=== PATIENT | female | born 1960 | race Caucasian/White ===

== ENCOUNTER → 2016-02-19 | Outpatient (CLI) | payer MEDICAID ==
--- NOTE | 2016-02-19 18:05 | MR ---
Unenhanced MRI of the Brain Clinical History: 55-year-old female with a history of seizures. Technique: Sagittal and axial T1 FLAIR, axial SWI, T2 FLAIR, T2 propeller, DWI and ADC imaging of the brain, sagittal T2 cube and coronal T2 FLAIR sequences are also provided. Comparison Studies: Unenhanced CT scan of the brain dated October 13, 2015, May 20, 2014, and 2012, as well as MR imaging of the brain dated January 02, 2013. Findings: There is mild prominence of the ventricles and basilar cisterns with cortical sulcal wideni ng (given the patient's age of 55 years), consistent with some accelerated atrophy. There is no midli ne shift, or other evidence of mass effect. There is no acute or subacute abnormal intra- or extra-ax ial fluid collection. The SWI sequences do not reveal any blooming artifact to suggest occult hemorrh agic products or amyloid angiopathy. There is no restricted diffusion to suggest acute or subacute in farction. There are some rare left frontal subcortical white matter punctate hyperintensities, which are stable from the prior MR exam, and there is also some chronic white matter change associated with the central aspect of the joseline. There is a mild degree of cerebellar atrophy. The cerebellopontine a ngles and internal auditory canals appear normal, and the mastoids are patent, as are the paranasal s inuses. The craniocervical junction, pineal gland, and orbits are normal. There is mild pituitary hyp erplasia, stable from previous exam. There are appropriate vertebrobasilar, carotid artery, and dural venous sinus flow-voids. The temporal lobes are symmetrical, with no mesial temporal sclerosis appre ciated. Impression: 1. Mildly accelerated atrophy for a 55-year-old. 2. Minimal nonspecific white matter changes in the left frontal subcortex and central joseline. 3. Mild pituitary hyperplasia, unchanged from 2013.
== END ==
LOC: FIMAGING 12:00
PROVIDERS: ATTEND Psychiatry & Neurology Neurology
DX: G31.9 Degenerative disease of nervous system, unspecified (principal)

== ENCOUNTER 2016-04-03 07:46 | Emergency (ER) | payer MEDICAID ==
[2016-04-03 08:04] VITALS: BP 105/90; PULSE 89; RESP 16; TEMP 97.2; O2SAT 94
--- NOTE | 2016-04-03 08:24 | EDPHY ---
H & P Stated Complaint: R LOWER JAW/MOUTH PAIN X2-3 WEEKS, POSSIBLE INFXN HPI/ROS: Chief complaint: Dental abscess History of present illness: This is a 55-year-old female who presents to the emergency department concerned she has a dental abscess. Patient reports she has had problems with her right lower molars for a long time. She states over the last 2 months she has had increased pain in the right lower molar region. She has had associated increasing swelling. Symptoms have been slowly worsening. She has used [id number] pain medications with minimal improvement. She denies other associated signs or symptoms including no fevers , no difficulty opening or closing the mouth, no difficulty swallowing, no difficulty breathing and no swelling of the face or neck. She has not seen a dentist for this problem as of yet. - Personal History LMP (Females 10-55): Post Menopausal Current Tetanus/Diphtheria Vaccine: Yes Current Tetanus Diphtheria and Acellular Pertussis (TDAP): Yes Tetanus Vaccine Date: 2014 - Medical/Surgical History Hx Asthma: No Hx Chronic Respiratory Disease: No Hx Diabetes: No Hx Cardiac Disease: No Hx Renal Disease: No Hx Cirrhosis: No Hx Alcoholism: Yes Hx HIV/AIDS: No Hx Splenectomy or Spleen Trauma: No Other PMH: MEDICAL SEIZURE, DEPRESSION. SURGERY TONSILLECTOMY. ETOH abuse - Social History Smoking Status: Current every day smoker - Physical Exam Exam: General Appearance: Alert, nontoxic. Eyes: Pupils equal and round no injection. ENT: Tympanic membranes, external auditory canals, external ears and surrounding soft tissue including over the mastoids are unremarkable. Nasopharynx is not injected. There is no rhinorrhea. Mouth with poor dental hygiene. Multiple missing molars and cracked and decayed teeth. Significantly eroded right lower 1st molar. There is significant surrounding edema. There is no pustular discharge. Oropharynx is not injected. There is no edema. There is no exudate. There is no asymmetry. The uvula is midline. No elevation of the tongue. There is no hoarseness, no drooling, no trismus, no stridor. Respiratory: Chest is non tender, lungs are clear to auscultation. Cardiac: regular rate and rhythm Musculoskeletal: Neck is supple and non tender. Extremities have full range of motion and are non tender. Skin: No erythema or edema of the face or neck. Constitutional: Initial Vital Signs Temperature (C) 36.2 C 02/26/17 07:50 Heart Rate 89 04/03/16 07:50 Respiratory Rate 16 04/03/16 07:50 Blood Pressure 105/90 H 04/03/16 07:50 O2 Sat (%) 94 04/03/16 07:50 O2 Delivery Mode Room Air Allergies/Adverse Reactions: No Known Allergies Allergy (Verified 10/13/15 15:45) Home Medications: Medication Instructions Recorded Baclofen [Baclofen 10 mg (*)] 10 mg PO BID 10/14/15 FLUoxetine [Prozac 20 MG (*)] 20 mg PO DAILY 10/14/15 levETIRAcetam [Keppra 500 mg (*)] 500 mg PO BID #60 tab 10/16/15 Amoxicillin Trihydrate 500 mg PO Q8 7 Days 04/03/16 [Amoxicillin 500mg cap] Hydrocodone/APAP 5/325 [[place] 1 tab PO Q4 #10 tab 04/03/16 5/325 (*)] Medical Decision Making ED Course/Re-evaluation: Patient seen under the supervision of my secondary supervising physician Dr. Hao Cowart. Patient presents to the emergency department for evaluation and treatment of pain and swelling around her right lower 1st molar. I do believe she has a periodontal infection. I do not appreciate evidence of complications such as compromise of her esophagus or airway. She is started on antibiotics. Dental hygiene is discussed. Pain management is discussed. She is asked to follow up with a dentist for continued evaluation and care and referral information is provided. Strict return precautions were given. Patient voiced understanding and agreement with plan. Differential Diagnosis: Included but not limited to dental parminder, dental abscess, necrotizing gingivitis , osteomyelitis Departure - Departure Disposition: Home, Routine, Self-Care Clinical Impression: Dental abscess Condition: Good Instructions: Dental Abscess (ED) Additional Instructions: Follow-up with a dentist for continued evaluation and care Pressure teeth well and use mouthwash In regards to pain control see the following: Use ibuprofen 600 mg 3 times a day for the next 2-3 days for pain In addition You have been prescribed [place] for pain. [place] contains Tylenol, do not take extra Tylenol/acetaminophen/Apap with it. It is sedating. If symptoms worsen or new symptoms develop return to the emergency department for recheck Referrals: Radha Ramirez, [Primary Care Provider] - As per Instructions [facility] [Outside] - As per Instructions [facility] [Outside] - As per Instructions [facility] [Outside] - As per Instructions Dental [address] [Outside] - As per Instructions [facility] [Outside] - As per Instructions Prescriptions: Amoxicillin Trihydrate [Amoxicillin 500mg cap] 500 mg PO Q8 7 Days Hydrocodone/APAP 5/325 [[place] 5/325 (*)] 1 tab PO Q4 #10 tab
== END 2016-04-03 08:32 | disposition home or self-care (01) ==
LOC: EEVIPCON 07:46
DX: K04.7 Periapical abscess without sinus (principal); F17.200 Nicotine dependence, unspecified, uncomplicated

== ENCOUNTER 2016-04-13 09:43 | Inpatient (IN) | payer MEDICAID ==
[2016-04-13] MEDS ORDERED: LORazepam 2 MG/ML INJ ONE (09:58)
[2016-04-13] MEDS ORDERED: LORazepam 2 MG/ML INJ IVP ONE ×2 (10:09→13:22)
[2016-04-13] MEDS ORDERED: levETIRAcetam 500 MG in NS 100 ML IV ONE (10:10)
--- NOTE | 2016-04-13 10:11 | EDPHY ---
H & P Stated Complaint: SZ Time Seen by Provider: 04/13/16 09:58 HPI/ROS: CHIEF COMPLAINT: Seizures today HISTORY OF PRESENT ILLNESS: The patient presents to the ED after 2-3 seizures earlier today. The patient reportedly has been compliant with her regular gabapentin and Keppra. The patient does have a history of alcohol withdrawal seizure. The patient's reports that he believes that she has been sober since February but cannot be certain that the patient has not recently relapsed. The patient arrived in the ED and had another witnessed seizure by myself. She was unable to provide any additional history secondary to her current postictal state. REVIEW OF SYSTEMS: A comprehensive 10 point review of systems is unobtainable secondary to postictal state Source: Family - Personal History LMP (Females 10-55): Unknown Current Tetanus/Diphtheria Vaccine: Yes Current Tetanus Diphtheria and Acellular Pertussis (TDAP): Yes Tetanus Vaccine Date: 2014 - Medical/Surgical History Hx Asthma: No Hx Chronic Respiratory Disease: No Hx Diabetes: No Hx Cardiac Disease: No Hx Renal Disease: No Hx Cirrhosis: No Hx Alcoholism: Yes Hx HIV/AIDS: No Hx Splenectomy or Spleen Trauma: No Other PMH: MEDICAL SEIZURE, DEPRESSION. SURGERY TONSILLECTOMY. ETOH abuse - Social History Smoking Status: Current every day smoker - Physical Exam Exam: General Appearance: Alert, actively seizing Eyes: Pupils equal and round no pallor or injection ENT, Mouth: Mucous membranes moist Respiratory: There are no retractions, lungs are clear to auscultation Cardiovascular: Regular rate and rhythm Gastrointestinal: Abdomen is soft and nontender, no masses, bowel sounds normal Neurological: Moves all 4 extremities with 5/5 strength, unable to assess cranial nerves Skin: Warm and dry, no rashes Musculoskeletal: Neck is supple nontender Extremities: symmetrical, full range of motion Constitutional: Initial Vital Signs Temperature (C) 36.9 C 04/13/16 09:48 Heart Rate 90 04/13/16 09:48 Respiratory Rate 14 04/13/16 09:48 Blood Pressure 152/105 H 04/13/16 09:48 O2 Sat (%) 96 04/13/16 09:48 O2 Delivery Mode Room Air Allergies/Adverse Reactions: No Known Allergies Allergy (Verified 10/13/15 15:45) Home Medications: Medication Instructions Recorded Baclofen [Baclofen 10 mg (*)] 10 mg PO BID 10/14/15 FLUoxetine [Prozac 20 MG (*)] 20 mg PO DAILY 10/14/15 levETIRAcetam [Keppra 500 mg (*)] 500 mg PO BID #60 tab 10/16/15 Amoxicillin Trihydrate 500 mg PO Q8 7 Days 04/03/16 [Amoxicillin 500mg cap] Hydrocodone/APAP 5/325 [[place] 1 tab PO Q4 #10 tab 04/03/16 5/325 (*)] Medical Decision Making - Diagnostics Imaging: CT head without contrast: Negative for intracranial hemorrhage or acute finding. ED Course/Re-evaluation: The patient was placed on a monitor. Supplemental oxygen was administered. An IV has been established. 1 mg of IV Ativan and 500 mg of IV Keppra have been ordered intravenously. The patient did not have further seizure activity but continued to seem confused beyond atypical expected postictal state. For this reason, the patient did undergo a noncontrast head CT scan which was normal. Patient was re-evaluated at 1:15 p.m.. She continues to be quite confused. She is chewing on her oxygen tubing. The patient is tremulous. I do believe that she is experiencing alcohol withdrawal based upon her history. The patient will require admission to the hospital. I have reviewed her records and see that she has been admitted multiple times before in the past for similar presentation. Consultation is made with the hospitalist service at 1: 20 p.m.. The patient will be admitted by Dr. Rudi Mendez. Differential Diagnosis: Differential diagnosis considered includes alcohol withdrawal seizure, intracranial hemorrhage, status epilepticus, metabolic abnormality - Data Points Laboratory Results: Laboratory Results 04/13/16 10:20 04/13/16 10:20 04/13/16 04/13/16 10:20 10:20 WBC 6.77 10^3/uL 10^3/uL (3.80-9.50) RBC 4.43 10^6/uL 10^6/uL (4.18-5.33) Hgb 13.3 g/dL g/dL (12.6-16.3) Hct 40.0 % % (38.0-47.0) MCV 90.3 fL fL (81.5-99.8) MCH 30.0 pg pg (27.9-34.1) MCHC 33.3 g/dL g/dL (32.4-36.7) RDW 13.6 % % (11.5-15.2) Plt Count 172 10^3/uL 10^3/uL (150-400) MPV 9.6 fL fL (8.7-11.7) Neut % (Auto) 62.6 % % (39.3-74.2) Lymph % (Auto) 28.8 % % (15.0-45.0) [place]ady % (Auto) 7.1 % % (4.5-13.0) Eos % (Auto) 0.1 % L % (0.6-7.6) Baso % (Auto) 0.4 % % (0.3-1.7) Nucleat RBC Rel Count 0.0 % % (0.0-0.2) Absolute Neuts (auto) 4.23 10^3/uL 10^3/uL (1.70-6.50) Absolute Lymphs (auto) 1.95 10^3/uL 10^3/uL (1.00-3.00) Absolute Monos (auto) 0.48 10^3/uL 10^3/uL (0.30-0.80) Absolute Eos (auto) 0.01 10^3/uL L 10^3/uL (0.03-0.40) Absolute Basos (auto) 0.03 10^3/uL 10^3/uL (0.02-0.10) Absolute Nucleated RBC 0.00 10^3/uL 10^3/uL (0-0.01) Immature Gran % 1.0 % % (0.0-1.1) Immature Gran # 0.07 10^3/uL 10^3/uL (0.00-0.10) Sodium 138 mEq/L mEq/L (134-144) Potassium 4.3 mEq/L mEq/L (3.5-5.2) Chloride 99 mEq/L mEq/L (97-110) Carbon Dioxide 17 mEq/l L mEq/l (22-31) Anion Gap 22 mEq/L H mEq/L (8-16) BUN 8 mg/dL mg/dL (7-23) Creatinine 0.5 mg/dL L mg/dL (0.6-1.0) Estimated GFR > 60 Glucose 187 mg/dL H mg/dL (70-100) Calcium 9.6 mg/dL mg/dL (8.5-10.4) Medications Given: Discontinued Medications Levetiracetam 500 mg/ Sodium (Chloride) 105 mls @ 420 mls/hr IV EDNOW ONE Stop: 04/13/16 10:24 Last Admin: 04/13/16 10:50 Dose: 105 mls Lorazepam (Ativan Injection) 1 mg IVP EDNOW ONE Stop: 04/13/16 10:10 Last Admin: 04/13/16 10:15 Dose: 1 mg Departure - Departure Disposition: [facility] Inpatient Acute Clinical Impression: Seizure disorder, Alcohol withdrawal, Altered mental state Condition: Fair
[2016-04-13 10:37] LABS: ABSOLUTE IMMATURE GRANULOCYTES 0.07 10^3/uL (0.00-0.10); ADD DIFF? NO; ADD MORPH? NO; ADD SCAN? NO; ATYPICAL LYMPHOCYTE FLAG 30 (0-99); FRAGMENT RBC FLAG 0 (0-99); HEMOGLOBIN 13.3 g/dL (12.6-16.3); LEFT SHIFT FLG 10 (0-99); LIPEMIA HEMOLYSIS FLAG 80 (0-99); MEAN CELL HEMOGLOBIN CONCENTR. 33.3 g/dL (32.4-36.7); MEAN CELL VOLUME 90.3 fL (81.5-99.8); MEAN PLATELET VOLUME 9.6 fL (8.7-11.7); PLATELET CLUMPS FLAG 10 (0-99); PLATELET COUNT 172 10^3/uL (150-400); RED BLOOD CELL COUNT 4.43 10^6/uL (4.18-5.33); RED CELL DISTRIBUTION WIDTH 13.6 % (11.5-15.2)
[2016-04-13 11:01] LABS: ANION GAP 22 mEq/L (8-16); CALCIUM 9.6 mg/dL (8.5-10.4); CARBON DIOXIDE 17 mEq/l (22-31); CHLORIDE 99 mEq/L (97-110); CREATININE 0.5 mg/dL (0.6-1.0); GLOMERULAR FILTRATION RATE > 60; GLUCOSE 187 mg/dL (70-100); POTASSIUM 4.3 mEq/L (3.5-5.2); SODIUM 138 mEq/L (134-144)
[2016-04-13] MEDS ORDERED: NS 1,000 ML IV ONE (13:22)
[2016-04-13] MEDS ORDERED: THIAMINE HCL 500 MG in NS 100 ML IV ONE ×2 (14:07→15:30)
[2016-04-13] MEDS ORDERED: LORazepam 2 MG/ML INJ IVP PRN (14:07)
[2016-04-13] MEDS ORDERED: ACETAMINOPHEN 325 MG TAB PO PRN (14:11)
[2016-04-13] MEDS ORDERED: ONDANSETRON DISINTEGRATING 4 MG TAB PO PRN (14:11)
[2016-04-13] MEDS ORDERED: ONDANSETRON 4 MG/2 ML VIAL IVP PRN (14:11)
--- NOTE | 2016-04-13 14:50 | GHP ---
[f rep st] HISTORY AND PHYSICAL DATE OF ADMISSION: 04/13/2016 HISTORY OF PRESENT ILLNESS: The patient is a 55-year-old female with history of alcoholism and seizure disorder that is separate from alcohol use as well as medication noncompliance who presents with seizures. When I speak with the patient, she is postictal, actively stooling herself and unable to answer questions with much apparent insight. She has multiple pill bottles by her bedside, including a bottle of Keppra that was filled in December that should be well emptied by now and it is over 1/2 full with at least 100 tablets; it was filled for 180. Her Neurontin is also quite full. This is of course suggestive of medication noncompliance as well as some amoxicillin which she is taking for a tooth abscess. She denies headache, fever, chills, nausea, vomiting, and she states her alcohol use has been less. It has perhaps been 2 weeks since her last drink. REVIEW OF SYSTEMS: Complete 10-point review of systems conducted. Negative as noted in the HPI. PAST MEDICAL HISTORY: 1. Seizure disorder. 2. Medication noncompliance. 3. Alcoholism. 4. Recent abscess tooth. SOCIAL HISTORY: She is currently living with her sister. She smokes cigarettes. Alcohol as above. Denies street drugs. FAMILY HISTORY: Her brother of complications of a seizure disorder. MEDICATIONS: Keppra, Neurontin, amoxicillin, fluoxetine, [place]. ALLERGIES: No known drug allergies. PHYSICAL EXAM: VITAL SIGNS: Presenting blood pressure 152/105, pulse 92, breathing 14 times a minute, 96% on room air. GENERAL: No acute distress. HEENT: Sclerae anicteric. Oropharynx clear. Her right posterior molar is missing. There is an edematous gum, but it is nonerythematous. There is no foul breath or pus. NECK: Supple. No lymphadenopathy or JVD. LUNGS: Clear to auscultation bilaterally. HEART: S1, S2 without murmurs. ABDOMEN: Soft, nontender, nondistended. LOWER EXTREMITIES: No edema. Calves are nontender. SKIN: Without rash. NEUROLOGIC: Notable for postictal patient but otherwise nonfocal. LABS: White count 6.7, hematocrit 40, platelets are 172,000. History of normal coags, none today. Sodium 138, potassium 4.3, chloride 99, bicarb 17, BUN 8, creatinine 0.5, glucose 187, no LFTs. Noncontrast head CT shows small vessel changes but no acute bleed. I reviewed/interpreted the images myself, and I discussed the case with Dr. Luke Gonsalez. ASSESSMENT/PLAN: A 55-year-old female who presents with seizure. 1. Seizure. I suspect this is secondary to medication noncompliance given her history as well as inappropriately full medication bottles at the bedside. She is receiving Keppra in the emergency department. I will start her on IV Keppra. At this point in time, it is not clear if she can take orals. Will continue her Neurontin as well. 2. Anion gap metabolic acidosis. She is postictal. I expect this to improve. We will not perform further workup at this time unless there is a clinical status change. 3. Alcoholism. I will place her on CIWA protocol. However, I suspect that her seizure is not active alcohol withdrawal. Notably she is neither tachycardic, and while she was hypertensive on presentation, her blood pressure has come down. 4. Abscessed tooth. She received about 8 days of antibiotics. I will not continue them. She does not have a white count. 5. Diarrhea. Patient was having liquid diarrhea as I was seeing her, will send for Clostridium difficile. 6. Prophylaxis. Pharmacologic prophylaxis indicated with low-molecular heparin. DISPOSITION: Inpatient status. ADDENDUM: UPON ARRIVAL TO [facility], the patient became febrile and triggered sepsis screen. still unable to provide much history 1. cxr, UA, blood cx, influenza 2. awaiting cdiff 3. hold on broad spectrum abx given concern for possible cdiff /[id number]/MODL MTDD
[2016-04-13 14:51] LABS: BILIRUBIN,TOTAL 1.6 mg/dL (0.1-1.4); BILIRUBIN-CONJUGATED 0.6 mg/dL (0.0-0.5); TOTAL PROTEIN 8.7 g/dL (6.3-8.2)
[2016-04-13 17:32] LABS: INR 1.15 (0.83-1.16); PROTIME(PATIENT) 14.6 SEC (12.0-15.0)
[2016-04-13] MEDS: DEXMEDETOMIDINE HCL 400 MCG in NS 100 ML IV SCH (19:45)
[2016-04-13] MEDS: NS 1,000 ML IV SCH (19:45)
[2016-04-13] MEDS: GABAPENTIN 300 MG CAP PO SCH (21:03)
[2016-04-13] MEDS: LORazepam 2 MG/ML INJ IVP PRN (21:03)
[2016-04-13] MEDS: levETIRAcetam 500 MG in NS 100 ML IV SCH (21:06)
[2016-04-13] MEDS ORDERED: GABAPENTIN 300 MG CAP PO SCH (22:00)
[2016-04-14] MEDS: LORazepam 2 MG/ML INJ IVP PRN (02:16)
[2016-04-14] MEDS: DEXMEDETOMIDINE HCL 400 MCG in NS 100 ML IV SCH (02:41)
[2016-04-14] MEDS: NS 1,000 ML IV SCH (02:46)
[2016-04-14 04:43] LABS: ANION GAP 11 mEq/L (8-16); CALCIUM 8.8 mg/dL (8.5-10.4); CARBON DIOXIDE 21 mEq/l (22-31); CHLORIDE 103 mEq/L (97-110); CREATININE 0.4 mg/dL (0.6-1.0); GLOMERULAR FILTRATION RATE > 60; GLUCOSE 143 mg/dL (70-100); MAGNESIUM 1.5 mg/dL (1.6-2.3); POTASSIUM 3.5 mEq/L (3.5-5.2); SODIUM 135 mEq/L (134-144)
[2016-04-14 04:56] LABS: % IMMATURE GRANULYOCYTES 0.1 % (0.0-1.1); ABSOLUTE IMMATURE GRANULOCYTES 0.01 10^3/uL (0.00-0.10); ADD DIFF? NO; ADD MORPH? NO; ADD SCAN? NO; ATYPICAL LYMPHOCYTE FLAG 30 (0-99); FRAGMENT RBC FLAG 0 (0-99); HEMATOCRIT 33.7 % (38.0-47.0); LEFT SHIFT FLG 10 (0-99); LIPEMIA HEMOLYSIS FLAG 90 (0-99); MEAN CELL HEMOGLOBIN 30.4 pg (27.9-34.1); MEAN CELL HEMOGLOBIN CONCENTR. 35.6 g/dL (32.4-36.7); MEAN CELL VOLUME 85.3 fL (81.5-99.8); MEAN PLATELET VOLUME 9.4 fL (8.7-11.7); PLATELET CLUMPS FLAG 10 (0-99); PLATELET COUNT 122 10^3/uL (150-400); RED BLOOD CELL COUNT 3.95 10^6/uL (4.18-5.33); RED CELL DISTRIBUTION WIDTH 13.3 % (11.5-15.2)
[2016-04-14] MEDS: GABAPENTIN 300 MG CAP PO SCH ×2 (05:54→13:01)
[2016-04-14] MEDS: levETIRAcetam 500 MG in NS 100 ML IV SCH (08:19)
[2016-04-14] MEDS ORDERED: FLUoxetine 20 MG CAP PO SCH ×2 (09:00)
[2016-04-14] MEDS ORDERED: ENOXAPARIN 40 MG/0.4 ML SYR SC SCH (09:00)
[2016-04-14 12:08] VITALS: TEMP 98.7
--- NOTE | 2016-04-14 13:28 | PDCONSULT ---
[employer] Note: HOSPITAL NEUROLOGY CONSULT REQUESTING: Rafael Buck MD REASON: seizure HPI: This is a 55-year-old right-handed woman with a history of seizures and alcoholism who presented to our facility with multiple convulsions. She also had a witnessed convulsion in the emergency department. Patient is an unreliable historian as she is disoriented and actively confabulating. There is report that she has a seizure disorder that may be independent of her alcohol abuse. She had been taking levetiracetam 500 mg twice daily, however, it seems she has not been compliant with this as there is a medication bottle that is helpful from December of 2015. Same goes for gabapentin. Patient states that she has been compliant with her medication and when asked where she gets her medications filled she tells me she gets them " at [facility] where they have medicines, gas and electronics." It is unclear when she consumed her last alcoholic beverage-the patient states it was 1 week ago, but she is unreliable. There is no family or friends at bedside to provide any collateral history. She has been restarted on levetiracetam and gabapentin. She is currently on alcohol withdrawal precautions. She has been seizure free since admission to the floor. ROS: As per the HPI, otherwise a complete 12 point ROS was performed and is negative ALLERGIES AND MEDS: As recorded in the EMR - reviewed and reconciled PFSH: As per the intake H&P by Dr. Mendez from 04/12/16 EXAM: GEN: WDWN laying in NAD HEENT: NCAT, sclera anicteric, conjunctiva not injected, MMM, oropharynx clear, no scalp tenderness, no tongue laceration NECK: supple, nontender, no meningismus CV: RRR s1 s2 wo m/r/c/g. Carotid pulses 2+ wo bruit NEURO: MS: awake, alert, oriented to self only. She is impulsive, trying to exit the bed on multiple occasions despite being reminded not to do so. She has reduced attention. She is confabulating. Speech nondysarthric. No language disturbance. Follows commands with prompting. Attends to both sides. Memory is grossly impaired in casual conversation. Mood euthymic. Poor insight and judgement. No active hallucinations. CN: pupils 4mm round and reactive. Intolerant of fundoscopy. VFF. Primary gaze centered. Full ocular motility, though smooth pursuit with saccadic intrusion and motor impersistence. Facial sensation preserved. Face symmetric. Hearing grossly intact to finger rub. Palatoglossal movements intact. Shoulder shrug and head turn strong. MOTOR: normal bulk/tone. No adventitial movements. Full power throughout. SENSORY: intact to all modalities throughout. No extinction. COORD: no ataxia FN/HS. Harry preserved. REFLEX: plantars down. No clonus. DTRS 3/4. GAIT: deferred to PT safety eval DATA REVIEW: Labs reviewed in EMR PERSONALLY INTERPRETED RESULTS AND DATA: CT head wo shows global volume loss, nothing acute IMPRESSION AND RECOMMENDATIONS: // SEIZURES // ALCOHOL ABUSE // WERNICKE SPECTRUM DISORDER Patient with multiple convulsions on a background of alcohol abuse and a possible underlying primary epilepsy. She is clearly not compliant with her medication. Unclear if alcohol withdrawal is also a factor. She has been restarted on her prior antiseizure drug regimen. She is on a symptom-triggered alcohol withdrawal protocol. I would add multivitamin and thiamine supplements given her confabulation, disorientation which is highly suspect for Wernicke spectrum encephalopathy which is likely from the ravages of chronic and excessive alcohol consumption. She is likely going to need long-term placement given her cognitive status and medication noncompliance/inability to safely care for herself. Case discussed with Dr. Buck. Will sign off. Please recall PRN.
[2016-04-14] MEDS ORDERED: MULTIVITAMINS 1 EACH TAB PO SCH (13:30)
[2016-04-14] MEDS ORDERED: THIAMINE HCL 100 MG TAB PO SCH (13:30)
[2016-04-14 14:23] VITALS: BP 144/82; PULSE 75; RESP 23; O2SAT 98
[2016-04-14 14:35] LABS: COLOR PALE YELLOW; LEUKOCYTE ESTERASE,URINE NEGATIVE (NEGATIVE); NITRITE,URINE NEGATIVE (NEGATIVE)
--- NOTE | 2016-04-14 15:55 | PDDCSUM ---
Discharge Summary Discharge Summary: DISCHARGE SUMMARY FOLLOW-UP ITEMS: Outpatient mental health DATE OF ADMISSION: 04/13/16 DATE OF DISCHARGE: 04/14/2016 DISCHARGE DIAGNOSES: 1. Acute seizure 2. Acute alcohol abuse 3. Suspected Wernicke disorder CONSULTATIONS: Neurology PROCEDURES / IMAGING: Head CT demonstrating white matter disease comma chest x-ray with no focal pneumonia CHIEF COMPLAINT: Acute reported seizure SUBJECTIVE: Patient is feeling well at time of discharge, she is ambulating safely, she seems delusional but does not seem to be experiencing active psychosis or danger to self PHYSICAL EXAM ON DISCHARGE: Systolic blood pressure is 100, heart rate 70, afebrile, satting well on room air, alert awake oriented x3 with good concentration 08/12, cranial nerves 2-12 are intact and tested, motor strength 5/5 bilateral upper and lower extremities , lungs clear to auscultation bilaterally, the patient is delusional based on collateral information supplied by her partner and the patient is reporting details about her life that he reports are completely inaccurate, the patient also intermittently engages in inappropriate behavior during neurologic exam LABS ON DISCHARGE: Creatinine 0.4, potassium 3.5, AST 56, white blood cell count 8400, hemoglobin 12, flu PCR negative HOSPITAL COURSE BY PROBLEM: 1. Acute seizure. The patient presented with multiple convulsions with a background of alcohol abuse and possible underlying primary epilepsy with medication non adherence. Is also unclear whether acute alcohol withdrawal may have been a contributing factor although the patient did not present with significant alcohol withdrawal symptoms. The patient has clearly been non adherent to her home medications and we recommended that she reinitiate these. We re-initiated these and she did not experience any subsequent seizures. She was seen in consultation by Neurology data power consultant, and they recommended outpatient follow-up. 2. Alcohol abuse. Patient has a history of alcohol abuse and alcohol consumption may be contributing to her seizure disorder as well as her Wernicke spectrum disorder. Recommended alcohol cessation. She did not experience significant alcohol withdrawal. 3. Suspected Wernicke disorder. Evidenced by confabulation, disorientation, intermittent inappropriate behavior during our neurologic exam. She has a long history of excessive alcohol consumption and it is difficult to delineate her present state from either a work E spectrum disorder or an underlying untreated mental health disorder. Her partner reports fax which seemed to be quite contrary to what the patient is currently stating, raising the concern for delusional beliefs. That being said, the patient does not appear to be actively experiencing psychosis does not appear to be a grave danger to herself or others. The partner did request a psychiatric evaluation and I initiated 1 with our [facility] service. We were in the process of providing the patient with a mental health evaluation when the patient decided to leave against medical advice. Despite our recommendations that she received this mental health evaluation, patient has decided to leave and since she is not on M1 hold she will be allowed to do so at this time. Unfortunately the patient has no insight into her present condition and her partner reports that she is resistant to seeking a mental health care in the outpatient setting. We recommend that the time of her next presentation a mental health trigger be initiated earlier. DISCHARGE MEDICATIONS: Please see official discharge medication reconciliation sheet in chart , all of her home medications were continued. DISCHARGE INSTRUCTIONS: Patient should follow up with [facility]. TIME SPENT: Greater than 30 minutes were spent on direct patient care, as well as discharge planning and preparation.
== END 2016-04-14 15:21 | disposition left against medical advice (07) | DRG 101 ==
LOC: F2N 15:12
PROVIDERS: ADMIT Internal Medicine; ATTEND Internal Medicine
DX: G40.909 Epilepsy, unspecified, not intractable, without status epilepticus (principal); E87.2 Acidosis; F10.96 Alcohol use, unspecified with alcohol-induced persisting amnestic disorder; T42.6X6A Underdosing of other antiepileptic and sedative-hypnotic drugs, initial encounter; K04.7 Periapical abscess without sinus; R19.7 Diarrhea, unspecified; Z72.0 Tobacco use
CPT/HCPCS: 92523-GN; 96365; 97161-GP; 97165-GO; J1650; J1953; J3411

== ENCOUNTER 2016-07-09 12:09 | Emergency (ER) | payer MEDICAID ==
[2016-07-09 12:18] VITALS: RESP 18
--- NOTE | 2016-07-09 13:25 | EDPHY ---
H & P Time Seen by Provider: 07/09/16 12:55 HPI/ROS: CHIEF COMPLAINT: Seizure HISTORY OF PRESENT ILLNESS: Patient is a 55-year-old female who presents to the emergency department after having a seizure. Per report the patient recalls that she had a seizure. She has been drinking alcohol today. She drinks regularly. She denies any trauma. She has had no headache, neck pain or back pain. No chest pain or shortness of breath. No abdominal pain. REVIEW OF SYSTEMS: My complete review of systems is negative except as mentioned in the HPI. Past Medical/Surgical History: Includes alcohol abuse, seizure disorder, depression, tooth abscess Past surgical history: Includes tonsillectomy Social history: The patient is drinking alcohol today. Smoking Status: Current every day smoker Physical Exam: Vitals noted. The heart rate 88 GENERAL: Well-appearing, in no acute distress, alert. HEENT: Eyes normal to inspection, normal pharynx, no signs of dehydration. NECK: No thyromegaly, no lymphadenopathy, supple. RESPIRATORY: Clear to auscultation bilaterally, no rales, rhonchi or wheezing. CVS: Regular rate and rhythm, no rubs, murmurs, or gallops. ABDOMEN: Soft, nontender, nondistended, no organomegaly. Upon touching her sugar to perform the abdominal exam I found a bottle of vodka in her pants. This was removed. BACK: Normal to inspection, no CVA tenderness. SKIN: Normal color, no rash, warm, dry. No pallor. EXTREMITIES: No pedal edema, no calf tenderness, no Homans sign or cords, no joint swelling. NEURO/PSYCH: Alert and oriented x3, normal mood and affect, normal motor sensory exam. No obvious cranial nerve deficit. Constitutional: Initial Vital Signs Temperature (C) 36.9 C 07/09/16 12:09 Heart Rate 88 07/09/16 12:09 Respiratory Rate 18 07/09/16 12:09 Blood Pressure 112/71 07/09/16 12:09 O2 Sat (%) 91 L 07/09/16 12:09 O2 Delivery Mode Room Air Allergies/Adverse Reactions: No Known Allergies Allergy (Verified 10/13/15 15:45) Home Medications: Medication Instructions Recorded FLUoxetine [Prozac 20 MG (*)] 20 mg PO DAILY 10/14/15 levETIRAcetam [Keppra 500 mg (*)] 500 mg PO BID #60 tab 10/16/15 Gabapentin [Neurontin 300 MG (*)] 300 mg PO Q8HRS 04/13/16 Medical Decision Making ED Course/Re-evaluation: In the emergency department I discussed seizures with the patient. I also discussed alcohol abuse. Patient will be sent to the [facility]. She was able to ambulate. Differential Diagnosis: Patient reports drinking alcohol today. She has a history of seizures. She has no signs of trauma exam. I doubt subarachnoid, subdural hematoma or epidural hematoma. I doubt skull fracture or spinal injury. She has no signs of trauma on her chest abdomen or pelvis. She ambulates without difficulty. Departure - Departure Disposition: Home, Routine, Self-Care Clinical Impression: Alcohol abuse, Seizure Condition: Good Instructions: Epilepsy (ED), Abuse of Alcohol (ED) Additional Instructions: Return with worsening symptoms or any other concerns. Follow up with primary care physician. Referrals: [facility] [Other] - 2-3 days, if not improved
[2016-07-09 14:12] VITALS: BP 113/79; PULSE 82; TEMP 98.6; O2SAT 95
== END 2016-07-09 14:15 | disposition home or self-care (01) ==
LOC: EDUNIT#
DX: G40.909 Epilepsy, unspecified, not intractable, without status epilepticus (principal); F10.10 Alcohol abuse, uncomplicated; F17.200 Nicotine dependence, unspecified, uncomplicated

== ENCOUNTER 2016-08-03 09:05 | Emergency (ER) | payer MEDICAID ==
[2016-08-03] MEDS ORDERED: NS 1,000 ML IV ONE (09:14)
[2016-08-03] MEDS ORDERED: ONDANSETRON 4 MG/2 ML VIAL IVP ONE (09:14)
[2016-08-03] MEDS ORDERED: levETIRAcetam 1,000 MG in NS 100 ML IV ONE (09:18)
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
--- NOTE | 2016-08-03 09:30 | CPEKG ---
Heart Rate: 89 RR Interval: 674 P-R Interval: 176 QRSD Interval: 96 QT Interval: 412 QTC Interval: 502 P [place]: 44 QRS [place]: 38 T Wave [place]: 55 EKG Severity - BORDERLINE ECG - EKG Impression: SINUS RHYTHM EKG Impression: BORDERLINE PROLONGED QT INTERVAL Electronically Signed By: Prabha Ansari 03-Aug-2016 09:52:28
[2016-08-03 10:31] LABS: % IMMATURE GRANULYOCYTES 0.4 % (0.0-1.1); ABSOLUTE IMMATURE GRANULOCYTES 0.01 10^3/uL (0.00-0.10); ADD DIFF? NO; ADD MORPH? NO; ADD SCAN? NO; ATYPICAL LYMPHOCYTE FLAG 0 (0-99); FRAGMENT RBC FLAG 0 (0-99); HEMATOCRIT 39.8 % (38.0-47.0); HEMOGLOBIN 13.8 g/dL (12.6-16.3); LEFT SHIFT FLG 10 (0-99); LIPEMIA HEMOLYSIS FLAG 90 (0-99); MEAN CELL HEMOGLOBIN CONCENTR. 34.7 g/dL (32.4-36.7); MEAN CELL VOLUME 89.4 fL (81.5-99.8); MEAN PLATELET VOLUME 9.8 fL (8.7-11.7); PLATELET CLUMPS FLAG 60 (0-99); PLATELET COUNT 81 10^3/uL (150-400); RED BLOOD CELL COUNT 4.45 10^6/uL (4.18-5.33); RED CELL DISTRIBUTION WIDTH 17.5 % (11.5-15.2)
[2016-08-03 10:56] LABS: ANION GAP 22 mEq/L (8-16); CALCIUM 9.9 mg/dL (8.5-10.4); CARBON DIOXIDE 16 mEq/l (22-31); CHLORIDE 100 mEq/L (97-110); CREATININE 0.5 mg/dL (0.6-1.0); ETHANOL SERUM 12 mg/dL (0-10); GLOMERULAR FILTRATION RATE > 60; GLUCOSE 108 mg/dL (70-100); MAGNESIUM 1.3 mg/dL (1.6-2.3); POTASSIUM 3.7 mEq/L (3.5-5.2); SODIUM 138 mEq/L (134-144)
[2016-08-03] MEDS ORDERED: THIAMINE HCL 100 MG in NS 100 ML IV ONE (11:08)
[2016-08-03] MEDS ORDERED: MAGNESIUM SULF 1 GM/DEXTROSE 100 ML IV ONE (11:08)
[2016-08-03] MEDS ORDERED: FOLIC ACID 1 MG TAB PO ONE (11:10)
[2016-08-03 11:37] VITALS: O2SAT 94
[2016-08-03 11:41] LABS: COLOR YELLOW; LEUKOCYTE ESTERASE,URINE NEGATIVE (NEGATIVE); NITRITE,URINE NEGATIVE (NEGATIVE)
[2016-08-03 11:42] LABS: MUCUS 1+ /lpf (NONE-1+)
[2016-08-03 12:40] VITALS: BP 138/67; PULSE 81; RESP 18; TEMP 98.6
== END 2016-08-03 12:41 | disposition home or self-care (01) ==
LOC: EDUNIT#
DX: G40.909 Epilepsy, unspecified, not intractable, without status epilepticus (principal); F10.10 Alcohol abuse, uncomplicated; E83.42 Hypomagnesemia; E86.9 Volume depletion, unspecified
CPT/HCPCS: 80305; 96365; G0480; J1953; J2405; J3411; J3475

== ENCOUNTER 2016-08-05 09:09 | Emergency (ER) | payer MEDICAID ==
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
[2016-08-05] MEDS ORDERED: levETIRAcetam 500 MG in NS 100 ML IV ONE (09:34)
[2016-08-05 10:23] LABS: % IMMATURE GRANULYOCYTES 0.2 % (0.0-1.1); ABSOLUTE IMMATURE GRANULOCYTES 0.01 10^3/uL (0.00-0.10); ADD DIFF? NO; ADD MORPH? NO; ADD SCAN? NO; ATYPICAL LYMPHOCYTE FLAG 0 (0-99); FRAGMENT RBC FLAG 0 (0-99); HEMATOCRIT 38.6 % (38.0-47.0); HEMOGLOBIN 13.1 g/dL (12.6-16.3); LEFT SHIFT FLG 10 (0-99); LIPEMIA HEMOLYSIS FLAG 90 (0-99); MEAN CELL HEMOGLOBIN 31.3 pg (27.9-34.1); MEAN CELL HEMOGLOBIN CONCENTR. 33.9 g/dL (32.4-36.7); MEAN CELL VOLUME 92.3 fL (81.5-99.8); MEAN PLATELET VOLUME 10.4 fL (8.7-11.7); PLATELET CLUMPS FLAG 0 (0-99); PLATELET COUNT 81 10^3/uL (150-400); RED BLOOD CELL COUNT 4.18 10^6/uL (4.18-5.33); RED CELL DISTRIBUTION WIDTH 17.2 % (11.5-15.2)
[2016-08-05 10:37] LABS: ANION GAP 25 mEq/L (8-16); CARBON DIOXIDE 17 mEq/l (22-31); CHLORIDE 96 mEq/L (97-110); CREATININE 0.5 mg/dL (0.6-1.0); GLOMERULAR FILTRATION RATE > 60; GLUCOSE 77 mg/dL (70-100); SODIUM 138 mEq/L (134-144)
[2016-08-05] MEDS ORDERED: NS 1,000 ML IV ONE (10:44)
[2016-08-05 13:30] LABS: LEUKOCYTE ESTERASE,URINE NEGATIVE (NEGATIVE); NITRITE,URINE NEGATIVE (NEGATIVE)
[2016-08-05 13:31] LABS: COLOR YELLOW
[2016-08-05 13:38] LABS: MUCUS 2+ /lpf (NONE-1+)
[2016-08-05] MEDS ORDERED: POTASSIUM CL 20 MEQ TAB ONE (23:20)
[2016-08-05] MEDS ORDERED: POTASSIUM CL 20 MEQ TAB PO ONE (23:21)
[2016-08-05] MEDS ORDERED: LORazepam 1 MG TAB ONE (23:53)
[2016-08-05] MEDS ORDERED: LORazepam 1 MG TAB PO ONE (23:55)
[2016-08-06] MEDS ORDERED: POTASSIUM CL 20 MEQ TAB ONE (02:08)
[2016-08-06] MEDS ORDERED: POTASSIUM CL 20 MEQ TAB PO ONE (02:17)
[2016-08-06 09:16] LABS: POTASSIUM 4.4 mEq/L (3.5-5.2)
[2016-08-06] MEDS ORDERED: levETIRAcetam 500 MG TAB PO SCH (13:15)
[2016-08-06 18:34] VITALS: BP 133/90; PULSE 90; RESP 18; TEMP 98.6; O2SAT 99
== END 2016-08-06 18:34 | disposition home or self-care (01) ==
LOC: EDUNIT#
DX: F23 Brief psychotic disorder (principal); F17.200 Nicotine dependence, unspecified, uncomplicated
CPT/HCPCS: 80305; 96365; J1953

== ENCOUNTER 2016-08-07 20:33 | Emergency (ER) | payer MEDICAID ==
--- NOTE | 2016-08-07 20:46 | CPEKG ---
Heart Rate: 91 RR Interval: 659 P-R Interval: 168 QRSD Interval: 92 QT Interval: 368 QTC Interval: 453 P [place]: -11 QRS [place]: 49 T Wave [place]: 54 EKG Severity - OTHERWISE NORMAL ECG - EKG Impression: SINUS RHYTHM EKG Impression: LOW VOLTAGE IN FRONTAL LEADS Electronically Signed By: Samina Nelson 07-Aug-2016 22:59:05
[2016-08-07 21:18] LABS: % IMMATURE GRANULYOCYTES 0.3 % (0.0-1.1); ABSOLUTE IMMATURE GRANULOCYTES 0.01 10^3/uL (0.00-0.10); ADD DIFF? NO; ADD MORPH? NO; ADD SCAN? NO; ATYPICAL LYMPHOCYTE FLAG 0 (0-99); FRAGMENT RBC FLAG 0 (0-99); HEMOGLOBIN 13.5 g/dL (12.6-16.3); LEFT SHIFT FLG 0 (0-99); LIPEMIA HEMOLYSIS FLAG 90 (0-99); MEAN CELL HEMOGLOBIN 31.5 pg (27.9-34.1); MEAN CELL HEMOGLOBIN CONCENTR. 33.8 g/dL (32.4-36.7); MEAN CELL VOLUME 93.5 fL (81.5-99.8); MEAN PLATELET VOLUME 9.9 fL (8.7-11.7); PLATELET CLUMPS FLAG 30 (0-99); PLATELET COUNT 134 10^3/uL (150-400); RED BLOOD CELL COUNT 4.28 10^6/uL (4.18-5.33); RED CELL DISTRIBUTION WIDTH 17.6 % (11.5-15.2)
--- NOTE | 2016-08-07 21:20 | EDPHY ---
H & P Smoking Status: Current every day smoker Time Seen by Provider: 08/07/16 20:43 HPI/ROS: CHIEF COMPLAINT: Possible seizure HISTORY OF PRESENT ILLNESS: 56-year-old female presents to the emergency department by ambulance after possible seizure. Patient states "I know I had a seizure." The patient thinks that she bit her tongue. She says that she was incontinent of urine. There was no clear history by EMS that she had confusion or postictal state. She is complaining of pain in her left shoulder with movement. She denies chest pain or difficulty breathing. Denies headache. Denies abdominal pain. The patient states that she does drink alcohol but she limits herself to "2 drinks per week." She denies any other illicit drug use. She states that she has a seizure disorder and she takes prescribed medication for this. She does not know the name of this medication. REVIEW OF SYSTEMS: Constitutional: No fever, no chills. Eyes: No double or blurry vision. ENT: No sore throat. Respiratory: No cough, no shortness of breath. Cardiac: No chest pain. Gastrointestinal: No abdominal pain, vomiting or diarrhea. Genitourinary: No dysuria. Musculoskeletal: No neck or back pain. Skin: No rashes. Neurological: No headache. (Valeria Arias) Past Medical/Surgical History: Seizure, tonsillectomy, depression (Valeria Arias) Social History: (Valeria Arias) Physical Exam: General Appearance: Alert, no distress. Vital signs are stable. Eyes: Pupils equal and round. Extraocular motions are all intact. ENT: Mouth: Mucous membranes moist. No tongue abrasion or laceration. Respiratory: No wheezing, rhonchi, or rales, lungs are clear to auscultation. Cardiovascular: Regular rate and rhythm. Gastrointestinal: Abdomen is soft and nontender, no masses, no rebound or guarding, bowel sounds normal. Neurological: Alert and oriented x 3, cranial nerves II through XII grossly intact Skin: Warm and dry, no rashes. Musculoskeletal: Nontender to palpate along the cervical, thoracic or lumbar spine. Neck is supple. Extremities: Pain with movement of her left shoulder. Pump Servicer strength is equal for the upper extremities bilaterally. Full range of motion of her lower extremities and her right upper extremity. Full range of motion of her left wrist and left elbow. Psychiatric: Patient is oriented X 3, there is no agitation. (Valeria Arias) Constitutional: Initial Vital Signs Temperature (C) 36.0 C 08/07/16 20:33 Heart Rate 90 08/07/16 20:33 Respiratory Rate 16 08/07/16 20:33 Blood Pressure 110/76 08/07/16 20:33 O2 Sat (%) 99 08/07/16 20:33 O2 Delivery Mode Nasal Cannula O2 (L/minute) 2 Allergies/Adverse Reactions: No Known Allergies Allergy (Verified 08/03/16 09:12) Home Medications: Medication Instructions Recorded FLUoxetine [Prozac 20 MG (*)] 20 mg PO DAILY 10/14/15 Gabapentin [Neurontin 300 MG (*)] 300 mg PO Q8HRS 04/13/16 levETIRAcetam [Keppra 500 mg (*)] 500 mg PO BID #14 tab 08/03/16 levETIRAcetam [Keppra 500 mg (*)] 500 mg PO BID #14 tab 08/06/16 Medical Decision Making - Diagnostics Imaging Results: Imaging Impressions Shoulder X-Ray 08/07/16 21:12 Impression: Nothing acute identified. ED Course/Re-evaluation: The patient was evaluated and managed by the physician's front end assistant. My cosignature indicates that I reviewed the chart and I agree with the findings and plan of care as documented. I am the secondary supervising physician. ( Samina Nelson) The case was discussed with Dr. Samina Nelson, secondary supervising physician , who did not directly evaluate the patient but agrees with treatment and plan. Patient's initial sodium was 150. This was compared with her previous emergency department visit 2 days ago and was normal at 138. She received IV normal saline , 1 L, and then her chemistries were repeated. Her sodium was 148. ETOH 441. The patient was monitored throughout her entire stay in the emergency department. She had no recurring seizure activity. She pulled her IV out on her own. She is drinking p.o. fluids. [facility] Patient has no complaints upon discharge. She states "I feel pretty damn sober. "Verdana 4r (Valeria Arias) Differential Diagnosis: Seizure including but not limited to electrolyte abnormality, alcohol withdrawal , medication noncompliance, head injury, and breakthrough seizure. (Valeria Arias) - Data Points Laboratory Results: Laboratory Results 08/07/16 21:05 08/07/16 22:20 08/07/16 08/07/16 08/07/16 22:20 21:05 21:05 WBC 3.01 10^3/uL L 10^3/uL (3.80-9.50) RBC 4.28 10^6/uL 10^6/uL (4.18-5.33) Hgb 13.5 g/dL g/dL (12.6-16.3) Hct 40.0 % % (38.0-47.0) MCV 93.5 fL fL (81.5-99.8) MCH 31.5 pg pg (27.9-34.1) MCHC 33.8 g/dL g/dL (32.4-36.7) RDW 17.6 % H % (11.5-15.2) Plt Count 134 10^3/uL L D 10^3/uL (150-400) MPV 9.9 fL fL (8.7-11.7) Neut % (Auto) 25.3 % L % (39.3-74.2) Lymph % (Auto) 52.8 % H % (15.0-45.0) [place] % (Auto) 19.3 % H % (4.5-13.0) Eos % (Auto) 1.0 % % (0.6-7.6) Baso % (Auto) 1.3 % % (0.3-1.7) Nucleat RBC Rel Count 0.0 % % (0.0-0.2) Absolute Neuts (auto) 0.76 10^3/uL L 10^3/uL (1.70-6.50) Absolute Lymphs (auto) 1.59 10^3/uL 10^3/uL (1.00-3.00) Absolute Monos (auto) 0.58 10^3/uL 10^3/uL (0.30-0.80) Absolute Eos (auto) 0.03 10^3/uL 10^3/uL (0.03-0.40) Absolute Basos (auto) 0.04 10^3/uL 10^3/uL (0.02-0.10) Absolute Nucleated RBC 0.00 10^3/uL 10^3/uL (0-0.01) Immature Gran % 0.3 % % (0.0-1.1) Immature Gran # 0.01 10^3/uL 10^3/uL (0.00-0.10) Sodium 148 mEq/L H mEq/L 150 mEq/L H mEq/L (134-144) (134-144) Potassium 3.6 mEq/L mEq/L 3.6 mEq/L mEq/L (3.5-5.2) (3.5-5.2) Chloride 114 mEq/L H mEq/L 108 mEq/L D mEq/L (97-110) (97-110) Carbon Dioxide 23 mEq/l mEq/l 23 mEq/l D mEq/l (22-31) (22-31) Anion Gap 11 mEq/L mEq/L 19 mEq/L H mEq/L (8-16) (8-16) BUN 8 mg/dL mg/dL 9 mg/dL mg/dL (7-23) (7-23) Creatinine 0.4 mg/dL L mg/dL 0.5 mg/dL L mg/dL (0.6-1.0) (0.6-1.0) Estimated GFR > 60 > 60 Glucose 93 mg/dL mg/dL 103 mg/dL H mg/dL (70-100) (70-100) Calcium 8.3 mg/dL L mg/dL 9.6 mg/dL mg/dL (8.5-10.4) (8.5-10.4) Ethyl Alcohol 441 mg/dL H* mg/dL (0-10) Medications Given: Discontinued Medications Sodium Chloride (Ns) 1,000 mls @ 0 mls/hr IV ONCE ONE PRN Reason: Wide Open Stop: 08/07/16 21:34 Last Admin: 08/07/16 21:40 Dose: 1,000 mls Sodium Chloride (Ns) 1,000 mls @ 0 mls/hr IV ONCE ONE PRN Reason: Wide Open Stop: 08/07/16 22:59 Last Admin: 08/07/16 23:30 Dose: Not Given Departure - Departure Disposition: Home, Routine, Self-Care Clinical Impression: Possible seizure Alcohol intoxication Qualifiers: Complication of substance-induced condition: uncomplicated Qualified Code(s): F10.920 - Alcohol use, unspecified with intoxication, uncomplicated Condition: Good Instructions: Nonepileptic Seizures (ED), Alcohol Intoxication (ED) Additional Instructions: Continue medications as prescribed. You should not drive a car or operate machinery until cleared by your neurologist. Return to the emergency department if you develop recurring seizure or any other concerns. Referrals: [facility] [Outside] - As per Instructions
[2016-08-07 21:28] LABS: ANION GAP 19 mEq/L (8-16); CALCIUM 9.6 mg/dL (8.5-10.4); CARBON DIOXIDE 23 mEq/l (22-31); CHLORIDE 108 mEq/L (97-110); CREATININE 0.5 mg/dL (0.6-1.0); GLOMERULAR FILTRATION RATE > 60; GLUCOSE 103 mg/dL (70-100); POTASSIUM 3.6 mEq/L (3.5-5.2); SODIUM 150 mEq/L (134-144)
[2016-08-07] MEDS ORDERED: NS 1,000 ML IV ONE ×2 (21:33→22:58)
[2016-08-07 21:50] LABS: ETHANOL SERUM 441 mg/dL (0-10)
[2016-08-07 22:40] LABS: ANION GAP 11 mEq/L (8-16); CALCIUM 8.3 mg/dL (8.5-10.4); CARBON DIOXIDE 23 mEq/l (22-31); CHLORIDE 114 mEq/L (97-110); CREATININE 0.4 mg/dL (0.6-1.0); GLOMERULAR FILTRATION RATE > 60; GLUCOSE 93 mg/dL (70-100); POTASSIUM 3.6 mEq/L (3.5-5.2); SODIUM 148 mEq/L (134-144)
[2016-08-08] MEDS ORDERED: CHLORDIAZEPOXIDE 25MG PREPK#6 BTL TAKEHOME ONE (00:45)
[2016-08-08 00:53] VITALS: BP 133/77; PULSE 74; RESP 16; TEMP 97.9; O2SAT 96
== END 2016-08-08 00:57 | disposition home or self-care (01) ==
LOC: EDUNIT#
DX: F10.120 Alcohol abuse with intoxication, uncomplicated (principal); F17.200 Nicotine dependence, unspecified, uncomplicated
CPT/HCPCS: G0480

== ENCOUNTER 2016-08-08 19:18 | Emergency (ER) | payer MEDICAID ==
[2016-08-08 19:28] VITALS: TEMP 98.6
[2016-08-08] MEDS ORDERED: levETIRAcetam 1,000 MG in NS 100 ML IV ONE (19:36)
[2016-08-08] MEDS ORDERED: FLUoxetine 20 MG CAP PO ONE (19:36)
[2016-08-08] MEDS ORDERED: GABAPENTIN 300 MG CAP PO ONE (19:36)
--- NOTE | 2016-08-08 19:40 | EDPHY ---
H & P Time Seen by Provider: 08/08/16 19:30 HPI/ROS: CHIEF COMPLAINT: Medication refill request HISTORY OF PRESENT ILLNESS: 56-year-old homeless female history of depression, seizure, seen emergency department last evening and [facility], states that she lost her medications which are: Prozac 20 mg once daily Neurontin 300 mg 3 times daily Keppra 5 mg twice daily She has not taken any dosages today. No seizure today. No suicidal or homicidal ideation. Complaints of pain or discomfort. PRIMARY CARE PROVIDER: [facility] PHYSICAL EXAM (Prior to examination, patient consented to physical exam, hands were washed and my usual and customary physical exam procedures followed) 1) GENERAL: Well-developed, well-nourished, alert and oriented. Appears to be in no acute distress. 2) HEAD: Normocephalic 3) HEENT: sclera anicteric 4) LUNGS: Breathing comfortably. Smoking Status: Current every day smoker Constitutional: Initial Vital Signs Temperature (C) 37 C 08/08/16 19:26 Heart Rate 93 08/08/16 19:26 Respiratory Rate 16 08/08/16 19:26 Blood Pressure 119/66 08/08/16 19:26 O2 Sat (%) 94 08/08/16 19:26 O2 Delivery Mode Room Air Allergies/Adverse Reactions: No Known Allergies Allergy (Verified 08/08/16 19:26) Home Medications: Medication Instructions Recorded FLUoxetine [Prozac 20 MG (*)] 20 mg PO DAILY 10/14/15 Gabapentin [Neurontin 300 MG (*)] 300 mg PO Q8HRS 04/13/16 levETIRAcetam [Keppra 500 mg (*)] 500 mg PO BID #14 tab 08/03/16 levETIRAcetam [Keppra 500 mg (*)] 500 mg PO BID #14 tab 08/06/16 FLUoxetine [Prozac 20 MG (*)] 20 mg PO DAILY #3 cap 08/08/16 Gabapentin [Neurontin 300 MG (*)] 300 mg PO Q8 #9 cap 08/08/16 levETIRAcetam [Keppra 500 mg (*)] 500 mg PO BID #6 tab 08/08/16 MDM/Departure - MDM ED Course/Re-evaluation: Patient has been given her dose this evening of Prozac, Neurontin, Keppra. I have given her refill of these medications to last her 3 days as the 09 of August holiday is tomorrow. I recommend [facility] for further refills. - Depart Disposition: Home, Routine, Self-Care Clinical Impression: Refill clinic medication management patient Condition: Good Instructions: Medicine Refill (ED) Prescriptions: FLUoxetine [Prozac 20 MG (*)] 20 mg PO DAILY #3 cap Gabapentin [Neurontin 300 MG (*)] 300 mg PO Q8 #9 cap levETIRAcetam [Keppra 500 mg (*)] 500 mg PO BID #6 tab Referrals: Radha Ramirez DO [Primary Care Provider] - 1-2 days without fail
[2016-08-08] MEDS ORDERED: levETIRAcetam 500 MG TAB PO ONE (19:55)
[2016-08-08 20:09] VITALS: BP 126/72; PULSE 90; RESP 18; O2SAT 97
== END 2016-08-08 20:09 | disposition home or self-care (01) ==
DX: Z76.0 Encounter for issue of repeat prescription (principal); F17.200 Nicotine dependence, unspecified, uncomplicated
CPT/HCPCS: J1953

== ENCOUNTER 2016-08-10 22:22 | Emergency (ER) | payer MEDICAID ==
[2016-08-10] MEDS ORDERED: NS 1,000 ML IV ONE (22:27)
[2016-08-10] MEDS ORDERED: levETIRAcetam 1,000 MG in NS 100 ML IV ONE (22:30)
--- NOTE | 2016-08-10 22:30 | EDPHY ---
H & P HPI/ROS: HPI CHIEF COMPLAINT: Alcohol Intoxication, Left shoulder pain, fall, ?SZ HISTORY OF PRESENT ILLNESS: This patient 56-year-old female, presents emergency room by EMS after she was found on the sidewalk highly intoxicated with alcohol. She was brought in by EMS as a bystander called 911. She does tell EMS as well as me that she fell last night and injured her left shoulder. She has had ongoing left shoulder pain. She admits to drinking large amount of liquor tonight. Denies any other areas of injury or pain. Patient tells me she does not remember the seizure medications she takes and is not always compliant with them. Past Medical History: Alcoholism, homeless, seizure disorder on Keppra Past Surgical History: No recent surgery Social History: Homeless, daily alcohol use Family History: Noncontributory ROS REVIEW OF SYSTEMS: A comprehensive 10 point review of systems is otherwise negative aside from elements mentioned in the history of present illness. Exam Constitutional Intoxicated, triage nursing summary reviewed, vital signs reviewed, Sleepy, smells of alcohol Eyes normal conjunctivae and sclera, horizontal beating nystagmus consistent acute alcohol intoxication, otherwise pupils equal and react to light HENT normal inspection, atraumatic, moist mucus membranes, no epistaxis, neck supple/ no meningismus, no raccoon eyes. Respiratory clear to auscultation bilaterally, normal breath sounds, no respiratory distress, no wheezing. Cardiovascular rate normal, regular rhythm, no murmur, no edema, distal pulses normal. Gastrointestinal soft, non-tender, no rebound, no guarding, normal bowel sounds, no distension, no pulsatile mass. Genitourinary no CVA tenderness. Musculoskeletal no midline vertebral tenderness, full range of motion, no calf swelling, no tenderness of extremities, no meningismus, good pulses, neurovascularly intact. Skin pink, warm, & dry, no rash, skin atraumatic. Neurologic sleepy, intoxicated with alcohol,, alert and oriented x 3, AAOx3, moves all 4 extremities equally, motor intact, sensory intact, CN II-XII intact , , normal vision, normal speech. Psychiatric normal mood/affect. Heme/Lymph/Immune no lymphadenopathy. Differential Diagnosis: Includes but is not limited to in a particular order acute alcohol intoxication, alcohol abuse, dehydration, electrolyte abnormality , nausea vomiting from acute alcohol intoxication Medical Decision Making: Plan for this patient IV establishment, 1 g IV Keppra , check basic labs, breath alcohol. IV fluid bolus. Left shoulder x-ray. Re-evaluation: 2338: Patient breath alcohol 277. 0105AM: Re-evaluation at this time patient resting comfortably. 0124AM: Patient ambulated well here clinically sober. Stable gait. No ataxia. , cooperative. Received 1 g IV Keppra. She has a prescription for Keppra. She will be [facility] to the [facility]. Source: Patient, EMS - Personal History Tetanus Vaccine Date: 2014 - Medical/Surgical History Hx Asthma: No Hx Chronic Respiratory Disease: No Hx Diabetes: No Hx Cardiac Disease: No Hx Renal Disease: No Hx Cirrhosis: No Hx Alcoholism: Yes Hx HIV/AIDS: No Hx Splenectomy or Spleen Trauma: No Other PMH: MEDICAL SEIZURE, DEPRESSION. SURGERY TONSILLECTOMY. ETOH abuse, abcess tooth. - Social History Smoking Status: Current every day smoker Constitutional: Initial Vital Signs Temperature (C) 36.3 C 08/10/16 22:31 Heart Rate 75 08/10/16 22:31 Respiratory Rate 18 08/10/16 22:31 Blood Pressure 107/79 08/10/16 22:31 O2 Sat (%) 98 08/10/16 22:31 O2 Delivery Mode Room Air Allergies/Adverse Reactions: No Known Allergies Allergy (Verified 08/10/16 22:34) Home Medications: Medication Instructions Recorded FLUoxetine [Prozac 20 MG (*)] 20 mg PO DAILY 10/14/15 Gabapentin [Neurontin 300 MG (*)] 300 mg PO Q8HRS 04/13/16 levETIRAcetam [Keppra 500 mg (*)] 500 mg PO BID #14 tab 08/03/16 levETIRAcetam [Keppra 500 mg (*)] 500 mg PO BID #14 tab 08/06/16 FLUoxetine [Prozac 20 MG (*)] 20 mg PO DAILY #3 cap 08/08/16 Gabapentin [Neurontin 300 MG (*)] 300 mg PO Q8 #9 cap 08/08/16 levETIRAcetam [Keppra 500 mg (*)] 500 mg PO BID #6 tab 08/08/16 Medical Decision Making - Diagnostics Imaging Results: Imaging Impressions Shoulder X-Ray 08/10/16 22:28 Impression: Stable negative left shoulder radiographs. - Data Points Laboratory Results: Laboratory Results 08/10/16 23:15 08/10/16 23:15 08/10/16 08/10/16 23:15 23:15 WBC 3.08 10^3/uL L 10^3/uL (3.80-9.50) RBC 4.27 10^6/uL 10^6/uL (4.18-5.33) Hgb 13.4 g/dL g/dL (12.6-16.3) Hct 39.1 % % (38.0-47.0) MCV 91.6 fL fL (81.5-99.8) MCH 31.4 pg pg (27.9-34.1) MCHC 34.3 g/dL g/dL (32.4-36.7) RDW 18.0 % H % (11.5-15.2) Plt Count 172 10^3/uL 10^3/uL (150-400) MPV 9.5 fL fL (8.7-11.7) Neut % (Auto) 19.6 % L % (39.3-74.2) Lymph % (Auto) 62.3 % H % (15.0-45.0) [place] % (Auto) 14.9 % H % (4.5-13.0) Eos % (Auto) 1.9 % % (0.6-7.6) Baso % (Auto) 1.0 % % (0.3-1.7) Nucleat RBC Rel Count 0.0 % % (0.0-0.2) Absolute Neuts (auto) 0.60 10^3/uL L 10^3/uL (1.70-6.50) Absolute Lymphs (auto) 1.92 10^3/uL 10^3/uL (1.00-3.00) Absolute Monos (auto) 0.46 10^3/uL 10^3/uL (0.30-0.80) Absolute Eos (auto) 0.06 10^3/uL 10^3/uL (0.03-0.40) Absolute Basos (auto) 0.03 10^3/uL 10^3/uL (0.02-0.10) Absolute Nucleated RBC 0.00 10^3/uL 10^3/uL (0-0.01) Immature Gran % 0.3 % % (0.0-1.1) Immature Gran # 0.01 10^3/uL 10^3/uL (0.00-0.10) Sodium 152 mEq/L H mEq/L (134-144) Potassium 3.1 mEq/L L mEq/L (3.5-5.2) Chloride 108 mEq/L mEq/L (97-110) Carbon Dioxide 24 mEq/l mEq/l (22-31) Anion Gap 20 mEq/L H mEq/L (8-16) BUN 10 mg/dL mg/dL (7-23) Creatinine 0.5 mg/dL L mg/dL (0.6-1.0) Estimated GFR > 60 Glucose 84 mg/dL mg/dL (70-100) Calcium 9.0 mg/dL mg/dL (8.5-10.4) Medications Given: Discontinued Medications Sodium Chloride (Ns) 1,000 mls @ 0 mls/hr IV ONCE ONE PRN Reason: Wide Open Stop: 08/10/16 22:28 Last Admin: 08/10/16 23:19 Dose: 1,000 mls Levetiracetam 1,000 mg/ Sodium (Chloride) 110 mls @ 440 mls/hr IV EDNOW ONE Stop: 08/10/16 22:44 Last Admin: 08/10/16 23:24 Dose: 110 mls Departure - Departure Disposition: Home, Routine, Self-Care Clinical Impression: Alcohol intoxication Qualifiers: Complication of substance-induced condition: uncomplicated Qualified Code(s): F10.920 - Alcohol use, unspecified with intoxication, uncomplicated Condition: Good Instructions: Alcohol Intoxication (ED) Referrals: Patient,NotPresent [Unknown] - As per Instructions
[2016-08-10 22:33] VITALS: TEMP 97.3
[2016-08-10 23:23] LABS: % IMMATURE GRANULYOCYTES 0.3 % (0.0-1.1); ABSOLUTE IMMATURE GRANULOCYTES 0.01 10^3/uL (0.00-0.10); ADD DIFF? NO; ADD MORPH? NO; ADD SCAN? NO; ATYPICAL LYMPHOCYTE FLAG 40 (0-99); FRAGMENT RBC FLAG 0 (0-99); HEMATOCRIT 39.1 % (38.0-47.0); HEMOGLOBIN 13.4 g/dL (12.6-16.3); LEFT SHIFT FLG 0 (0-99); LIPEMIA HEMOLYSIS FLAG 90 (0-99); MEAN CELL HEMOGLOBIN 31.4 pg (27.9-34.1); MEAN CELL HEMOGLOBIN CONCENTR. 34.3 g/dL (32.4-36.7); MEAN CELL VOLUME 91.6 fL (81.5-99.8); MEAN PLATELET VOLUME 9.5 fL (8.7-11.7); PLATELET CLUMPS FLAG 10 (0-99); PLATELET COUNT 172 10^3/uL (150-400); RED BLOOD CELL COUNT 4.27 10^6/uL (4.18-5.33)
[2016-08-10 23:56] LABS: ANION GAP 20 mEq/L (8-16); CARBON DIOXIDE 24 mEq/l (22-31); CHLORIDE 108 mEq/L (97-110); CREATININE 0.5 mg/dL (0.6-1.0); GLOMERULAR FILTRATION RATE > 60; GLUCOSE 84 mg/dL (70-100); POTASSIUM 3.1 mEq/L (3.5-5.2); SODIUM 152 mEq/L (134-144)
[2016-08-11] MEDS ORDERED: CHLORDIAZEPOXIDE 25MG PREPK#6 BTL TAKEHOME ONE (01:24)
[2016-08-11 01:37] VITALS: BP 103/68; PULSE 88; RESP 18; O2SAT 95
== END 2016-08-11 03:03 | disposition home or self-care (01) ==
LOC: EDUNIT#
DX: F10.920 Alcohol use, unspecified with intoxication, uncomplicated (principal); F17.200 Nicotine dependence, unspecified, uncomplicated; W19.XXXA Unspecified fall, initial encounter; Y92.480 Sidewalk as the place of occurrence of the external cause
CPT/HCPCS: 96374; J1953

== ENCOUNTER 2016-08-22 04:09 | Emergency (ER) | payer MEDICAID ==
--- NOTE | 2016-08-22 04:15 | EDPHY ---
H & P - Personal History Tetanus Vaccine Date: 2014 - Medical/Surgical History Hx Asthma: No Hx Chronic Respiratory Disease: No Hx Diabetes: No Hx Cardiac Disease: No Hx Renal Disease: No Hx Cirrhosis: No Hx Alcoholism: Yes Hx HIV/AIDS: No Hx Splenectomy or Spleen Trauma: No Other PMH: MEDICAL SEIZURE, DEPRESSION. SURGERY TONSILLECTOMY. ETOH abuse, abcess tooth. - Social History Smoking Status: Current every day smoker HPI/ROS: Chief Complaint: Left shoulder neck pain status post fall HPI: 56-year-old homeless woman well known to the emergency department is being brought in this morning after she had a mechanical fall landing on her left shoulder. Does states she has been drinking this morning. Also has a seizure history and thinks she may have had a seizure but does remember falling and landing on her left hand side. Does not believe she had a loss of consciousness. Is complaining of primarily left shoulder pain. She was incontinent of urine. Denies any other recent illness. No fevers or chills. No chest pain. No abdominal pain. No other extremity injuries. ROS: 10 point Review of Systems is negative except as noted in the HPI. PMH: Homeless, chronic alcohol abuse Social History: Positive smoking, positive alcohol, no recreational drug use Family History: non-contributory Physical Exam: Gen: Awake, Alert, smells strongly of alcohol in urine HEENT: Nose: no rhinorrhea Eyes: PERRLA, EOMI Mouth: Moist mucosa Neck: Supple, cervical collar is in place, moderate midline tenderness at C3-C4 , no step-offs or crepitus Chest: nontender, lungs clear to auscultation Heart: S1, S2 normal, no murmur Abd: Soft, non-tender, no guarding Back: no CVA tenderness, no midline tenderness Ext: no edema, no deformity. Moderate anterior left shoulder joint tenderness to palpation, patient unwilling to move her shoulder secondary to pain. Skin: no rash Neuro: CN II-XII intact, Sensation grossly intact, Strength 5/5 in bilateral upper and lower extremities (Eduardo Real) Constitutional: Initial Vital Signs Temperature (C) 35.2 C L 08/22/16 04:20 Heart Rate 59 L 08/22/16 04:20 Respiratory Rate 16 08/22/16 04:20 Blood Pressure 128/88 H 08/22/16 04:20 O2 Sat (%) 98 07/17/17 04:20 O2 Delivery Mode Room Air O2 (L/minute) 3 Allergies/Adverse Reactions: No Known Allergies Allergy (Verified 08/10/16 22:34) Home Medications: Medication Instructions Recorded FLUoxetine [Prozac 20 MG (*)] 20 mg PO DAILY #3 cap 08/08/16 Gabapentin [Neurontin 300 MG (*)] 300 mg PO Q8 #9 cap 08/08/16 levETIRAcetam [Keppra 500 mg (*)] 500 mg PO BID #6 tab 08/08/16 Medical Decision Making - Diagnostics Imaging Results: Imaging Impressions Cervical Spine X-Ray 08/22/16 04:13 Impression: There is no acute cervical osseous and amounted identified; however , if there is further clinical concern, either CT or MR imaging is suggested. Shoulder X-Ray 08/22/16 04:13 Impression: No acute abnormality. Hand X-Ray 08/22/16 08:17 Impression: Fractures involving the second and third metacarpal head/neck junctions. Left shoulder x-ray are not optimal views but I am unable to appreciate any significant injury at this time. C-spine x-ray shows no acute injury at this time. (Eduardo Real) ED Course/Re-evaluation: 56-year-old woman complaining of left shoulder pain status post fall. Of note she was here on the 2nd and the 5th this month also complaining of pain in the left shoulder. No obvious injuries on x-rays at this time. Will lower her to clear her mental status emergency department reassess. Patient states that she has been taking her seizure medication regularly. Pt cervical spine cleared by me. She has full range of motion without pain. Patient is unable to ambulate at this time secondary to her alcohol. The be able to discharge when clinically sober. (Eduardo Real) Other Provider: Care assumed at 6:50 a.m. with plan for discharge when clinically sober. Left hand x-ray personally interpreted shows minimally angled and displaced fractures of the middle and index metacarpal heads. Plan for splinting and orthopedic follow-up. Procedure: Splint placement. A left hand Ortho Glass splint was applied. After application of the splint I returned and re-examined the patient. The splint was adequately immobilizing the joint and distal to the splint the patient's circulation and sensation was intact. 908: Alert, clinically sober, ambulatory and stable for discharge. Hand x-ray results and follow-up plan discussed. Nontender over the spleen. (Hao Cowart) Departure - Departure Disposition: Home, Routine, Self-Care Clinical Impression: Alcoholic intoxication Qualifiers: Complication of substance-induced condition: uncomplicated Qualified Code(s): F10.920 - Alcohol use, unspecified with intoxication, uncomplicated Shoulder pain Qualifiers: Chronicity: acute Metacarpal bone fracture Qualifiers: Encounter type: initial encounter Metacarpal bone: third Fracture type: closed Metacarpal location: other portion of metacarpal Condition: Good Instructions: Alcohol Intoxication (ED), Shoulder Pain (ED) Additional Instructions: Your x-ray showed a normal left shoulder, but fractures in the bones of your hand at the base of your middle and index fingers in the palm of the hand. Please wear the splint, and follow-up with Dr. Alejo the hand specialist later this week in the office. Follow up with your doctor at the [facility] in 2-3 days for re-evaluation. Referrals: [facility],. [Clinic] - As per Instructions Rudi Alejo MD [Medical Doctor] - As per Instructions
[2016-08-22 04:23] VITALS: RESP 16
[2016-08-22 06:05] VITALS: TEMP 97.2
[2016-08-22 08:10] VITALS: TEMP 97.9
[2016-08-22 09:27] VITALS: BP 108/71; PULSE 85; O2SAT 93
== END 2016-08-22 09:27 | disposition home or self-care (01) ==
LOC: EDUNIT# → EEVIPCON 04:09
DX: S62.391A Other fracture of second metacarpal bone, left hand, initial encounter for closed fracture (principal); S62.393A Other fracture of third metacarpal bone, left hand, initial encounter for closed fracture; S49.92XA Unspecified injury of left shoulder and upper arm, initial encounter; F17.200 Nicotine dependence, unspecified, uncomplicated; F10.920 Alcohol use, unspecified with intoxication, uncomplicated; W18.39XA Other fall on same level, initial encounter
CPT/HCPCS: A4565

== ENCOUNTER 2016-08-22 18:29 | Emergency (ER) | payer MEDICAID ==
--- NOTE | 2016-08-22 18:58 | EDPHY ---
H & P Stated Complaint: FELL DOWN WHILE WALKING Time Seen by Provider: 08/22/16 18:45 HPI/ROS: CHIEF COMPLAINT: Seizure, hand pain HISTORY OF PRESENT ILLNESS: This is a 56-year-old female presenting to the emergency department via EMS. This report given patient was found on the ground EMS was called. Patient arousable upon EMS arrival, patient AMS no seizure activity questionable postictal. ED arrival patient awake oriented x3, states was here this morning for alcohol withdrawal seizure and hand injury. After reviewing old records patient was discharged from [facility] at 9:16 a.m., alcohol withdrawal seizure, and 3rd and 4th metacarpal fractures. Patient did not present with splint on left hand. Patient states her last drink was 3 days ago he declined to go to [facility] this morning with Librium. Also reports last dose of Keppra and gabapentin 2 days ago. REVIEW OF SYSTEMS: Constitutional: No fever, no chills. Eyes: No discharge. No blurred vision ENT: No sore throat. Cardiovascular: No chest pain, no palpitations. Respiratory: No cough, no shortness of breath. Gastrointestinal: No abdominal pain, no vomiting. Genitourinary: No hematuria. Musculoskeletal: No back pain. Left hand /wrist pain Skin: No rashes. Neurological: No headache. Source: Patient, Old records - Personal History LMP (Females 10-55): Unknown Current Tetanus/Diphtheria Vaccine: Yes Current Tetanus Diphtheria and Acellular Pertussis (TDAP): Yes Tetanus Vaccine Date: 2014 - Medical/Surgical History Hx Asthma: No Hx Chronic Respiratory Disease: No Hx Diabetes: No Hx Cardiac Disease: No Hx Renal Disease: No Hx Cirrhosis: No Hx Alcoholism: Yes Hx HIV/AIDS: No Hx Splenectomy or Spleen Trauma: No Other PMH: MEDICAL SEIZURE, DEPRESSION. SURGERY TONSILLECTOMY. ETOH abuse, abcess tooth. - Social History Smoking Status: Current every day smoker - Physical Exam Exam: General Appearance: Alert, no distress. Eyes: Normocephalic atraumatic. Pupils equal and round no pallor or injection. ENT, Mouth: Mucous membranes moist. No oral lesions lacerations no malocclusion Respiratory: There are no retractions, lungs are clear to auscultation. Cardiovascular: Regular rate and rhythm. Gastrointestinal: Abdomen is soft and nontender, no masses, bowel sounds normal. Neurological: No focal deficits. Answering questions appropriately. Non tremulous Skin: Warm and dry, no rashes. Musculoskeletal: Vertebral cervical spine nontender on palpation. Full range of motion Extremities: Left wrist left hand tenderness on palpation. Decreased range of motion due to pain and swelling. Positive swelling noted to left hand at the 3rd 4th and 5th metacarpal no obvious deformity. Psychiatric: Patient is oriented X 3, there is no agitation. Constitutional: Initial Vital Signs Temperature (C) 37.1 C 08/22/16 18:34 Heart Rate 87 08/22/16 18:34 Respiratory Rate 18 08/22/16 18:34 Blood Pressure 100/65 08/22/16 18:34 O2 Sat (%) 91 L 08/22/16 18:34 O2 Delivery Mode Room Air Allergies/Adverse Reactions: No Known Allergies Allergy (Verified 08/22/16 18:34) Home Medications: Medication Instructions Recorded FLUoxetine [Prozac 20 MG (*)] 20 mg PO DAILY #3 cap 08/08/16 Gabapentin [Neurontin 300 MG (*)] 300 mg PO Q8 #9 cap 08/08/16 levETIRAcetam [Keppra 500 mg (*)] 500 mg PO BID #6 tab 08/08/16 Medical Decision Making - Diagnostics Imaging Results: Imaging Impressions Hand X-Ray 08/22/16 19:00 Impression: No new fracture with persistent fractures of the distal shafts of the second and third metacarpals. ED Course/Re-evaluation: Discussed ED plan of care: IV fluids, CBC, BMP, a repeat x-ray of left hand 2109: Patient ambulatory without gait disturbance. Not in any distress. AAO x3 , no focal deficits. New splint ortho glass placed to left hand. 2119: Patient agreed to go to the [facility] with Librium. Discharge---> stable, discussed all discharge instructions with patient Differential Diagnosis: Other differential diagnosis considered but not limited to alcohol intoxication , AMS due to alcohol intoxication, wrist fracture - Data Points Medications Given: Discontinued Medications Chlordiazepoxide (Librium 25 Mg Prepack#6) 1 btl TAKEHOME EDNOW ONE Stop: 08/22/16 21:22 Last Admin: 08/22/16 21:27 Dose: 1 btl Departure - Departure Disposition: Home, Routine, Self-Care Clinical Impression: Seizure due to alcohol withdrawal Qualifiers: Complication of substance-induced condition: uncomplicated Qualified Code(s): F10.230 - Alcohol dependence with withdrawal, uncomplicated Metacarpal bone fracture Qualifiers: Encounter type: subsequent encounter Metacarpal bone: unspecified metacarpal Fracture type: closed Metacarpal location: base Fracture morphology: unspecified fracture morphology Fracture alignment: displaced Fracture healing: with nonunion Qualified Code(s): S62.319K - Displaced fracture of base of unspecified metacarpal bone, subsequent encounter for fracture with nonunion Condition: Good Instructions: Chlordiazepoxide/Clidinium (By mouth), Hand Fracture (ED), Alcohol Withdrawal (ED) Additional Instructions: 1. Leave splint on until follow-up with Orthopedics as directed by previous provider 2. Follow up with primary care provider [facility] tomorrow Referrals: Radha Ramirez DO [Primary Care Provider] - As per Instructions David Ortega MD [Medical Doctor] - As per Instructions
[2016-08-22] MEDS ORDERED: CHLORDIAZEPOXIDE 25MG PREPK#6 BTL TAKEHOME ONE (21:21)
[2016-08-22 21:29] VITALS: BP 96/60; PULSE 69; RESP 16; TEMP 97.9; O2SAT 93
== END 2016-08-22 21:28 | disposition home or self-care (01) ==
LOC: EDUNIT#
DX: S62.31 Displaced fracture of base of other metacarpal bone (principal); F10.230 Alcohol dependence with withdrawal, uncomplicated; F17.200 Nicotine dependence, unspecified, uncomplicated; X58.XXXD Exposure to other specified factors, subsequent encounter
CPT/HCPCS: A4565

== ENCOUNTER 2016-08-27 03:22 | Emergency (ER) | payer OTHER, MEDICAID ==
--- NOTE | 2016-08-27 03:35 | EDPHY ---
H & P Time Seen by Provider: 08/27/16 03:27 HPI/ROS: CHIEF COMPLAINT: Medical clearance HISTORY OF PRESENT ILLNESS: The patient is a 56-year-old Alcoholic homeless female with a history of seizures who [facility]. She was seen here on the and has fractures of the distal metacarpals of her left 2nd and 3rd digit after a seizure or fall. She had splinting placed at that time. She returned later that day because she had removed the splint and was having pain. It was replaced and repeat x-ray showed no new displacement of fractures. Tonight she was arrested and the [facility] nurse felt that Her hand looked discolored and had poor capillary refill. She was sent her here for evaluation. REVIEW OF SYSTEMS: Constitutional: denies: chills, fever, recent illness, recent injury EENTM: denies: blurred vision, double vision, nose congestion Respiratory: denies: cough, shortness of breath Cardiac: denies: chest pain, irregular heart rate, lightheadedness, palpitations Gastrointestinal/Abdominal: denies: abdominal pain, diarrhea, nausea, vomiting, blood streaked stools Genitourinary: denies: dysuria, frequency, hematuria, pain Musculoskeletal: See HPI Skin: denies: lesions, rash, jaundice, bruising Neurological: denies: headache, numbness, paresthesia, tingling, dizziness, weakness Hematologic/Lymphatic: denies: blood clots, easy bleeding, easy bruising Immunologic/allergic: denies: HIV/AIDS, transplant EXAM: GENERAL: Well-appearing, well-nourished and in no acute distress. HEAD: Atraumatic, normocephalic. EYES: Pupils equal round and reactive to light, extraocular movements intact, sclera anicteric, conjunctiva are normal. ENT: TMs normal, nares patent, oropharynx clear without exudates. Moist mucous membranes. NECK: Normal range of motion, supple without lymphadenopathy or JVD. LUNGS: Breath sounds clear to auscultation bilaterally and equal. No wheezes rales or rhonchi. HEART: Regular rate and rhythm without murmurs, rubs or gallops. ABDOMEN: Soft, nontender, normoactive bowel sounds. No guarding, no rebound. No masses appreciated. BACK: No CVA tenderness, no spinal tenderness, step-offs or deformities EXTREMITIES: Left hand with significant bruising and swelling. Normal movement and sensation. Normal capillary refill no upper arm pain or tenderness. NEUROLOGICAL: Cranial nerves II through XII grossly intact. Normal speech, normal gait. 5/5 strength, normal movement in all extremities, normal sensation PSYCH: Normal mood, normal affect. SKIN: Warm, dry, normal turgor, no visible rashes or lesions. Source: Patient Exam Limitations: No limitations - Personal History Tetanus Vaccine Date: 2014 - Medical/Surgical History Hx Asthma: No Hx Chronic Respiratory Disease: No Hx Diabetes: No Hx Cardiac Disease: No Hx Renal Disease: No Hx Cirrhosis: No Hx Alcoholism: Yes Hx HIV/AIDS: No Hx Splenectomy or Spleen Trauma: No Other PMH: MEDICAL SEIZURE, DEPRESSION. SURGERY TONSILLECTOMY. ETOH abuse, abcess tooth. - Family History Significant Family History: No pertinent family hx - Social History Smoking Status: Current every day smoker Alcohol Use: Heavy Drug Use: None Constitutional: Initial Vital Signs Temperature (C) 36.4 C 08/27/16 03:41 Heart Rate 69 08/27/16 03:41 Respiratory Rate 18 08/27/16 03:41 Blood Pressure 127/95 H 08/27/16 03:41 O2 Sat (%) 96 08/27/16 03:41 O2 Delivery Mode Room Air Allergies/Adverse Reactions: No Known Allergies Allergy (Verified 08/22/16 18:34) Home Medications: Medication Instructions Recorded FLUoxetine [Prozac 20 MG (*)] 20 mg PO DAILY #3 cap 08/08/16 Gabapentin [Neurontin 300 MG (*)] 300 mg PO Q8 #9 cap 08/08/16 levETIRAcetam [Keppra 500 mg (*)] 500 mg PO BID #6 tab 08/08/16 Medical Decision Making Procedures: Procedure: Splint placement. A volar wrist splint was applied. After application of the splint I returned and re-examined the patient. The splint was adequately immobilizing the joint and distal to the splint the patient's circulation and sensation was intact. ED Course/Re-evaluation: The patient's splint was removed. She has significant bruising in her fingers but normal capillary refill sensation and movement. I do not think that the splint was too tight. It was dirty and loose. It was re-dressed. The patient is happy with this. We [facility] to [facility]. Differential Diagnosis: Partial list of the Differential diagnosis considered include but were not limited to; substance abuse, contusion, ischemia, nerve injury, fracture and although unlikely based on the history and physical exam, I also considered dislocation, hemorrhage. I discussed these differential diagnoses and the plan with the patient as well as the usual and expected course. The patient understands that the diagnosis is provisional and that in medicine we are not always correct and that further workup is often warranted. Usual and customary warnings were given. All of the patient's questions were answered. The patient was instructed to return to the emergency department should the symptoms at all worsen or return, otherwise to followup with the physician as we discussed. Departure - Departure Disposition: Home, Routine, Self-Care Clinical Impression: Hand fracture, left Qualifiers: Encounter type: subsequent encounter Fracture healing: with routine healing Qualified Code(s): S62.92XD - Unspecified fracture of left wrist and hand, subsequent encounter for fracture with routine healing Condition: Fair Instructions: Hand Fracture (ED) Additional Instructions: Follow up with Orthopedics as previously recommended. Referrals: David Ortega MD [Medical Doctor] - As per Instructions
[2016-08-27 03:43] VITALS: BP 127/95; PULSE 69; RESP 18; TEMP 97.5; O2SAT 96
== END 2016-08-27 04:06 | disposition home or self-care (01) ==
DX: S69.92XD Unspecified injury of left wrist, hand and finger(s), subsequent encounter (principal); F17.200 Nicotine dependence, unspecified, uncomplicated; W19.XXXD Unspecified fall, subsequent encounter

== ENCOUNTER 2016-09-06 23:39 | Emergency (ER) | payer MEDICAID, OTHER ==
[2016-09-07 00:16] VITALS: RESP 16
[2016-09-07] MEDS ORDERED: levETIRAcetam 500 MG TAB PO ONE (01:15)
--- NOTE | 2016-09-07 05:46 | EDPHY ---
H & P Stated Complaint: BIBA for sz, bit tongue Time Seen by Provider: 09/07/16 03:50 HPI/ROS: HPI The patient presents brought in by ambulance with seizure which occurred just prior to arrival. This was not witnessed, she did bite her tongue. She says that she stops taking her Keppra 3 days ago and does have a history of Keppra noncompliance. She says she feels sleepy now but denies any headache, neck pain , vomiting, dizziness. She has been drinking alcohol. REVIEW OF SYSTEMS Constitutional: No fever, no chills. Eyes: No discharge. ENT: No sore throat. Cardiovascular: No chest pain, no palpitations. Respiratory: No cough, no shortness of breath. Gastrointestinal: No abdominal pain, no vomiting. Genitourinary: No hematuria. Musculoskeletal: No back pain. Skin: No rashes. Neurological: No headache. PMHx: Seizures on Keppra Soc Hx: Homeless, alcohol abuse PHYSICAL General Appearance: Postictal appearing Eyes: Pupils equal and round no pallor or injection ENT, Mouth: Mucous membranes moist, small tongue laceration Respiratory: There are no retractions, lungs are clear to auscultation Cardiovascular: Regular rate and rhythm Gastrointestinal: Abdomen is soft and non-tender, no masses, bowel sounds normal Neurological: Alert and oriented x3, cranial nerves 2-12 intact, 5/5 strength in upper and lower extremities Skin: Warm and dry, no rashes Musculoskeletal: Neck is supple non tender Extremities: symmetrical, full range of motion Psychiatric: Patient is oriented X 3, there is no agitation Source: Patient, EMS Exam Limitations: Intoxication - Personal History LMP (Females 10-55): Unknown Current Tetanus/Diphtheria Vaccine: Yes Current Tetanus Diphtheria and Acellular Pertussis (TDAP): Yes Tetanus Vaccine Date: 2014 - Medical/Surgical History Hx Asthma: No Hx Chronic Respiratory Disease: No Hx Diabetes: No Hx Cardiac Disease: No Hx Renal Disease: No Hx Cirrhosis: No Hx Alcoholism: Yes Hx HIV/AIDS: No Hx Splenectomy or Spleen Trauma: No Other PMH: MEDICAL SEIZURE, DEPRESSION. SURGERY TONSILLECTOMY. ETOH abuse, abcess tooth. - Social History Smoking Status: Current every day smoker Constitutional: Initial Vital Signs Temperature (C) 36.4 C 09/07/16 00:12 Heart Rate 72 09/07/16 00:12 Respiratory Rate 16 09/07/16 00:12 Blood Pressure 91/59 L 09/07/16 00:12 O2 Sat (%) 94 09/07/16 00:12 O2 Delivery Mode Room Air O2 (L/minute) 2 Allergies/Adverse Reactions: No Known Allergies Allergy (Verified 09/07/16 07:27) Home Medications: Medication Instructions Recorded levETIRAcetam [Keppra 500 mg (*)] 500 mg PO BID #6 tab 08/08/16 Medical Decision Making Differential Diagnosis: This is a 56-year-old female with history of seizure disorder on Keppra, alcohol abuse, who presents brought in by ambulance after a seizure, glucose in the field was normal. Differential diagnosis includes alcohol withdrawal seizure, seizure related epilepsy, alcohol intoxication, less likely closed head injury. In the emergency department, patient was monitored with improvement in her symptoms, she became less and less tired and seen to metabolize her alcohol. We attempted IV placement though were unable given the patient's poor IV access. I doubt metabolic derangement, infection as the cause of her seizures as she admits to not using Keppra for 3 days. She has had similar presentations before. She was able to walk eventually in the emergency room with a steady gait and felt well enough to go home and was discharged. - Data Points Medications Given: Discontinued Medications Levetiracetam (Keppra) 500 mg PO EDNOW ONE Stop: 09/07/16 01:16 Last Admin: 09/07/16 01:20 Dose: 500 mg Departure - Departure Disposition: Home, Routine, Self-Care Clinical Impression: Seizure disorder Alcohol intoxication Qualifiers: Complication of substance-induced condition: with delirium Qualified Code(s): F10.921 - Alcohol use, unspecified with intoxication delirium Condition: Good Instructions: Epilepsy (ED) Additional Instructions: Please make sure to take your Keppra daily. Return to the emergency room if your worse in any way. Follow up with your primary care doctor in 1-2 days. Referrals: Martha Ng MD [Primary Care Provider] - As per Instructions
[2016-09-07 05:57] VITALS: BP 111/76; PULSE 75; TEMP 98.1; O2SAT 93
== END 2016-09-07 05:57 | disposition home or self-care (01) ==
LOC: EDUNIT# → EEVIPCON 23:39
DX: G40.909 Epilepsy, unspecified, not intractable, without status epilepticus (principal); F10.921 Alcohol use, unspecified with intoxication delirium; F17.200 Nicotine dependence, unspecified, uncomplicated

== ENCOUNTER 2016-09-07 07:25 | Emergency (ER) | payer MEDICAID ==
--- NOTE | 2016-09-07 07:35 | EDPHY ---
H & P Time Seen by Provider: 09/07/16 07:33 HPI/ROS: CHIEF COMPLAINT: Right knee pain HISTORY OF PRESENT ILLNESS: Patient states she was seen here recently in the past several hours for seizure and states she might have injured her knee when that happened. She states she has pain primarily over the patella which is worse when she walks. No hip ankle or foot symptoms. Symptoms mild and worse with weight-bearing. REVIEW OF SYSTEMS: Slightly decreased range of motion of the knee but no laceration. PAST MEDICAL HISTORY: Seizure disorder and alcoholism Social history: Recent alcohol General Appearance: Alert and conversant, cooperative. Patient is ambulatory. There is a healed scab over the center of the patella on the right knee. Range of motion is 90 degrees to full extension. She has tenderness to palpation over the knee cap but is stable to varus and valgus stress and negative Shahnaz's. No joint effusion appreciated. No other bony tenderness on the thigh or lower leg. Normal motor sensory and dorsalis pedis pulse. No laceration, no redness or warmth, no bruising or eschar or blisters or fluctuance. Emergency Department course/MDM: Probable right knee contusion, x-ray and discharge with symptomatic treatment if negative. 758: Results discussed with the patient, symptomatic treatment, she is ambulatory. Smoking Status: Current every day smoker Constitutional: Initial Vital Signs Temperature (C) 36.5 C 09/07/16 07:33 Heart Rate 77 09/07/16 07:33 Respiratory Rate 16 09/07/16 07:33 Blood Pressure 120/68 09/07/16 07:33 O2 Sat (%) 95 09/07/16 07:33 O2 Delivery Mode Room Air Allergies/Adverse Reactions: No Known Allergies Allergy (Verified 09/07/16 07:27) Home Medications: Medication Instructions Recorded levETIRAcetam [Keppra 500 mg (*)] 500 mg PO BID #6 tab 08/08/16 MDM/Departure - MDM Imaging Results: Right knee x-ray personally interpreted is negative Imaging: I viewed and interpreted images myself - Depart Disposition: Home, Routine, Self-Care Clinical Impression: Contusion of right knee Qualifiers: Encounter type: initial encounter Qualified Code(s): S80.01XA - Contusion of right knee, initial encounter Condition: Good Instructions: Knee Pain (ED) Referrals: Martha Ng MD [Non Staff Provider (MD)] - As per Instructions
[2016-09-07 07:36] VITALS: BP 120/68; PULSE 77; RESP 16; TEMP 97.7; O2SAT 95
== END 2016-09-07 08:03 | disposition home or self-care (01) ==
DX: S80.01XD Contusion of right knee, subsequent encounter (principal); F17.200 Nicotine dependence, unspecified, uncomplicated; X58.XXXD Exposure to other specified factors, subsequent encounter

== ENCOUNTER 2016-09-07 15:50 | Emergency (ER) | payer MEDICAID ==
[2016-09-07 16:05] VITALS: BP 111/77; PULSE 86; RESP 20; TEMP 98.2
[2016-09-07 16:09] VITALS: O2SAT 96
--- NOTE | 2016-09-07 16:19 | EDPHY ---
H & P Stated Complaint: Seizure, 4th visit since yesterday, ETOH Time Seen by Provider: 09/07/16 16:05 HPI/ROS: CHIEF COMPLAINT: "I had a seizure, just leave me the fuck alone" HISTORY OF PRESENT ILLNESS: 56-year-old homeless female history of alcoholism , seizure, medication noncompliance, seen emergency department earlier today at approximately 4:00 a.m. for complaints of seizure at which point she was given Keppra and given 6 Keppra tablets, returns to emergency department after a witnessed seizure. No fall. No complaints of pain or discomfort. States that she lost the 6 Keppra tablets are prescribed her approximately 12 hours ago. She has not want any intervention, diagnostic studies, "Just leave me the fuck alone and let me get out of here." She will allow me to examine her. PRIMARY CARE PROVIDER: [facility] REVIEW OF SYSTEMS: A ten point review of systems was performed and is negative with the exception of the items mentioned in the HPI PAST MEDICAL & SURGICAL HISTORY: Seizure disorder. Alcoholism. SOCIAL HISTORY: homeless. PHYSICAL EXAM (Prior to examination, patient consented to physical exam, hands were washed and my usual and customary physical exam procedures followed) 1) GENERAL: poorly kept, dirty, sleeping, easily woken, , alert and oriented. Answering questions appropriately . 2) HEAD: Normocephalic, atraumatic 3) HEENT: Pupils equal, round, reactive to light bilaterally. Sclera anicteric. No raccoon eyes no Nation sign no rhinorrhea no otorrhea no hemotympanum. No signs of acute oral trauma. 4) NECK: Full range of motion, no meningeal signs. 5) LUNGS: Clear auscultation bilaterally, no wheezes, no rhonchi, no retractions. 6) HEART: Regular rate and rhythm, no murmur, no heave, no gallop. 7) ABDOMEN: No guarding, no rebound, no focal tenderness,, 8) MUSCULOSKELETAL: Upper extremity splint in place. No peripheral edema or discoloration. 9) BACK: no obvious trauma, no visual or palpable abnormality. 10) SKIN: No rash, no petechiae. 11) Psychiatric: Patient is oriented X 3, there is no agitation. DIFFERENTIAL DIAGNOSIS: in no particular include but limited to alcohol withdrawal seizure, medication noncompliance, epilepsy, head injury - Personal History Tetanus Vaccine Date: 2014 - Medical/Surgical History Hx Asthma: No Hx Chronic Respiratory Disease: No Hx Diabetes: No Hx Cardiac Disease: No Hx Renal Disease: No Hx Cirrhosis: No Hx Alcoholism: Yes Hx HIV/AIDS: No Hx Splenectomy or Spleen Trauma: No Other PMH: MEDICAL SEIZURE, DEPRESSION. SURGERY TONSILLECTOMY. ETOH abuse, abcess tooth. - Social History Smoking Status: Current every day smoker Constitutional: Initial Vital Signs Temperature (C) 36.8 C 09/07/16 16:03 Heart Rate 86 09/07/16 16:03 Respiratory Rate 20 09/07/16 16:03 Blood Pressure 111/77 09/07/16 16:03 O2 Sat (%) 85 L 09/07/16 16:03 O2 Delivery Mode Room Air O2 (L/minute) 2 Allergies/Adverse Reactions: No Known Allergies Allergy (Verified 09/07/16 07:27) Home Medications: Medication Instructions Recorded levETIRAcetam [Keppra 500 mg (*)] 500 mg PO BID #6 tab 08/08/16 Medical Decision Making ED Course/Re-evaluation: 4:19 p.m.: Old medical records reviewed. Patient does not want any interventions or diagnostic studies. She will let me to examine her does not want further. She is currently answering questions appropriately awake alert oriented person place time events, no evidence of altered mentation. 4:37 p.m.: Re-evaluation was sleeping easily woken. The lead case manager is currently unavailable to consult for this patient. Patient would like to leave. She has no evidence of altered mentation, I believe her to have decision -making capacity at this time. She declines further prescriptions of Keppra. She declines any intervention. I recommend she follow up with [facility] tomorrow. Usual and customary discharge precautions and instructions provided. Departure - Departure Disposition: Home, Routine, Self-Care Clinical Impression: Seizure Condition: Good Instructions: Epilepsy (ED) Additional Instructions: You have declined any further intervention, you have declined consultation with the lead case manager, you have declined further prescription for Keppra. Please follow-up with the [facility] tomorrow. Please consider long-term sobriety Referrals: [facility] [Outside] - 1 day without fail
== END 2016-09-07 16:49 | disposition home or self-care (01) ==
LOC: EDUNIT#
DX: G40.909 Epilepsy, unspecified, not intractable, without status epilepticus (principal); F17.200 Nicotine dependence, unspecified, uncomplicated

== ENCOUNTER 2016-09-08 02:35 | Emergency (ER) | payer MEDICAID ==
[2016-09-08 02:41] VITALS: BP 104/69; PULSE 61; RESP 16; TEMP 97.5; O2SAT 94
[2016-09-08] MEDS ORDERED: levETIRAcetam 500 MG TAB PO ONE (02:56)
--- NOTE | 2016-09-08 02:59 | EDPHY ---
H & P Stated Complaint: needs seizure medication Time Seen by Provider: 09/08/16 02:43 HPI/ROS: HPI The patient presents asking for refill of her Keppra, here with her who was just released from prison. He says that when he met up with her she said that she had lost her Keppra prescription again and because it is after hours they were unable to get a refill from [facility]. She takes 500 mg twice daily. She was seen here yesterday for seizure. She has not had any seizure since.. REVIEW OF SYSTEMS Constitutional: No fever, no chills. Eyes: No discharge. ENT: No sore throat. Cardiovascular: No chest pain, no palpitations. Respiratory: No cough, no shortness of breath. Gastrointestinal: No abdominal pain, no vomiting. Genitourinary: No hematuria. Musculoskeletal: No back pain. Skin: No rashes. Neurological: No headache. PMHx: Seizure disorder on Keppra Soc Hx: Homeless, alcohol abuse PHYSICAL General Appearance: Alert, no distress Eyes: Pupils equal and round no pallor or injection ENT, Mouth: Mucous membranes moist Respiratory: There are no retractions, lungs are clear to auscultation Cardiovascular: Regular rate and rhythm Gastrointestinal: Abdomen is soft and non-tender, no masses, bowel sounds normal Neurological: A&O, moves all extremities Skin: Warm and dry, no rashes Musculoskeletal: Neck is supple non tender Extremities: symmetrical, full range of motion Psychiatric: Patient is oriented X 3, there is no agitation Source: Patient, Family - Personal History Current Tetanus/Diphtheria Vaccine: Yes Tetanus Vaccine Date: 2014 - Medical/Surgical History Hx Asthma: No Hx Chronic Respiratory Disease: No Hx Diabetes: No Hx Cardiac Disease: No Hx Renal Disease: No Hx Cirrhosis: No Hx Alcoholism: Yes Hx HIV/AIDS: No Hx Splenectomy or Spleen Trauma: No Other PMH: PMHx: SEIZURE, DEPRESSION, EtOH abuse. PSHx: TONSILLECTOMY. abcess tooth. - Social History Smoking Status: Current every day smoker Constitutional: Initial Vital Signs Temperature (C) 36.4 C 09/08/16 02:38 Heart Rate 61 09/08/16 02:38 Respiratory Rate 16 09/08/16 02:38 Blood Pressure 104/69 09/08/16 02:38 O2 Sat (%) 94 09/08/16 02:38 O2 Delivery Mode Room Air Allergies/Adverse Reactions: No Known Allergies Allergy (Verified 09/07/16 07:27) Home Medications: Medication Instructions Recorded levETIRAcetam [Keppra 500 mg (*)] 500 mg PO BID #6 tab 08/08/16 levETIRAcetam [Keppra 500 mg (*)] 500 mg PO BID #4 tab 09/08/16 Medical Decision Making Differential Diagnosis: This is a 56-year-old female with seizure disorder on Keppra and alcohol abuse and homelessness who presents out of her Keppra after her prescription was loss. She has had no seizures and she was last seen in the emergency room. I will give her a dose of Keppra here and a prescription for a few tabs, however I have instructed her that she must [facility] for [facility]. - Data Points Medications Given: Discontinued Medications Levetiracetam (Keppra) 500 mg PO EDNOW ONE Stop: 09/08/16 02:57 Last Admin: 09/08/16 03:02 Dose: 500 mg Departure - Departure Disposition: Home, Routine, Self-Care Clinical Impression: Seizure disorder, Medication refill Condition: Good Instructions: Epilepsy (ED), Medicine Refill (ED) Additional Instructions: You must go to [facility] tomorrow to get a refill of your Keppra. Referrals: Martha Ng MD [Primary Care Provider] - As per Instructions Prescriptions: levETIRAcetam [Keppra 500 mg (*)] 500 mg PO BID #4 tab
== END 2016-09-08 03:09 | disposition home or self-care (01) ==
DX: Z76.0 Encounter for issue of repeat prescription (principal); G40.909 Epilepsy, unspecified, not intractable, without status epilepticus; F17.200 Nicotine dependence, unspecified, uncomplicated

== ENCOUNTER 2016-09-12 18:45 | Emergency (ER) | payer MEDICAID ==
--- NOTE | 2016-09-12 18:50 | EDPHY ---
H & P Time Seen by Provider: 09/12/16 18:48 HPI/ROS: Chief complaint. Seizure HPI. 56-year-old female with known seizure disorder this been long-standing presents per EMS after having seizure. The patient tells me that she ran out of her Keppra a day and half ago. She then had a generalized tonic-clonic seizure this evening. No trauma. Did not bite her tongue. She has not been ill. No recent head injury. No fever. ROS Constitutional. no fever/chills, no weakness Eyes. no problems with vision ENT. no sore throat, no nasal drainage Cardiovascular. no chest pain Respiratory. no shortness of breath, no cough Abdominal. no abdominal pain, no nausea/vomiting, no diarrhea . no problems urinating MS. no calf pain/swelling, no neck/back pain, no joint pain Skin. no rash Lymph. no swollen glands Neuro. Seizure Past Medical/Surgical History: seizure disorder, alcoholism Social History: , daily smoker, no alcohol today Smoking Status: Current every day smoker Physical Exam: General Appearance: Alert well-developed female mild distress vital signs are stable Eyes: Pupils equal and round no pallor or injection. ENT, Mouth: Mucous membranes are moist. No dental or tongue trauma Respiratory: There are no retractions, lungs are clear to auscultation. Cardiovascular: Regular rate and rhythm. Gastrointestinal: Abdomen is soft and nontender, no masses, bowel sounds normal. Neurological: Awake and alert, sensory and motor exams grossly normal. Skin: Warm and dry, no rashes. Musculoskeletal: Neck is supple nontender. Extremities symmetrical, full range of motion. Psychiatric: Patient is oriented X 3, there is no agitation. Constitutional: Initial Vital Signs Temperature (C) 37.1 C 09/12/16 18:45 Heart Rate 87 09/12/16 18:45 Respiratory Rate 16 09/12/16 18:45 Blood Pressure 154/98 H 09/12/16 18:45 O2 Sat (%) 95 09/12/16 18:45 O2 Delivery Mode Room Air Allergies/Adverse Reactions: No Known Allergies Allergy (Verified 09/07/16 07:27) Home Medications: Medication Instructions Recorded levETIRAcetam [Keppra 500 mg (*)] 500 mg PO BID #6 tab 08/08/16 levETIRAcetam [Keppra 500 mg (*)] 500 mg PO BID #4 tab 09/08/16 levETIRAcetam [Keppra 500 mg (*)] 500 mg PO BID #20 tab 09/12/16 Medical Decision Making Procedures: IV normal saline, seizure precautions. Oral Keppra ED Course/Re-evaluation: Re-evaluation 7:50 p.m.. Patient is stable. No further seizures Patient and I discussed treatment plan including criteria for return and importance of follow-up and further evaluation. She expresses understanding and agreement Differential Diagnosis: Seizure in a patient with known seizure disorder. I believe seizure is likely due to the inadequate anticonvulsants as the patient tells me she ran out of her Keppra 2 days ago. She has been seen multiple times in our emergency department for similar circumstances. - Data Points Laboratory Results: Laboratory Results 09/12/16 19:20 09/12/16 19:20 Medications Given: Discontinued Medications Levetiracetam 1,000 mg/ Sodium (Chloride) 110 mls @ 440 mls/hr IV EDNOW ONE Stop: 09/12/16 19:05 Last Admin: 09/12/16 19:57 Dose: Not Given Levetiracetam (Keppra) 500 mg PO EDNOW ONE Stop: 09/12/16 19:49 Last Admin: 09/12/16 19:51 Dose: 500 mg Levetiracetam (Keppra) 500 mg PO EDNOW ONE Stop: 09/12/16 20:10 Last Admin: 09/12/16 20:14 Dose: 500 mg Departure - Departure Disposition: Home, Routine, Self-Care Clinical Impression: Seizure Condition: Good Instructions: Recurrent Seizures in Adults (ED) Additional Instructions: Take Keppra twice daily. Return for further seizures. [facility] for further prescription for Keppra Referrals: Martha Ng MD [Primary Care Provider] - 2-3 days without fail Prescriptions: levETIRAcetam [Keppra 500 mg (*)] 500 mg PO BID #20 tab
[2016-09-12] MEDS ORDERED: levETIRAcetam 1,000 MG in NS 100 ML IV ONE (18:51)
[2016-09-12 19:35] LABS: % IMMATURE GRANULYOCYTES 0.6 % (0.0-1.1); ABSOLUTE IMMATURE GRANULOCYTES 0.03 10^3/uL (0.00-0.10); ADD DIFF? NO; ADD MORPH? NO; ADD SCAN? NO; ATYPICAL LYMPHOCYTE FLAG 10 (0-99); FRAGMENT RBC FLAG 0 (0-99); HEMATOCRIT 40.4 % (38.0-47.0); HEMOGLOBIN 13.6 g/dL (12.6-16.3); LEFT SHIFT FLG 10 (0-99); LIPEMIA HEMOLYSIS FLAG 80 (0-99); MEAN CELL HEMOGLOBIN CONCENTR. 33.7 g/dL (32.4-36.7); MEAN CELL VOLUME 95.1 fL (81.5-99.8); MEAN PLATELET VOLUME 9.7 fL (8.7-11.7); PLATELET CLUMPS FLAG 50 (0-99); PLATELET COUNT 248 10^3/uL (150-400); RED BLOOD CELL COUNT 4.25 10^6/uL (4.18-5.33); RED CELL DISTRIBUTION WIDTH 14.2 % (11.5-15.2)
[2016-09-12 19:40] LABS: ANION GAP 16 mEq/L (8-16); CALCIUM 9.5 mg/dL (8.5-10.4); CARBON DIOXIDE 21 mEq/l (22-31); CHLORIDE 99 mEq/L (97-110); CREATININE 0.5 mg/dL (0.6-1.0); GLOMERULAR FILTRATION RATE > 60; GLUCOSE 148 mg/dL (70-100); POTASSIUM 4.4 mEq/L (3.5-5.2); SODIUM 136 mEq/L (134-144); SPECIMEN HEMOLYSIS 108
[2016-09-12] MEDS ORDERED: levETIRAcetam 500 MG TAB PO ONE ×2 (19:48→20:09)
[2016-09-12 20:02] VITALS: RESP 16; TEMP 98.8; O2SAT 95
[2016-09-12] MEDS ORDERED: levETIRAcetam 500 MG TAB ONE (20:10)
[2016-09-12 20:17] VITALS: BP 139/104; PULSE 85
== END 2016-09-12 20:16 | disposition home or self-care (01) ==
LOC: EDUNIT#
DX: G40.909 Epilepsy, unspecified, not intractable, without status epilepticus (principal); F17.200 Nicotine dependence, unspecified, uncomplicated
CPT/HCPCS: J1953

== ENCOUNTER 2016-09-17 14:23 | Emergency (ER) | payer MEDICAID ==
--- NOTE | 2016-09-17 14:35 | EDPHY ---
H & P Time Seen by Provider: 09/17/16 14:34 HPI/ROS: CHIEF COMPLAINT: Reported seizure HISTORY OF PRESENT ILLNESS: The patient is brought to the emergency department by paramedics after a reported seizure witnessed by bystanders. The patient has a history of medication noncompliance, alcohol withdrawal and possible alcohol withdrawal seizure. Patient has been seen in the emergency department 5 times in the past 12 days for seizures and being out of seizure medications. She has intermittently been given Keppra throughout her stay. The patient does not have her Keppra medications with her. The patient is currently homeless. The patient states she is uncertain where her seizure medication is. The patient denies any complaints of acute headache. She denies additional complaints. REVIEW OF SYSTEMS: A comprehensive 10 point review of systems is otherwise negative aside from elements mentioned in the history of present illness. Source: Patient Exam Limitations: No limitations - Personal History Tetanus Vaccine Date: 2014 - Medical/Surgical History Hx Asthma: No Hx Chronic Respiratory Disease: No Hx Diabetes: No Hx Cardiac Disease: No Hx Renal Disease: No Hx Cirrhosis: No Hx Alcoholism: Yes Hx HIV/AIDS: No Hx Splenectomy or Spleen Trauma: No Other PMH: PMHx: SEIZURE, DEPRESSION, EtOH abuse. PSHx: TONSILLECTOMY. abcess tooth. - Social History Smoking Status: Current every day smoker - Physical Exam Exam: General Appearance: Alert, no distress Eyes: Pupils equal and round no pallor or injection ENT, Mouth: Mucous membranes moist Respiratory: There are no retractions, lungs are clear to auscultation Cardiovascular: Regular rate and rhythm Gastrointestinal: Abdomen is soft and nontender, no masses, bowel sounds normal Neurological: A&O, normal motor function, normal sensory exam, normal cranial nerves Skin: Warm and dry, no rashes Musculoskeletal: Neck is supple nontender Extremities: symmetrical, full range of motion Constitutional: Initial Vital Signs Temperature (C) 36.8 C 09/17/16 14:36 Heart Rate 90 09/17/16 14:36 Respiratory Rate 18 09/17/16 14:36 Blood Pressure 103/72 09/17/16 14:36 O2 Sat (%) 95 09/17/16 14:36 O2 Delivery Mode Nasal Cannula O2 (L/minute) 1 Allergies/Adverse Reactions: No Known Allergies Allergy (Verified 09/07/16 07:27) Home Medications: Medication Instructions Recorded levETIRAcetam [Keppra 500 mg (*)] 500 mg PO BID #6 tab 08/08/16 levETIRAcetam [Keppra 500 mg (*)] 500 mg PO BID #4 tab 09/08/16 levETIRAcetam [Keppra 500 mg (*)] 500 mg PO BID #20 tab 09/12/16 Medical Decision Making ED Course/Re-evaluation: I reviewed the patient's past medical records including all of her emergency department visits for the past 12 days. The patient has had multiple visits emergency department the past 2 months. In reviewing the sum total of her visits it is quite clear that she is not compliant with taking her Keppra. Continuing to give the patient intermittent Keppra especially in light of ongoing possible alcohol abuse and non-compliance is likely to only decrease her seizure threshold. The patient is declining a breathalyzer in the ED. She is declining any additional blood work. She is alert and oriented x4. There is no seizure activity. The patient will be discharged from our emergency department. She is advised to follow up with her primary care provider. Differential Diagnosis: Differential diagnosis considered includes seizure, alcohol abuse, alcohol intoxication Departure - Departure Disposition: Home, Routine, Self-Care Clinical Impression: History of seizure Condition: Good Instructions: Epilepsy (ED) Additional Instructions: 1. Please return to the emergency department for any concerns. 2. Please follow up with your primary care provider at [facility]. Referrals: [facility],. [Clinic] - As per Instructions
[2016-09-17 14:38] VITALS: RESP 18; TEMP 98.2
[2016-09-17 15:47] VITALS: BP 109/76; PULSE 82; O2SAT 96
== END 2016-09-17 15:58 | disposition home or self-care (01) ==
LOC: EDUNIT#
DX: G40.909 Epilepsy, unspecified, not intractable, without status epilepticus (principal); F17.200 Nicotine dependence, unspecified, uncomplicated

== ENCOUNTER 2016-09-21 03:52 | Emergency (ER) | payer MEDICAID ==
[2016-09-21 04:11] VITALS: TEMP 97.5
--- NOTE | 2016-09-21 04:13 | EDPHY ---
H & P Time Seen by Provider: 09/21/16 04:03 HPI/ROS: Chief Complaint: Possible seizure HPI: 56-year-old woman who is well known to this emergency department with a history of seizures, possibly related to alcohol withdrawal seizures verses epileptic seizures. Patient has been seen here multiple times in the last couple of weeks for seizures. She has intermittently been given Keppra. Patient states she last took her medication 2 days ago but is not sure were medications at this time. She does state that she has continued to drink has been drinking tonight. Denies any recent injuries. No nausea or vomiting. No chest pain shortness of breath. She states she does have his medications she thinks that is at her mother's house. ROS: 10 point Review of Systems is negative except as noted in the HPI. PMH: Seizure disorder, alcohol withdrawal seizures, chronic alcoholism Social History: Positive for smoking, daily heavy alcohol, no recreational drug use Family History: non-contributory Physical Exam: Gen: Awake, Alert, No Distress, slurred speech, smells of alcohol HEENT: Nose: no rhinorrhea Eyes: PERRLA, EOMI Mouth: Moist mucosa Neck: Supple, no JVD Chest: nontender, lungs clear to auscultation Heart: S1, S2 normal, no murmur Abd: Soft, non-tender, no guarding Back: no CVA tenderness, no midline tenderness Ext: no edema, non-tender Skin: no rash Neuro: CN II-XII intact, Sensation grossly intact, Strength 5/5 in bilateral upper and lower extremities - Personal History Tetanus Vaccine Date: 2014 - Medical/Surgical History Hx Asthma: No Hx Chronic Respiratory Disease: No Hx Diabetes: No Hx Cardiac Disease: No Hx Renal Disease: No Hx Cirrhosis: No Hx Alcoholism: Yes Hx HIV/AIDS: No Hx Splenectomy or Spleen Trauma: No Other PMH: PMHx: SEIZURE, DEPRESSION, EtOH abuse. PSHx: TONSILLECTOMY. abcess tooth. - Social History Smoking Status: Current every day smoker Allergies/Adverse Reactions: No Known Allergies Allergy (Verified 09/07/16 07:27) Home Medications: Medication Instructions Recorded levETIRAcetam [Keppra 500 mg (*)] 500 mg PO BID #6 tab 08/08/16 levETIRAcetam [Keppra 500 mg (*)] 500 mg PO BID #4 tab 09/08/16 levETIRAcetam [Keppra 500 mg (*)] 500 mg PO BID #20 tab 09/12/16 Medical Decision Making ED Course/Re-evaluation: 56-year-old homeless woman with a history of seizures, likely alcohol withdrawal who is presenting being brought in for possible seizure. She is currently awake alert without complaint. I have reviewed her medical records she has multiple visits in the emergency department, particularly last couple of weeks. She was last seen here 4 days ago. Patient claims to be compliant with her medications however she does not have them with her at this time. He has no evidence of acute injury. No evidence of acute alcohol withdrawal. She is awake alert and answering questions appropriately. She has been encouraged to get to her mother's house where she can take her medications. Follow up with primary care physician. She has also been encouraged to [facility] to seek help to stop drinking. Departure - Departure Disposition: Home, Routine, Self-Care Clinical Impression: Seizure due to alcohol withdrawal, Alcohol withdrawal Condition: Good Instructions: Alcohol Withdrawal (ED) Additional Instructions: Please seek help to decrease your alcohol consumption. Follow up with primary care physician in 2-3 days for re-evaluation. Please make sure to take your seizure medication every day as prescribed. Referrals: Radha Mae PA [Primary Care Provider] - As per Instructions
[2016-09-21 05:39] VITALS: BP 106/74; PULSE 68; RESP 16; O2SAT 97
== END 2016-09-21 06:14 | disposition home or self-care (01) ==
LOC: EDUNIT#
DX: G40.909 Epilepsy, unspecified, not intractable, without status epilepticus (principal); F17.200 Nicotine dependence, unspecified, uncomplicated; F10.239 Alcohol dependence with withdrawal, unspecified

== ENCOUNTER 2016-09-27 16:58 | Emergency (ER) | payer MEDICAID ==
[2016-09-27] MEDS ORDERED: NS 1,000 ML IV ONE (17:02)
--- NOTE | 2016-09-27 17:09 | EDPHY ---
H & P Time Seen by Provider: 09/27/16 16:58 HPI/ROS: HPI Alcohol intoxication, fall. 56-year-old female by ambulance from the [facility]. Her /significant other reports that he was at a store. He went into the store and left her outside for about 15 minutes. He reports that when he went into the store she was perfectly sober acting appropriately. When he came out he reports that she was very intoxicated with alcohol. He then reports that she apparently fell backwards and hit her head in the parking lot. He took her to the [facility] by taxi. At the [facility] she was being assessed for entrance and fell backwards again hitting the back of her head. She denies alcohol. She denies any loss of sensation or weakness in her extremities. She denies neck pain. She denies headache. No other complaints. ROS: Constitutional: No fever, no chills. No weakness. Eyes: No discharge. No changes in vision. ENT: No sore throat. No nasal congestion or rhinorrhea. Respiratory: No cough. No shortness of breath. Cardiac: No chest pain, no palpitations. Gastrointestinal: No abdominal pain, no vomiting, no diarrhea. Genitourinary: No hematuria. No dysuria or increased frequency with urination. Musculoskeletal: No back pain. No neck pain. No myalgias or arthralgias. Skin: No rashes. Neurological: No headache. No focal weakness or altered sensation. Past medical history: Alcohol abuse, polysubstance abuse, seizure disorder. Social history: Smoker. Homeless. As above. Physical Exam: General Appearance: Appears intoxicated. She is dirty. Odor of alcohol on her breath. This patient is responding to questions short 1-2 word responses with slurred speech. This patient appears generally well-hydrated and well- nourished. Head: Normocephalic atraumatic. Eyes: Pupils equal and round and reactive to light at 2-1 mm bilaterally, no pallor or injection. No lid edema, erythema or injection. ENT, Mouth: Mucous membranes are moist. The pharyngeal tissues are unremarkable. No edema or swelling. No asymmetry suggestive of abscess. No erythema or exudates. No tongue lacerations or abrasions. Respiratory: There are no retractions, lungs are clear to auscultation with good air movement bilaterally. Cardiovascular: Regular rate and rhythm. No murmur. Gastrointestinal: Abdomen is soft and nontender, no masses, bowel sounds normal. No focal tenderness at McBurney's point. No Hernandez sign. Neurological: Motor sensory function is grossly intact. Cranial nerves are normal. Skin: Warm and dry, no rashes. Musculoskeletal: Neck is supple and nontender. Extremities are symmetrical. All joints range without pain or impingement. Psychiatric: No agitation. No depression. Database: EKG: Imaging: CT head without contrast: No acute pathology. Results discussed with staff radiologist Dr. Tan Urena. CT cervical spine without contrast: Negative for fracture, subluxation, dislocation. Degenerative changes noted. Results discussed with staff radiologist Dr. Tan Urena. Procedures: Emergency department course: IV placed. She was placed on a monitor. Serum alcohol will be obtained. She will be sent for CT imaging of her cervical spine and head. Serum alcohol is 421. 6:35 p.m., patient re-evaluated. Sleeping but easily arousable. Cervical collar was clinically and radiographically cleared. Plan will be to discharge her to the [facility] when appropriately sober. 9:00 p.m. , the patient is up and ambulatory to the bathroom under their own power and with a normal gait. The patient is responding to questions appropriately and in full sentences. The liabilities of alcohol abuse have been discussed with this patient. This patient has been medically cleared for discharge to the [facility] with [employer] [facility] police or to home with a sober ride. Followup and return to emergency department precautions discussed. All of the patient's questions were answered. The patient was discharged from emergency department in good condition with with her who will take her to the [facility] Differential Diagnosis: The differential diagnosis on this patient includes but is not limited to alcohol intoxication, seizure with postictal phase. This represents a partial list of diagnoses considered. These considerations are based on history, physical exam, past history, reassessment and diagnostic testing. Smoking Status: Current every day smoker Constitutional: Initial Vital Signs Temperature (C) 36.4 C 09/27/16 17:11 Heart Rate 89 09/27/16 17:11 Respiratory Rate 16 09/27/16 17:11 Blood Pressure 99/70 L 09/27/16 17:11 O2 Sat (%) 95 09/27/16 17:11 O2 Delivery Mode Room Air Allergies/Adverse Reactions: No Known Allergies Allergy (Verified 09/21/16 04:11) Home Medications: Medication Instructions Recorded levETIRAcetam [Keppra 500 mg (*)] 500 mg PO BID #6 tab 08/08/16 levETIRAcetam [Keppra 500 mg (*)] 500 mg PO BID #4 tab 09/08/16 levETIRAcetam [Keppra 500 mg (*)] 500 mg PO BID #20 tab 09/12/16 Medical Decision Making - Diagnostics Imaging Results: Imaging Impressions Cervical Spine CT 09/27/16 17:03 Impression: 1. Negative for acute posttraumatic sequela, specifically, negative for intracranial hemorrhage. 2. Atrophy and small vessel changes noted. CT Cervical Spine Without Contrast History: Trauma. Technique: Multislice helical CT through the cervical spine without contrast from the skull base to T1. Soft tissue and bone evaluation is performed. Sagittal and coronal reconstructions are obtained and reviewed. Dose reduction techniques were utilized. Findings: Cervical alignment is anatomic. No fracture or dislocation is identified. The relationship between skull base and C1 is normal. The C1-C2 articulation is normal. The odontoid process is normal. The cervical thoracic junction is normal. Soft tissue window evaluation does not show evidence of epidural or prevertebral hematoma. Stable cervical spine degenerative changes are seen with disk space loss and bony spurring noted at C4-C5 and C5-C6. Impression: 1. Negative for fracture. 2. Degenerative changes are noted. Results called and discussed with Justin Watters MD on 09/27/2016 at 18: [address] 09/27/16 17:03 Impression: 1. Negative for acute posttraumatic sequela, specifically, negative for intracranial hemorrhage. 2. Atrophy and small vessel changes noted. CT Cervical Spine Without Contrast History: Trauma. Technique: Multislice helical CT through the cervical spine without contrast from the skull base to T1. Soft tissue and bone evaluation is performed. Sagittal and coronal reconstructions are obtained and reviewed. Dose reduction techniques were utilized. Findings: Cervical alignment is anatomic. No fracture or dislocation is identified. The relationship between skull base and C1 is normal. The C1-C2 articulation is normal. The odontoid process is normal. The cervical thoracic junction is normal. Soft tissue window evaluation does not show evidence of epidural or prevertebral hematoma. Stable cervical spine degenerative changes are seen with disk space loss and bony spurring noted at C4-C5 and C5-C6. Impression: 1. Negative for fracture. 2. Degenerative changes are noted. Results called and discussed with Justin Watters MD on 09/27/2016 at 18: 16 - Data Points Laboratory Results: Laboratory Results 09/27/16 17:25 09/27/16 17:25 Sodium 143 mEq/L mEq/L (134-144) Potassium 3.4 mEq/L L mEq/L (3.5-5.2) Chloride 106 mEq/L mEq/L (97-110) Carbon Dioxide 21 mEq/l L mEq/l (22-31) Anion Gap 16 mEq/L mEq/L (8-16) BUN 8 mg/dL mg/dL (7-23) Creatinine 0.5 mg/dL L mg/dL (0.6-1.0) Estimated GFR > 60 Glucose 87 mg/dL mg/dL (70-100) Calcium 9.3 mg/dL mg/dL (8.5-10.4) Ethyl Alcohol 421 mg/dL H* mg/dL (0-10) Medications Given: Discontinued Medications Sodium Chloride (Ns) 1,000 mls @ 0 mls/hr IV ONCE ONE; Wide Open PRN Reason: Protocol Stop: 09/27/16 17:03 Last Admin: 09/27/16 17:33 Dose: 1,000 mls Departure - Departure Disposition: Home, Routine, Self-Care Clinical Impression: Alcohol intoxication Condition: Good Instructions: Abuse of Alcohol (ED) Additional Instructions: Read and follow provided instructions. Follow-up with your primary care physician in 2-3 days to discuss treatment of your alcohol addiction. Return to the emergency department for my seizure or other serious concerns. Referrals: Patient,NotPresent [Unknown] - As per Instructions [facility] [Outside] - As per Instructions
[2016-09-27 17:15] VITALS: RESP 16
[2016-09-27 17:45] LABS: ANION GAP 16 mEq/L (8-16); CALCIUM 9.3 mg/dL (8.5-10.4); CARBON DIOXIDE 21 mEq/l (22-31); CHLORIDE 106 mEq/L (97-110); CREATININE 0.5 mg/dL (0.6-1.0); GLOMERULAR FILTRATION RATE > 60; GLUCOSE 87 mg/dL (70-100); POTASSIUM 3.4 mEq/L (3.5-5.2); SODIUM 143 mEq/L (134-144)
[2016-09-27 18:05] LABS: ETHANOL SERUM 421 mg/dL (0-10)
[2016-09-27 20:57] VITALS: BP 99/62; PULSE 78; O2SAT 95
[2016-09-27 20:58] VITALS: TEMP 97.9
[2016-09-28] MEDS ORDERED: CHLORDIAZEPOXIDE 25MG PREPK#6 BTL TAKEHOME ONE (01:23)
== END 2016-09-27 20:58 | disposition home or self-care (01) ==
LOC: EDUNIT#
DX: F10.129 Alcohol abuse with intoxication, unspecified (principal); F17.200 Nicotine dependence, unspecified, uncomplicated; E86.9 Volume depletion, unspecified
CPT/HCPCS: G0480

== ENCOUNTER 2017-01-22 23:50 | Emergency (ER) | payer MEDICAID ==
[2017-01-23 00:05] VITALS: RESP 18
--- NOTE | 2017-01-23 00:14 | CPEKG ---
Heart Rate: 92 RR Interval: 652 P-R Interval: 128 QRSD Interval: 84 QT Interval: 376 QTC Interval: 466 P [place]: 0 QRS [place]: 62 T Wave [place]: 65 EKG Severity - OTHERWISE NORMAL ECG - EKG Impression: SINUS RHYTHM Electronically Signed By: Ayde Hedrick 23-Jan-2017 07:57:04
[2017-01-23 00:51] LABS: % IMMATURE GRANULYOCYTES 0.2 % (0.0-1.1); ABSOLUTE IMMATURE GRANULOCYTES 0.01 10^3/uL (0.00-0.10); ADD DIFF? NO; ADD MORPH? NO; ADD SCAN? NO; ATYPICAL LYMPHOCYTE FLAG 10 (0-99); FRAGMENT RBC FLAG 0 (0-99); HEMATOCRIT 35.1 % (38.0-47.0); HEMOGLOBIN 12.3 g/dL (12.6-16.3); LEFT SHIFT FLG 0 (0-99); LIPEMIA HEMOLYSIS FLAG 90 (0-99); MEAN CELL HEMOGLOBIN 30.8 pg (27.9-34.1); MEAN PLATELET VOLUME 9.4 fL (8.7-11.7); PLATELET CLUMPS FLAG 0 (0-99); PLATELET COUNT 241 10^3/uL (150-400); RED BLOOD CELL COUNT 3.99 10^6/uL (4.18-5.33); RED CELL DISTRIBUTION WIDTH 12.6 % (11.5-15.2)
[2017-01-23 01:07] LABS: CALCIUM 8.8 mg/dL (8.5-10.4); CARBON DIOXIDE 25 mEq/l (22-31); CHLORIDE 102 mEq/L (97-110); CREATININE 0.5 mg/dL (0.6-1.0); GLOMERULAR FILTRATION RATE > 60; GLUCOSE 94 mg/dL (70-100); SODIUM 144 mEq/L (134-144)
[2017-01-23 01:09] LABS: ANION GAP 17 mEq/L (8-16); POTASSIUM 3.8 mEq/L (3.5-5.2)
--- NOTE | 2017-01-23 01:20 | EDPHY ---
H & P Stated Complaint: CP Time Seen by Provider: 01/23/17 00:04 HPI/ROS: HPI The patient presents with chest pain which has been present for the last several hours which began at 10:00 p.m. while she was lying in bed trying to sleep. She felt sharp pain in her left arm and then her left leg. She then complained to her about left-sided chest pain which is throbbing in nature, moderate in severity. This was associated with some diaphoresis. She took 2 Tylenol and now is feeling much better. She says she has been sober for 3 and half months. She denies any cough, fever. REVIEW OF SYSTEMS Constitutional: No fever, no chills. Eyes: No discharge. ENT: No sore throat. Cardiovascular: No chest pain, no palpitations. Respiratory: No cough, no shortness of breath. Gastrointestinal: No abdominal pain, no vomiting. Genitourinary: No hematuria. Musculoskeletal: No back pain. Skin: No rashes. Neurological: No headache. PMHx: History of seizures, depression Soc Hx: Longstanding history of alcohol abuse and alcohol withdrawals PHYSICAL General Appearance: Alert, no distress Eyes: Pupils equal and round no pallor or injection ENT, Mouth: Mucous membranes moist Respiratory: There are no retractions, lungs are clear to auscultation Cardiovascular: Regular rate and rhythm Gastrointestinal: Abdomen is soft and non-tender, no masses, bowel sounds normal Neurological: A&O, moves all extremities Skin: Warm and dry, no rashes Musculoskeletal: Neck is supple non tender Extremities: symmetrical, full range of motion Psychiatric: Patient is oriented X 3, there is no agitation Source: Patient Exam Limitations: No limitations - Personal History Current Tetanus/Diphtheria Vaccine: Yes Current Tetanus Diphtheria and Acellular Pertussis (TDAP): Yes Tetanus Vaccine Date: 2014 - Medical/Surgical History Hx Asthma: No Hx Chronic Respiratory Disease: No Hx Diabetes: No Hx Cardiac Disease: No Hx Renal Disease: No Hx Cirrhosis: No Hx Alcoholism: Yes Hx HIV/AIDS: No Hx Splenectomy or Spleen Trauma: No Other PMH: PMHx: SEIZURE, DEPRESSION, EtOH abuse. PSHx: TONSILLECTOMY. abcess tooth. - Social History Smoking Status: Heavy smoker Constitutional: Initial Vital Signs Temperature (C) 37.1 C 01/22/17 23:54 Heart Rate 111 H 01/22/17 23:54 Respiratory Rate 18 01/22/17 23:54 Blood Pressure 126/91 H 01/22/17 23:54 O2 Sat (%) 91 L 01/22/17 23:54 O2 Delivery Mode Room Air Allergies/Adverse Reactions: No Known Allergies Allergy (Unverified 10/12/16 19:12) Home Medications: Medication Instructions Recorded levETIRAcetam [Keppra 500 mg (*)] 500 mg PO BID #6 tab 08/08/16 Gabapentin [Gralise] 1,800 mg PO DAILY 10/12/16 Medical Decision Making - Diagnostics EKG Interpretation: EKG: Complete interpretation has been separately recorded in the [facility] archive. Summary impression: Normal sinus rhythm Imaging Results: Chest x-ray two view shows no cardiomegaly, no infiltrate, interpreted by me, radiology interpretation is pending. Differential Diagnosis: This is a 56-year-old female with history of alcohol abuse, seizures who presents from home with chest pain which began at 10:00 p.m. tonight. This occurred while at rest and she felt in her arm and leg as well. On exam now, she is somewhat tremulous, otherwise well appearing. EKG is unremarkable. Differential diagnosis includes alcoholic gastritis, GERD, ACS, pneumonia, pneumothorax, less likely pulmonary embolism. In the emergency department, patient was monitored with resolution in her symptoms. Labs were checked including serial troponins which were all unremarkable. EKG and chest x-ray were normal. She will be discharged home in good condition. I suspect she may have GERD or gastritis. 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 She has not had any stress testing previously but may benefit from this. - Data Points Laboratory Results: Laboratory Results 01/23/17 00:45 01/23/17 00:45 01/23/17 01/23/17 01/23/17 02:00 00:45 00:45 WBC 5.98 10^3/uL 10^3/uL (3.80-9.50) RBC 3.99 10^6/uL L 10^6/uL (4.18-5.33) Hgb 12.3 g/dL L g/dL (12.6-16.3) Hct 35.1 % L % (38.0-47.0) MCV 88.0 fL fL (81.5-99.8) MCH 30.8 pg pg (27.9-34.1) MCHC 35.0 g/dL g/dL (32.4-36.7) RDW 12.6 % % (11.5-15.2) Plt Count 241 10^3/uL 10^3/uL (150-400) MPV 9.4 fL fL (8.7-11.7) Neut % (Auto) 26.4 % L % (39.3-74.2) Lymph % (Auto) 60.9 % H % (15.0-45.0) [place] % (Auto) 10.0 % % (4.5-13.0) Eos % (Auto) 2.0 % % (0.6-7.6) Baso % (Auto) 0.5 % % (0.3-1.7) Nucleat RBC Rel Count 0.0 % % (0.0-0.2) Absolute Neuts (auto) 1.58 10^3/uL L 10^3/uL (1.70-6.50) Absolute Lymphs (auto) 3.64 10^3/uL H 10^3/uL (1.00-3.00) Absolute Monos (auto) 0.60 10^3/uL 10^3/uL (0.30-0.80) Absolute Eos (auto) 0.12 10^3/uL 10^3/uL (0.03-0.40) Absolute Basos (auto) 0.03 10^3/uL 10^3/uL (0.02-0.10) Absolute Nucleated RBC 0.00 10^3/uL 10^3/uL (0-0.01) Immature Gran % 0.2 % % (0.0-1.1) Immature Gran # 0.01 10^3/uL 10^3/uL (0.00-0.10) Sodium 144 mEq/L mEq/L (134-144) Potassium 3.8 mEq/L mEq/L (3.5-5.2) Chloride 102 mEq/L mEq/L (97-110) Carbon Dioxide 25 mEq/l mEq/l (22-31) Anion Gap 17 mEq/L H mEq/L (8-16) BUN 14 mg/dL mg/dL (7-23) Creatinine 0.5 mg/dL L mg/dL (0.6-1.0) Estimated GFR > 60 Glucose 94 mg/dL mg/dL (70-100) Calcium 8.8 mg/dL mg/dL (8.5-10.4) Troponin I < 0.012 ng/mL ng/mL < 0.012 ng/mL ng/mL (0.000-0.034) (0.000-0.034) Departure - Departure Disposition: Home, Routine, Self-Care Clinical Impression: Chest pain Condition: Good Instructions: Chest Pain (ED) Additional Instructions: Please return to the emergency department if your worse in any way. Otherwise, you should [facility] with [facility] or the [facility] I have listed below. Referrals: [facility] [Other] - As per Instructions John Irizarry MD [Medical Doctor] - As per Instructions
[2017-01-23 01:25] LABS: TROPONIN I < 0.012 ng/mL (0.000-0.034)
[2017-01-23 02:10] VITALS: O2SAT 95
[2017-01-23 03:47] VITALS: BP 123/73; PULSE 100; TEMP 98.6
== END 2017-01-23 03:47 | disposition home or self-care (01) ==
DX: R07.9 Chest pain, unspecified (principal); F17.200 Nicotine dependence, unspecified, uncomplicated

== ENCOUNTER 2017-01-27 19:02 | Emergency (ER) | payer MEDICAID ==
--- NOTE | 2017-01-27 19:17 | EDPHY ---
H & P Stated Complaint: ?seizure HPI/ROS: HPI CHIEF COMPLAINT: Anxiety, alcohol intoxication, argument with her , anterior chest wall pain HISTORY OF PRESENT ILLNESS: This patient is a 56-year-old female very familiar to the emergency room as well as myself she has a history of alcohol use daily alcoholism, homelessness, and alcohol withdrawal seizure, she presents emergency room by private vehicle after she got into argument with her earlier today. She became upset. She states she has anxiety, also additionally she reports to me that she drank alcohol this evening. She additionally also reports she has anterior chest wall pain hurts when you press on her chest wall. She distally has been coughing she thinks this has exacerbated her chest wall pain. She denies significant shortness of breath, denies nausea or vomiting. Upon arrival to the emergency room she is intoxicated with alcohol. Past Medical History: Alcohol use, alcoholism, alcohol withdrawal seizure Past Surgical History: No recent surgery Social History: Daily alcohol use, homeless. Family History: Noncontributory ROS REVIEW OF SYSTEMS: A comprehensive 10 point review of systems is otherwise negative aside from elements mentioned in the history of present illness. Exam Constitutional appears intoxicated, smells of alcohol triage nursing summary reviewed, vital signs reviewed, awake/alert. Eyes normal conjunctivae and sclera, EOMI, PERRLA. HENT normal inspection, atraumatic, moist mucus membranes, no epistaxis, neck supple/ no meningismus, no raccoon eyes. Respiratory clear to auscultation bilaterally, normal breath sounds, no respiratory distress, no wheezing. Cardiovascular chest wall: Tender palpation over the anterior sternum her chest wall without any signs of crepitus or signs of chest wall trauma, rate normal, regular rhythm, no murmur, no edema, distal pulses normal. Gastrointestinal soft, non-tender, no rebound, no guarding, normal bowel sounds, no distension, no pulsatile mass. Genitourinary no CVA tenderness. Musculoskeletal no midline vertebral tenderness, full range of motion, no calf swelling, no tenderness of extremities, no meningismus, good pulses, neurovascularly intact. Skin pink, warm, & dry, no rash, skin atraumatic. Neurologic smells of alcohol, awake, alert and oriented x 3, AAOx3, moves all 4 extremities equally, motor intact, sensory intact, CN II-XII intact, normal cerebellar, normal vision, normal speech. Psychiatric normal mood/affect. Heme/Lymph/Immune no lymphadenopathy. Differential Diagnosis: Includes but is not limited to in a particular order acute anxiety, acute alcohol intoxication, dehydration, electrolyte disturbance , anterior chest wall trauma Medical Decision Making: Plan for this patient IV establishment blood draw, check alcohol level, chest x-ray, EKG and basic blood work. Re-evaluate. Re-evaluation: 1926: Patient is refusing any blood draw. She is refusing any blood draw or medical evaluation. She is intoxicated with alcohol. Will discuss about her going to the [facility]. 1929: I went to discuss with the patient about blood work x-ray an EKG however she is refusing all medical attention at this time. She is requesting be discharged from the emergency room. She states she wants to sign out. 1935: I did re-evaluate this patient she still refusing any further medical attention or care. She does not want blood draw she does not want a breath alcohol she does not want an EKG. She states that she just wants to leave the emergency room. She is clinically sober she does smell of alcohol she will need a safe ride home. 2045: Re-evaluated patient at this time still refusing any further medical care. She would like to be discharged from the emergency room. She is clinically sober. She is stable gait. She is my questions appropriately. She be discharged and her is due to pick her up. Source: Patient - Personal History LMP (Females 10-55): Post Menopausal Current Tetanus/Diphtheria Vaccine: Yes Current Tetanus Diphtheria and Acellular Pertussis (TDAP): Yes Tetanus Vaccine Date: 2014 - Medical/Surgical History Hx Asthma: No Hx Chronic Respiratory Disease: No Hx Diabetes: No Hx Cardiac Disease: No Hx Renal Disease: No Hx Cirrhosis: No Hx Alcoholism: Yes Hx HIV/AIDS: No Hx Splenectomy or Spleen Trauma: No Other PMH: PMHx: SEIZURE, DEPRESSION, EtOH abuse. PSHx: TONSILLECTOMY. abcess tooth. - Social History Smoking Status: Heavy smoker Constitutional: Initial Vital Signs Temperature (C) 36.5 C 01/27/17 19:05 Heart Rate 110 H 01/27/17 19:05 Respiratory Rate 16 01/27/17 19:05 Blood Pressure 132/82 H 01/27/17 19:05 O2 Sat (%) 97 01/27/17 19:05 O2 Delivery Mode Room Air Allergies/Adverse Reactions: No Known Allergies Allergy (Unverified 10/12/16 19:12) Home Medications: Medication Instructions Recorded levETIRAcetam [Keppra 500 mg (*)] 500 mg PO BID #6 tab 08/08/16 Gabapentin [Gralise] 1,800 mg PO DAILY 10/12/16 Departure - Departure Disposition: Against Medical Advice Clinical Impression: Alcohol intoxication Qualifiers: Complication of substance-induced condition: uncomplicated Qualified Code(s): F10.920 - Alcohol use, unspecified with intoxication, uncomplicated Condition: Fair Instructions: Alcohol Intoxication (ED) Referrals: [facility] [Other] - As per Instructions
[2017-01-27] MEDS ORDERED: NS 1,000 ML IV ONE (19:22)
[2017-01-27 21:39] VITALS: BP 131/86; PULSE 78; RESP 18; TEMP 98.4; O2SAT 93
== END 2017-01-27 21:37 | disposition left against medical advice (07) ==
DX: F10.920 Alcohol use, unspecified with intoxication, uncomplicated (principal); F17.200 Nicotine dependence, unspecified, uncomplicated

== ENCOUNTER 2017-02-14 22:16 | Emergency (ER) | payer MEDICAID ==
[2017-02-14] MEDS ORDERED: PHENYTOIN 100 MG/4 ML UDL PO ONE (22:21)
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
[2017-02-14] MEDS ORDERED: PHENYTOIN SODIUM 100 MG/2 ML VIAL IVP ONE (22:54)
[2017-02-14 22:58] LABS: PLATELET COUNT 204 10^3/uL (150-400)
[2017-02-14] MEDS ORDERED: PHENYTOIN SODIUM 1,000 MG in NS 100 ML IV ONE (23:30)
[2017-02-14] MEDS ORDERED: PHENYTOIN SODIUM EXTENDED 100 MG CAP PO ONE (23:34)
[2017-02-15] MEDS ORDERED: CHLORDIAZEPOXIDE 25MG PREPK#6 BTL TAKEHOME ONE (03:26)
[2017-02-15 04:14] VITALS: BP 144/77; PULSE 74; RESP 16; TEMP 97.9; O2SAT 96
== END 2017-02-15 04:13 | disposition home or self-care (01) ==
LOC: EDUNIT#
DX: F10.230 Alcohol dependence with withdrawal, uncomplicated (principal); G40.909 Epilepsy, unspecified, not intractable, without status epilepticus; F17.200 Nicotine dependence, unspecified, uncomplicated
CPT/HCPCS: G0480

== ENCOUNTER 2017-05-09 02:27 | Emergency (ER) | payer MEDICAID ==
[2017-05-09] MEDS ORDERED: NS 1,000 ML IV ONE (02:30)
[2017-05-09 02:31] VITALS: RESP 16
--- NOTE | 2017-05-09 02:35 | EDPHY ---
H & P Stated Complaint: possible Seizure Time Seen by Provider: 05/09/17 02:30 HPI/ROS: HPI CHIEF COMPLAINT: Alcohol intoxication, possible seizure HISTORY OF PRESENT ILLNESS: Patient is a 56-year-old female, she has a history of seizure disorder, alcoholism, alcohol draw seizure in his homeless, presents to the emergency room by EMS for possible seizure. Patient went to [facility] and somehow checked into the [facility] where she told staff there that she was or just had a seizure. She did get help from a stamp clerk to give her Keppra. No postictal state with this. No bowel bladder incontinence. EMS reports that she has stable vital signs. Upon arrival here in emergency room the patient has stable vital signs she does smell of alcohol. States she has been compliant with her Dilantin. Past Medical History: Alcohol draw seizures, alcoholism, homelessness Past Surgical History: No recent surgery Social History: Homeless, daily alcohol use Family History: Noncontributory ROS REVIEW OF SYSTEMS: A comprehensive 10 point review of systems is otherwise negative aside from elements mentioned in the history of present illness. Exam Constitutional nontoxic appearing, smells of alcohol, triage nursing summary reviewed, vital signs reviewed, awake/alert. Eyes normal conjunctivae and sclera, EOMI, PERRLA. HENT normal inspection, atraumatic, moist mucus membranes, no epistaxis, neck supple/ no meningismus, no raccoon eyes. Respiratory clear to auscultation bilaterally, normal breath sounds, no respiratory distress, no wheezing. Cardiovascular rate normal, regular rhythm, no murmur, no edema, distal pulses normal. Gastrointestinal soft, non-tender, no rebound, no guarding, normal bowel sounds, no distension, no pulsatile mass. Genitourinary no CVA tenderness. Musculoskeletal no midline vertebral tenderness, full range of motion, no calf swelling, no tenderness of extremities, no meningismus, good pulses, neurovascularly intact. Skin pink, warm, & dry, no rash, skin atraumatic. Neurologic awake, alert and oriented x 3, AAOx3, moves all 4 extremities equally, motor intact, sensory intact, CN II-XII intact, normal cerebellar, normal vision, normal speech. Psychiatric normal mood/affect. Heme/Lymph/Immune no lymphadenopathy. Differential Diagnosis: Includes but is not limited to in a particular order acute alcohol intoxication, alcohol withdrawal seizure, electrolyte disturbance , medication noncompliance, breakthrough seizure Medical Decision Making: Plan for this patient check Dilantin level, check basic blood work electrolytes, check serum alcohol level, gentle IV hydration re -evaluate. Re-evaluation: 0320AM: Serum alcohol level 281. Source: Patient, EMS - Personal History LMP (Females 10-55): Post Menopausal Current Tetanus/Diphtheria Vaccine: Yes Current Tetanus Diphtheria and Acellular Pertussis (TDAP): Yes Tetanus Vaccine Date: 2014 - Medical/Surgical History Hx Asthma: No Hx Chronic Respiratory Disease: No Hx Diabetes: No Hx Cardiac Disease: No Hx Renal Disease: No Hx Cirrhosis: No Hx Alcoholism: Yes Hx HIV/AIDS: No Hx Splenectomy or Spleen Trauma: No Other PMH: PMHx: SEIZURE, DEPRESSION, EtOH abuse. PSHx: TONSILLECTOMY. abcess tooth. - Social History Smoking Status: Heavy smoker Constitutional: Initial Vital Signs Temperature (C) 36.7 C 05/09/17 02:30 Heart Rate 78 05/09/17 02:30 Respiratory Rate 16 05/09/17 02:30 Blood Pressure 115/74 05/09/17 02:30 O2 Sat (%) 96 05/09/17 02:30 O2 Delivery Mode Room Air Allergies/Adverse Reactions: No Known Allergies Allergy (Unverified 05/09/17 02:30) Home Medications: Medication Instructions Recorded levETIRAcetam [Keppra 500 mg (*)] 500 mg PO BID #6 tab 08/08/16 Gabapentin [Gralise] 1,800 mg PO DAILY 10/12/16 Medical Decision Making - Data Points Laboratory Results: Laboratory Results 05/09/17 02:45 05/09/17 02:45 05/09/17 05/09/17 02:45 02:45 WBC 5.26 10^3/uL 10^3/uL (3.80-9.50) RBC 4.74 10^6/uL 10^6/uL (4.18-5.33) Hgb 13.8 g/dL g/dL (12.6-16.3) Hct 40.9 % % (38.0-47.0) MCV 86.3 fL fL (81.5-99.8) MCH 29.1 pg pg (27.9-34.1) MCHC 33.7 g/dL g/dL (32.4-36.7) RDW 13.2 % % (11.5-15.2) Plt Count 230 10^3/uL 10^3/uL (150-400) MPV 8.6 fL L fL (8.7-11.7) Neut % (Auto) 40.6 % % (39.3-74.2) Lymph % (Auto) 50.6 % H % (15.0-45.0) [place] % (Auto) 7.2 % % (4.5-13.0) Eos % (Auto) 0.8 % % (0.6-7.6) Baso % (Auto) 0.4 % % (0.3-1.7) Nucleat RBC Rel Count 0.0 % % (0.0-0.2) Absolute Neuts (auto) 2.14 10^3/uL 10^3/uL (1.70-6.50) Absolute Lymphs (auto) 2.66 10^3/uL 10^3/uL (1.00-3.00) Absolute Monos (auto) 0.38 10^3/uL 10^3/uL (0.30-0.80) Absolute Eos (auto) 0.04 10^3/uL 10^3/uL (0.03-0.40) Absolute Basos (auto) 0.02 10^3/uL 10^3/uL (0.02-0.10) Absolute Nucleated RBC 0.00 10^3/uL 10^3/uL (0-0.01) Immature Gran % 0.4 % % (0.0-1.1) Immature Gran # 0.02 10^3/uL 10^3/uL (0.00-0.10) Sodium 147 mEq/L H mEq/L (135-145) Potassium 3.9 mEq/L mEq/L (3.5-5.2) Chloride 108 mEq/L mEq/L (97-110) Carbon Dioxide 19 mEq/l L mEq/l (22-31) Anion Gap 20 mEq/L H mEq/L (8-16) BUN 11 mg/dL mg/dL (7-23) Creatinine 0.5 mg/dL L mg/dL (0.6-1.0) Estimated GFR > 60 Glucose 83 mg/dL mg/dL (70-100) Calcium 8.8 mg/dL mg/dL (8.5-10.4) Troponin I Pending Phenytoin Pending Ethyl Alcohol 281 mg/dL H mg/dL (0-10) Medications Given: Discontinued Medications Sodium Chloride (Ns) 1,000 mls @ 0 mls/hr IV EDNOW ONE; Wide Open PRN Reason: Protocol Stop: 05/09/17 02:31 Last Admin: 05/09/17 02:43 Dose: 1,000 mls Departure - Departure Disposition: Home, Routine, Self-Care Clinical Impression: Alcohol intoxication Qualifiers: Complication of substance-induced condition: uncomplicated Qualified Code(s): F10.920 - Alcohol use, unspecified with intoxication, uncomplicated Condition: Good Instructions: Alcohol Intoxication (ED) Referrals: NONE *PRIMARY CARE P,. [Primary Care Provider] - As per Instructions
[2017-05-09 02:53] LABS: PLATELET COUNT 230 10^3/uL (150-400)
[2017-05-09] MEDS ORDERED: levETIRAcetam 500 MG TAB PO ONE (03:32)
[2017-05-09] MEDS ORDERED: CHLORDIAZEPOXIDE 25MG PREPK#6 BTL TAKEHOME ONE ×2 (05:15→05:18)
[2017-05-09 05:31] VITALS: BP 109/73; PULSE 77; TEMP 98.1; O2SAT 94
== END 2017-05-09 05:32 | disposition home or self-care (01) ==
LOC: EDUNIT#
DX: F10.920 Alcohol use, unspecified with intoxication, uncomplicated (principal); F17.200 Nicotine dependence, unspecified, uncomplicated; E86.9 Volume depletion, unspecified
CPT/HCPCS: G0480

== ENCOUNTER 2017-05-14 06:28 | Emergency (ER) | payer MEDICAID ==
[2017-05-14] MEDS ORDERED: chlordiazePOXIDE 25 MG CAP PO ONE (06:33)
[2017-05-14] MEDS ORDERED: levETIRAcetam 500 MG TAB PO ONE (06:35)
--- NOTE | 2017-05-14 06:38 | EDPHY ---
H & P Time Seen by Provider: 05/14/17 06:33 HPI/ROS: Chief Complaint: Seizure HPI: 56-year-old homeless alcoholic woman well known to this emergency department had a witnessed tonic-clonic seizure at [facility] today. Patient states she has been taking her Keppra once a day, last took it yesterday morning. Last alcoholic drink was yesterday. Patient on EMS arrival was mildly postictal. Denies recent illness. Is a very small abrasion on her left cheek. No other evidence of trauma. ROS: 10 point Review of Systems is negative except as noted in the HPI. PMH: Seizure disorder Social History: No smoking, daily heavy alcohol, homeless Family History: non-contributory Physical Exam: Gen: Awake, Alert, No Distress HEENT: Small abrasion left face Nose: no rhinorrhea Eyes: PERRLA, EOMI Mouth: Moist mucosa Neck: Supple, no JVD Chest: nontender, lungs clear to auscultation Heart: S1, S2 normal, no murmur Abd: Soft, non-tender, no guarding Back: no CVA tenderness, no midline tenderness Ext: no edema, non-tender Skin: no rash Neuro: CN II-XII intact, Sensation grossly intact, Strength 5/5 in bilateral upper and lower extremities - Personal History Tetanus Vaccine Date: 2014 - Medical/Surgical History Hx Asthma: No Hx Chronic Respiratory Disease: No Hx Diabetes: No Hx Cardiac Disease: No Hx Renal Disease: No Hx Cirrhosis: No Hx Alcoholism: Yes Hx HIV/AIDS: No Hx Splenectomy or Spleen Trauma: No Other PMH: PMHx: SEIZURE, DEPRESSION, EtOH abuse. PSHx: TONSILLECTOMY. abcess tooth. - Social History Smoking Status: Heavy smoker Allergies/Adverse Reactions: No Known Allergies Allergy (Unverified 05/09/17 02:30) Home Medications: Medication Instructions Recorded levETIRAcetam [Keppra 500 mg (*)] 500 mg PO BID #6 tab 08/08/16 Gabapentin [Gralise] 1,800 mg PO DAILY 10/12/16 Medical Decision Making - Data Points Medications Given: Discontinued Medications Chlordiazepoxide HCl (Librium) 25 mg PO EDNOW ONE Stop: 05/14/17 06:34 Last Admin: 05/14/17 06:35 Dose: Not Given Departure - Departure Disposition: Home, Routine, Self-Care Clinical Impression: Seizure disorder Condition: Good Instructions: Epilepsy (ED) Additional Instructions: Make sure to take your Keppra twice a day as prescribed. Follow up with your primary care physician in 3-4 days for further evaluation. Return to the emergency department for further seizures, nausea or vomiting, fainting, or any other concerns. Referrals: [facility],. [Clinic] - As per Instructions
[2017-05-14 07:20] VITALS: BP 121/76
== END 2017-05-14 07:21 | disposition home or self-care (01) ==
LOC: EDUNIT#
DX: G40.909 Epilepsy, unspecified, not intractable, without status epilepticus (principal); F17.200 Nicotine dependence, unspecified, uncomplicated

== ENCOUNTER 2017-05-14 09:04 | Observation (INO) | payer MEDICAID ==
--- NOTE | 2017-05-14 09:12 | EDPHY ---
H & P Smoking Status: Heavy smoker Time Seen by Provider: 05/14/17 09:09 HPI/ROS: CHIEF COMPLAINT: Possible seizure HISTORY OF PRESENT ILLNESS: 56-year-old female presents to the emergency department by EMS after having witnessed seizure on a bus. The patient was seen earlier this morning and had a witnessed seizure at [facility]. She is homeless. She has a history of alcoholism, seizure disorder, as well as alcohol withdrawal seizures. She was given 1 g of Keppra p. O. In the emergency department when she was here just 2 hr ago. No reports of trauma. Unsure when she last drank alcohol. The patient is confused per EMS. REVIEW OF SYSTEMS: Unobtainable due to the patient's altered mental status. (Valeria Arias) Past Medical/Surgical History: Seizure disorder, alcohol withdrawal seizures, alcoholism (Valeria Arias) Social History: Homeless (Valeria Arias) Physical Exam: General Appearance: Alert. Altered mental status. Eyes: Pupils equal and round. Extraocular motions are all intact. ENT: Mouth: Mucous membranes moist. Respiratory: No wheezing, rhonchi, or rales, lungs are clear to auscultation. Cardiovascular: Regular rate and rhythm. Gastrointestinal: Abdomen is soft and nontender, no masses, no rebound or guarding, bowel sounds normal. Neurological: Uncooperative, cannot determine. Skin: Warm and dry, no rashes. Musculoskeletal: Nontender to palpate along the cervical, thoracic or lumbar spine. Neck is supple. Extremities: Full range of motion and no peripheral edema. Psychiatric: no agitation. (Valeria Arias) Constitutional: Initial Vital Signs Temperature (C) 37.1 C 05/14/17 09:14 Heart Rate 100 05/14/17 09:14 Respiratory Rate 18 05/14/17 09:14 Blood Pressure 142/78 H 05/14/17 09:14 O2 Sat (%) 95 05/14/17 09:14 O2 Delivery Mode Nasal Cannula O2 (L/minute) 5 Allergies/Adverse Reactions: No Known Allergies Allergy (Unverified 05/14/17 06:42) Home Medications: Medication Instructions Recorded FLUoxetine HCL [Fluoxetine HCl] 40 mg PO DAILY 05/14/17 Gabapentin [Neurontin 400 MG (*)] 800 mg PO TID 05/14/17 Acetaminophen [Tylenol 325mg (*)] 650 mg PO Q4HRS PRN tab 05/15/17 Thiamine HCl [Vitamin B-1] 100 mg PO DAILY tab 05/15/17 levETIRAcetam [Keppra 500 mg (*)] 500 mg PO BID #60 tab 05/15/17 Medical Decision Making - Diagnostics Imaging: Discussed imaging studies w/ scallop cutter Radiologist ED Course/Re-evaluation: 56-year-old female presents to the emergency department after seizure-like activity on a bus. She was seen in the emergency department earlier after having a witnessed seizure and was given 1 g of Keppra p. O.. It sounds like she is not compliant with her medications. Upon arrival in the emergency department she is still altered. I do not appreciate any signs of trauma to her head. There is no tongue abrasion. Laboratory studies have been ordered and are pending. Patient was uncooperative and we were unable to obtain ETOH breath. 9:50 a.m.: The patient had a witnessed tonic-clonic seizure in the emergency department. She was given a total of 2 mg of IV Ativan. She was placed on oxygen the kept on a monitor. Neurology has been paged. I spoke with the on-call neurologist, Dr. Eduardo Rudd, who agrees that he does not think that the patient is in status epilepticus. He recommended 500 mg of IV Keppra since she was already given a loading dose of 1 g of Keppra and her earlier ER visit today. He recommended see walk protocol and will be admitted to the hospitalist. He will see her in the hospital. The case was discussed with Dr. Junito Soria, secondary supervising physician, who did not directly evaluate the patient but agrees with treatment plan. (Valeria Arias) I saw this patient in the emergency department when she had a seizure. Patient was having a generalized tonic-clonic seizure. I intervened we made sure the airway was open. We made sure her head was slightly elevated an turned to the side. We had suction present. She was treated with intravenous Ativan. Seizure stopped and was controlled. I discussed treatment plan with the PA while the patient was in the department including recommendation for admission. (Junito Soria) Differential Diagnosis: Altered mental status including but not limited to hypoglycemia, infectious process, electrolyte abnormality, head injury and intoxicants. Seizure including but not limited to electrolyte abnormality, alcohol withdrawal , medication noncompliance, head injury, and breakthrough seizure. (Valeria Arias) - Data Points Laboratory Results: Laboratory Results 05/14/17 09:15 05/14/17 09:15 Medications Given: Discontinued Medications Acetaminophen (Tylenol) 650 mg PO Q4HRS PRN PRN Reason: Pain, Mild/Fever, Can Take PO Stop: 11/10/17 11:50 Last Admin: 05/15/17 00:15 Dose: 650 mg Enoxaparin Sodium (Lovenox) 40 mg SC DAILY JOSE Stop: 11/11/17 08:59 Last Admin: 05/15/17 09:32 Dose: 40 mg Fluoxetine HCl (Prozac) 40 mg PO DAILY JOSE Stop: 11/11/17 08:59 Last Admin: 05/15/17 09:32 Dose: 40 mg Gabapentin (Neurontin) 800 mg PO TID JOSE Stop: 11/10/17 21:59 Last Admin: 05/15/17 09:32 Dose: 800 mg Levetiracetam (Keppra (Premix)) 100 mls @ 400 mls/hr IV EDNOW ONE Stop: 05/14/17 10:16 Last Admin: 05/14/17 10:57 Dose: 100 mls Thiamine HCl 500 mg/ Sodium (Chloride) 105 mls @ 105 mls/hr IV DAILY JOSE Stop: 05/16/17 09:59 Last Admin: 05/15/17 09:32 Dose: 105 mls Magnesium Sulfate (Magnesium Sulf 2 Gm (Premix)) 50 mls @ 50 mls/hr IV ONCE ONE Stop: 05/14/17 14:15 Last Admin: 05/14/17 14:13 Dose: 50 mls Levetiracetam (Keppra) 500 mg PO BID JOSE Stop: 11/10/17 20:59 Last Admin: 05/15/17 09:32 Dose: 500 mg Lorazepam (Ativan Injection) 1 mg IVP EDNOW ONE Stop: 05/14/17 10:01 Last Admin: 05/14/17 10:00 Dose: 1 mg Lorazepam (Ativan Injection) 1 mg IVP EDNOW ONE Stop: 05/14/17 10:06 Last Admin: 05/14/17 10:05 Dose: 1 mg Lorazepam (Ativan Injection) 0 mg IVP Q1H PRN; Protocol PRN Reason: Alcohol Withdrawal w/IV access Stop: 11/10/17 11:50 Last Admin: 05/14/17 20:53 Dose: 2 mg Departure - Departure Disposition: [facility] Acute Condition: Fair
[2017-05-14 09:21] LABS: PLATELET COUNT 166 10^3/uL (150-400)
[2017-05-14] MEDS ORDERED: LORazepam 2 MG/ML INJ ONE ×2 (09:52→09:57)
[2017-05-14] MEDS ORDERED: LORazepam 2 MG/ML INJ IVP ONE ×2 (10:00→10:05)
[2017-05-14] MEDS ORDERED: levETIRAcetam 500MG/NACL 100 ML IV ONE (10:02)
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
[2017-05-14] MEDS ORDERED: ONDANSETRON 4 MG/2 ML VIAL IVP PRN (11:51)
[2017-05-14] MEDS ORDERED: ONDANSETRON DISINTEGRATING 4 MG TAB PO PRN (11:51)
[2017-05-14] MEDS ORDERED: ACETAMINOPHEN 325 MG TAB PO PRN (11:51)
[2017-05-14] MEDS ORDERED: THIAMINE HCL 500 MG in NS 500 ML IV SCH (12:45)
[2017-05-14] MEDS: THIAMINE HCL 500 MG in NS 100 ML IV SCH (13:11)
[2017-05-14] MEDS ORDERED: MAGNESIUM SULF 2 GM/WATER 50 ML IV ONE (13:16)
[2017-05-14] MEDS ORDERED: PROTOCOL MAGNESIUM 1 DOSE IV PRN (13:16)
--- NOTE | 2017-05-14 13:52 | NEUROPROG ---
Assessment: [id number] - Neurology Consult: - CC: Seizure, Chronic Alcoholism - HPI: Pt admitted to [facility] on 05/14/17 for recurrent seizures. It was reported she had a history of chronic alcoholism, homelessness, and seizures. She was seen initially at the [facility] ER for a witnessed seizure for which she was loaded on 1 gram of Keppra and discharged with plans to take Keppra 500 mg bid. Unfortunately, it was reported she had a second generalized seizure so was brought back to the ER. In the ER she had a third witnessed seizure so was given ativan 2 mg w/o seizures since. When I saw her she is somnolent but will follow 1 step commands and seems to be slowly improving. Head CT unremarkable. Neurologic exam shows somnolence but no focal problems. It was unclear when she had last used alcohol. - PMHx: alcoholism, seizures - SHx: homeless, tobacco use FHx: pt cannot answer - ROS: Pt too somnolent to answer - O: VS reviewed General: somnolent Eyes: Fundoscopic exam not able to visualize optic disks CV: Heart RRR, no murmur, no carotid bruit Lungs: Clear to auscultation bilaterally, no rhonchi or rales Neuro: - Mental: . very somnolent, will follow 1 step commands - Cranial Nerves: . Pt too somnolent for full testing, no facial weakness seen, no clear focal findings - Motor: . Tone: normal tone in all 4 extremity . Strength: no focal weakness noted but patient very somnolent complicating testing - Reflexes: B/L bic 2/4 - Sensory: pt too somnolent for testing - Coord: pt too somnolent for testing - Gait: deferred - Labs: 05/14/17- CBC WBC 9.75 Hct 35.9L, Ethyl alcohol < 10 - Rads: 05/14/17- Head CT: Stable negative noncontrast CT of the brain. Underlying atrophy (I personally visualized the images on 05/14/17) - Assessment: 1. Recurrent Seizure Disorder in setting of underlying alcoholism: Last seizure 05/14/17, head CT unremarkable. Likely seizures related to alcoholism. We can consider brain MRI and EEG at outpatient f/u visit. - Plan: - Agree with Keppra (levetiracetam) 500 mg bid on discharge - Driving restrictions and seizure precautions until outpatient f/u - Alcohol cessation is critical for speech and language assistant health, recommend CIWA now with thiamine - Neurology will continue to follow - F/U in neurology clinic 1-4 weeks after discharge Objective: Vital Signs Temp Pulse Resp BP Pulse Ox 37.5 C 99 26 H 134/78 H 90 L 05/14/17 12:39 05/14/17 12:39 05/14/17 12:39 05/14/17 12:39 05/14/17 12:39 Allergies/Adverse Reactions: No Known Allergies Allergy (Unverified 05/14/17 06:42)
--- NOTE | 2017-05-14 15:01 | GHP ---
[f rep st] HISTORY AND PHYSICAL DATE OF ADMISSION: 05/14/2017 CHIEF COMPLAINT: Seizure. HISTORY OF PRESENT ILLNESS: A 56-year-old female with seizure disorder, alcohol dependence, and history of withdrawal seizure, who was seen in the ER for witnessed seizure. She was loaded with 1 g of Keppra, and discharged home with continuation of Keppra 500 mg b.i.d.. She returned after having a second generalized seizure, was brought back to the ER. She again had a third seizure and was given Ativan. She had a negative CT of the head. She was not able to tell me when she had her last drink or how much she normally drinks. Denies any fevers, chills, or sweats. No nausea, vomiting, diarrhea. No cough. No chest pain. REVIEW OF SYSTEMS: I completed a 10-point review of systems, negative except noted in HPI. PAST MEDICAL HISTORY: 1. History of seizure disorder. 2. Medication noncompliance. 3. Alcohol dependence. 4. Wernicke. 5. History of alcohol withdrawal and seizures. 6. Prior tooth abscess. 7. Depression. PAST SURGICAL HISTORY: Tonsillectomy. FAMILY HISTORY: Brother with seizure disorder. SOCIAL HISTORY: Says she lives with her brother. Smokes daily, but cannot tell me how much. Drinks daily. Again, cannot tell me due to somnolence. ALLERGIES: No known drug allergies. HOME MEDICATIONS: Keppra 500 mg b.i.d., unclear last dose. She is often noncompliant. Gabapentin 1800 daily. PHYSICAL EXAMINATION: VITAL SIGNS: Temperature 37.5, blood pressure 134/78, heart rate in the 90s, respirations 22, 94% on room air. GENERAL: Thin, unkempt. HEENT: Pupils are small, round, reactive. Poor dentition. No evidence of tooth infection. CV: Regular rate and rhythm. No murmurs, gallops , or rubs. LUNGS: Clear anteriorly. ABDOMEN: Soft, nontender, nondistended. Positive bowel sounds. : No Muniz. MUSCULOSKELETAL: Moving all 4 extremities appropriately. NEURO: She is somnolent, but follows commands. Normal sensation to touch. PSYCH: Alert to [facility], but not date. LABORATORY DATA: WBC 9, hemoglobin 12, hematocrit 35, platelets 166. Sodium 138, potassium 4.8, chloride 98, carbon dioxide 20, creatinine 0.4, glucose 139 , calcium 9.1, phos 3.1, mag 1.4. BAL is less than 10. Head CT negative for acute hemorrhage. ASSESSMENT/PLAN: 1. Acute seizures: h/o seizure disorder, medicine noncompliance. Had 3 seizures today. Evaluated by Dr. Rudd, CT head was unremarkable. Due to alcohol withdrawal. Loaded with Keppra and then home dose. Monitor in the ICU. Seizure precautions. No driving. Can consider EEG and MRI outpatient. 2. Alcohol dependence: CIWA. 3. Hypomagnesium, replete. 4. Social situation: Unclear if she is homeless at this point. She says she is living with her . We will further discuss when she is more alert. 5. Diet: Advance as tolerated when mental status improves. 6. Deep venous thrombosis prophylaxis, Lovenox. DISPOSITION: Patient warrants observation admission given acute seizures, warranting frequent neuro checks. /[id number]/MODL MTDD
[2017-05-14] MEDS: LORazepam 2 MG/ML INJ IVP PRN ×2 (16:43→20:53)
[2017-05-14] MEDS: levETIRAcetam 500 MG TAB PO SCH (20:50)
[2017-05-14] MEDS: GABAPENTIN 400 MG CAP PO SCH (20:50)
[2017-05-15] MEDS ORDERED: ENOXAPARIN 40 MG/0.4 ML SYR SC SCH (09:00)
[2017-05-15] MEDS ORDERED: THIAMINE HCL 500 MG in NS 500 ML IV SCH (09:00)
[2017-05-15] MEDS ORDERED: FLUoxetine 20 MG CAP PO SCH (09:00)
[2017-05-15] MEDS: levETIRAcetam 500 MG TAB PO SCH (09:32)
[2017-05-15] MEDS: THIAMINE HCL 500 MG in NS 100 ML IV SCH (09:32)
[2017-05-15] MEDS: GABAPENTIN 400 MG CAP PO SCH (09:32)
--- NOTE | 2017-05-15 09:39 | HOSPPROG ---
Hospitalist Progress Note Assessment/Plan: 56 yo homeless F with PMH of etoh abuse as well as seizure d/o presenting s/p seizure # seizure: recurrent on day of admission but no recurrence so far today. Seizures likely 2/2 etoh w/d, sounds as if it has been > 48 hours since her last drink. She does take keppra at home for possible contribution of primary seizure disorder as well which will be continued. Discussed with neurology, appreciate their input. # etoh abuse: without current e/o withdrawal and sounds as if it has been > 48 hours since last drink, she does have to submit to regular breathalyzers and has been compliant with that per her report # hyperglycemia: likely stress response # dispo: observation status, likely can dc later today if able to ambulate safely Patient new to my care. Old records reviewed/summarized as above. Care plan reviewed with neurology as above. Subjective: no significant overnight events, patient states she feels weak today but no other complaints, no withdrawal sxs Objective: Vital Signs Temp Pulse Resp BP Pulse Ox 37.5 C 94 18 105/68 94 05/15/17 04:00 05/15/17 04:00 05/15/17 04:00 05/15/17 04:00 05/15/17 04:00 05/14/17 05/15/17 05/16/17 05:59 05:59 05:59 Intake Total 300 Balance 300 awake alert disheveled anicteric poor dentition rrr no mrg cta b soft nt nd no cce warm dry well perfused oriented appropriate no tremor ICD10 Worksheet Patient Problems: Problems Problem Status Onset Lung abnormality Acute Alcohol withdrawal delirium Acute Seizure disorder Acute Seizure due to alcohol withdrawal Acute Alcoholic hepatitis Acute Alcohol withdrawal Acute Altered mental state Acute Status epilepticus Acute
--- NOTE | 2017-05-15 11:09 | NEUROPROG ---
Assessment: 25 minutes total unit time with patient who likely has alcohol related seizures but recommend Keppra and outpatient follow up and sobriety program. No other recs outside of what Dr. Rudd already wrote. OK to discharge once medically cleared. Subjective: Patient case reviewed. She says she has some headache but otherwise ok. No recurrent seizures. No symptoms of withdrawal Objective: Vital Signs Temp Pulse Resp BP Pulse Ox 37.1 C 91 16 104/67 94 05/15/17 08:00 05/15/17 08:00 05/15/17 08:00 05/15/17 08:00 05/15/17 08:00 05/14/17 05/15/17 05/16/17 05:59 05:59 05:59 Intake Total 300 Balance 300 Alert and oriented and no focal deficits Allergies/Adverse Reactions: No Known Allergies Allergy (Unverified 05/14/17 06:42)
[2017-05-15 11:25] VITALS: BP 98/66
--- NOTE | 2017-05-15 11:34 | PDDCSUM ---
Discharge Summary Discharge Summary: Dates of service 05/14-05/15/17 Consultations: neurology Procedures performed: none Hospital course by problem: 56 yo homeless F with PMH of etoh abuse as well as seizure d/o presenting s/p seizure # seizure: recurrent on day of admission but no recurrence so far today. Seizures likely 2/2 etoh w/d, sounds as if it has been > 48 hours since her last drink. She does take keppra at home for possible contribution of primary seizure disorder as well which will be continued. Discussed with neurology, appreciate their input. # etoh abuse: without current e/o withdrawal and sounds as if it has been > 48 hours since last drink, she does have to submit to regular breathalyzers and has been compliant with that per her report # hyperglycemia: likely stress response # dispo: dc home > 35 min spent in dc of patient more than half in coordination of care
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
[2017-05-17] MEDS ORDERED: THIAMINE HCL 100 MG TAB PO SCH (11:51)
== END 2017-05-15 12:29 | disposition home or self-care (01) ==
LOC: EDUNIT# → F2N 12:29
PROVIDERS: ADMIT Internal Medicine; ATTEND Internal Medicine
DX: R56.9 Unspecified convulsions (principal); Z86.69 Personal history of other diseases of the nervous system and sense organs; F10.20 Alcohol dependence, uncomplicated; F17.210 Nicotine dependence, cigarettes, uncomplicated; Z59.0 Homelessness
CPT/HCPCS: 70450; G0378; G0480; J1650; J1953; J2060; J3411; J3475

== ENCOUNTER 2017-06-13 23:00 | Emergency (ER) | payer MEDICAID ==
[2017-06-13] MEDS ORDERED: levETIRAcetam 1000MG/NACL 100 ML IV ONE (23:50)
[2017-06-13] MEDS ORDERED: NS 1,000 ML IV ONE (23:50)
--- NOTE | 2017-06-14 00:13 | EDPHY ---
H & P Stated Complaint: Had an aura Time Seen by Provider: 06/13/17 23:35 HPI/ROS: HPI The patient presents with concern for seizure. He initially felt as if she was floating on water and her equilibrium was off and then had an episode of loss of consciousness. She is now feeling sleepy. She is brought in by ambulance after a bystander called 911. She denies any complaint currently except for feeling sleepy. She has a known seizure disorder and also has a history of alcohol withdrawal seizures. She is was to be taking Keppra twice a day, however her medication is at her mother's house and there is a restraining order involved so she has missed 3 days of Keppra. She has been drinking alcohol, last drink was 1 day ago. She said she does not feel as if she is in alcohol withdrawal, denies any tremors, agitation, hallucination. She was admitted to the hospital in May for a seizure under similar circumstances.. REVIEW OF SYSTEMS Constitutional: No fever, no chills. Eyes: No discharge. ENT: No sore throat. Cardiovascular: No chest pain, no palpitations. Respiratory: No cough, no shortness of breath. Gastrointestinal: No abdominal pain, no vomiting. Genitourinary: No hematuria. Musculoskeletal: No back pain. Skin: No rashes. Neurological: No headache. PMHx: History of seizure disorder, history of alcohol withdrawal seizures Soc Hx: Homeless PHYSICAL General Appearance: Alert, no distress Eyes: Pupils equal and round no pallor or injection ENT, Mouth: Mucous membranes moist Respiratory: There are no retractions, lungs are clear to auscultation Cardiovascular: Regular rate and rhythm Gastrointestinal: Abdomen is soft and non-tender, no masses, bowel sounds normal Neurological: A&O, moves all extremities Skin: Warm and dry, no rashes Musculoskeletal: Neck is supple non tender Extremities: symmetrical, full range of motion Psychiatric: Patient is oriented X 3, there is no agitation Source: Patient Exam Limitations: No limitations - Personal History Tetanus Vaccine Date: 2014 - Medical/Surgical History Hx Asthma: No Hx Chronic Respiratory Disease: No Hx Diabetes: No Hx Cardiac Disease: No Hx Renal Disease: No Hx Cirrhosis: No Hx Alcoholism: Yes Hx HIV/AIDS: No Hx Splenectomy or Spleen Trauma: No Other PMH: PMHx: SEIZURE, DEPRESSION, EtOH abuse. PSHx: TONSILLECTOMY. abcess tooth. - Social History Smoking Status: Heavy smoker Constitutional: Initial Vital Signs Temperature (C) 36.6 C 06/13/17 23:05 Heart Rate 89 06/13/17 23:05 Respiratory Rate 20 06/13/17 23:05 Blood Pressure 125/85 H 06/13/17 23:05 O2 Sat (%) 94 06/13/17 23:05 O2 Delivery Mode Room Air Allergies/Adverse Reactions: No Known Allergies Allergy (Unverified 06/13/17 23:05) Home Medications: Medication Instructions Recorded FLUoxetine HCL [Fluoxetine HCl] 40 mg PO DAILY 05/14/17 Gabapentin [Neurontin 400 MG (*)] 800 mg PO TID 05/14/17 Acetaminophen [Tylenol 325mg (*)] 650 mg PO Q4HRS PRN tab 05/15/17 Thiamine HCl [Vitamin B-1] 100 mg PO DAILY tab 05/15/17 levETIRAcetam [Keppra 500 mg (*)] 500 mg PO BID #60 tab 05/15/17 levETIRAcetam [Keppra 500 mg (*)] 500 mg PO BID #60 tab 06/14/17 Medical Decision Making Differential Diagnosis: 56-year-old female with history of homelessness, seizures, alcohol abuse presents with likely seizure just prior to arrival. This is in the setting of last drink of alcohol 1 day ago and no longer taking Keppra. On exam, she has normal vital signs and is generally well-appearing. Differential diagnosis includes seizure, alcohol withdrawal seizure, alcohol withdrawal, electrolyte disturbance. In the emergency department, the patient was given 1 g of Keppra and IV fluids. Labs were checked and were relatively unremarkable except for her alcohol level which was elevated. She was allowed to rest. She was observed for several hours with no further seizure activity. Her vital signs were normal. [facility] - Data Points Laboratory Results: Laboratory Results 06/13/17 23:27 06/13/17 23:27 06/13/17 06/13/17 23:27 23:27 WBC 4.80 10^3/uL 10^3/uL (3.80-9.50) RBC 4.53 10^6/uL 10^6/uL (4.18-5.33) Hgb 13.1 g/dL g/dL (12.6-16.3) Hct 39.5 % % (38.0-47.0) MCV 87.2 fL fL (81.5-99.8) MCH 28.9 pg pg (27.9-34.1) MCHC 33.2 g/dL g/dL (32.4-36.7) RDW 14.7 % % (11.5-15.2) Plt Count 202 10^3/uL 10^3/uL (150-400) MPV 8.7 fL fL (8.7-11.7) Neut % (Auto) 44.6 % % (39.3-74.2) Lymph % (Auto) 45.6 % H % (15.0-45.0) Delta % (Auto) 7.3 % % (4.5-13.0) Eos % (Auto) 1.7 % % (0.6-7.6) Baso % (Auto) 0.6 % % (0.3-1.7) Nucleat RBC Rel Count 0.0 % % (0.0-0.2) Absolute Neuts (auto) 2.14 10^3/uL 10^3/uL (1.70-6.50) Absolute Lymphs (auto) 2.19 10^3/uL 10^3/uL (1.00-3.00) Absolute Monos (auto) 0.35 10^3/uL 10^3/uL (0.30-0.80) Absolute Eos (auto) 0.08 10^3/uL 10^3/uL (0.03-0.40) Absolute Basos (auto) 0.03 10^3/uL 10^3/uL (0.02-0.10) Absolute Nucleated RBC 0.00 10^3/uL 10^3/uL (0-0.01) Immature Gran % 0.2 % % (0.0-1.1) Immature Gran # 0.01 10^3/uL 10^3/uL (0.00-0.10) Sodium 147 mEq/L H mEq/L (135-145) Potassium 3.3 mEq/L L mEq/L (3.5-5.2) Chloride 106 mEq/L mEq/L (97-110) Carbon Dioxide 21 mEq/l L mEq/l (22-31) Anion Gap 20 mEq/L H mEq/L (8-16) BUN 12 mg/dL mg/dL (7-23) Creatinine 0.5 mg/dL L mg/dL (0.6-1.0) Estimated GFR > 60 Glucose 84 mg/dL mg/dL (70-100) Calcium 9.2 mg/dL mg/dL (8.5-10.4) Total Bilirubin 0.7 mg/dL mg/dL (0.1-1.4) AST 49 IU/L H IU/L (14-46) ALT 39 IU/L IU/L (9-52) Alkaline Phosphatase 128 IU/L H IU/L (38-126) Total Protein 8.2 g/dL g/dL (6.3-8.2) Albumin 4.6 g/dL g/dL (3.5-5.0) Ethyl Alcohol 294 mg/dL H mg/dL (0-10) Medications Given: Discontinued Medications Chlordiazepoxide (Librium 25 Mg Prepack#6) 1 btl TAKEHOME EDNOW ONE Stop: 06/14/17 03:17 Last Admin: 06/14/17 03:21 Dose: 1 btl Levetiracetam (Keppra (Premix)) 100 mls @ 400 mls/hr IV EDNOW ONE Stop: 06/14/17 00:04 Last Admin: 06/14/17 00:15 Dose: 100 mls Sodium Chloride (Ns) 1,000 mls @ 0 mls/hr IV EDNOW ONE; Wide Open PRN Reason: Protocol Stop: 06/13/17 23:51 Last Admin: 06/14/17 00:15 Dose: 1,000 mls Departure - Departure Disposition: Home, Routine, Self-Care Clinical Impression: Seizure disorder, Seizure Alcohol intoxication Qualifiers: Complication of substance-induced condition: uncomplicated Qualified Code(s): F10.920 - Alcohol use, unspecified with intoxication, uncomplicated Condition: Good Instructions: Chlordiazepoxide (By mouth), Recurrent Seizures in Adults (ED) Referrals: [facility],. [Clinic] - As per Instructions Prescriptions: levETIRAcetam [Keppra 500 mg (*)] 500 mg PO BID #60 tab
[2017-06-14 00:33] LABS: PLATELET COUNT 202 10^3/uL (150-400)
[2017-06-14] MEDS ORDERED: CHLORDIAZEPOXIDE 25MG PREPK#6 BTL TAKEHOME ONE (03:16)
[2017-06-14 04:02] VITALS: BP 113/67
== END 2017-06-14 04:02 | disposition home or self-care (01) ==
LOC: EDUNIT#
DX: G40.909 Epilepsy, unspecified, not intractable, without status epilepticus (principal); F10.920 Alcohol use, unspecified with intoxication, uncomplicated; F17.200 Nicotine dependence, unspecified, uncomplicated; E86.9 Volume depletion, unspecified
CPT/HCPCS: 96374; G0480; J1953

== ENCOUNTER 2017-08-09 02:41 | Emergency (ER) | payer MEDICAID ==
[2017-08-09] MEDS ORDERED: levETIRAcetam 500 MG TAB PO ONE (03:27)
--- NOTE | 2017-08-09 06:12 | EDPHY ---
H & P Stated Complaint: SEIZURE Time Seen by Provider: 08/09/17 06:05 HPI/ROS: HPI The patient presents with concern of seizure, brought in by ambulance. The patient was at a grocery store and had an unwitnessed event, was found on the ground stating that she thought she had a seizure. She was sleepy afterwards. The patient believes she did have a seizure, she is feeling well now. She has been drinking alcohol, last use yesterday. She does take antiepileptics, however her medications were changed recently, she is was to be taking 2 different antiepileptics, however cannot tell me their names. She says that she has missed some doses lately.. REVIEW OF SYSTEMS Constitutional: No fever, no chills. Eyes: No discharge. ENT: No sore throat. Cardiovascular: No chest pain, no palpitations. Respiratory: No cough, no shortness of breath. Gastrointestinal: No abdominal pain, no vomiting. Genitourinary: No hematuria. Musculoskeletal: No back pain. Skin: No rashes. Neurological: No headache. PMHx: Seizures, alcohol abuse Soc Hx: Alcohol abuse, marginally housed PHYSICAL General Appearance: Alert, no distress Eyes: Pupils equal and round no pallor or injection ENT, Mouth: Mucous membranes moist Respiratory: There are no retractions, lungs are clear to auscultation Cardiovascular: Regular rate and rhythm Gastrointestinal: Abdomen is soft and non-tender, no masses, bowel sounds normal Neurological: A&O, moves all extremities Skin: Warm and dry, no rashes Musculoskeletal: Neck is supple non tender Extremities: symmetrical, full range of motion Psychiatric: Patient is oriented X 3, there is no agitation Source: Patient, EMS Exam Limitations: Intoxication - Personal History Tetanus Vaccine Date: 2014 - Medical/Surgical History Hx Asthma: No Hx Chronic Respiratory Disease: No Hx Diabetes: No Hx Cardiac Disease: No Hx Renal Disease: No Hx Cirrhosis: No Hx Alcoholism: Yes Hx HIV/AIDS: No Hx Splenectomy or Spleen Trauma: No Other PMH: PMHx: SEIZURE, DEPRESSION, EtOH abuse. PSHx: TONSILLECTOMY. abcess tooth. - Social History Smoking Status: Heavy smoker Constitutional: Initial Vital Signs Temperature (C) 36.3 C 08/09/17 03:01 Heart Rate 55 L 08/09/17 03:01 Respiratory Rate 12 08/09/17 03:01 Blood Pressure 103/68 08/09/17 03:01 O2 Sat (%) 99 08/09/17 03:01 O2 Delivery Mode Room Air Allergies/Adverse Reactions: No Known Allergies Allergy (Unverified 08/09/17 03:21) Home Medications: Medication Instructions Recorded FLUoxetine HCL [Fluoxetine HCl] 40 mg PO DAILY 05/14/17 Gabapentin [Neurontin 400 MG (*)] 800 mg PO TID 05/14/17 Acetaminophen [Tylenol 325mg (*)] 650 mg PO Q4HRS PRN tab 05/15/17 Thiamine HCl [Vitamin B-1] 100 mg PO DAILY tab 05/15/17 levETIRAcetam [Keppra 500 mg (*)] 500 mg PO BID #60 tab 05/15/17 levETIRAcetam [Keppra 500 mg (*)] 500 mg PO BID #60 tab 06/14/17 Medical Decision Making Differential Diagnosis: This is a 57-year-old female with longstanding history of alcohol abuse as well as seizure disorder who presents with concern for seizure which was unwitnessed while she was at the grocery store. Patient says that she lost consciousness, fell to the ground, felt as if she had a seizure. Here, she was given a dose of Keppra. She tells me that her seizure medications have actually change, however she cannot recall the names of the medications nor did she have them with her. She does admit to recent alcohol use. She is not experiencing signs or symptoms of alcohol withdrawal. She was monitored for several hours, able walk with a steady gait, [facility] with [facility]. Differential diagnosis includes seizure disorder with seizure, alcohol withdrawal seizure, less likely syncope. - Data Points Medications Given: Discontinued Medications Chlordiazepoxide (Librium 25 Mg Prepack#6) 1 btl TAKEHOME EDNOW ONE Stop: 08/09/17 06:18 Last Admin: 08/09/17 06:26 Dose: 1 btl Levetiracetam (Keppra) 500 mg PO EDNOW ONE Stop: 08/09/17 03:28 Last Admin: 08/09/17 03:38 Dose: 500 mg Departure - Departure Disposition: Home, Routine, Self-Care Clinical Impression: Seizure, Alcohol abuse Condition: Good Instructions: Chlordiazepoxide/Clidinium (By mouth), Epilepsy (ED), Alcohol Withdrawal (ED) Additional Instructions: Please make sure to take her medications as prescribed. Referrals: [facility],. [Clinic] - As per Instructions
[2017-08-09] MEDS ORDERED: CHLORDIAZEPOXIDE 25MG PREPK#6 BTL TAKEHOME ONE (06:17)
[2017-08-09 06:35] VITALS: BP 100/65
== END 2017-08-09 06:44 | disposition home or self-care (01) ==
LOC: EDUNIT#
DX: G40.909 Epilepsy, unspecified, not intractable, without status epilepticus (principal); F10.10 Alcohol abuse, uncomplicated; F17.200 Nicotine dependence, unspecified, uncomplicated

== ENCOUNTER 2017-10-25 16:36 | Emergency (ER) | payer MEDICAID, OTHER ==
--- NOTE | 2017-10-25 16:30 | EDPHY ---
H & P Time Seen by Provider: 10/25/17 16:45 Constitutional: Initial Vital Signs Temperature (C) 37.2 C 10/25/17 16:45 Heart Rate 86 10/25/17 16:45 Respiratory Rate 16 10/25/17 16:45 Blood Pressure 108/70 10/25/17 16:45 O2 Sat (%) 92 10/25/17 16:45 O2 Delivery Mode Room Air Allergies/Adverse Reactions: No Known Allergies Allergy (Unverified 09/13/17 07:37) Home Medications: Medication Instructions Recorded Vivitrol 380mg 4 ml IM Q30D 09/13/17 Gabapentin [Neurontin 400 MG (*)] 400 mg PO TID #90 cap 09/15/17 Folic Acid [Folic Acid 1 MG (*)] 1 mg PO DAILY tab 09/24/17 LACTULOSE [KRISTALOSE] 10 gm PO TID #90 packet 09/24/17 Multivitamins [Multivitamin (*)] 1 each PO DAILY tab 09/24/17 Thiamine HCl [Vitamin B-1] 100 mg PO DAILY tab 09/24/17 levETIRAcetam [Keppra] 1,500 mg PO BID #120 tablet 09/24/17 Medical Decision Making ED Course/Re-evaluation: CHIEF COMPLAINT: Seizure HISTORY OF PRESENT ILLNESS: This patient is a 57 year old female with history of alcohol abuse and seizure disorder who is well known to this emergency department. She presents via EMS following a seizure. She states she has been trying to stay sober and has not had alcohol in four days. She feels her seizure today was from alcohol withdrawal. She reports she has been taking her Keppra as prescribed. She does not want to go to the addiction recovery center today. She feels she is recovering from her seizure and denies any other complaints at this time. REVIEW OF SYSTEMS: A comprehensive 10 system review of systems is otherwise negative aside from elements mentioned in the history of present illness and medical decision making. PHYSICAL EXAM: HR, BP, O2 Sat, RR. Temp noted General Appearance: Alert, well hydrated, appropriate, and non-toxic appearing. Head: Atraumatic without scalp tenderness or obvious injury Eyes: Pupils equal, round, reactive to light and accommodation, EOMI, no trauma , no injection. Ears: Clear bilaterally, no perforation, normal landmarks Nose: Atraumatic, no rhinorrhea, clear. Throat: There is no erythema or exudates, no lesions, normal tonsils, mucus membranes moist. Neck: Supple, 2+ carotid upstroke, nontender, no lymphadenopathy. Respiratory: No retractions, no distress, no wheezes, and no accessory muscle use. Lungs are clear to auscultation bilaterally. Cardiovascular: Regular rate and rhythm, no murmurs, rubs, or gallops. Bilateral carotid, radial, dorsalis pedis, and posterior tibial pulses intact. Good capillary refill all extremities. Gastrointestinal: Abdomen is soft, nontender, non-distended, no masses, no rebound, no guarding, no peritoneal signs. Musculoskeletal: Normal active ROM of all extremities, atraumatic. Neurological: Alert, appropriate, and interactive. The patient has normal DTRs and non-focal cranial nerves, motor, sensory, and cerebellar exam. Skin: No rashes, good turgor, no nodules on palpation. Past medical history: Seizure disorder, alcohol withdrawal seizures. Past surgical history:Noncontributory Family history: Noncontributory Social history: Homeless. Heavy alcohol and tobacco use. DIFFERENTIAL DIAGNOSIS: The differential diagnosis for the patient's seizure included but was not limited to electrolyte abnormality, alcohol withdrawal, medication noncompliance , head injury, [employer] structural abnormality, and break through seizure. MEDICAL DECISION [id number] y/o female presents following a seizure. She states she is sober but appears intoxicated vs. postictal throughout my interview and examination. She is adamant that she does not want to go to the [facility] today. She states she is feeling fine and would like to be discharged home. Plan to discharge home in good condition. I encouraged her to follow up at the [facility] should she desire assistance with alcohol recovery. She does endorse a desire to stay sober. She will continue to take her Keppra as prescribed. She is comfortable with this plan. Departure - Departure Disposition: Home, Routine, Self-Care Clinical Impression: Alcohol withdrawal Qualifiers: Complication of substance-induced condition: uncomplicated Qualified Code(s): F10.230 - Alcohol dependence with withdrawal, uncomplicated Seizure due to alcohol withdrawal Qualifiers: Complication of substance-induced condition: uncomplicated Qualified Code(s): F10.230 - Alcohol dependence with withdrawal, uncomplicated Condition: Good Instructions: Alcohol Withdrawal (ED), Recurrent Seizures in Adults (ED) Additional Instructions: Continue taking Keppra as prescribed. You may always go to the [facility] for assistance with alcohol detox if you desire. Referrals: [facility],. [Clinic] - As per Instructions Report Scribed for: David Collado Report Scribed by: Roslyn Hernandez Date of Report: 10/25/17 Time of Report: 17:00
[2017-10-25 17:32] VITALS: BP 118/75
== END 2017-10-25 17:35 | disposition home or self-care (01) ==
LOC: EDUNIT#
DX: G40.909 Epilepsy, unspecified, not intractable, without status epilepticus (principal); F10.230 Alcohol dependence with withdrawal, uncomplicated

== ENCOUNTER 2017-10-26 04:58 | Emergency (ER) | payer MEDICAID, OTHER ==
--- NOTE | 2017-10-26 05:20 | EDPHY ---
H & P Stated Complaint: SEIZURE? Time Seen by Provider: 10/26/17 05:05 HPI/ROS: Chief Complaint: Feels like she might have a seizure, stressed HPI: 57-year-old woman well known to myself in this emergency department with a history of seizure disorder and chronic alcohol abuse. Patient is presenting with concerns that she might have a seizure. Patient states that she has been feeling increasingly stressed out lately particularly since her mother moved weight 2 months ago. She feels like she might have a seizure. She says her last seizure was yesterday. She was seen here after that and was discharged. She has not had any further seizures since. She states she is taking her Keppra daily. Denies any falls. No head injuries noted. No fevers or chills. No nausea or vomiting. She is complaining of pain in her left chest that she has had since she had her seizure. Is not sure she fell or headache. No shortness of breath. No cough. She says her last drink of alcohol was about 4 days ago. She does have a history of alcohol withdrawal seizures. She is not interested in going to the [facility] at this time. ROS: 10 systems were reviewed and were negative except those elements noted in the HPI. PMH: Seizure disorder, chronic alcohol abuse Social History: Positive smoking, positive daily heavy alcohol, no recreational drug use Family History: non-contributory Physical Exam: Gen: Awake, Alert, No Distress HEENT: Nose: no rhinorrhea Eyes: PERRLA, EOMI Mouth: Moist mucosa Neck: Supple, no JVD Chest: Patient has significant chest wall tenderness in her left upper chest midclavicular line reproducing her presenting complaint, lungs clear to auscultation Heart: S1, S2 normal, no murmur Abd: Soft, non-tender, no guarding Back: no CVA tenderness, no midline tenderness Ext: no edema, non-tender Skin: no rash Neuro: CN II-XII intact, Sensation grossly intact, Strength 5/5 in bilateral upper and lower extremities - Personal History Current Tetanus Diphtheria and Acellular Pertussis (TDAP): Yes Tetanus Vaccine Date: 2014 - Medical/Surgical History Hx Asthma: No Hx Chronic Respiratory Disease: No Hx Diabetes: No Hx Cardiac Disease: No Hx Renal Disease: No Hx Cirrhosis: No Hx Alcoholism: Yes Hx HIV/AIDS: No Hx Splenectomy or Spleen Trauma: No Other PMH: PMHx: SEIZURE, DEPRESSION, EtOH abuse, Cocaine Abuse. PSHx: TONSILLECTOMY - Social History Smoking Status: Heavy smoker Constitutional: Initial Vital Signs Temperature (C) 36.4 C 10/26/17 05:01 Heart Rate 64 10/26/17 05:01 Respiratory Rate 16 10/26/17 05:01 Blood Pressure 118/84 H 10/26/17 05:01 O2 Sat (%) 96 10/26/17 05:01 O2 Delivery Mode Room Air Allergies/Adverse Reactions: No Known Allergies Allergy (Unverified 10/26/17 05:00) Home Medications: Medication Instructions Recorded Vivitrol 380mg 4 ml IM Q30D 09/13/17 Gabapentin [Neurontin 400 MG (*)] 400 mg PO TID #90 cap 09/15/17 Folic Acid [Folic Acid 1 MG (*)] 1 mg PO DAILY tab 09/24/17 LACTULOSE [KRISTALOSE] 10 gm PO TID #90 packet 09/24/17 Multivitamins [Multivitamin (*)] 1 each PO DAILY tab 09/24/17 Thiamine HCl [Vitamin B-1] 100 mg PO DAILY tab 09/24/17 levETIRAcetam [Keppra] 1,500 mg PO BID #120 tablet 09/24/17 Medical Decision Making - Diagnostics Imaging Results: Chest x-ray is negative per my interpretation ED Course/Re-evaluation: 57-year-old presenting complaining of anxiety like she might have a seizure also some left-sided chest pain. This is reproducible. Chest x-ray is negative. Patient is currently sleeping. No evidence of seizure activity here. She is tolerating medications. Will discharge with [facility] and [facility] regarding her chest wall pain. - Data Points Medications Given: Discontinued Medications Ibuprofen (Motrin) 600 mg PO EDNOW ONE Stop: 10/26/17 05:22 Last Admin: 10/26/17 05:24 Dose: 600 mg Departure - Departure Disposition: Home, Routine, Self-Care Clinical Impression: Chest wall pain, Anxiety Condition: Good Instructions: Anxiety (ED), Chest Wall Pain (ED) Additional Instructions: Follow up with [facility] later today for help with your anxiety. Follow up at [facility] for re-evaluation of the injury 2 year chest wall. Return to the emergency department for uncontrolled seizures, falls, uncontrolled vomiting, shortness of breath, or any other concerns. Referrals: [facility],. [Clinic] - As per Instructions [facility] [[facility] - As per Instructions
[2017-10-26] MEDS ORDERED: IBUPROFEN 600 MG TAB PO ONE (05:21)
[2017-10-26 06:05] VITALS: BP 123/67
== END 2017-10-26 06:05 | disposition home or self-care (01) ==
LOC: EDUNIT#
DX: R07.89 Other chest pain (principal); F41.9 Anxiety disorder, unspecified

== ENCOUNTER 2017-11-01 18:34 | Emergency (ER) | payer MEDICAID ==
[2017-11-01] MEDS ORDERED: levETIRAcetam 1000MG/NACL 100 ML IV ONE (18:41)
[2017-11-01] MEDS ORDERED: LORazepam 2 MG/ML INJ IVP ONE (18:41)
[2017-11-01] MEDS ORDERED: NS 1,000 ML IV ONE (18:43)
--- NOTE | 2017-11-01 18:43 | EDPHY ---
H & P Stated Complaint: seizure Time Seen by Provider: 11/01/17 18:37 HPI/ROS: CHIEF COMPLAINT: Seizure HISTORY OF PRESENT ILLNESS: The patient is a 57-year-old homeless alcoholic female with a history of epilepsy. She is traditionally not compliant with her Keppra. She had a seizure today and the aide that was with her called 911. Paramedics report that she had a generalized tonic-clonic seizure that lasted less than a minute. She is postictal but improving. She tells me that she has not been taking her Keppra recently but she has been drinking alcohol. She states that she did drink today. When I asked her if she thought she was withdrawing from alcohol she said yes. She is not tremulous or tachycardic. Severity: Moderate Modifying factors: Medication noncompliance REVIEW OF SYSTEMS: Constitutional: denies: chills, fever, recent illness, recent injury EENTM: denies: blurred vision, double vision, nose congestion Respiratory: denies: cough, shortness of breath Cardiac: denies: chest pain, irregular heart rate, lightheadedness, palpitations Gastrointestinal/Abdominal: denies: abdominal pain, diarrhea, nausea, vomiting, blood streaked stools Genitourinary: denies: dysuria, frequency, hematuria, pain Musculoskeletal: denies: joint pain, muscle pain Skin: denies: lesions, rash, jaundice, bruising Neurological: See HPI denies: headache, numbness, paresthesia, tingling, dizziness, weakness Hematologic/Lymphatic: denies: blood clots, easy bleeding, easy bruising Immunologic/allergic: denies: HIV/AIDS, transplant 10 systems reviewed and negative except as noted EXAM: GENERAL: Disheveled, slow speech, in no acute distress. HEAD: Atraumatic, normocephalic. EYES: Pupils equal round and reactive to light, extraocular movements intact, sclera anicteric, conjunctiva are normal. ENT: TMs normal, nares patent, oropharynx clear without exudates. Moist mucous membranes. NECK: Normal range of motion, supple without lymphadenopathy or JVD. LUNGS: Breath sounds clear to auscultation bilaterally and equal. No wheezes rales or rhonchi. HEART: Regular rate and rhythm without murmurs, rubs or gallops. ABDOMEN: Soft, nontender, normoactive bowel sounds. No guarding, no rebound. No masses appreciated. BACK: No CVA tenderness, no spinal tenderness, step-offs or deformities EXTREMITIES: Normal range of motion, no pitting or edema. No clubbing or cyanosis. NEUROLOGICAL: Cranial nerves II through XII grossly intact. Normal but slow speech, slight any gait. 5/5 strength, normal movement in all extremities, normal sensation, normal reflexes PSYCH: Normal mood, normal affect. SKIN: Warm, dry, normal turgor, no visible rashes or lesions. Source: Patient Exam Limitations: No limitations - Personal History Current Tetanus Diphtheria and Acellular Pertussis (TDAP): Yes Tetanus Vaccine Date: 2014 - Medical/Surgical History Hx Asthma: No Hx Chronic Respiratory Disease: No Hx Diabetes: No Hx Cardiac Disease: No Hx Renal Disease: No Hx Cirrhosis: No Hx Alcoholism: Yes Hx HIV/AIDS: No Hx Splenectomy or Spleen Trauma: No Other PMH: PMHx: SEIZURE, DEPRESSION, EtOH abuse, Cocaine Abuse. PSHx: TONSILLECTOMY - Family History Significant Family History: No pertinent family hx - Social History Smoking Status: Heavy smoker Alcohol Use: Sober Drug Use: None Constitutional: Initial Vital Signs Temperature (C) 37.0 C 11/01/17 18:36 Heart Rate 84 11/01/17 18:36 Respiratory Rate 16 11/01/17 18:36 Blood Pressure 131/95 H 11/01/17 18:36 O2 Sat (%) 93 11/01/17 18:36 O2 Delivery Mode Room Air O2 (L/minute) 2 Allergies/Adverse Reactions: No Known Allergies Allergy (Verified 11/01/17 18:36) Home Medications: Medication Instructions Recorded Vivitrol 380mg 4 ml IM Q30D 09/13/17 Gabapentin [Neurontin 400 MG (*)] 400 mg PO TID #90 cap 09/15/17 Folic Acid [Folic Acid 1 MG (*)] 1 mg PO DAILY tab 09/24/17 LACTULOSE [KRISTALOSE] 10 gm PO TID #90 packet 09/24/17 Multivitamins [Multivitamin (*)] 1 each PO DAILY tab 09/24/17 Thiamine HCl [Vitamin B-1] 100 mg PO DAILY tab 09/24/17 levETIRAcetam [Keppra] 1,500 mg PO BID #120 tablet 08/19/18 Medical Decision Making - Diagnostics EKG Interpretation: An EKG obtained and was read and documented in trace view. Please see trace view for full reading and report. Sinus rhythm, no acute ischemic changes ED Course/Re-evaluation: 7:30 p.m. we have had difficulty obtaining IV access. I was able to place a peripheral IJ and obtain lab work however it would not flush. We removed it. The patient declines further IV attempts and will take her Keppra orally. I do not think she needs Ativan at this point as was previous ordered. She is not currently having any withdrawal symptoms. 8:30 p.m. the patient's potassium came back elevated. I will obtain an EKG and recheck. She is lying in bed asymptomatic drinking water. 9:30 p.m. the patient's repeat I-STAT potassium is normal. This is more consistent with her presentation. She is ambulating and tolerating food and eager to go home. I will discharge her to her friend who is on the way to pick her up. Differential Diagnosis: Partial list of the Differential diagnosis considered include but were not limited to; alcohol withdrawal, epilepsy, medication noncompliance and although unlikely based on the history and physical exam, I also considered trauma, infection, overdose. I discussed these differential diagnoses and the plan with the patient as well as the usual and expected course. The patient understands that the diagnosis is provisional and that in medicine we are not always correct and that further workup is often warranted. Usual and customary warnings were given. All of the patient's questions were answered. The patient was instructed to return to the emergency department should the symptoms at all worsen or return, otherwise to followup with the physician as we discussed. - Data Points Laboratory Results: Laboratory Results 11/01/17 19:30 11/01/17 19:30 11/01/17 11/01/17 11/01/17 20:54 19:30 19:30 WBC 3.25 10^3/uL L 10^3/uL (3.80-9.50) RBC 4.73 10^6/uL 10^6/uL (4.18-5.33) Hgb 15.0 g/dL g/dL (12.6-16.3) POC Hgb 17.0 gm/dL H gm/dL (12.6-16.3) Hct 42.6 % % (38.0-47.0) POC Hct 50 % H % (38-47) MCV 90.1 fL fL (81.5-99.8) MCH 31.7 pg pg (27.9-34.1) MCHC 35.2 g/dL g/dL (32.4-36.7) RDW 14.6 % % (11.5-15.2) Plt Count 51 10^3/uL L 10^3/uL (150-400) MPV 9.8 fL fL (8.7-11.7) Neut % (Auto) 53.0 % % (39.3-74.2) Lymph % (Auto) 33.5 % % (15.0-45.0) [place] % (Auto) 10.2 % % (4.5-13.0) Eos % (Auto) 1.8 % % (0.6-7.6) Baso % (Auto) 0.9 % % (0.3-1.7) Nucleat RBC Rel Count 0.0 % % (0.0-0.2) Absolute Neuts (auto) 1.72 10^3/uL 10^3/uL (1.70-6.50) Absolute Lymphs (auto) 1.09 10^3/uL 10^3/uL (1.00-3.00) Absolute Monos (auto) 0.33 10^3/uL 10^3/uL (0.30-0.80) Absolute Eos (auto) 0.06 10^3/uL 10^3/uL (0.03-0.40) Absolute Basos (auto) 0.03 10^3/uL 10^3/uL (0.02-0.10) Absolute Nucleated RBC 0.00 10^3/uL 10^3/uL (0-0.01) Immature Gran % 0.6 % % (0.0-1.1) Immature Gran # 0.02 10^3/uL 10^3/uL (0.00-0.10) POC Sodium 141 mEq/L mEq/L (135-145) Sodium 136 mEq/L mEq/L (135-145) POC Potassium 3.3 mEq/L mEq/L (3.3-5.0) Potassium 5.6 mEq/L H mEq/L (3.3-5.0) POC Chloride 94 mEq/L L mEq/L (97-110) Chloride 95 mEq/L L mEq/L (97-110) Carbon Dioxide 20 mEq/l L mEq/l (22-31) Anion Gap 21 mEq/L H mEq/L (8-16) POC BUN 9 mg/dL mg/dL (7-23) BUN 10 mg/dL mg/dL (7-23) Creatinine 0.3 mg/dL L mg/dL (0.6-1.0) POC Creatinine 0.7 mg/dL mg/dL (0.6-1.0) Estimated GFR > 60 Glucose 94 mg/dL mg/dL (70-100) POC Glucose 101 mg/dL H mg/dL (70-100) Calcium 8.7 mg/dL mg/dL (8.5-10.4) Specimen Hemolysis 171 Medications Given: Discontinued Medications Levetiracetam (Keppra (Premix)) 100 mls @ 400 mls/hr IV EDNOW ONE Stop: 11/01/17 18:55 Last Admin: 11/01/17 19:35 Dose: Not Given Sodium Chloride (Ns) 1,000 mls @ 0 mls/hr IV ONCE ONE; Wide Open PRN Reason: Protocol Stop: 11/01/17 18:44 Last Admin: 11/01/17 19:36 Dose: Not Given Levetiracetam (Keppra) 1,500 mg PO EDNOW ONE Stop: 11/01/17 19:39 Last Admin: 11/01/17 19:42 Dose: 1,500 mg Lorazepam (Ativan Injection) 1 mg IVP EDNOW ONE Stop: 11/01/17 18:42 Last Admin: 11/01/17 19:35 Dose: Not Given Point of Care Test Results: Chemistry 11/01/17 20:54 POC Sodium 141 mEq/L mEq/L (135-145) POC Potassium 3.3 mEq/L mEq/L (3.3-5.0) POC Chloride 94 mEq/L L mEq/L (97-110) POC BUN 9 mg/dL mg/dL (7-23) POC Creatinine 0.7 mg/dL mg/dL (0.6-1.0) POC Glucose 101 mg/dL H mg/dL (70-100) ISTAT H&H 11/01/17 20:54 POC Hgb 17.0 gm/dL H gm/dL (12.6-16.3) POC Hct 50 % H % (38-47) Departure - Departure Disposition: Home, Routine, Self-Care Clinical Impression: Seizure disorder, Noncompliance with medication regimen Condition: Fair Instructions: Epilepsy (ED) Referrals: NONE *PRIMARY CARE P,. [Primary Care Provider] - As per Instructions
[2017-11-01 19:36] LABS: PLATELET COUNT 51 10^3/uL (150-400)
[2017-11-01] MEDS ORDERED: levETIRAcetam 500 MG TAB PO ONE (19:38)
--- NOTE | 2017-11-01 21:01 | CPEKG ---
Test Reason : OPEN Blood Pressure : / mmHG Vent. Rate : 081 BPM Atrial Rate : 081 BPM P-R Int : 165 ms QRS Dur : 100 ms QT Int : 415 ms P-R-T Axes : -28 040 067 degrees QTc Int : 482 ms Sinus rhythm Confirmed by Zbigniew Fernandez ([id number]) on 11/01/2017 9:00:59 PM Referred By: Confirmed By:Zbigniew Fernandez
[2017-11-01 21:50] VITALS: BP 129/78
== END 2017-11-01 21:50 | disposition home or self-care (01) ==
LOC: EDUNIT#
DX: G40.909 Epilepsy, unspecified, not intractable, without status epilepticus (principal); F10.20 Alcohol dependence, uncomplicated; Z79.899 Other long term (current) drug therapy; F17.200 Nicotine dependence, unspecified, uncomplicated; Z59.0 Homelessness
CPT/HCPCS: 82435-PO; 82565-PO; 82947-PO; 84132-PO; 84295-PO; 84520-PO; 85014-PO; J1953; J2060

== ENCOUNTER 2017-11-02 10:18 | Emergency (ER) | payer MEDICAID ==
--- NOTE | 2017-11-02 11:14 | EDPHY ---
H & P Stated Complaint: Pt states she thinks she is going to have a seizure, here last night for sz Time Seen by Provider: 11/02/17 10:44 HPI/ROS: CHIEF COMPLAINT: "Just let me rest here" HISTORY OF PRESENT ILLNESS: 57-year-old homeless female history of alcoholism, seizure disorder, alcohol withdrawal seizure, familiar to emergency department staff, was driven to the ER by a friend who works at the homeless senior care. Patient states that she has been experiencing seizure yesterday. She has seen the ER last evening given loading dose of Keppra. She has no complaints of pain or discomfort at this time. She denies: Hallucination, nausea vomiting, oral trauma, chest pain, back pain, nausea, vomiting, abdominal pain, fever, chills, suicidal or homicidal ideation, hallucination. She primarily would like to know if she can sleep in the ER for the next few hours. History of medication noncompliance REVIEW OF SYSTEMS: 10 systems reviewed and negative with the exception of the elements mentioned in the history of present illness PAST MEDICAL & SURGICAL HISTORY: seizure disorder. Alcohol abuse. Alcohol withdrawal. SOCIAL HISTORY: Last drink of alcohol last evening PHYSICAL EXAM (Prior to examination, patient consented to physical exam, hands were washed and my usual and customary physical exam procedures followed) 1) GENERAL: Well-developed, well-nourished, alert and oriented. Appears to be in no acute distress. Answering questions appropriately. 2) HEAD: Normocephalic, atraumatic 3) HEENT: Pupils equal, round, reactive to light bilaterally. Sclera anicteric. Nasopharynx, oropharynx, clear, no lesions. Moist Mucous membranes. No signs of oral trauma. Ears bilaterally with normal tympanic membranes. 4) NECK: Full range of motion, no meningeal signs. 5) LUNGS: Clear auscultation bilaterally, no wheezes, no rhonchi, no retractions. 6) HEART: Regular rate and rhythm, no murmur, no heave, no gallop. 7) ABDOMEN: No guarding, no rebound, no focal tenderness, negative McBurney's, negative Hernandez's, negative Rovsing's, negative peritoneal sign, 8) MUSCULOSKELETAL: Moving all extremities, no focal areas of tenderness, no obvious trauma. No peripheral edema or discoloration. 9) BACK: No CVA tenderness, no midline vertebral tenderness, no fluctuance, no step-off, no obvious trauma, no visual or palpable abnormality. 10) SKIN: No rash, no petechiae. 11) Psychiatric: Patient is oriented X 3, there is no agitation. 12) NEURO: Awake, alert, and oriented to person, place and time. Answers questions appropriately. There were no obvious focal neurologic abnormalities. No cerebellar dysfunction. Cranial nerves 2 through to 12 intact. Normal steady gait. Upper and lower extremities bilaterally with strength 5 / 5, reflexes 2+. DIFFERENTIAL DIAGNOSIS: In no particular order including but not limited to acute alcohol withdrawal, medication noncompliance, malingering - Personal History Current Tetanus/Diphtheria Vaccine: Yes Current Tetanus Diphtheria and Acellular Pertussis (TDAP): Yes Tetanus Vaccine Date: 2014 - Medical/Surgical History Hx Asthma: No Hx Chronic Respiratory Disease: No Hx Diabetes: No Hx Cardiac Disease: No Hx Renal Disease: No Hx Cirrhosis: No Hx Alcoholism: Yes Hx HIV/AIDS: No Hx Splenectomy or Spleen Trauma: No Other PMH: PMHx: SEIZURE, DEPRESSION, EtOH abuse, Cocaine Abuse. PSHx: TONSILLECTOMY - Social History Smoking Status: Heavy smoker Constitutional: Initial Vital Signs Temperature (C) 37 C 11/02/17 10:20 Heart Rate 102 H 11/02/17 10:20 Respiratory Rate 16 11/02/17 10:20 Blood Pressure 122/88 H 11/02/17 10:20 O2 Sat (%) 95 11/02/17 10:20 O2 Delivery Mode Room Air Allergies/Adverse Reactions: No Known Allergies Allergy (Verified 11/01/17 18:36) Home Medications: Medication Instructions Recorded Vivitrol 380mg 4 ml IM Q30D 09/13/17 Gabapentin [Neurontin 400 MG (*)] 400 mg PO TID #90 cap 09/15/17 Folic Acid [Folic Acid 1 MG (*)] 1 mg PO DAILY tab 09/24/17 LACTULOSE [KRISTALOSE] 10 gm PO TID #90 packet 09/24/17 Multivitamins [Multivitamin (*)] 1 each PO DAILY tab 09/24/17 Thiamine HCl [Vitamin B-1] 100 mg PO DAILY tab 09/24/17 levETIRAcetam [Keppra] 1,500 mg PO BID #120 tablet 09/24/17 levETIRAcetam [Keppra 500 mg (*)] 500 mg PO BID 7 Days tab 11/02/17 Medical Decision Making ED Course/Re-evaluation: I reviewed the patient's old medical records. She is familiar to emergency department staff. At this time in the emergency department she denies suicidal homicidal ideation, I do not think she is experiencing delirium tremens or alcoholic hallucinosis. She would like to stay in the ER and sleep for few hours. I have declined this request have [facility] which [facility]. I will administer oral Ativan, oral thiamine and folate as well as a dose of oral Keppra for today as well as a prescription for Keppra. She was given loading dose of Keppra last evening. She has no evidence of trauma. I saw this patient independently based on established practice protocols. Care of patient under supervision of secondary supervising physician Dr Fernandez with whom I discussed case. - Data Points Medications Given: Discontinued Medications Chlordiazepoxide (Librium 25 Mg Prepack#6) 1 btl TAKEHOME EDNOW ONE Stop: 11/02/17 12:18 Last Admin: 11/02/17 12:36 Dose: 1 btl Folic Acid (Folic Acid) 1 mg PO EDNOW ONE Stop: 11/02/17 11:16 Last Admin: 11/02/17 11:23 Dose: 1 mg Levetiracetam (Keppra) 500 mg PO EDNOW ONE Stop: 11/02/17 11:16 Last Admin: 11/02/17 11:24 Dose: 500 mg Lorazepam (Ativan) 1 mg PO EDNOW ONE Stop: 11/02/17 11:16 Last Admin: 11/02/17 11:24 Dose: 1 mg Thiamine HCl (Vitamin B-1) 100 mg PO EDNOW ONE Stop: 11/02/17 11:16 Last Admin: 11/02/17 11:23 Dose: 100 mg Departure - Departure Disposition: Home, Routine, Self-Care Clinical Impression: Seizure disorder, Homeless Alcohol withdrawal Qualifiers: Complication of substance-induced condition: with unspecified complication Qualified Code(s): F10.239 - Alcohol dependence with withdrawal, unspecified Condition: Good Instructions: Chlordiazepoxide (By mouth), Epilepsy (ED), Abuse of Alcohol (ED) Additional Instructions: Please stay compliant with her medications. [facility] Please consider long-term sobriety from alcohol. Referrals: [facility],. [Clinic] - 2-3 days, call for appt. Prescriptions: levETIRAcetam [Keppra 500 mg (*)] 500 mg PO BID 7 Days tab
[2017-11-02] MEDS ORDERED: LORazepam 1 MG TAB PO ONE (11:15)
[2017-11-02] MEDS ORDERED: levETIRAcetam 500 MG TAB PO ONE (11:15)
[2017-11-02] MEDS ORDERED: FOLIC ACID 1 MG TAB PO ONE (11:15)
[2017-11-02] MEDS ORDERED: THIAMINE HCL 100 MG TAB PO ONE (11:15)
[2017-11-02] MEDS ORDERED: CHLORDIAZEPOXIDE 25MG PREPK#6 BTL TAKEHOME ONE (12:17)
[2017-11-02 12:34] VITALS: BP 113/80
--- NOTE | 2017-11-02 14:12 | ASMTCMCOM ---
CM Note CM Note Notes: Pt presented to the ED through triage with a friend, Kelvin, who states that pt has been staying with him for the last few days and has had multiple seizures. Pt was also seen in the ED last night after having a seizure. Pt is well known to the ED; this is her 15th ED visit in 2018. Please see past CM Reports 09/23/17, 09/15/17, etc. Pt has a seizure disorder and has a history of being nonadherent with taking her anti-seizure meds. Pt also does not follow-up w/[facility] as recommended; pt's last visit there was 03/22/17. Pt also has a history of ETOH abuse and ETOH W/D seizures. Kelvin states he met pt a few days ago and was trying to help her out but can no longer assist her as he is flying to [place] today and pt is no longer allowed to stay at his house. Pt medically cleared and discharged to [facility] via cab voucher and w/Librium pre-pack. Pt aware of homeless shelters options and resources. This CM called [facility] and spoke w/Nicole; requested that Demi, Homeless Outreach RN, continue to keep an eye out for the patient in the community and to also request coordination w/[facility]'s Homeless Outreach Team Officers. Next time pt presents to the ED: If pt is medically clear and agreeable, please consider scheduling patient a same-day appt at [facility] and providing a cab directly to appt. Date Signed: 11/02/2017 02:11 PM Electronically Signed By:Hellen Del Cid RN
== END 2017-11-02 13:00 | disposition home or self-care (01) ==
DX: R56.9 Unspecified convulsions (principal); F10.20 Alcohol dependence, uncomplicated; F17.200 Nicotine dependence, unspecified, uncomplicated; Z59.0 Homelessness

== ENCOUNTER 2018-01-08 19:22 | Emergency (ER) | payer MEDICAID ==
--- NOTE | 2018-01-08 19:26 | EDPHY ---
H & P Smoking Status: Heavy smoker Time Seen by Provider: 01/08/18 19:26 HPI/ROS: CHIEF COMPLAINT: Altered mental status HISTORY OF PRESENT ILLNESS: EMS was called because the [employer] labor relations manager found her on the floor of the [facility]. Per EMS from the labor relations manager went over to her she had a few shaking movements but we do not know how long that lasted, she was brought into the emergency department awake. Patient thinks she had a seizure because she has not been drinking for at least a day. No complaints now. She says she is taking her Keppra. REVIEW OF SYSTEMS: Eye: no change in vision ENT: no sore throat Cardiac: no chest pain or syncope Pulmonary: no cough or SOB Abdomen: no vomiting, diarrhea, abdominal pain Musculoskeletal: no back pain Skin: no rash Neuro: no headache Constitutional: no fever : no urinary symptoms A comprehensive 10 point review of systems is otherwise negative aside from elements mentioned in the history of present illness. PAST MEDICAL HISTORY: Seizure disorder, has been on Keppra in the past, alcohol withdrawal seizures and alcoholism Social history: Homeless, smoker General Appearance: Alert and conversant, cooperative. Eyes: No scleral icterus. ENT, Mouth: No tongue laceration or abrasion. Respiratory: Normal respiratory effort, breath sounds equal, lungs are clear to auscultation. Cardiovascular: Regular rate and rhythm. Gastrointestinal: Abdomen is soft and non tender. Neurological: Alert, face symmetric, normal motor and sensory in extremities. Mildly tremulous. Skin: Warm and dry, no rashes. Musculoskeletal: No peripheral edema. Psychiatric: Not agitated. Emergency Department course/MDM: Screening labs and 1 mg IV Ativan. Serial examinations planned; signed out to Floridalma at 2240. (Hao Cowart) Constitutional: Initial Vital Signs Temperature (C) 36.7 C 01/08/18 19:22 Heart Rate 102 H 01/08/18 19:22 Respiratory Rate 16 01/08/18 19:22 Blood Pressure 123/83 H 01/08/18 19:22 O2 Sat (%) 95 01/08/18 19:22 O2 Delivery Mode Room Air O2 (L/minute) 2 Allergies/Adverse Reactions: No Known Allergies Allergy (Verified 11/01/17 18:36) Home Medications: Medication Instructions Recorded Vivitrol 380mg 4 ml IM Q30D 08/08/18 Gabapentin [Neurontin 400 MG (*)] 400 mg PO TID #90 cap 09/15/17 Folic Acid [Folic Acid 1 MG (*)] 1 mg PO DAILY tab 09/24/17 LACTULOSE [KRISTALOSE] 10 gm PO TID #90 packet 09/24/17 Multivitamins [Multivitamin (*)] 1 each PO DAILY tab 09/24/17 Thiamine HCl [Vitamin B-1] 100 mg PO DAILY tab 09/24/17 levETIRAcetam [Keppra] 1,500 mg PO BID #120 tablet 09/24/17 levETIRAcetam [Keppra 500 mg (*)] 500 mg PO BID 7 Days tab 11/02/17 Medical Decision Making ED Course/Re-evaluation: 12:55 a.m.- Patient more awake and alert over the last few hours. She is able to walk with a steady gait. [facility]. We will write her a pill pack of Librium to go with. She has Keppra prescription in her vehicle and does not need a refill. (Ayde Hedrick) Differential Diagnosis: Differential diagnosis considered for a seizure including but not limited to electrolyte abnormality, alcohol withdrawal, medication noncompliance, head injury, and breakthrough seizure. (Hao Cowart) - Data Points Laboratory Results: Laboratory Results 01/08/18 19:40 01/08/18 19:40 01/08/18 01/08/18 19:40 19:40 WBC 4.42 10^3/uL 10^3/uL (3.80-9.50) RBC 4.18 10^6/uL 10^6/uL (4.18-5.33) Hgb 13.0 g/dL g/dL (12.6-16.3) Hct 38.5 % % (38.0-47.0) MCV 92.1 fL fL (81.5-99.8) MCH 31.1 pg pg (27.9-34.1) MCHC 33.8 g/dL g/dL (32.4-36.7) RDW 14.1 % % (11.5-15.2) Plt Count 192 10^3/uL 10^3/uL (150-400) MPV 8.7 fL fL (8.7-11.7) Neut % (Auto) 32.4 % L % (39.3-74.2) Lymph % (Auto) 57.7 % H % (15.0-45.0) [place] % (Auto) 8.1 % % (4.5-13.0) Eos % (Auto) 0.7 % % (0.6-7.6) Baso % (Auto) 0.9 % % (0.3-1.7) Nucleat RBC Rel Count 0.0 % % (0.0-0.2) Absolute Neuts (auto) 1.43 10^3/uL L 10^3/uL (1.70-6.50) Absolute Lymphs (auto) 2.55 10^3/uL 10^3/uL (1.00-3.00) Absolute Monos (auto) 0.36 10^3/uL 10^3/uL (0.30-0.80) Absolute Eos (auto) 0.03 10^3/uL 10^3/uL (0.03-0.40) Absolute Basos (auto) 0.04 10^3/uL 10^3/uL (0.02-0.10) Absolute Nucleated RBC 0.00 10^3/uL 10^3/uL (0-0.01) Immature Gran % 0.2 % % (0.0-1.1) Immature Gran # 0.01 10^3/uL 10^3/uL (0.00-0.10) Sodium 143 mEq/L mEq/L (135-145) Potassium 4.2 mEq/L mEq/L (3.3-5.0) Chloride 107 mEq/L mEq/L (97-110) Carbon Dioxide 21 mEq/l L mEq/l (22-31) Anion Gap 15 mEq/L H mEq/L (6-14) BUN 17 mg/dL mg/dL (7-23) Creatinine 0.8 mg/dL mg/dL (0.6-1.0) Estimated GFR > 60 Glucose 107 mg/dL H mg/dL (70-100) Calcium 9.1 mg/dL mg/dL (8.5-10.4) Ethyl Alcohol 484 mg/dL H* mg/dL (0-10) Medications Given: Discontinued Medications Lorazepam (Ativan Injection) 1 mg IVP EDNOW ONE Stop: 01/08/18 19:39 Last Admin: 01/08/18 19:42 Dose: 1 mg Departure - Departure Disposition: Home, Routine, Self-Care Clinical Impression: Seizure disorder Alcohol intoxication Qualifiers: Complication of substance-induced condition: uncomplicated Qualified Code(s): F10.920 - Alcohol use, unspecified with intoxication, uncomplicated Condition: Good Instructions: Epilepsy (ED), Alcohol Intoxication (ED) Referrals: [facility],. [Clinic] - As per Instructions
[2018-01-08] MEDS ORDERED: LORazepam 2 MG/ML INJ IVP ONE (19:38)
[2018-01-08] MEDS ORDERED: LORazepam 2 MG/ML INJ ONE (19:40)
[2018-01-08 19:44] LABS: PLATELET COUNT 192 10^3/uL (150-400)
--- NOTE | 2018-01-08 20:33 | CPEKG ---
Test Reason : OPEN Blood Pressure : / mmHG Vent. Rate : 093 BPM Atrial Rate : 093 BPM P-R Int : 214 ms QRS Dur : 095 ms QT Int : 380 ms P-R-T Axes : 036 052 058 degrees QTc Int : 473 ms Sinus rhythm Prolonged PA interval Abnormal R-wave progression, early transition Confirmed by Hao Cowart ([id number]) on 01/08/2018 8:33:05 PM Referred By: Confirmed By:Hao Cowart
[2018-01-09] MEDS ORDERED: CHLORDIAZEPOXIDE 25MG PREPK#6 BTL TAKEHOME ONE (00:52)
[2018-01-09 01:05] VITALS: BP 108/76
== END 2018-01-09 01:05 | disposition home or self-care (01) ==
LOC: EDUNIT#
DX: G40.909 Epilepsy, unspecified, not intractable, without status epilepticus (principal); F10.920 Alcohol use, unspecified with intoxication, uncomplicated; Y90.8 Blood alcohol level of 240 mg/100 ml or more; F17.200 Nicotine dependence, unspecified, uncomplicated; Z59.0 Homelessness
CPT/HCPCS: 96374; G0480; J2060

== ENCOUNTER 2018-01-09 15:59 | Emergency (ER) | payer MEDICAID ==
[2018-01-09] MEDS ORDERED: LORazepam 2 MG/ML INJ ONE ×2 (16:09→16:12)
[2018-01-09] MEDS ORDERED: levETIRAcetam 1000MG/NACL 100 ML IV ONE (16:12)
[2018-01-09] MEDS ORDERED: LORazepam 2 MG/ML INJ IVP ONE (16:12)
[2018-01-09] MEDS ORDERED: NS 1,000 ML IV ONE ×2 (16:12→17:08)
--- NOTE | 2018-01-09 16:12 | EDPHY ---
H & P Time Seen by Provider: 01/09/18 16:05 HPI/ROS: HPI: This is a 57-year-old male who presents with Chief Complaint: Seizure activity Location: Body Quality: Seizure activity Duration: Prior to arrival Signs and Symptoms: Limited due to clinical condition Timing: Acute on chronic Severity: Moderate Context: Patient arrives via EMS with complaints of witnessed tonic like seizure activity that lasted approximately 30 sec to 1 min. Bystanders called EMS who arrived on the scene for patient being postictal. She had a bottle of vodka found between her legs on the sidewalk. Patient was seen in this emergency room yesterday evening with seizure activity and [facility] with Librium prepack. Patient signed herself out of the [facility] this morning. She has a history of alcoholism and seizure disorder and is not compliant on her Keppra. She is homeless. Modifying Factors: EMS put a cervical collar on her as bystanders reported that she started to seize while standing and fell to the ground. No obvious injury noted to the scalp by EMS. Comment: ROS: A comprehensive 10 system review of systems is otherwise negative aside from elements mentioned in the history of present illness. MEDICAL/SURGICAL/SOCIAL HISTORY: Medical history: SEIZURE, DEPRESSION, EtOH abuse, Cocaine Abuse Surgical history: Tonsillectomy Social history: Heavy smoker. Homeless. Family history noncontributory. CONSTITUTIONAL: Untidy, middle-aged white female, wearing cervical collar, awake and alert, no obvious distress HEENT: Atraumatic and normocephalic, PERRL, EOMI. Nares patent; no rhinorrhea; no nasal mucosal edema. Tympanic membranes clear. Oropharynx clear, no exudate and moist pink mucosa. No tongue trauma. Airway patent. No lymphadenopathy. No meningismus. NECK: supple, currently in cervical collar Cardiovascular: Normal S1/S2, regular rate, regular rhythm, without murmur rub or gallop. PULMONARY/CHEST: Symmetrical and nontender. Clear to auscultation bilaterally. Good air movement. No accessory muscle usage. ABDOMEN: Soft, nondistended, nontender, no rebound, no guarding, no peritoneal signs, no masses or organomegaly. No CVAT. EXTREMITIES: 2/2 pulses, strength 5/5, no deformities, no clubbing, no cyanosis or edema. NEUROLOGICAL: Postictal upon arrival and then seizure like activity. Arrived to the room with patient having generalized tonic-clonic movements. One poked with an IV she quickly sat up in bed and stated"ouch." SKIN: Warm and dry, no erythema. no rash. Good capillary refill. Source: Patient, EMS, Old records Exam Limitations: Clinical condition - Personal History Tetanus Vaccine Date: 2014 - Medical/Surgical History Hx Asthma: No Hx Chronic Respiratory Disease: No Hx Diabetes: No Hx Cardiac Disease: No Hx Renal Disease: No Hx Cirrhosis: No Hx Alcoholism: Yes Hx HIV/AIDS: No Hx Splenectomy or Spleen Trauma: No Other PMH: PMHx: SEIZURE, DEPRESSION, EtOH abuse, Cocaine Abuse. PSHx: TONSILLECTOMY - Social History Smoking Status: Heavy smoker Constitutional: Initial Vital Signs Temperature (C) 36.7 C 01/09/18 16:06 Heart Rate 110 H 01/09/18 16:06 Respiratory Rate 26 H 01/09/18 16:06 Blood Pressure 139/88 H 01/09/18 16:06 O2 Sat (%) 96 01/09/18 16:06 O2 Delivery Mode Room Air O2 (L/minute) 3 Allergies/Adverse Reactions: No Known Allergies Allergy (Verified 11/01/17 18:36) Home Medications: Medication Instructions Recorded Vivitrol 380mg 4 ml IM Q30D 09/13/17 Gabapentin [Neurontin 400 MG (*)] 400 mg PO TID #90 cap 09/15/17 Folic Acid [Folic Acid 1 MG (*)] 1 mg PO DAILY tab 09/24/17 LACTULOSE [KRISTALOSE] 10 gm PO TID #90 packet 09/24/17 Multivitamins [Multivitamin (*)] 1 each PO DAILY tab 09/24/17 Thiamine HCl [Vitamin B-1] 100 mg PO DAILY tab 09/24/17 levETIRAcetam [Keppra] 1,500 mg PO BID #120 tablet 09/24/17 levETIRAcetam [Keppra 500 mg (*)] 500 mg PO BID 7 Days tab 11/02/17 Medical Decision Making - Diagnostics Imaging Results: Imaging Impressions Cervical Spine CT 01/09/18 16:13 Impression: 1. Cervical degenerative disk disease. No acute fracture identified. Results called to Layla Schaefer PA-C, at 6:[address] 01/09/18 16:13 Impression: Stable negative noncontrast CT of the brain. Results called to Emmy Schaefer PA-C at 6:05 PM at the time of the interpretation. ED Course/Re-evaluation: Vital signs reviewed and show tachycardia. Placed on monitoring and evaluation advisor. Seizure activity is likely related to noncompliance with antiepileptic medications and alcoholism. IV access and laboratory studies including EKG, head CT, cervical CT scan ordered Given 2 L normal saline, IV Keppra 1000 mg, IV Ativan [address] ordered due to seizure activity and fall to the ground hitting head. Cervical CT scan ordered due to mechanism and concern for cervical fracture. She will remain in her cervical collar until scan results are obtained. 1653: EKG my read shows sinus tachycardia with a rate of 110 beats per minute with nonspecific ST changes but no acute ischemic changes. 1700: Labs reviewed. No leukocytosis, H&H 12.3/37.7 normocytic type, creatinine 0.5, CO2 14, anion gap 24 ETOH=0 1800: Return from Radiology. Walking back and forth to bathroom without difficulty. Drinking coffee. 1805: Called By Radiology, Dr. Reeves, [address] scan shows no acute intracranial process but does show atrophy consistent with chronic alcoholism. CT cervical scan shows no acute fracture, disc herniation, cord enroachment. 1815: Cervical collar removed and neck exam performed. NECK: supple, no midline tenderness, flexion 45 degrees, extension 45 degrees, right and left lateral flexion 45 degrees. 1820: Patient given p.o. Librium 50 mg. Case management consult. The patient adamantly refuses discharged to the [facility] and admission for observation. She is not interested in alcohol detox. Hellen informs me that patient can be seen at the [facility] today at 7:00 p.m.- taxi provided- she will get her Keppra filled. This patient was seen under the supervision of my secondary supervising physician. I evaluated care for this patient independently. Discussed this patient with Dr. Watters who did not see the patient. Differential Diagnosis: Seizure including but not limited to electrolyte abnormality, alcohol withdrawal , medication noncompliance, head injury, and breakthrough seizure. - Data Points Laboratory Results: Laboratory Results 01/09/18 16:25 01/09/18 16:25 01/09/18 01/09/18 16:25 16:25 WBC 5.92 10^3/uL 10^3/uL (3.80-9.50) RBC 3.96 10^6/uL L 10^6/uL (4.18-5.33) Hgb 12.3 g/dL L g/dL (12.6-16.3) Hct 37.7 % L % (38.0-47.0) MCV 95.2 fL fL (81.5-99.8) MCH 31.1 pg pg (27.9-34.1) MCHC 32.6 g/dL g/dL (32.4-36.7) RDW 14.2 % % (11.5-15.2) Plt Count 192 10^3/uL 10^3/uL (150-400) MPV 8.5 fL L fL (8.7-11.7) Neut % (Auto) 57.1 % % (39.3-74.2) Lymph % (Auto) 33.4 % % (15.0-45.0) [place] % (Auto) 7.1 % % (4.5-13.0) Eos % (Auto) 0.0 % L % (0.6-7.6) Baso % (Auto) 0.7 % % (0.3-1.7) Nucleat RBC Rel Count 0.0 % % (0.0-0.2) Absolute Neuts (auto) 3.38 10^3/uL 10^3/uL (1.70-6.50) Absolute Lymphs (auto) 1.98 10^3/uL 10^3/uL (1.00-3.00) Absolute Monos (auto) 0.42 10^3/uL 10^3/uL (0.30-0.80) Absolute Eos (auto) 0.00 10^3/uL L 10^3/uL (0.03-0.40) Absolute Basos (auto) 0.04 10^3/uL 10^3/uL (0.02-0.10) Absolute Nucleated RBC 0.00 10^3/uL 10^3/uL (0-0.01) Immature Gran % 1.7 % H % (0.0-1.1) Immature Gran # 0.10 10^3/uL 10^3/uL (0.00-0.10) Sodium 138 mEq/L mEq/L (135-145) Potassium 3.7 mEq/L mEq/L (3.5-5.2) Chloride 100 mEq/L mEq/L (97-110) Carbon Dioxide 14 mEq/l L mEq/l (22-31) Anion Gap 24 mEq/L H mEq/L (6-14) BUN 13 mg/dL mg/dL (7-23) Creatinine 0.5 mg/dL L mg/dL (0.6-1.0) Estimated GFR > 60 Glucose 161 mg/dL H mg/dL (70-100) Calcium 9.5 mg/dL mg/dL (8.5-10.4) Magnesium 1.6 mg/dL mg/dL (1.6-2.3) Creatine Kinase 84 IU/L IU/L (0-156) Ethyl Alcohol < 10 mg/dL mg/dL (0-10) Medications Given: Discontinued Medications Chlordiazepoxide HCl (Librium) 50 mg PO EDNOW ONE Stop: 01/09/18 18:13 Last Admin: 01/09/18 18:14 Dose: 50 mg Sodium Chloride (Ns) 1,000 mls @ 0 mls/hr IV ONCE ONE; Wide Open PRN Reason: Protocol Stop: 01/09/18 16:13 Last Admin: 01/09/18 16:23 Dose: 1,000 mls Levetiracetam (Keppra (Premix)) 100 mls @ 400 mls/hr IV EDNOW ONE Stop: 01/09/18 16:26 Last Admin: 01/09/18 16:25 Dose: 100 mls Sodium Chloride (Ns) 1,000 mls @ 0 mls/hr IV EDNOW ONE; Wide Open PRN Reason: Protocol Stop: 01/09/18 17:09 Last Admin: 01/09/18 17:13 Dose: 1,000 mls Lorazepam (Ativan Injection) 6 mg IVP EDNOW ONE Stop: 01/09/18 16:13 Last Admin: 01/09/18 16:18 Dose: 6 mg Departure - Departure Disposition: Home, Routine, Self-Care Clinical Impression: Alcoholism /alcohol abuse, Seizure disorder, Noncompliance with medication regimen Alcohol withdrawal seizure Qualifiers: Complication of substance-induced condition: uncomplicated Qualified Code(s): F10.230 - Alcohol dependence with withdrawal, uncomplicated Condition: Good Instructions: Epilepsy (ED), Abuse of Alcohol (ED) Additional Instructions: You will be [facility]. Please refrain from drinking alcohol excessively. [facility] for detox and rehab. Take Keppra as prescribed. Do not skip a dose. Referrals: [facility],. [Clinic] - 01/09/18 7:00 pm
[2018-01-09 16:40] LABS: PLATELET COUNT 192 10^3/uL (150-400)
[2018-01-09 16:57] LABS: CREATINE KINASE 84 IU/L (0-156)
[2018-01-09] MEDS ORDERED: chlordiazePOXIDE 25 MG CAP PO ONE (18:12)
[2018-01-09 18:55] VITALS: BP 130/74
[2018-01-09] MEDS ORDERED: CHLORDIAZEPOXIDE 25MG PREPK#6 BTL TAKEHOME ONE ×2 (21:29→21:35)
--- NOTE | 2018-01-12 18:01 | ASDISCHSUM ---
Discharge Information Plan Status:Homeless/Senior Living Medically Cleared to Leave:01/08/2018 Discharge Date:01/09/2018 06:56 PM CM D/C Disposition: ADT D/C Disposition:Home, Routine, Self-Care Projected Discharge Date:01/09/2018 09:00 PM Transportation at D/C: Discharge Delay Reason: Follow-Up Date:01/09/2018 09:00 PM Discharge Slot: Final Diagnosis: Placement Information Patient Contact Information Contact Name:SVETLANA Relationship:Mother Address: Work Phone: City:[place] Alternate Phone: State/[place] Email: Financial Information Financial Class:Medicaid Primary Plan Desc:MED[employer] [place] [place] [employer] Primary Plan Number:[id number] Secondary Plan Desc: Secondary Plan Number: Assessment Information Intervention Information
--- NOTE | 2018-01-12 18:06 | ASMTDCNOTE ---
Case Management Discharge Discharge Order Complete? Answers: Yes Discharge Comments Notes: Late Entry from 01/09/18: Pt well-known to the ED and [facility]. Please see past ED RN notes and various past CM Reports for additional background info. This CM had arranged for pt to [facility] directly [facility] for an appt at 7pm. This CM had arranged for a [employer] cab to transport her. Pt agreed to this plan. Last time pt was seen at was 12/01/17 and she was provided gabapentin, levothyroxine, and fluoxetine. Pt states she had been sober for a couple of months up until recently. Homeless Outreach RN,Demi, and [facility] Homeless Outreach Team Officers are familiar with this pt. This CM requested PC to send a notification to Demi that pt was in the ED and to continue to keep an eye out for her in the community. Pt states she has been living with her Nitin at his parent's house in [place] or [place] (?). This CM asked if pt felt safe returning to that living situation and pt said yes. Pt not able to confirm whether she keeps in contact with any of her other family (pt used to have a nephew who would pick her up sometimes). Pt was picked up by [employer] but around 1850 the cab returned w/the pt because per the driver/merchandiser, the pt had told him to take her to [place] or [place] (?). This CM went out to the ED waiting area and re-iterated to the pt that the original plan was for her to go directly to [facility]. Pt would now not be able to make it to on time. This CM informed the pt that she would have to figure out her own transportation by calling Nitin or some other option. This CM did provide a regional bus pass to the ED junior account executive in case pt was not picked up by Nitin. This CM shredded unused cab voucher since it was no longer valid for the destination. Per ED junior account executive, pt had been picked up by Nitin so regional bus pass was returned. CM available for further assistance if needed. Date Signed: 01/12/2018 05:59 PM Electronically Signed By:Hellen Del Cid RN
--- NOTE | 2018-01-12 18:09 | ASMTCMCOM ---
CM Note CM Note Notes: Late Entry from 01/09/18: Pt well-known to the ED and [facility]. Please see past ED RN notes and various past CM Reports for additional background info. This CM had arranged for pt to discharge directly to [facility] for an appt at 7pm. This CM had arranged for a [employer] cab to transport her. Pt agreed to this plan. Last time pt was seen at was 12/01/17 and she was provided gabapentin, levothyroxine, and fluoxetine. Pt states she had been sober for a couple of months up until recently. Homeless Outreach RN,Demi, and [facility] Homeless Outreach Team Officers are familiar with this pt. This CM requested PC to send a notification to eDmi that pt was in the ED and to continue to keep an eye out for her in the community. Pt states she has been living with her Nitin at his parent's house in [place] or [place] (?). This CM asked if pt felt safe returning to that living situation and pt said yes. Pt not able to confirm whether she keeps in contact with her mother or any other family (pt used to have a nephew who would pick her up sometimes). Pt was picked up by [employer] but around 0 the cab returned w/the pt because per the cdl flatbed truck driver, the pt had told him to take her to [place] or [place] (?). This CM went out to the ED waiting area and re-iterated to the pt that the original plan was for her to go directly to [facility]. Pt would now not be able to make it to on time. This CM informed the pt that she would have to figure out her own transportation by calling Nitin or some other option. This CM did provide a regional bus pass to the ED property handler in case pt was not picked up by Nitin. This CM shredded unused cab voucher since it was no longer valid for the destination. Per ED property handler, pt had been picked up by Nitin so regional bus pass was returned. CM available for further assistance if needed. Date Signed: 01/12/2018 06:08 PM Electronically Signed By:Hellen Del Cid RN
== END 2018-01-09 18:56 | disposition home or self-care (01) ==
LOC: EDUNIT#
DX: G40.909 Epilepsy, unspecified, not intractable, without status epilepticus (principal); F10.230 Alcohol dependence with withdrawal, uncomplicated; E86.9 Volume depletion, unspecified; Z91.14 Patient's other noncompliance with medication regimen; F17.200 Nicotine dependence, unspecified, uncomplicated; Z59.0 Homelessness
CPT/HCPCS: 96374; G0480; J1953; J2060

== ENCOUNTER 2018-01-16 17:54 | Emergency (ER) | payer MEDICAID ==
[2018-01-16] MEDS ORDERED: levETIRAcetam 1000MG/NACL 100 ML IV ONE (18:34)
--- NOTE | 2018-01-16 18:35 | EDPHY ---
H & P Time Seen by Provider: 01/16/18 18:07 HPI/ROS: Chief complaint. Seizure HPI. Patient is a 57-year-old female with known seizure disorder and apparent alcohol withdrawal seizures. She is noncompliant with her Keppra. She has been out of [place] for the last 4-5 days. She thinks that maybe she had a seizure earlier today and that she feels that she bit her tongue. She is here by herself and the seizure was unwitnessed. She has no headache or change in her vision. No chest pain or shortness of breath. No abdominal pain. No other injuries. Patient was seen in our emergency department on both January 08 and January 09 for seizures. ROS 10 systems were reviewed and negative with the exception of the elements mentioned in the history of present illness Past Medical/Surgical History: Seizure disorder, depression, alcoholism, history of cocaine abuse Social History: Single, daily smoker, no alcohol Smoking Status: Heavy smoker Physical Exam: General Appearance: Alert well-developed female mild distress vital signs are stable Eyes: Pupils equal and round no pallor or injection. ENT, Mouth: Mucous membranes are moist. Possible slight abrasion to the left side of her tongue. No real evidence of trauma or bite. Respiratory: There are no retractions, lungs are clear to auscultation. Cardiovascular: Regular rate and rhythm. Gastrointestinal: Abdomen is soft and nontender, no masses, bowel sounds normal. Neurological: Awake and alert, sensory and motor exams grossly normal. Skin: Warm and dry, no rashes. Musculoskeletal: Neck is supple nontender. Extremities symmetrical, full range of motion. Psychiatric: Patient is oriented X 3, there is no agitation. Constitutional: Initial Vital Signs Temperature (C) 36.7 C 01/16/18 18:03 Heart Rate 94 01/16/18 18:03 Respiratory Rate 18 01/16/18 18:03 Blood Pressure 115/80 01/16/18 18:03 O2 Sat (%) 96 01/16/18 18:03 O2 Delivery Mode Room Air O2 (L/minute) 2 Allergies/Adverse Reactions: No Known Allergies Allergy (Verified 01/16/18 18:02) Home Medications: Medication Instructions Recorded levETIRAcetam [Keppra] 1,500 mg PO BID #120 tablet 09/24/17 levETIRAcetam [Keppra 500 mg (*)] 500 mg PO BID 7 Days tab 11/02/17 LEVETIRACETAM [Keppra 1000 mg] 1,000 mg PO BID #60 tab 01/16/18 Medical Decision Making Procedures: Seizure precaution IV Keppra ED Course/Re-evaluation: Re-evaluation patient is stable. No further seizure activity. She and I discussed treatment plan including criteria for return importance of follow-up and further evaluation. She expresses understanding and agrees Differential Diagnosis: Patient with known seizure disorder and possibly had seizure today after being out of medication for the past 4-5 days. No acidosis or obvious electrolyte abnormalities. No hypoglycemia. - Data Points Laboratory Results: Laboratory Results 01/16/18 19:00 01/16/18 19:00 01/16/18 01/16/18 19:00 19:00 WBC 5.61 10^3/uL 10^3/uL (3.80-9.50) RBC 3.53 10^6/uL L 10^6/uL (4.18-5.33) Hgb 11.2 g/dL L g/dL (12.6-16.3) Hct 33.0 % L % (38.0-47.0) MCV 93.5 fL fL (81.5-99.8) MCH 31.7 pg pg (27.9-34.1) MCHC 33.9 g/dL g/dL (32.4-36.7) RDW 15.4 % H % (11.5-15.2) Plt Count 150 10^3/uL 10^3/uL (150-400) MPV 8.8 fL fL (8.7-11.7) Neut % (Auto) 68.0 % % (39.3-74.2) Lymph % (Auto) 22.8 % % (15.0-45.0) [place] % (Auto) 7.7 % % (4.5-13.0) Eos % (Auto) 0.9 % % (0.6-7.6) Baso % (Auto) 0.4 % % (0.3-1.7) Nucleat RBC Rel Count 0.0 % % (0.0-0.2) Absolute Neuts (auto) 3.82 10^3/uL 10^3/uL (1.70-6.50) Absolute Lymphs (auto) 1.28 10^3/uL 10^3/uL (1.00-3.00) Absolute Monos (auto) 0.43 10^3/uL 10^3/uL (0.30-0.80) Absolute Eos (auto) 0.05 10^3/uL 10^3/uL (0.03-0.40) Absolute Basos (auto) 0.02 10^3/uL 10^3/uL (0.02-0.10) Absolute Nucleated RBC 0.00 10^3/uL 10^3/uL (0-0.01) Immature Gran % 0.2 % % (0.0-1.1) Immature Gran # 0.01 10^3/uL 10^3/uL (0.00-0.10) Sodium 142 mEq/L mEq/L (135-145) Potassium 3.3 mEq/L L mEq/L (3.5-5.2) Chloride 106 mEq/L mEq/L (97-110) Carbon Dioxide 23 mEq/l mEq/l (22-31) Anion Gap 13 mEq/L mEq/L (6-14) BUN 11 mg/dL mg/dL (7-23) Creatinine 0.5 mg/dL L mg/dL (0.6-1.0) Estimated GFR > 60 Glucose 115 mg/dL H mg/dL (70-100) Calcium 8.4 mg/dL L mg/dL (8.5-10.4) Medications Given: Discontinued Medications Levetiracetam (Keppra (Premix)) 100 mls @ 400 mls/hr IV EDNOW ONE Stop: 01/16/18 18:48 Last Admin: 01/16/18 19:05 Dose: 100 mls Departure - Departure Disposition: Home, Routine, Self-Care Clinical Impression: Seizure disorder Condition: Good Instructions: Recurrent Seizures in Adults (ED) Additional Instructions: Begin taking Keppra 1000 mg twice daily tomorrow. Return for another seizure. Follow up with your regular healthcare provider in the next 2-3 days for re- evaluation Referrals: NONE *PRIMARY CARE P,. [Primary Care Provider] - As per Instructions [facility] [Outside] - 2-3 days without fail Prescriptions: LEVETIRACETAM [Keppra 1000 mg] 1,000 mg PO BID #60 tab
[2018-01-16 19:09] VITALS: BP 98/57
[2018-01-16 19:09] LABS: PLATELET COUNT 150 10^3/uL (150-400)
== END 2018-01-16 21:21 | disposition home or self-care (01) ==
LOC: EDUNIT#
DX: G40.909 Epilepsy, unspecified, not intractable, without status epilepticus (principal); F10.10 Alcohol abuse, uncomplicated; F17.200 Nicotine dependence, unspecified, uncomplicated; Z91.14 Patient's other noncompliance with medication regimen
CPT/HCPCS: 96374; J1953

== ENCOUNTER 2018-01-19 16:42 | Emergency (ER) | payer MEDICAID ==
--- NOTE | 2018-01-19 16:48 | EDPHY ---
H & P Time Seen by Provider: 01/19/18 16:47 HPI/ROS: CHIEF COMPLAINT: Unwitnessed seizure HISTORY OF PRESENT ILLNESS: The patient presents the emergency department after an unwitnessed seizure. She has a history of seizure disorder. She has been to the emergency department a number of times this week. She has received Keppra intravenously multiple times and been given a prescription. The patient denies any acute headache or trauma. She denies any acute numbness or weakness. She denies tongue bite or incontinence. She has no acute complaints. REVIEW OF SYSTEMS: A comprehensive 10 point review of systems is otherwise negative aside from elements mentioned in the history of present illness. Source: Patient Exam Limitations: No limitations - Personal History Tetanus Vaccine Date: 2014 - Medical/Surgical History Hx Asthma: No Hx Chronic Respiratory Disease: No Hx Diabetes: No Hx Cardiac Disease: No Hx Renal Disease: No Hx Cirrhosis: No Hx Alcoholism: Yes Hx HIV/AIDS: No Hx Splenectomy or Spleen Trauma: No Other PMH: PMHx: SEIZURE, DEPRESSION, EtOH abuse, Cocaine Abuse. PSHx: TONSILLECTOMY - Social History Smoking Status: Heavy smoker - Physical Exam Exam: General Appearance: Alert, no distress Eyes: Pupils equal and round no pallor or injection ENT, Mouth: Mucous membranes moist Respiratory: There are no retractions, lungs are clear to auscultation Cardiovascular: Regular rate and rhythm Gastrointestinal: Abdomen is soft and nontender, no masses, bowel sounds normal Neurological: A&O, normal motor function, normal sensory exam, normal cranial nerves Skin: Warm and dry, no rashes Musculoskeletal: Neck is supple nontender Extremities: symmetrical, full range of motion Constitutional: Initial Vital Signs Temperature (C) 36.8 C 01/19/18 16:42 Heart Rate 72 01/19/18 16:42 Respiratory Rate 16 01/19/18 16:42 Blood Pressure 129/84 H 01/19/18 16:42 O2 Sat (%) 97 01/19/18 16:42 O2 Delivery Mode Room Air Allergies/Adverse Reactions: No Known Allergies Allergy (Verified 01/16/18 18:02) Home Medications: Medication Instructions Recorded levETIRAcetam [Keppra] 1,500 mg PO BID #120 tablet 09/24/17 levETIRAcetam [Keppra 500 mg (*)] 500 mg PO BID 7 Days tab 11/02/17 LEVETIRACETAM [Keppra 1000 mg] 1,000 mg PO BID #60 tab 01/16/18 Dilantin 01/19/18 LEVETIRACETAM [Keppra 1000 mg] 1,000 mg PO BID #60 tab 01/19/18 traMADol 01/19/18 Medical Decision Making ED Course/Re-evaluation: I reviewed the patient's past medical records including her prior ED visits. The patient has been provided a prescription for Keppra although she has no Keppra with her. It is uncertain whether the patient truly had a seizure prior to arrival. She has no stigmata of a recent seizure. The patient has been given a refill of her Keppra. She is advised to follow up with her primary care provider. No IV Keppra has been administered in the emergency department as her compliance with her outpatient regimen is highly doubtful. Departure - Departure Disposition: Home, Routine, Self-Care Clinical Impression: Seizure Condition: Good Instructions: Epilepsy (ED) Additional Instructions: 1. No driving, dangerous activities such as riding a ski lift, swimming in a pool or other behavior that could put you or someone else at risk in the event of a recurrent seizure. You will need to be cleared by a neurologist to resume these activities. 2. Please return to the ED for recurrent seizure, headache, numbness, weakness, altered mental status or other concerns. 3. Please follow up with neurologist you have been referred to this week to schedule a follow-up appointment.
[2018-01-19 16:51] VITALS: BP 129/84
== END 2018-01-19 17:19 | disposition home or self-care (01) ==
LOC: EDUNIT#
DX: R56.9 Unspecified convulsions (principal)

== ENCOUNTER 2018-01-20 07:37 | Observation (INO) | payer MEDICAID ==
--- NOTE | 2018-01-20 07:51 | EDPHY ---
H & P Stated Complaint: Sz this am Time Seen by Provider: 01/20/18 07:38 HPI/ROS: CHIEF COMPLAINT: Generalized seizure HISTORY OF PRESENT ILLNESS: 57-year-old female with alcoholism and prior seizure disorder presents after a generalized seizure. She had a witnessed generalized seizure sure just prior to arrival. She remains confused and postictal. She has been seen in this emergency department multiple times for seizures. She has a prescription for Keppra. No recent illness or head injury. Denies recent alcohol use. REVIEW OF SYSTEMS: complete 10 point ROS reviewed and is negative except for the noted elements in the HPI Source: Patient - Personal History Tetanus Vaccine Date: 2014 - Medical/Surgical History Hx Asthma: No Hx Chronic Respiratory Disease: No Hx Diabetes: No Hx Cardiac Disease: No Hx Renal Disease: No Hx Cirrhosis: No Hx Alcoholism: Yes Hx HIV/AIDS: No Hx Splenectomy or Spleen Trauma: No Other PMH: PMHx: SEIZURE, DEPRESSION, EtOH abuse, Cocaine Abuse. PSHx: TONSILLECTOMY - Social History Smoking Status: Heavy smoker Alcohol Use: Sober Drug Use: None - Physical Exam Exam: General Appearance: Alert, cooperative, confused Eyes: Pupils equal and round, no conjunctival pallor or injection ENT, Mouth: Mucous membranes moist Neck: Normal inspection Respiratory: Lungs are clear to auscultation, no wheezing Cardiovascular: Regular rate and rhythm Gastrointestinal: Abdomen is soft and nontender Neurological: Alert, oriented to person and place, motor and sensory grossly intact, no tremor Skin: Warm and dry Extremities: Normal inspection Psychiatric: Mood and affect normal Constitutional: Initial Vital Signs Temperature (C) 36.8 C 01/20/18 07:28 Heart Rate 106 H 01/20/18 07:28 Respiratory Rate 16 01/20/18 07:28 Blood Pressure 148/97 H 01/20/18 07:28 O2 Sat (%) 92 01/20/18 07:28 O2 Delivery Mode Room Air Allergies/Adverse Reactions: No Known Allergies Allergy (Verified 01/16/18 18:02) Home Medications: Medication Instructions Recorded LEVETIRACETAM [Keppra 1000 mg] 1,000 mg PO BID #60 tab 01/16/18 Medical Decision Making ED Course/Re-evaluation: The patient had a recurrent generalized seizure in the emergency department. Ativan 1 mg IV given, followed by Keppra 1 g IV. After the sz in the Ed, pt was postictal and gradually resumed baseline mental status. Pt denies recent alcohol abuse. Does not appear to be in acute alcohol withdrawal. Heart rate is 100 and blood pressure is normal. Patient is not tremulous. Given recurrent seizures and multiple ED visits for recent seizures, will admit to the hospitalist service. Dr. Izaguirre was consulted and will admit the patient. The patient remained stable throughout the remainder of her emergency department stay. Differential Diagnosis: Differential diagnosis includes though it is not limited to status epilepticus, hypoglycemia, intracranial hemorrhage, CVA, benzodiazepine withdrawal, alcohol withdrawal, epilepsy. - Data Points Medications Given: Discontinued Medications Levetiracetam (Keppra (Premix)) 100 mls @ 400 mls/hr IV EDNOW ONE Stop: 01/20/18 08:09 Last Admin: 01/20/18 08:42 Dose: 100 mls Lorazepam (Ativan Injection) 1 mg IVP EDNOW ONE Stop: 01/20/18 08:14 Last Admin: 01/20/18 08:19 Dose: 1 mg Departure - Departure Disposition: Home, Routine, Self-Care Clinical Impression: Seizure Condition: Good
[2018-01-20] MEDS ORDERED: levETIRAcetam 1000MG/NACL 100 ML IV ONE (07:55)
[2018-01-20] MEDS ORDERED: LORazepam 2 MG/ML INJ ONE (08:01)
[2018-01-20] MEDS ORDERED: LORazepam 2 MG/ML INJ IVP ONE (08:13)
[2018-01-20 08:30] LABS: PLATELET COUNT 178 10^3/uL (150-400)
[2018-01-20] MEDS ORDERED: ACETAMINOPHEN 325 MG TAB PO PRN (09:20)
[2018-01-20] MEDS ORDERED: oxyCODONE IR 5 MG TAB PO PRN (09:20)
[2018-01-20] MEDS ORDERED: HYDROmorphONE/DILAUDID 1 MG/ML INJ IVP PRN (09:20)
[2018-01-20] MEDS ORDERED: LORazepam 2 MG/ML INJ IVP PRN (09:20)
[2018-01-20] MEDS ORDERED: IBUPROFEN 200 MG TAB PO PRN (09:20)
[2018-01-20] MEDS ORDERED: HYDROCODONE/APAP 5/325 TAB PO PRN (09:20)
[2018-01-20] MEDS ORDERED: PROMETHAZINE HCL 25 MG/ML INJ IVP PRN (09:20)
[2018-01-20] MEDS ORDERED: ONDANSETRON DISINTEGRATING 4 MG TAB PO PRN (09:20)
[2018-01-20] MEDS ORDERED: ONDANSETRON 4 MG/2 ML VIAL IVP PRN (09:20)
--- NOTE | 2018-01-20 09:28 | PDGENHP ---
History and Physical - Chief Complaint seizure - History of Present Illness 57 yo F with PMH of alcohol abuse and seizures--apparently both etoh related seizure and perhaps a primary seizure disorder, presenting with seizure. Patient has multiple ER visits and hospitalizations here for seizure, in fact in the last 2 weeks she has been in the ER now 4 times for seizure, including yesterday. She was to be discharged from the ER when she had another witnessed seizure in the ER. Patient is confused at the time of my evaluation and history is limited by that. She states that she does take her seizure medications as prescribed, but when attempting to clarify this further she cannot say what medications she takes or what time of the day she takes them and says she only has seizures when she doesn't take her medications and acknowledges she is having frequent seizures recently. She notes that she is drinking less than she used to, states that her last drink was 2 weeks ago, she denies any withdrawal at this time. History Information - Allergies/Home Medication List Allergies/Adverse Reactions: No Known Allergies Allergy (Verified 01/16/18 18:02) I have personally reviewed and updated: family history, medical history, social history, surgical history - Past Medical History seizures Additional medical history: Reported seizure disorder with previous episodes of seizures. Reported medication non adherence. Reported Wernicke's. Reported depression. Reported tooth abscess. Alcohol abuse and alcohol withdrawal - Surgical History Reports: no pertinent surgical hx Additional surgical history: Tonsillectomy - Family History Positive for: non-pertinent Additional family history: Sibling reportedly was seizure disorder - Social History Smoking Status: Heavy smoker Alcohol Use: Heavy Drug Use: Cocaine Additional social history: Patient is reportedly homeless--she states she is staying in a van Review of Systems Review of Systems: ROS: 10pt was reviewed & negative except for what was stated in HPI & below Physical Exam Physical Exam: Temp Pulse Resp BP Pulse Ox 36.8 C 106 H 16 148/97 H 92 01/20/18 07:28 01/20/18 07:28 01/20/18 07:28 01/20/18 07:28 01/20/18 07:28 Constitutional: no apparent distress, chronically ill appearing, unkempt Eyes: PERRL Ears, Nose, Mouth, Throat: poor dentition, dry mucous membranes Cardiovascular: regular rate and rhythym, no murmur, rub, or gallop, No edema Respiratory: no respiratory distress, no rales or rhonchi Gastrointestinal: normoactive bowel sounds, soft, non-tender abdomen Skin: warm, normal color Musculoskeletal: no muscle tenderness Neurologic: CN II-XII Intact, No AAOx3 Psychiatric: encephalopathic Lab Data & Imaging Review 01/20/18 08:26 01/20/18 08:26 WBC 7.36 10^3/uL (3.80-9.50) 01/20/18 08:26 RBC 3.95 10^6/uL (4.18-5.33) L 01/20/18 08:26 Hgb 12.4 g/dL (12.6-16.3) L 01/20/18 08:26 Hct 37.3 % (38.0-47.0) L 01/20/18 08:26 MCV 94.4 fL (81.5-99.8) 01/20/18 08:26 MCH 31.4 pg (27.9-34.1) 01/20/18 08:26 MCHC 33.2 g/dL (32.4-36.7) 01/20/18 08:26 RDW 15.9 % (11.5-15.2) H 01/20/18 08:26 Plt Count 178 10^3/uL (150-400) 01/20/18 08:26 MPV 8.6 fL (8.7-11.7) L 01/20/18 08:26 Neut % (Auto) 74.3 % (39.3-74.2) H 01/20/18 08:26 Lymph % (Auto) 17.1 % (15.0-45.0) 01/20/18 08:26 [place] % (Auto) 6.5 % (4.5-13.0) 01/20/18 08:26 Eos % (Auto) 0.1 % (0.6-7.6) L 01/20/18 08:26 Baso % (Auto) 0.5 % (0.3-1.7) 01/20/18 08:26 Nucleat RBC Rel Count 0.3 % (0.0-0.2) H 01/20/18 08:26 Absolute Neuts (auto) 5.46 10^3/uL (1.70-6.50) 01/20/18 08:26 Absolute Lymphs (auto) 1.26 10^3/uL (1.00-3.00) 01/20/18 08:26 Absolute Monos (auto) 0.48 10^3/uL (0.30-0.80) 01/20/18 08:26 Absolute Eos (auto) 0.01 10^3/uL (0.03-0.40) L 01/20/18 08:26 Absolute Basos (auto) 0.04 10^3/uL (0.02-0.10) 01/20/18 08:26 Absolute Nucleated RBC 0.02 10^3/uL (0-0.01) H 01/20/18 08:26 Immature Gran % 1.5 % (0.0-1.1) H 01/20/18 08:26 Immature Gran # 0.11 10^3/uL (0.00-0.10) H 01/20/18 08:26 Sodium 142 mEq/L (135-145) 01/20/18 08:26 Potassium 4.0 mEq/L (3.5-5.2) 01/20/18 08:26 Chloride 104 mEq/L (97-110) 01/20/18 08:26 Carbon Dioxide 18 mEq/l (22-31) L 01/20/18 08:26 Anion Gap 20 mEq/L (6-14) H 01/20/18 08:26 BUN 7 mg/dL (7-23) 01/20/18 08:26 Creatinine 0.5 mg/dL (0.6-1.0) L 01/20/18 08:26 Estimated GFR > 60 01/20/18 08:26 Glucose 170 mg/dL (70-100) H 01/20/18 08:26 Calcium 9.2 mg/dL (8.5-10.4) 01/20/18 08:26 Ethyl Alcohol < 10 mg/dL (0-10) 01/20/18 08:26 Assessment & Plan Assessment: Seizure (Acute) 57 yo F with PMH of seizure d/o and alcohol abuse presenting with recurrent seizure # recurrent seizure: all in all suspect this is most likely due to medication non compliance which has been a recurrent issue in the past as well, she did present to the ER this week stating she was out of her keppra and was given a new prescription for keppra at that time however it remains unclear if that prescription was filled and patient not a reliable historian. Will monitor overnight given frequent seizures in the last several days, will attempt to clarify that patient indeed has filled her prescriptions. # alcohol abuse: with hx of prior withdrawal, no clear e/o withdrawal right now other than seizure which may not be related. She states her last drink was 2 weeks ago, she did have a BAL of [id number] on the 3rd and today was negative. Will monitor off of CIWA for now, will start mvi/thiamine/folate and replete electrolytes as needed # AGMA: mild, in the setting of recurrent seizure, will repeat bmp in am # hyperglycemia: in setting of recurrent seizure and likely related to same # observation status Patient new to my care. Old records reviewed and summarized as above. Care plan reviewed with ER doctor as above.
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
[2018-01-20] MEDS: levETIRAcetam 500 MG TAB PO SCH (21:10)
[2018-01-21] MEDS: levETIRAcetam 500 MG TAB PO SCH (10:05)
[2018-01-21 12:03] VITALS: BP 126/85
--- NOTE | 2018-01-21 13:19 | HOSPPROG ---
Hospitalist Progress Note Assessment/Plan: 57 yo F with PMH of seizure d/o and alcohol abuse presenting with recurrent seizure # recurrent seizure: all in all suspect this is most likely due to medication non compliance which has been a recurrent issue in the past as well, she did present to the ER this week stating she was out of her keppra and was given a new prescription for keppra at that time, she states she has her keppra at home and that she does take it but not reliable historian. No seizures overnight. # alcohol abuse: with hx of prior withdrawal, no clear e/o withdrawal currently , states her last drink was 2 weeks ago # nausea: patient states she has nausea and is unable to eat, will attempt to feed and if able to eat will dc later today # AGMA: mild, in the setting of recurrent seizure, will repeat bmp in am # hyperglycemia: in setting of recurrent seizure and likely related to same # obervation status--will dc today if eating Subjective: no significant overnight events, patient notes that she is currently not feeling well, when asked what that means she yells 'not well!', when asked specifically about nausea she says yes she is nauseated and cant eat Objective: Vital Signs Temp Pulse Resp BP Pulse Ox 36.7 C 75 16 126/85 H 97 01/21/18 12:00 01/21/18 12:00 01/21/18 12:00 01/21/18 12:00 01/21/18 12:00 Laboratory Results 01/20/18 08:26 01/21/18 04:30 01/20/18 01/21/18 01/22/18 05:59 05:59 05:59 Intake Total 650 Balance 650 disheveled, chronically ill appearing anicteric poor dentition, mmm rrr no mrg cta b soft nt nd no cce warm dry well perfused ICD10 Worksheet Patient Problems: Problems Problem Status Onset Seizure Acute Lung abnormality Acute Alcohol withdrawal delirium Acute Seizure disorder Acute Seizure due to alcohol withdrawal Acute Alcoholic hepatitis Acute Alcohol withdrawal Acute Altered mental state Acute Status epilepticus Acute
--- NOTE | 2018-01-21 13:57 | PDDCSUM ---
Discharge Summary Discharge Summary: Dates of service 01/20-01/21/18 Consultations/procedures: none Hospital course by problem: 57 yo F with PMH of seizure d/o and alcohol abuse presenting with recurrent seizure # recurrent seizure: all in all suspect this is most likely due to medication non compliance which has been a recurrent issue in the past as well, she did present to the ER this week stating she was out of her keppra and was given a new prescription for keppra at that time, she states she has her keppra at home and that she does take it but not reliable historian. No seizures overnight. # alcohol abuse: with hx of prior withdrawal, no clear e/o withdrawal currently , states her last drink was 2 weeks ago # nausea: patient states she has nausea and is unable to eat, will attempt to feed and if able to eat will dc later today # AGMA: mild, in the setting of recurrent seizure, will repeat bmp in am # hyperglycemia: in setting of recurrent seizure and likely related to same DC back to jail f/u with PCP at [facility]'s clinic > 35 min spent in dc more than half in coordination of care
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
== END 2018-01-21 17:24 | disposition home or self-care (01) ==
LOC: EDUNIT# → F3N 12:14
PROVIDERS: ADMIT Internal Medicine; ATTEND Internal Medicine
DX: G40.909 Epilepsy, unspecified, not intractable, without status epilepticus (principal); F10.20 Alcohol dependence, uncomplicated; E87.2 Acidosis; R11.0 Nausea; R73.9 Hyperglycemia, unspecified; Z91.14 Patient's other noncompliance with medication regimen; F17.200 Nicotine dependence, unspecified, uncomplicated; Z59.0 Homelessness
CPT/HCPCS: 97161; 97166; G0378; 96365; G0480; J1953; J2060

== ENCOUNTER 2018-01-23 00:33 | Emergency (ER) | payer MEDICAID ==
[2018-01-23] MEDS ORDERED: NS 1,000 ML IV ONE (00:37)
[2018-01-23] MEDS ORDERED: levETIRAcetam 1000MG/NACL 100 ML IV ONE (00:38)
--- NOTE | 2018-01-23 00:40 | EDPHY ---
H & P Time Seen by Provider: 01/23/18 00:45 HPI/ROS: HPI CHIEF COMPLAINT: "I feel like I am going to have a seizure" refused IV or blood sugar by EMS. HISTORY OF PRESENT ILLNESS: 57-year-old female, who I am very familiar with history of alcohol abuse and alcoholism, as well as epilepsy, history of med noncompliance with her Keppra presents emergency room stating that she feels like she is going to have a seizure. Refused IV and blood sugar by EMS. She arrives to the emergency room, cooperative. No active seizure. Answers questions appropriately. Denies any recent alcohol use. Past Medical History: Alcoholism daily alcohol abuse, seizures, epilepsy, medication noncompliance Past Surgical History: No recent surgery Social History: Alcoholism. Homeless. Family History: Noncontributory ROS REVIEW OF SYSTEMS: 10 Systems were reviewed and negative with the exception of the elements mentioned in the history of present illness. Exam Constitutional nontoxic, triage nursing summary reviewed, vital signs reviewed , awake/alert. Eyes normal conjunctivae and sclera, EOMI, PERRLA. HENT normal inspection, atraumatic, moist mucus membranes, no epistaxis, neck supple/ no meningismus, no raccoon eyes. Respiratory clear to auscultation bilaterally, normal breath sounds, no respiratory distress, no wheezing. Cardiovascular rate normal, regular rhythm, no murmur, no edema, distal pulses normal. Gastrointestinal soft, non-tender, no rebound, no guarding, normal bowel sounds, no distension, no pulsatile mass. Genitourinary no CVA tenderness. Musculoskeletal no midline vertebral tenderness, full range of motion, no calf swelling, no tenderness of extremities, no meningismus, good pulses, neurovascularly intact. Skin pink, warm, & dry, no rash, skin atraumatic. Neurologic awake, alert and oriented x 3, AAOx3, moves all 4 extremities equally, motor intact, sensory intact, CN II-XII intact, normal cerebellar, normal vision, normal speech. Psychiatric normal mood/affect. Heme/Lymph/Immune no lymphadenopathy. Differential Diagnosis: Includes but is not limited to in a particular order epilepsy, breakthrough seizure, medication noncompliance, alcoholism, alcohol withdrawal seizure Medical Decision Making: Plan for this patient vital signs, IV establishment with IV fluid bolus, IV Keppra 1 g, monitor for seizures. Re-evaluation: Serum alcohol level 269 Patient now clinically sober. Ambulates well at 500am. No complaints. Safe for d/c. Source: Patient, EMS - Personal History Tetanus Vaccine Date: 2014 - Medical/Surgical History Hx Asthma: No Hx Chronic Respiratory Disease: No Hx Diabetes: No Hx Cardiac Disease: No Hx Renal Disease: No Hx Cirrhosis: No Hx Alcoholism: Yes Hx HIV/AIDS: No Hx Splenectomy or Spleen Trauma: No Other PMH: PMHx: SEIZURE, DEPRESSION, EtOH abuse, Cocaine Abuse. PSHx: TONSILLECTOMY - Social History Smoking Status: Heavy smoker Constitutional: Initial Vital Signs Temperature (C) 36.5 C 01/23/18 00:43 Heart Rate 83 01/23/18 00:43 Respiratory Rate 16 01/23/18 00:43 Blood Pressure 111/74 01/23/18 00:43 O2 Sat (%) 96 01/23/18 00:43 O2 Delivery Mode Room Air Allergies/Adverse Reactions: No Known Allergies Allergy (Verified 01/23/18 20:17) Home Medications: Medication Instructions Recorded LEVETIRACETAM [Keppra 1000 mg] 1,000 mg PO BID #60 tab 01/21/18 Medical Decision Making - Data Points Laboratory Results: Laboratory Results 01/23/18 01:00 01/23/18 01:00 Medications Given: Discontinued Medications Sodium Chloride (Ns) 1,000 mls @ 0 mls/hr IV EDNOW ONE; Wide Open PRN Reason: Protocol Stop: 01/23/18 00:38 Last Admin: 01/23/18 01:21 Dose: 1,000 mls Levetiracetam (Keppra (Premix)) 100 mls @ 400 mls/hr IV EDNOW ONE Stop: 01/23/18 00:52 Last Admin: 01/23/18 01:30 Dose: 100 mls Departure - Departure Disposition: Home, Routine, Self-Care Clinical Impression: Alcohol intoxication Qualifiers: Complication of substance-induced condition: uncomplicated Qualified Code(s): F10.920 - Alcohol use, unspecified with intoxication, uncomplicated Condition: Good Instructions: Alcohol Intoxication (ED), Abuse of Alcohol (ED) Referrals: NONE *PRIMARY CARE P,. [Primary Care Provider] - As per Instructions
[2018-01-23 01:35] LABS: PLATELET COUNT 204 10^3/uL (150-400)
[2018-01-23 05:15] VITALS: BP 103/61
== END 2018-01-23 06:22 | disposition home or self-care (01) ==
LOC: EDUNIT#
DX: F10.129 Alcohol abuse with intoxication, unspecified (principal); E86.9 Volume depletion, unspecified; G40.909 Epilepsy, unspecified, not intractable, without status epilepticus; Z91.14 Patient's other noncompliance with medication regimen; Z59.0 Homelessness
CPT/HCPCS: 96365; G0480; J1953

== ENCOUNTER 2018-01-23 20:12 | Emergency (ER) | payer MEDICAID ==
--- NOTE | 2018-01-23 20:16 | EDPHY ---
H & P - Personal History Tetanus Vaccine Date: 2014 - Medical/Surgical History Hx Asthma: No Hx Chronic Respiratory Disease: No Hx Diabetes: No Hx Cardiac Disease: No Hx Renal Disease: No Hx Cirrhosis: No Hx Alcoholism: Yes Hx HIV/AIDS: No Hx Splenectomy or Spleen Trauma: No Other PMH: PMHx: SEIZURE, DEPRESSION, EtOH abuse, Cocaine Abuse. PSHx: TONSILLECTOMY - Social History Smoking Status: Heavy smoker Time Seen by Provider: 01/23/18 20:15 HPI/ROS: CHIEF COMPLAINT: Suspected alcohol abuse HISTORY OF PRESENT ILLNESS: 57 year old female arrives via ambulance for suspected alcohol abuse. Found stumbling at a gas station. Patient unable to ambulate without assistance. No reports of trauma or assault. No fall from height. No structures of height near patient. REVIEW OF SYSTEMS: 10 systems reviewed and negative with the exception of the elements mentioned in the history of present illness PAST MEDICAL/SURGICAL HISTORY: no anticoagulant use, no relevant medical/ surgical history SOCIAL HISTORY: Positive for witnessed and self disclosed alcohol use PHYSICAL EXAM 1) GENERAL: Well-developed, well-nourished, alert and oriented. Appears to be in no acute distress. Answering questions appropriately.Smells of alcohol. 2) HEAD: Normocephalic, atraumatic 3) HEENT: Pupils equal, round, reactive to light bilaterally. Negative Horners. Nasopharynx, oropharynx, clear. No deformity or angulation of nose. No septal hematoma. No rhinorrhea. No oral trauma. Ears bilaterally with normal tympanic membranes. No hemotympanum. No fluid or blood in the external auditory canal. No raccoon eyes. No Nation sign. Teeth are normally aligned with no gross malocclusion, TMJ bilaterally nontender, facial bones nontender including the zygomatic arch, maxilla mandible. 4) NECK: No cervical collar is on. Posterior cervical spine is nontender, no stepoff, no effusion. Full range of motion which does not elicit any midline cervical spine pain, no posterior midline tenderness, no step-off. 5) LUNGS: Clear to auscultation bilaterally, no wheezes, no rhonchi, no retractions. No obvious signs of trauma. No chest wall pain. No flaring, no grunting. Moving symmetrically. No crepitus. 6) HEART: [Regular rate and rhythm, 7) ABDOMEN: No guarding, no rebound, no focal tenderness, no peritoneal signs, no signs of trauma, no ecchymosis 8) MUSCULOSKELETAL: Moving all extremities, no focal areas of tenderness, no obvious trauma. 9) BACK: No midline vertebral tenderness, no fluctuance, no step-off, no obvious trauma, no visual or palpable abnormality. 10) SKIN: No laceration. No abrasion DIFFERENTIAL DIAGNOSIS: In no particular orderincluding but not limited to hypoglycemia, infectious process, electrolyte abnormality, head injury and intoxicants. (Myrtle Bennett) Constitutional: Initial Vital Signs Temperature (C) 36.4 C 01/23/18 20:15 Heart Rate 95 01/23/18 20:15 Respiratory Rate 16 01/23/18 20:15 Blood Pressure 105/78 01/23/18 20:15 O2 Sat (%) 95 01/23/18 20:15 O2 Delivery Mode Room Air Allergies/Adverse Reactions: No Known Allergies Allergy (Verified 01/23/18 20:17) Home Medications: Medication Instructions Recorded LEVETIRACETAM [Keppra 1000 mg] 1,000 mg PO BID #60 tab 01/21/18 Medical Decision Making ED Course/Re-evaluation: 8:16 p.m.: Patient will be observed in the ER. This time she is unable to ambulate. She is in questions appropriately. Doubt delirium tremens. Midnight: Care turned over to Dr. Hedrick, patient sobering in the ER. (Myrtle Bennett) 4:22 a.m.- Patient is now awake, alert, does not require oxygen, has been able to walk to the bathroom. [facility] is [facility] and we will send her there. I will give her a dose of her Keppra which she is prescribed before she goes there. (Ayde Hedrick) - Data Points Medications Given: Discontinued Medications Levetiracetam (Keppra) 1,000 mg PO EDNOW ONE Stop: 01/24/18 04:20 Last Admin: 01/24/18 04:21 Dose: 1,000 mg Departure - Departure Disposition: Home, Routine, Self-Care Clinical Impression: Alcohol abuse Condition: Good Instructions: Chlordiazepoxide (By mouth), Abuse of Alcohol (ED) Additional Instructions: Please consider long-term sobriety from alcohol Referrals: [facility] [Outside] - As per Instructions
[2018-01-24] MEDS ORDERED: levETIRAcetam 500 MG TAB PO ONE (04:19)
[2018-01-24 04:23] VITALS: BP 99/79
[2018-01-24] MEDS ORDERED: CHLORDIAZEPOXIDE 25MG PREPK#6 BTL TAKEHOME ONE ×2 (04:28→04:29)
== END 2018-01-24 04:38 | disposition home or self-care (01) ==
LOC: EDUNIT#
DX: F10.920 Alcohol use, unspecified with intoxication, uncomplicated (principal); G40.909 Epilepsy, unspecified, not intractable, without status epilepticus

== ENCOUNTER 2018-01-24 18:07 | Emergency (ER) | payer MEDICAID ==
[2018-01-24] MEDS ORDERED: NS 1,000 ML IV ONE (18:11)
[2018-01-24] MEDS ORDERED: levETIRAcetam 1000MG/NACL 100 ML IV ONE (18:11)
--- NOTE | 2018-01-24 18:13 | EDPHY ---
H & P Stated Complaint: SEIZURE Source: Patient, EMS - Personal History Tetanus Vaccine Date: 2014 - Medical/Surgical History Hx Asthma: No Hx Chronic Respiratory Disease: No Hx Diabetes: No Hx Cardiac Disease: No Hx Renal Disease: No Hx Cirrhosis: No Hx Alcoholism: Yes Hx HIV/AIDS: No Hx Splenectomy or Spleen Trauma: No Other PMH: PMHx: SEIZURE, DEPRESSION, EtOH abuse, Cocaine Abuse. PSHx: TONSILLECTOMY - Social History Smoking Status: Heavy smoker Time Seen by Provider: 01/24/18 18:12 HPI/ROS: HPI CHIEF COMPLAINT: Alcohol intoxication, seizure HISTORY OF PRESENT ILLNESS: This patient 57-year-old female, well known to myself as well as the emergency room, presents emergency room by EMS after 911 was called for seizure. The patient is homeless, drinks alcohol daily, and also has epilepsy and med noncompliance. She arrives to the emergency room alert and oriented, stating that she had a seizure. She admits to drinking alcohol tonight. Past Medical History: Alcoholism, epilepsy, alcohol draw seizure Past Surgical History: No recent surgical history Social History: Homeless, daily alcohol use. Family History: Noncontributory ROS REVIEW OF SYSTEMS: 10 Systems were reviewed and negative with the exception of the elements mentioned in the history of present illness. Exam Constitutional smells of alcohol, intoxicated, triage nursing summary reviewed , vital signs reviewed, awake/alert. Eyes normal conjunctivae and sclera, EOMI, PERRLA. HENT normal inspection, atraumatic, moist mucus membranes, no epistaxis, neck supple/ no meningismus, no raccoon eyes. Respiratory clear to auscultation bilaterally, normal breath sounds, no respiratory distress, no wheezing. Cardiovascular rate normal, regular rhythm, no murmur, no edema, distal pulses normal. Gastrointestinal soft, non-tender, no rebound, no guarding, normal bowel sounds, no distension, no pulsatile mass. Genitourinary no CVA tenderness. Musculoskeletal no midline vertebral tenderness, full range of motion, no calf swelling, no tenderness of extremities, no meningismus, good pulses, neurovascularly intact. Skin pink, warm, & dry, no rash, skin atraumatic. Neurologic awake, alert and oriented x 3, AAOx3, moves all 4 extremities equally, motor intact, sensory intact, CN II-XII intact, normal cerebellar, normal vision, slight slurred speech from alcohol intoxication Psychiatric normal mood/affect. Heme/Lymph/Immune no lymphadenopathy. Differential Diagnosis: Includes but is not limited to in a particular order acute alcohol intoxication, alcohol abuse, electrolyte disturbance, seizure, breakthrough seizure Medical Decision Making: Plan for this patient IV establishment IV fluid bolus , 1 g of Keppra, check serum alcohol level, check electrolytes, monitor for sobriety. Monitor for worsening condition monitor for seizures. Re-evaluation: Serum alcohol level 418 at 1928. Signed over to Dr. Hedrick at 11:00 p.m. Shift change. Patient's alcohol level 418. Patient pending sobriety. (Morris Braden) 11:45 p.m.- Patient able to ambulate independently without difficulty. [facility] and she can go directly there. We have arranged for taxi transport. (Ayde Hedrick) Constitutional: Initial Vital Signs Temperature (C) 36.9 C 01/24/18 18:10 Heart Rate 87 01/24/18 18:10 Respiratory Rate 18 01/24/18 18:10 Blood Pressure 104/85 H 01/24/18 18:10 O2 Sat (%) 100 01/24/18 18:10 O2 Delivery Mode Room Air Allergies/Adverse Reactions: No Known Allergies Allergy (Verified 01/23/18 20:17) Home Medications: Medication Instructions Recorded LEVETIRACETAM [Keppra 1000 mg] 1,000 mg PO BID #60 tab 01/21/18 - Data Points Laboratory Results: Laboratory Results 01/24/18 19:30 01/24/18 18:40 01/24/18 01/24/18 01/24/18 19:30 18:40 18:40 WBC 4.37 10^3/uL 10^3/uL REJ (3.80-9.50) RBC 3.62 10^6/uL L 10^6/uL REJ (4.18-5.33) Hgb 11.5 g/dL L g/dL REJ (12.6-16.3) Hct 36.2 % L % REJ (38.0-47.0) MCV 100.0 fL H fL REJ (81.5-99.8) MCH 31.8 pg pg REJ (27.9-34.1) MCHC 31.8 g/dL L g/dL REJ (32.4-36.7) RDW 17.2 % H % REJ (11.5-15.2) Plt Count 217 10^3/uL 10^3/uL REJ (150-400) MPV 8.6 fL L fL REJ (8.7-11.7) Neut % (Auto) 44.9 % % REJ (39.3-74.2) Lymph % (Auto) 43.2 % % REJ (15.0-45.0) Weld % (Auto) 8.9 % % REJ (4.5-13.0) Eos % (Auto) 1.6 % % REJ (0.6-7.6) Baso % (Auto) 0.9 % % REJ (0.3-1.7) Nucleat RBC Rel Count 0.0 % % REJ (0.0-0.2) Absolute Neuts (auto) 1.96 10^3/uL 10^3/uL REJ (1.70-6.50) Absolute Lymphs (auto) 1.89 10^3/uL 10^3/uL REJ (1.00-3.00) Absolute Monos (auto) 0.39 10^3/uL 10^3/uL REJ (0.30-0.80) Absolute Eos (auto) 0.07 10^3/uL 10^3/uL REJ (0.03-0.40) Absolute Basos (auto) 0.04 10^3/uL 10^3/uL REJ (0.02-0.10) Absolute Nucleated RBC 0.00 10^3/uL 10^3/uL REJ (0-0.01) Immature Gran % 0.5 % % REJ (0.0-1.1) Immature Gran # 0.02 10^3/uL 10^3/uL REJ (0.00-0.10) Sodium 147 mEq/L H mEq/L (135-145) Potassium 4.7 mEq/L mEq/L (3.5-5.2) Chloride 114 mEq/L H mEq/L (97-110) Carbon Dioxide 21 mEq/l L mEq/l (22-31) Anion Gap 12 mEq/L mEq/L (6-14) BUN 11 mg/dL mg/dL (7-23) Creatinine 0.4 mg/dL L mg/dL (0.6-1.0) Estimated GFR > 60 Glucose 89 mg/dL mg/dL (70-100) Calcium 9.2 mg/dL mg/dL (8.5-10.4) Ethyl Alcohol 418 mg/dL H* mg/dL (0-10) Medications Given: Discontinued Medications Sodium Chloride (Ns) 1,000 mls @ 0 mls/hr IV EDNOW ONE; Wide Open PRN Reason: Protocol Stop: 01/24/18 18:12 Last Admin: 01/24/18 18:50 Dose: 1,000 mls Levetiracetam (Keppra (Premix)) 100 mls @ 400 mls/hr IV EDNOW ONE Stop: 01/24/18 18:25 Last Admin: 01/24/18 19:00 Dose: 100 mls Departure - Departure Disposition: Home, Routine, Self-Care Clinical Impression: Alcohol intoxication Condition: Fair Instructions: Alcohol Intoxication (ED), Abuse of Alcohol (ED) Referrals: NONE *PRIMARY CARE P,. [Primary Care Provider] - As per Instructions
[2018-01-24 19:41] LABS: PLATELET COUNT 217 10^3/uL (150-400)
[2018-01-24 22:30] VITALS: BP 111/79
== END 2018-01-24 23:44 | disposition home or self-care (01) ==
LOC: EDUNIT#
DX: F10.920 Alcohol use, unspecified with intoxication, uncomplicated (principal); E86.9 Volume depletion, unspecified; G40.909 Epilepsy, unspecified, not intractable, without status epilepticus; F32.9 Major depressive disorder, single episode, unspecified; F17.200 Nicotine dependence, unspecified, uncomplicated; Z91.14 Patient's other noncompliance with medication regimen; Y90.8 Blood alcohol level of 240 mg/100 ml or more; Z59.0 Homelessness
CPT/HCPCS: 96374; G0480; J1953

== ENCOUNTER 2018-01-27 01:44 | Emergency (ER) | payer MEDICAID ==
[2018-01-27] MEDS ORDERED: levETIRAcetam 500 MG TAB PO ONE (01:48)
[2018-01-27 01:52] VITALS: BP 148/91
--- NOTE | 2018-01-27 02:02 | EDPHY ---
H & P Stated Complaint: PT STATED TO [facility] SHE HAD A SEIZURE Time Seen by Provider: 01/27/18 01:48 HPI/ROS: HPI The patient presents with concern for possible seizure, brought in by ambulance. The patient approached the attendant at the [facility] and asked for the attendant to call 911 because she had just had a seizure. When paramedics arrived the patient was awake alert and oriented. Vital signs were normal blood glucose was 109. The patient says she has not been drinking alcohol. She says she does not have her Keppra prescription and has not been taking as an outpatient. REVIEW OF SYSTEMS 10 systems were reviewed and negative with the exception of the elements mentioned in the history of present illness. PMHx: Seizure disorder, supposed to be taking Keppra but noncompliance, chronic alcohol abuse, extremely frequent ER visits. Soc Hx: Homeless, alcohol abuse PHYSICAL General Appearance: Alert, no distress Eyes: Pupils equal and round no pallor or injection ENT, Mouth: Mucous membranes moist Respiratory: There are no retractions, lungs are clear to auscultation Cardiovascular: Regular rate and rhythm Gastrointestinal: Abdomen is soft and non-tender, no masses, bowel sounds normal Neurological: A&O, moves all extremities Skin: Warm and dry, no rashes Musculoskeletal: Neck is supple non tender Extremities: symmetrical, full range of motion Psychiatric: Patient is oriented X 3, there is no agitation Source: Patient Exam Limitations: No limitations - Personal History Current Tetanus/Diphtheria Vaccine: Yes Tetanus Vaccine Date: 2014 - Medical/Surgical History Hx Asthma: No Hx Chronic Respiratory Disease: No Hx Diabetes: No Hx Cardiac Disease: No Hx Renal Disease: No Hx Cirrhosis: No Hx Alcoholism: Yes Hx HIV/AIDS: No Hx Splenectomy or Spleen Trauma: No Other PMH: PMHx: SEIZURE, DEPRESSION, EtOH abuse, Cocaine Abuse. PSHx: TONSILLECTOMY - Social History Smoking Status: Heavy smoker Constitutional: Initial Vital Signs Temperature (C) 36.5 C 01/27/18 01:50 Heart Rate 88 01/27/18 01:50 Respiratory Rate 18 01/27/18 01:50 Blood Pressure 148/91 H 01/27/18 01:50 O2 Sat (%) 98 01/27/18 01:50 O2 Delivery Mode Room Air Allergies/Adverse Reactions: No Known Allergies Allergy (Verified 01/27/18 01:52) Home Medications: Medication Instructions Recorded LEVETIRACETAM [Keppra 1000 mg] 1,000 mg PO BID #60 tab 01/21/18 LEVETIRACETAM [Keppra 1000 mg] 1,000 mg PO BID #60 tab 01/27/18 Medical Decision Making Differential Diagnosis: 57-year-old female with history of alcohol abuse, homelessness, seizure disorder presents with unwitnessed seizure, now awake and alert, no urinary incontinence, no tongue biting. She is brought in by ambulance, I question if she had a true seizure or not. Here, I gave her a dose of her usual Keppra and instructed her that she must take it regularly. As she was observed for several hours with no ongoing seizure activity. She was discharged when she was able to walk. I suspect there is alcohol intoxication. - Data Points Medications Given: Discontinued Medications Levetiracetam (Keppra) 1,000 mg PO EDNOW ONE Stop: 01/27/18 01:49 Last Admin: 01/27/18 01:59 Dose: 1,000 mg Departure - Departure Disposition: Home, Routine, Self-Care Clinical Impression: Seizure Condition: Good Instructions: Recurrent Seizures in Adults (ED) Additional Instructions: Please take her Keppra prescription twice a day as it is prescribed to you. Referrals: [facility],. [Clinic] - As per Instructions Prescriptions: LEVETIRACETAM [Keppra 1000 mg] 1,000 mg PO BID #60 tab
== END 2018-01-27 06:18 | disposition home or self-care (01) ==
LOC: EDUNIT#
DX: G40.909 Epilepsy, unspecified, not intractable, without status epilepticus (principal); F32.9 Major depressive disorder, single episode, unspecified; F10.10 Alcohol abuse, uncomplicated; F14.10 Cocaine abuse, uncomplicated; F17.200 Nicotine dependence, unspecified, uncomplicated; Z59.0 Homelessness

== ENCOUNTER 2018-01-29 20:43 | Emergency (ER) | payer MEDICAID ==
[2018-01-29 20:51] VITALS: BP 96/61
--- NOTE | 2018-01-29 20:59 | EDPHY ---
H & P Stated Complaint: felt like she was going to have a sz Time Seen by Provider: 01/29/18 20:45 HPI/ROS: CHIEF COMPLAINT: "I thought I was going have the seizure" HISTORY OF PRESENT ILLNESS: 57-year-old homeless female history of alcohol abuse, seizure disorder, from a to emergency department staff, arrives from the [facility] station via ambulance for concerns that she may have another seizure. She does not have a seizure. Denies alcohol or drug abuse. Denies fall. Denies trauma. Denies hallucination REVIEW OF SYSTEMS: 10 systems reviewed and negative with the exception of the elements mentioned in the history of present illness PAST MEDICAL/SURGICAL HISTORY: Alcohol abuse history. Seizure disorder. Medication noncompliance SOCIAL HISTORY: denies alcohol use at time of incident PHYSICAL EXAM 1) GENERAL: Alert and oriented. Appears to be in no acute distress. Answering questions appropriately. Observed ambulating the bathroom without assistance. 2) HEAD: Normocephalic, atraumatic 3) HEENT: Pupils equal, round, reactive to light bilaterally. Negative Horners. Nasopharynx, oropharynx, clear. No deformity or angulation of nose. No septal hematoma. No rhinorrhea. No oral trauma. Ears bilaterally with normal tympanic membranes. No hemotympanum. No fluid or blood in the external auditory canal. No raccoon eyes. No Nation sign. Teeth are normally aligned with no gross malocclusion, TMJ bilaterally nontender, facial bones nontender including the zygomatic arch, maxilla mandible. 4) NECK: No cervical collar is on. Posterior cervical spine is nontender, no stepoff, no effusion. Full range of motion which does not elicit any midline cervical spine pain, no posterior midline tenderness, no step-off.] 5) LUNGS: Clear to auscultation bilaterally, no wheezes, no rhonchi, no retractions. No obvious signs of trauma. No chest wall pain. No flaring, no grunting. Moving symmetrically. No crepitus. 6) HEART: [Regular rate and rhythm, 7) ABDOMEN: No guarding, no rebound, no focal tenderness, no peritoneal signs, no signs of trauma, no ecchymosis 8) MUSCULOSKELETAL: Moving all extremities, no focal areas of tenderness, no obvious trauma. 9) BACK: No midline vertebral tenderness, no fluctuance, no step-off, no obvious trauma, no visual or palpable abnormality. 10) SKIN: No laceration. No abrasion DIFFERENTIAL DIAGNOSIS: In no particular order including but not limited to acute alcohol withdrawal seizure, medication non compliance, pseudo-seizure , malingering - Personal History Current Tetanus/Diphtheria Vaccine: Yes Current Tetanus Diphtheria and Acellular Pertussis (TDAP): Yes Tetanus Vaccine Date: 2014 - Medical/Surgical History Hx Asthma: No Hx Chronic Respiratory Disease: No Hx Diabetes: No Hx Cardiac Disease: No Hx Renal Disease: No Hx Cirrhosis: No Hx Alcoholism: Yes Hx HIV/AIDS: No Hx Splenectomy or Spleen Trauma: No Other PMH: PMHx: SEIZURE, DEPRESSION, EtOH abuse, Cocaine Abuse. PSHx: TONSILLECTOMY - Social History Smoking Status: Heavy smoker Constitutional: Initial Vital Signs Temperature (C) 36.6 C 01/29/18 20:49 Heart Rate 93 01/29/18 20:49 Respiratory Rate 16 01/29/18 20:49 Blood Pressure 96/61 L 01/29/18 20:49 O2 Sat (%) 94 01/29/18 20:49 O2 Delivery Mode Room Air Allergies/Adverse Reactions: No Known Allergies Allergy (Verified 01/29/18 20:50) Home Medications: Medication Instructions Recorded LEVETIRACETAM [Keppra 1000 mg] 1,000 mg PO BID #60 tab 01/21/18 Medical Decision Making ED Course/Re-evaluation: Reviewed the patient's medical records. I am familiar with this patient. She was seen the ER few hours ago given with 1 g of Keppra orally. She has not had a seizure and currently states that she is feeling well. Plan will be discharge. Recommend medication compliance. Recommend alcohol cessation. She is answering questions appropriately no evidence of altered mentation delirium at this time. I believe her to have decision-making capacity at this time. Care of patient under supervision of secondary supervising physician Dr Justin Watters with whom I discussed case. Departure - Departure Disposition: Home, Routine, Self-Care Clinical Impression: Seizure disorder Condition: Good Instructions: Epilepsy (ED) Additional Instructions: Please take your medications as prescribed. Please consider long-term sobriety from alcohol Referrals: [facility],. [Clinic] - 2-3 days, call for appt.
== END 2018-01-29 21:19 | disposition home or self-care (01) ==
DX: G40.909 Epilepsy, unspecified, not intractable, without status epilepticus (principal); F10.10 Alcohol abuse, uncomplicated; Z59.0 Homelessness; Z91.14 Patient's other noncompliance with medication regimen

== ENCOUNTER 2018-02-08 19:06 | Emergency (ER) | payer MEDICAID, OTHER ==
[2018-02-08 19:12] VITALS: BP 138/78
--- NOTE | 2018-02-08 19:20 | EDPHY ---
H & P Time Seen by Provider: 02/08/18 19:11 HPI/ROS: CHIEF COMPLAINT: "I do not know why I am here" HISTORY OF PRESENT ILLNESS: The patient is a 57-year-old female presents emergency department via EMS. Per EMS report, the patient went up to 100 poorly at [facility] and told them that she had had a seizure. EMS was notified. The patient was brought to the emergency department. At this time the patient has no complaints. She states that she thinks she had a seizure earlier but she is not sure of the time. She has no headache. No chest pain or shortness of breath. No abdominal pain. Patient states she does not think she had any trauma as she has no pain. REVIEW OF SYSTEMS: 10 systems were reveiwed and are negative with the exception of the elements mentioned in the history of present illness. Past Medical/Surgical History: Includes alcohol abuse, seizure disorder, medication noncompliance Social history: The patient denies alcohol today. She is homeless. Smoking Status: Heavy smoker Physical Exam: Vitals noted GENERAL: Well-appearing, in no acute distress, alert. HEENT: Eyes normal to inspection, normal pharynx, no signs of dehydration. NECK: Normal, supple. RESPIRATORY: Clear to auscultation bilaterally, no rales, rhonchi or wheezing. CVS: Regular rate and rhythm, no rubs, murmurs, or gallops. ABDOMEN: Soft, nontender, nondistended, no organomegaly. BACK: Normal to inspection, no CVA tenderness. SKIN: Normal color, no rash, warm, dry. No pallor. EXTREMITIES: No pedal edema, no calf tenderness, no Homans sign or cords, no joint swelling. NEURO/PSYCH: Alert and oriented, normal mood and affect, normal motor sensory exam. No obvious cranial nerve deficit. Constitutional: Initial Vital Signs Temperature (C) 36.5 C 02/08/18 19:11 Heart Rate 91 02/08/18 19:11 Respiratory Rate 16 02/08/18 19:11 Blood Pressure 138/78 H 02/08/18 19:11 O2 Sat (%) 90 L 02/08/18 19:11 O2 Delivery Mode Room Air Allergies/Adverse Reactions: No Known Allergies Allergy (Verified 02/08/18 19:12) Home Medications: Medication Instructions Recorded LEVETIRACETAM [Keppra 1000 mg] 1,000 mg PO BID #60 tab 01/21/18 Medical Decision Making ED Course/Re-evaluation: In the emergency department I discussed possible etiologies with the patient. I answered all her questions. Patient was observed. On recheck the patient was doing well. Patient was discharged home. Differential Diagnosis: My differential includes but is not limited to seizure, postictal state, head injury, alcohol abuse, alcohol withdrawal seizure, alcohol withdrawal, medication complaints Departure - Departure Disposition: Home, Routine, Self-Care Clinical Impression: Seizure disorder Condition: Good Instructions: Recurrent Seizures in Adults (ED), Abuse of Alcohol (ED) Additional Instructions: Return with recurrent seizures. Slowly decrease your intake of alcohol. Referrals: Rajesh Sawant MD [[facility] - 5-7 days, call for appt.
== END 2018-02-08 19:41 | disposition home or self-care (01) ==
DX: G40.909 Epilepsy, unspecified, not intractable, without status epilepticus (principal); Z59.0 Homelessness

== ENCOUNTER 2018-02-25 17:44 | Emergency (ER) | payer MEDICAID ==
--- NOTE | 2018-02-25 18:05 | EDPHY ---
H & P Time Seen by Provider: 02/25/18 17:55 HPI/ROS: CHIEF COMPLAINT: Seizure HISTORY OF PRESENT ILLNESS: Patient is a 57-year-old female with a history of alcohol withdrawal seizure the presents emergency department after having witnessed seizure. Bystander stated the patient had a seizure but they did not comment on whether she struck her head or if she fell. EMS found the patient face down. She has been somnolent since the event. She does have a small abrasion on her upper lip. When I reviewed the patient she states that she has intermittent alcohol withdrawal seizures"every couple of months."Patient denies any significant headache or neck pain. Patient has no chest pain or shortness of breath. REVIEW OF SYSTEMS: 10 systems were reveiwed and are negative with the exception of the elements mentioned in the history of present illness. Past Medical/Surgical History: Includes alcohol withdrawal seizure, alcohol abuse, cocaine abuse, depression Past surgical history: Includes tonsillectomy Social history: Patient drinks alcohol today. She denies drug use Smoking Status: Heavy smoker Physical Exam: 36.6, 127/84, 76, 16, 93% on room air GENERAL: Slightly somnolent, in no acute distress, alert. Opens eyes to voice. HEENT: Eyes normal to inspection, normal pharynx, no signs of dehydration. Patient has a small abrasion on her upper lip. This does not require suture repair NECK: Normal, supple. No spinal tenderness RESPIRATORY: Clear to auscultation bilaterally, no rales, rhonchi or wheezing. CVS: Regular rate and rhythm, no rubs, murmurs, or gallops. ABDOMEN: Soft, nontender, nondistended, no organomegaly. BACK: Normal to inspection, no CVA tenderness. SKIN: Normal color, no rash, warm, dry. No pallor. EXTREMITIES: No pedal edema, no calf tenderness, no Homans sign or cords, no joint swelling. NEURO/PSYCH: Slightly somnolent, slightly slow speech, normal motor sensory exam. No obvious cranial nerve deficit. Constitutional: Initial Vital Signs Temperature (C) 36.6 C 02/25/18 17:47 Heart Rate 76 02/25/18 17:47 Respiratory Rate 16 02/25/18 17:47 Blood Pressure 127/84 H 02/25/18 17:47 O2 Sat (%) 93 02/25/18 17:47 O2 Delivery Mode Nasal Cannula O2 (L/minute) 2 Allergies/Adverse Reactions: No Known Allergies Allergy (Verified 02/08/18 19:12) Home Medications: Medication Instructions Recorded LEVETIRACETAM [Keppra 1000 mg] 1,000 mg PO BID #60 tab 01/21/18 Medical Decision Making - Diagnostics Imaging Results: Imaging Impressions Head CT 02/25/18 18:07 Impression: Small right scalp hematoma. Stable negative intracranial contents. Results called to Dr. Nelson at 6:45 PM. General information for patients regarding this examination can be found at [email or web address]. If you have questions or comments about this report, please contact me at (hospital) or [phone] (cell). ED Course/Re-evaluation: In the emergency department I discussed possible etiologies with the patient. She had no questions. Head CT was ordered because the patient was slightly somnolent she was found face down. I was concerned with potential head trauma. Patient is slightly somnolent as noted. Her heart rate is less than 100. She has no significant tremor. I did not treat her with benzodiazepine Head CT: Please refer the dictated report. No acute disease noted. Patient's lip abrasion was cleaned I discussed the results with the patient. I answered all her questions. She had no further seizure activity in the emergency department. She is given warnings prior to leaving. She was [facility] Differential Diagnosis: My differential includes but is not limited to alcohol withdrawal seizure, seizure disorder, subarachnoid hemorrhage, subdural hematoma, epidural hematoma , skull fracture, laceration, abrasion Departure - Departure Disposition: Home, Routine, Self-Care Clinical Impression: Alcohol withdrawal seizure Qualifiers: Complication of substance-induced condition: uncomplicated Qualified Code(s): F10.230 - Alcohol dependence with withdrawal, uncomplicated Condition: Good Instructions: Alcohol Withdrawal (ED) Additional Instructions: Return with increasing headache, neck pain, vomiting, repeated seizures or any other concerns. Slowly decrease your alcohol intake. Referrals: [facility],. [Clinic] - As per Instructions
[2018-02-25 19:27] VITALS: BP 121/67
== END 2018-02-25 19:28 | disposition home or self-care (01) ==
LOC: EDUNIT#
DX: S00.03XA Contusion of scalp, initial encounter (principal); S00.511A Abrasion of lip, initial encounter; F10.230 Alcohol dependence with withdrawal, uncomplicated; W19.XXXA Unspecified fall, initial encounter; Y92.9 Unspecified place or not applicable; Y93.9 Activity, unspecified; Y99.9 Unspecified external cause status

== ENCOUNTER 2018-03-12 18:09 | Emergency (ER) | payer MEDICAID ==
--- NOTE | 2018-03-12 18:35 | EDPHY ---
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 PSHx: TONSILLECTOMY - Social History Smoking Status: Heavy smoker Time Seen by Provider: 03/12/18 18:22 HPI/ROS: CHIEF COMPLAINT: Possible seizure HISTORY OF PRESENT ILLNESS: 57-year-old female history of seizure disorder, alcohol abuse disorder, arrives via ambulance after she was riding the vehicle with a friend, started to develop seizure-like activity. No fall as she was seated. No incontinence. She has been sober from alcohol for at least 2 weeks. She missed her dose of Keppra this morning. She has no complaints of pain or discomfort when I evaluate her. PRIMARY CARE PROVIDER: REVIEW OF SYSTEMS: 10 systems reviewed and negative with the exception of the elements mentioned in the history of present illness PAST MEDICAL/SURGICAL HISTORY: Seizure disorder. Alcohol use disorder pain SOCIAL HISTORY: denies alcohol use at time of incident PHYSICAL EXAM 1) GENERAL: Well-developed, well-nourished, alert and oriented. Appears to be in no acute distress. Answering questions appropriately. Smiling. Interactive. 2) HEAD: Normocephalic, atraumatic 3) HEENT: Pupils equal, round, reactive to light bilaterally. Negative Horners. Nasopharynx, oropharynx, clear. No deformity or angulation of nose. No septal hematoma. No rhinorrhea. No oral trauma. Ears bilaterally with normal tympanic membranes. No hemotympanum. No fluid or blood in the external auditory canal. No raccoon eyes. No Nation sign. No laceration or abrasion to the tongue. Teeth are normally aligned with no gross malocclusion, TMJ bilaterally nontender, facial bones nontender including the zygomatic arch, maxilla mandible. 4) NECK: No cervical collar is on. Posterior cervical spine is nontender, no stepoff, no effusion. Full range of motion which does not elicit any midline cervical spine pain, no posterior midline tenderness, no step-off. 5) LUNGS: Clear to auscultation bilaterally, no wheezes, no rhonchi, no retractions. No obvious signs of trauma. No chest wall pain. No flaring, no grunting. Moving symmetrically. No crepitus. 6) HEART: [Regular rate and rhythm, 7) ABDOMEN: No guarding, no rebound, no focal tenderness, no peritoneal signs, no signs of trauma, no ecchymosis 8) MUSCULOSKELETAL: Moving all extremities, no focal areas of tenderness, no obvious trauma. 9) BACK: No midline vertebral tenderness, no fluctuance, no step-off, no obvious trauma, no visual or palpable abnormality. 10) SKIN: No laceration. No abrasion 11) NEURO: Awake, alert, and oriented to person, place and time. Answers questions appropriately. There were no obvious focal neurologic abnormalities. No cerebellar dysfunction. Cranial nerves 2 through to 12 intact. Normal steady gait. Upper and lower extremities bilaterally with strength 5 / 5, reflexes 2+. DIFFERENTIAL DIAGNOSIS: In no particular include but limited to medication noncompliance, seizure, acute alcohol withdrawal ([facility]rtle [facility] Valerie) Constitutional: Initial Vital Signs Temperature (C) 36.6 C 03/12/18 18:19 Heart Rate 81 03/12/18 18:19 Respiratory Rate 18 03/12/18 18:19 Blood Pressure 119/78 03/12/18 18:19 O2 Sat (%) 94 03/12/18 18:19 O2 Delivery Mode Room Air Allergies/Adverse Reactions: No Known Allergies Allergy (Verified 02/08/18 19:12) Home Medications: Medication Instructions Recorded LEVETIRACETAM [Keppra 1000 mg] 1,000 mg PO BID #60 tab 01/21/18 Gabapentin 03/12/18 Medical Decision Making ED Course/Re-evaluation: Patient is answering questions appropriately, smiling, has a nonfocal exam. States that she has been sober from alcohol for approximately 2 weeks. She forgot her dose of Keppra this morning which I suspect accounts for her breakthrough seizure. She is due for her dose at this time which she has with her and will be taking this in the ER. At this time I do not think that diagnostic studies or imaging studies are indicated. I commended the patient on staying sober from alcohol and recommend she stay compliant with her medication dosing. She is agreeable with this plan. Care of patient under supervision of secondary supervising physician Dr Anthony ([facility]) The patient was evaluated and managed by the physician assistant womens volleyball coach. I have reviewed this chart and I agree with the findings and plan of care as documented , as indicated by my signature. I am the secondary supervising physician. ( Santa Anthony) Departure - Departure Disposition: Home, Routine, Self-Care Clinical Impression: Seizure Condition: Good Instructions: Epilepsy (ED) Additional Instructions: Please take your medications as prescribed do not skip doses. Referrals: [facility],. [Clinic] - 2-3 days, call for appt.
[2018-03-12 18:59] VITALS: BP 148/62
--- NOTE | 2018-03-12 19:30 | ASMTCMCOM ---
CM Note CM Note Notes: Pt presented to the ED via EMS after having a seizure while riding in a car. This is the pt's 28th ED visit since 02/14/2017 and pt is very well known to [facility]. Please see various past CM Reports for additional background information. Spoke w/pt & she states she has been sober for the past 2 weeks. Pt states she has not taken her anti-seizure meds for the past 3 days because " I just forgot. I didn't even think about taking them." Pt states she has been preoccupied w/family issues and increased stress. Pt states she has enough of her anti-seizure medication and will followup with [facility]. Pt was being discharged from the ED and was eager to go to the waiting area where her , Nitin, was waiting to pick her up. Pt was very pleasant and appreciative to ED staff. CM available for further assistance if needed. Date Signed: 03/12/2018 07:29 PM Electronically Signed By:Hellen Del Cid RN
== END 2018-03-12 18:58 | disposition home or self-care (01) ==
LOC: EDUNIT#
DX: R56.9 Unspecified convulsions (principal)

== ENCOUNTER 2018-03-20 15:26 | Emergency (ER) | payer MEDICAID ==
[2018-03-20 15:39] VITALS: BP 114/73
--- NOTE | 2018-03-20 15:43 | EDPHY ---
H & P Time Seen by Provider: 03/20/18 15:34 HPI/ROS: CHIEF COMPLAINT: Seizure HISTORY OF PRESENT ILLNESS: Patient is a 57-year-old female with a known seizure disorder. I have seen her twice previously in February and most recent visit to the our emergency department is 03/12/2018. Patient states that she was lying in the park when she had seizure activity. She states she had a typical or prior to her seizure. Patient does not think she had any trauma or fall. Patient denies drinking alcohol recently. For previous medical record reports that she has a history of alcohol abuse, alcohol withdrawal seizure and cocaine abuse. Patient denies any drug use. She does smoke cigarettes. Patient states she is prescribed Keppra and has her medication. She has been taking her Keppra regularly. REVIEW OF SYSTEMS: 10 systems were reveiwed and are negative with the exception of the elements mentioned in the history of present illness. Past Medical/Surgical History: Includes alcohol withdrawal seizure carpal depression, alcohol abuse, previous cocaine use Social history: The patient denies drinking alcohol. She smokes cigarettes Smoking Status: Heavy smoker Physical Exam: GENERAL: No acute distress, alert. HEENT: Eyes normal to inspection, normal pharynx, no signs of dehydration. No hematoma. No palpable head injury NECK: Normal, supple. No spinal tenderness RESPIRATORY: Clear to auscultation bilaterally, no rales, rhonchi or wheezing. CVS: Regular rate and rhythm, no rubs, murmurs, or gallops. ABDOMEN: Soft, nontender, nondistended, no organomegaly. BACK: Normal to inspection, no CVA tenderness. No spinal tenderness SKIN: Normal color, no rash, warm, dry. No pallor. EXTREMITIES: No pedal edema, no calf tenderness, no Homans sign or cords, no joint swelling. NEURO/PSYCH: Alert and answer my questions appropriately, slightly flat affect , normal motor sensory exam. No obvious cranial nerve deficit. Constitutional: Initial Vital Signs Temperature (C) 36.8 C 03/20/18 15:26 Heart Rate 76 03/20/18 15:26 Respiratory Rate 16 03/20/18 15:26 Blood Pressure 114/73 03/20/18 15:26 O2 Sat (%) 98 03/20/18 15:26 O2 Delivery Mode Room Air Allergies/Adverse Reactions: No Known Allergies Allergy (Verified 02/08/18 19:12) Home Medications: Medication Instructions Recorded LEVETIRACETAM [Keppra 1000 mg] 1,000 mg PO BID #60 tab 01/21/18 Gabapentin 03/12/18 Medical Decision Making ED Course/Re-evaluation: In the emergency department I discussed possible etiologies with the patient. I answered all her questions. The patient has been here numerous times in the past. She had no reported trauma. She has had numerous head CT images. I do not feel she needs head CT imaging at this time based on her exam findings. She feels comfortable with this. Patient was given warnings prior to leaving. She will return with worsening symptoms. Differential Diagnosis: My differential includes but is not limited to alcohol withdrawal seizure, seizure, electrolyte abnormality, sugar abnormality, subarachnoid hemorrhage, subdural hematoma, epidural hematoma, spinal injury Departure - Departure Disposition: Home, Routine, Self-Care Clinical Impression: Seizure Condition: Good Instructions: Recurrent Seizures in Adults (ED) Additional Instructions: Return with increasing headache, recurrent vomiting, recurrent seizures or any other concerns. You been given contact information for Dr. Estrada. He is a neurologist. Call his office to make an appointment to evaluate your medication and recurrent seizures. Referrals: [facility],. [Clinic] - 5-7 days, call for appt. Luciano Estrada MD [Medical Doctor] - 5-7 days, call for appt.
--- NOTE | 2018-03-21 13:49 | ASMTCMCOM ---
CM Note CM Note Notes: Late Entry from 03/20/18: Pt presented to the ED via EMS after having a seizure at a park. Pt assessed, stabilized, and ready for discharge. CM is very familiar with this pt & spoke w/pt extensively. Please see previous CM Reports for additional background info Pt states she is taking her Keppra and Gabapentin as prescribed. Pt states she drank alcohol two days ago but otherwise has been trying her best to remain sober. Pt states she has started going to orthodox again "It doesn't matter what uatsdin, it is just good for me to go. But I can't expect Him to save me. He tries to protect me but only I can save myself." This CM affirmed pt's valuable insight into her struggle with alcohol and how to continue making progress in life. Pt states she has been experiencing a lot of stress w/her family lately. Pt states he mother recently moved back to [place] and lives with her sister, Sixto, in [place]. Pt states "I don't know what happened but my mom was upset...she either had a seizure or something but she placed a restraining order against me but doesn't remember doing it. So she and my sister still call me on Nitin's (pt's partner) phone to come and visit but they don't understand that I'd get arrested. I tell them mom needs to lift the restraining order if she really wants me to come and visit. But its just too much stress. And then I feel guilty that I'm not helping them. My mom is getting older and sometimes they will call and say 'we don't know how much longer she is going to last' but they know I can't go there. And it would kill me if I wasn't there with her..." Pt was crying and very emotionally distraught discussing the stress revolving around her family and the "pressures they put on me." Pt states the stress and pressure from her family dynamics is what sometimes causes her to drink, despite the fact that she knows drinking is very harmful to her. Pt verbalizes good insight into her struggle with alcohol, stress and her family. Pt states she and Nitin are living out of either of his two vehicles and they rather sleep outside than have to sleep at one of the custodial options. Pt states she and Nitin are "doing ok, but he has his own stuff to deal with and work through." Pt requested that CM locate Nitin's cell# ([phone]) and call him to see if he could pick her. CM spoke w/Nitin and he says he will come and pick up attendant the pt. Pt states she has been following up with Dr Radha Ramirez at [facility] (pt showed CM her Rxns (Gabapentin, Keppra, Baclofen, Fluoxetine) and they were prescribed in the last two days) and that she has also been seeing a psychiatrist "but they just tell me to 'go be in your own space (referring to herself emotionally/mentally from her family) and start the work over' but it is not easy. How can I be in my own space? They're my family. That's my mom." Again, pt was tearful and emotional. CM provided empathetic listening & positive support for the sobriety she has been able to achieve in the recent few months, and for reaching out to a orthodox, [facility] and [facility] for additional support. CM called [facility] and spoke w/Dr Ramirez directly. Dr Ramirez has known the pt for 4+ years. Dr Ramirez states pt was last seen on 03/15/18 by her PA and pt was requesting help with ETOH withdrawal so they prescribed her the Gabapentin and Clonidine and referred her to [facility]drawal [facility]. Pt has received Vivitrol through [facility] in the past. Dr Ramirez states pt was seen in the past month by [facility] ([phone]); CM spoke w/staff at [facility] and they said pt was seen on 02/21/18 by a PA and was referred to followup w/[facility] Epilepsy [facility] in order have further testing so they can determine whether she has epilepsy, pseudo seizures or if her seizures are strictly related to ETOH withdrawal. CM confirmed that [facility] have the correct # (Nitin's cell) to contact the pt. CM also called [facility] and relayed pt's recent visits, emotional distress and interest in restarting Vivitrol or other [facility] mgmt options. Pt is normally seen by [facility] at [facility] and can follow up w/case mgmt there for additional help. CM available for further assistance if needed. Date Signed: 03/21/2018 01:48 PM Electronically Signed By:Hellen Del Cid RN
== END 2018-03-20 16:25 | disposition home or self-care (01) ==
LOC: EDUNIT#
DX: R56.9 Unspecified convulsions (principal)

== ENCOUNTER 2018-03-30 11:18 | Emergency (ER) | payer MEDICAID ==
--- NOTE | 2018-03-30 11:42 | EDPHY ---
H & P Stated Complaint: Pt BIBA for "feeling like I'm going to have a seizure". No seizure activity Time Seen by Provider: 03/30/18 11:21 HPI/ROS: CHIEF COMPLAINT: "I felt like I was going to have a seizure" HISTORY OF PRESENT ILLNESS: 57-year-old female familiar to emergency department staff myself, arrives by ambulance from the local [facility]. Patient called 911 because she felt like she was going to have a seizure. This started when she woke this morning, she subsequently drank vodka but notes that her symptoms continue patient does have a history of seizure disorder states that she forgot to take her morning dosage of Keppra. The patient denies seizure and EMS reports no seizure postictal activity. The patient denies fall. PRIMARY CARE PROVIDER: REVIEW OF SYSTEMS: 10 systems reviewed and negative with the exception of the elements mentioned in the history of present illness [PAST MEDICAL & SURGICAL HISTORY: Seizure disorder. Alcohol abuse. SOCIAL HISTORY: Positive for alcohol use shortly prior to arrival PHYSICAL EXAM (Prior to examination, patient consented to physical exam, hands were washed and my usual and customary physical exam procedures followed) 1) GENERAL: Miling, alert, oriented person place time events, Appears to be in no acute distress. 2) HEAD: Normocephalic, atraumatic 3) HEENT: Pupils equal, round, reactive to light bilaterally. Sclera anicteric. Nasopharynx, oropharynx, clear, no lesions. No tongue trauma. No raccoon eyes. No Nation sign. No rhinorrhea. No otorrhea. No hemotympanum. 4) NECK: Full range of motion, no meningeal signs. No midline C-spine pain. 5) LUNGS: Clear auscultation bilaterally, no wheezes, no rhonchi, no retractions. 6) HEART: Regular rate and rhythm, no murmur, no heave, no gallop. 7) ABDOMEN: No guarding, no rebound, no focal tenderness, negative McBurney's, negative Hernandez's, negative Rovsing's, negative peritoneal sign, 8) MUSCULOSKELETAL: Moving all extremities, no focal areas of tenderness, no obvious trauma. No peripheral edema or discoloration. 9) BACK: No CVA tenderness, no midline vertebral tenderness, no fluctuance, no step-off, no obvious trauma, no visual or palpable abnormality. 10) SKIN: No rash, no petechiae. 11) Psychiatric: Patient is oriented X 3, there is no agitation. 12) NEURO: Awake, alert, and oriented to person, place and time. Answers questions appropriately. There were no obvious focal neurologic abnormalities. No cerebellar dysfunction. Cranial nerves 2 through to 12 intact. Normal steady gait. Upper and lower extremities bilaterally with strength 5 / 5, reflexes 2+. DIFFERENTIAL DIAGNOSIS: In no particular order include but limited to acute alcohol abuse, malingering, medication noncompliance, seizure prodrome, alcohol withdrawal seizure - Personal History Current Tetanus/Diphtheria Vaccine: Yes Tetanus Vaccine Date: 2014 - Medical/Surgical History Hx Asthma: No Hx Chronic Respiratory Disease: No Hx Diabetes: No Hx Cardiac Disease: No Hx Renal Disease: No Hx Cirrhosis: No Hx Alcoholism: Yes Hx HIV/AIDS: No Hx Splenectomy or Spleen Trauma: No Other PMH: Alcoholism, seizures - Social History Smoking Status: Heavy smoker Constitutional: Initial Vital Signs Temperature (C) 36.6 C 03/30/18 11:23 Heart Rate 66 03/30/18 11:23 Respiratory Rate 18 03/30/18 11:23 Blood Pressure 115/81 H 03/30/18 11:23 O2 Sat (%) 98 03/30/18 11:23 O2 Delivery Mode Room Air Allergies/Adverse Reactions: pollen extracts Allergy (Verified 03/30/18 11:23) Home Medications: Medication Instructions Recorded LEVETIRACETAM [Keppra 1000 mg] 1,000 mg PO BID #60 tab 01/21/18 Ibuprofen 01/29/18 Gabapentin 03/12/18 Medical Decision Making ED Course/Re-evaluation: Patient has taken her dose of Keppra here in the ER. She has been observed for a period of time in the ER and remained asymptomatic, sleeping. Plan will be discharge. Recommend she stay compliant with medications. senior facilities manager has arranged a follow-up appointment this Monday (today is Monday) at the [facility] at 3:00 p.m. as well as an appointment Monday with Dr. Benson Garcia her neurologist at 9:30 a.m.. At this time I do not identify indication for diagnostic studies and/or imaging studies. I consulted with the patient case coordinator who is familiar with this patient as well. Patient feels comfortable being discharged. Patient feels comfortable being discharged. All questions and concerns addressed by myself. Patient given my usual and customary discharge precautions and instructions regarding their clinical impression. Care of patient under supervision of secondary supervising physician Dr Ansari with whom I discussed case. Departure - Departure Disposition: Home, Routine, Self-Care Clinical Impression: Alcohol use, Noncompliance with medication regimen Condition: Good Instructions: Abuse of Alcohol (ED) Referrals: [facility],. [Clinic] - 04/03/18 3:00 pm Benson Garcia MD [Medical Doctor] - 04/03/18 9:30 am
[2018-03-30 12:59] VITALS: BP 110/79
--- NOTE | 2018-03-30 16:08 | ASMTCMCOM ---
CM Note CM Note Notes: Pt presented to the ED via EMS for alcohol abuse and for feeling like she was going to have a seizure. Per EMS, pt has not had any seizure activity. Pt reported to EMS and the ED Provider that she drank vodka this morning. Please see previous CM Reports Spoke with pt and she states she had two seizures this morning but then also stated her last drink of alcohol was 2 weeks ago. Pt also appears to not remember that she was at a supermarket; pt states "my left me on the side of the road. then he came back and picked up me up and brought me here." CM informed pt that she was brought into the ED by EMS from a [employer]. Pt states she does not remember this and thinks her memory issues are related to having seizures and not due to being intoxicated. Pt states she has an appt w/her PCP Dr Radha Ramirez at [facility] this next week. CM called [facility] and pt does not have an appt scheduled. CM tried to get pt a same-day appt for this afternoon but there were no appts available. CM scheduled Dr Ramirez's next available appt for the pt on Monday04/03/18 at 3pm. Pt is agreeable to this and states she plans on making it to the appt. Pt also states she knows she needs to contact [facility] in [place] but that she doesn't know how she'll get there if her Nitin can't take her. Pt was seen at [facility] about a month ago; CM called [facility] ([phone]) and scheduled pt a follow-up appt for this Monday04/03/18 at 9:30am (arrival time 9:15a); pt agreeable to this and states she will make it to the appt. Pt states "I really want to get this figured out, obviously the meds they have me on aren't working. I know I forgot to take it this morning but even when I take it consistently and don't drink, I still have seizures and I feel like they are getting worse. Whenever I have one I feel like I'm going to ." Pt became tearful and states she is "tired of having seizures. I'm so depressed. It is so frustrating." CM and pt discussed the multi-factorial issue of her not taking the medications consistently and drinking alcohol and pt admits it would be best if she took the meds the same time everyday and didn't drink alcohol but she is also fairly adamant that she still has seizures when she does adhere to those recommendations. Pt ready for discharge and states she will call her Nitin to see if he can come pick her up. Pt states they are still sleeping out of Nitin's vehicles. CM available for further assistance if needed. Date Signed: 03/30/2018 04:07 PM Electronically Signed By:Hellen Del Cid RN
== END 2018-03-30 12:59 | disposition home or self-care (01) ==
LOC: EDUNIT#
DX: F10.10 Alcohol abuse, uncomplicated (principal); Z91.14 Patient's other noncompliance with medication regimen

== ENCOUNTER 2018-03-30 16:37 | Emergency (ER) | payer MEDICAID ==
[2018-03-30 16:48] VITALS: BP 125/93
--- NOTE | 2018-03-30 16:57 | EDPHY ---
H & P Stated Complaint: Seizure Time Seen by Provider: 03/30/18 16:45 HPI/ROS: CHIEF COMPLAINT: I am Worried I am going to have a seizure HISTORY OF PRESENT ILLNESS: Patient is a 57-year-old female well known to our ER with a history of alcoholism and epilepsy. She is traditionally noncompliant with her Keppra. She was seen here few hours ago and her chief complaint was that she felt like she might have a seizure. She was given her dose of Keppra that she missed this morning and observed for several hours. Case management was involved and made follow-up appointments for her with her primary care doctor as well as her neurologist. She was encouraged to stay compliant with her medications. She was discharged but did not leave, she went out to the lobby and then into the laboratory area and told them she felt like she was going to have a seizure. They called a stat team who brought her back to the emergency department. When I entered the room the patient is sleeping but was easy to arouse. She told me she was worried she might have a seizure because she has been shaking. She denies recent alcohol use or withdrawal. Severity: Moderate Modifying factors: None REVIEW OF SYSTEMS: Constitutional: denies: chills, fever, recent illness, recent injury EENTM: denies: blurred vision, double vision, nose congestion Respiratory: denies: cough, shortness of breath Cardiac: denies: chest pain, irregular heart rate, lightheadedness, palpitations Gastrointestinal/Abdominal: denies: abdominal pain, diarrhea, nausea, vomiting, blood streaked stools Genitourinary: denies: dysuria, frequency, hematuria, pain Musculoskeletal: denies: joint pain, muscle pain Skin: denies: lesions, rash, jaundice, bruising Neurological: Feels she might have a seizure denies: headache, numbness, paresthesia, tingling, dizziness, weakness Hematologic/Lymphatic: denies: blood clots, easy bleeding, easy bruising Immunologic/allergic: denies: HIV/AIDS, transplant 10 systems reviewed and negative except as noted EXAM: GENERAL: Disheveled HEAD: Atraumatic, normocephalic. EYES: Pupils equal round and reactive to light, extraocular movements intact, sclera anicteric, conjunctiva are normal. ENT: TMs normal, nares patent, oropharynx clear without exudates. Moist mucous membranes. NECK: Normal range of motion, supple without lymphadenopathy or JVD. LUNGS: Breath sounds clear to auscultation bilaterally and equal. No wheezes rales or rhonchi. HEART: Regular rate and rhythm without murmurs, rubs or gallops. ABDOMEN: Heart rate in the 60s, Soft, nontender, normoactive bowel sounds. No guarding, no rebound. No masses appreciated. BACK: No CVA tenderness, no spinal tenderness, step-offs or deformities EXTREMITIES: No tremors Normal range of motion, no pitting or edema. No clubbing or cyanosis. NEUROLOGICAL: Cranial nerves II through XII grossly intact. Normal speech, normal gait. 5/5 strength, normal movement in all extremities, normal sensation , normal reflexes PSYCH: Normal mood, normal affect. SKIN: Warm, dry, normal turgor, no visible rashes or lesions. Source: Patient - Personal History Current Tetanus/Diphtheria Vaccine: Unsure Tetanus Vaccine Date: 2014 - Medical/Surgical History Hx Asthma: No Hx Chronic Respiratory Disease: No Hx Diabetes: No Hx Cardiac Disease: No Hx Renal Disease: No Hx Cirrhosis: No Hx Alcoholism: Yes Hx HIV/AIDS: No Hx Splenectomy or Spleen Trauma: No Other PMH: Alcoholism, seizures - Family History Significant Family History: No pertinent family hx - Social History Smoking Status: Heavy smoker Alcohol Use: Heavy Constitutional: Initial Vital Signs Temperature (C) 36.6 C 03/30/18 16:46 Heart Rate 66 03/30/18 16:46 Respiratory Rate 18 03/30/18 16:46 Blood Pressure 125/93 H 03/30/18 16:46 O2 Sat (%) 95 03/30/18 16:46 O2 Delivery Mode Room Air Allergies/Adverse Reactions: pollen extracts Allergy (Verified 03/30/18 16:47) Home Medications: Medication Instructions Recorded LEVETIRACETAM [Keppra 1000 mg] 1,000 mg PO BID #60 tab 01/21/18 Ibuprofen 01/29/18 Gabapentin 03/12/18 Medical Decision Making ED Course/Re-evaluation: The patient does not have any symptoms concerning for alcohol withdrawal. She is not tachycardic or tremulous. She is sleeping comfortably. She has been treated earlier with Keppra. She told me that she just wanted her called to come pick her up. She did not want any workup. I told her that that was fine but that we would have her wait in the waiting room for her . She became angry at this and told me she wanted to stay in the ER and sleep. We would have security threat analyst her to the waiting room and wait for her . We did discuss the fact that she does not need to come to the emergency department every time she has a seizure but only if she is having multiple seizures or if she has and status. She will speak with her family and friends about this. Differential Diagnosis: Partial list of the Differential diagnosis considered include but were not limited to; epilepsy, seizure, alcohol withdrawal and although unlikely based on the history and physical exam, I also considered head injury, infection. Departure - Departure Disposition: Home, Routine, Self-Care Clinical Impression: Malingering Condition: Fair Instructions: Epilepsy (ED) Referrals: NONE *PRIMARY CARE P,. [Primary Care Provider] - As per Instructions Benson Garcia MD [Medical Doctor] - 3-4 days, if not improved
== END 2018-03-30 17:05 | disposition home or self-care (01) ==
DX: Z76.5 Malingerer [conscious simulation] (principal)

== ENCOUNTER 2018-03-30 22:50 | Emergency (ER) | payer MEDICAID ==
--- NOTE | 2018-03-30 23:56 | EDPHY ---
H & P Stated Complaint: right ankle swelling this evening. denies rolling. ? Time Seen by Provider: 03/30/18 23:06 HPI/ROS: HPI: The patient presents with right ankle pain which has been present for an unknown amount of time. Patient was seen earlier in the emergency department for seizure. She was in the waiting room and began to complain that her ankle was swollen and hurt. She has some pain with ambulation though is able to walk. She does not have any numbness or tingling of the foot. REVIEW OF SYSTEMS 10 systems were reviewed and negative with the exception of the elements mentioned in the history of present illness. PMHx: Chronic alcohol abuse, homeless, seizure disorder TRAUMA PHYSICAL General Appearance: Alert, no distress Head: Atraumatic Eyes: Pupils equal, round, reactive Skin: No lacerations, No abrasion Extremities: Right ankle with edema, tenderness surrounding the lateral malleolus, there is limited range of motion of the ankle secondary to pain, there is 1+ DP pulses with sensation intact in her foot and range of motion of her toes Neurological: A&Ox3, GCS=15,normal motor function with 5/5 strength in all 4 extremities, normal sensory exam Source: Patient Exam Limitations: Intoxication - Personal History Current Tetanus/Diphtheria Vaccine: Yes Current Tetanus Diphtheria and Acellular Pertussis (TDAP): Yes Tetanus Vaccine Date: 2014 - Medical/Surgical History Hx Asthma: No Hx Chronic Respiratory Disease: No Hx Diabetes: No Hx Cardiac Disease: No Hx Renal Disease: No Hx Cirrhosis: No Hx Alcoholism: Yes Hx HIV/AIDS: No Hx Splenectomy or Spleen Trauma: No Other PMH: Alcoholism, seizures - Social History Smoking Status: Heavy smoker Constitutional: Initial Vital Signs Temperature (C) 36.4 C 03/30/18 22:56 Heart Rate 77 03/30/18 22:56 Respiratory Rate 18 03/30/18 22:56 Blood Pressure 124/83 H 03/30/18 22:56 O2 Sat (%) 96 03/30/18 22:56 O2 Delivery Mode Room Air Allergies/Adverse Reactions: pollen extracts Allergy (Verified 03/30/18 23:00) Home Medications: Medication Instructions Recorded LEVETIRACETAM [Keppra 1000 mg] 1,000 mg PO BID #60 tab 01/21/18 Ibuprofen 01/29/18 Gabapentin 03/12/18 Medical Decision Making - Diagnostics Imaging Results: X-ray right ankle three views demonstrates distal fibular fracture, age uncertain, interpreted by me, radiology interpretation is pending. Imaging: I viewed and interpreted images myself Procedures: SPLINT Procedure: Splint placement. A CAM walker splint was applied to the right ankle by the tech. After application of the splint I returned and re-examined the patient. The splint was adequately immobilizing the joint and distal to the splint the patient's circulation and sensation was intact. Differential Diagnosis: This is a 57-year-old female with longstanding history of alcohol abuse, seizures, presents with right ankle pain and swelling. She is neurovascularly intact. X-rays demonstrate distal fibular fracture. I have spoken with her at length about rest, ice, immobilization. I do have some concerns given her alcohol use that she will not be compliant. I will refer her to Orthopedics and place a Cam walking boot. Departure - Departure Disposition: Home, Routine, Self-Care Clinical Impression: Closed fracture of right distal fibula Qualifiers: Encounter type: initial encounter Fracture morphology: unspecified fracture morphology Qualified Code(s): S82.831A - Other fracture of upper and lower end of right fibula, initial encounter for closed fracture Condition: Good Instructions: Ankle Fracture (ED), R.I.C.E. Treatment (ED) Additional Instructions: Please follow-up with the orthopedist I have listed below. You should have a follow-up appointment in 7-10 days. Referrals: Javed Edwards MD [Medical Doctor] - As per Instructions
[2018-03-31] MEDS ORDERED: CHLORDIAZEPOXIDE 25MG PREPK#6 BTL TAKEHOME ONE (00:13)
[2018-03-31 04:42] VITALS: BP 133/73
== END 2018-03-31 00:37 | disposition home or self-care (01) ==
DX: S82.831A Other fracture of upper and lower end of right fibula, initial encounter for closed fracture (principal)
CPT/HCPCS: L4386

== ENCOUNTER 2018-04-01 12:28 | Emergency (ER) | payer MEDICAID ==
--- NOTE | 2018-04-01 12:52 | EDPHY ---
H & P Stated Complaint: "felt like I was gonna have a seizure" Time Seen by Provider: 04/01/18 12:51 HPI/ROS: HPI CHIEF COMPLAINT: Right lateral ankle pain. HISTORY OF PRESENT ILLNESS: This patient very pleasant 57-year-old female, well known to me as well as the emergency room, often here with alcohol intoxication and daily alcohol use. A however today she arrived to the emergency room by ambulance and she is sober. She walked into the library asking somebody called 911 as she states she was going to have a seizure. She was transported by ambulance here to the ER. She denies feeling like she is going to have a seizure however she tells me she is really here because her right lateral ankle is hurting her. She states been walking on it excessively and is having right lateral ankle pain. Of note patient reports that she felt like she was going to have a seizure today but did not. She denies any urinary or bowel incontinence. States that she has not drank alcohol in 2 weeks. Reports to me that she has been compliant with her seizure medications. Denies any other complaints at this time other than right lateral ankle pain. Past Medical History: Alcoholism daily alcohol use. Seizures. Past Surgical History: Denies recent surgery Social History: Homeless, frequent alcohol use. Currently sober. Family History: Noncontributory ROS REVIEW OF SYSTEMS: 10 Systems were reviewed and negative with the exception of the elements mentioned in the history of present illness. Exam Constitutional triage nursing summary reviewed, vital signs reviewed, awake/ alert. Eyes normal conjunctivae and sclera, EOMI, PERRLA. HENT normal inspection, atraumatic, moist mucus membranes, no epistaxis, neck supple/ no meningismus, no raccoon eyes. Respiratory clear to auscultation bilaterally, normal breath sounds, no respiratory distress, no wheezing. Cardiovascular rate normal, regular rhythm, no murmur, no edema, distal pulses normal. Gastrointestinal soft, non-tender, no rebound, no guarding, normal bowel sounds, no distension, no pulsatile mass. Genitourinary no CVA tenderness. Musculoskeletal right lower extremity: Mild swelling to the right lateral malleolus. Tenderness present. No compartment syndrome. Good distal pulse, good cap refill. no midline vertebral tenderness, full range of motion, no calf swelling, no tenderness of extremities, no meningismus, good pulses, neurovascularly intact. Skin pink, warm, & dry, no rash, skin atraumatic. Neurologic awake, alert and oriented x 3, AAOx3, moves all 4 extremities equally, motor intact, sensory intact, CN II-XII intact, normal cerebellar, normal vision, normal speech. Psychiatric normal mood/affect. Heme/Lymph/Immune no lymphadenopathy. Differential Diagnosis: Includes but is not limited to in a particular order ankles fracture, ankle contusion, ankle sprain Medical Decision Making: Plan for this patient x-ray right ankle. Re-evaluation: X-ray the right ankle reviewed. This shows stable fracture. Stable from previous x-ray a few days ago. The patient was initially splinted a few days ago however ambulates and is homeless requested the splint be taken off and placed in a walking boot. I discussed treatment options with her. She would prefer to stay in the boot. I do recommend she follows up with Orthopedics Recommend elevation, anti-inflammatory pain medicine, ice. Return precautions discussed with the patient. X-ray reviewed stable lateral malleolus fracture. Offer patient is splint and crutches however she has declined. I again offered the patient fiberglass splinting and crutches however she declined the splint. She prefers the walking boot I explained this is not the correct device for her however she is declining splint placement. However we will give her crutches that way she can at least take pressure off for right foot right ankle. Met with Case Management discussed case in detail. They will try to have her follow up with Orthopedics. They will additionally reserve a homeless custodial bed for her tonight. Source: Patient, EMS - Personal History Tetanus Vaccine Date: 2014 - Medical/Surgical History Hx Asthma: No Hx Chronic Respiratory Disease: No Hx Diabetes: No Hx Cardiac Disease: No Hx Renal Disease: No Hx Cirrhosis: No Hx Alcoholism: Yes Hx HIV/AIDS: No Hx Splenectomy or Spleen Trauma: No Other PMH: Alcoholism, seizures - Social History Smoking Status: Heavy smoker Constitutional: Initial Vital Signs Temperature (C) 36.6 C 04/01/18 12:33 Heart Rate 83 04/01/18 12:33 Respiratory Rate 16 04/01/18 12:33 Blood Pressure 152/107 H 04/01/18 12:33 O2 Sat (%) 98 04/01/18 12:33 O2 Delivery Mode Room Air Allergies/Adverse Reactions: pollen extracts Allergy (Verified 03/30/18 23:00) Home Medications: Medication Instructions Recorded LEVETIRACETAM [Keppra 1000 mg] 1,000 mg PO BID #60 tab 01/21/18 Ibuprofen 01/29/18 Gabapentin 03/12/18 Medical Decision Making - Diagnostics Imaging Results: Imaging Impressions Ankle X-Ray 04/01/18 13:09 Impression: Stable alignment of mildly displaced lateral malleolar fracture. Departure - Departure Disposition: Home, Routine, Self-Care Clinical Impression: Ankle sprain, Ankle fracture Condition: Good Instructions: Ankle Fracture (ED), Ankle Sprain (ED) Additional Instructions: 1. Recommend you try not to walk on her right ankle as much as possible. 2. Recommend ice, elevation. 3. Recommend anti-inflammatory pain medicine 4. Please follow up with Orthopedics 5. Your x-ray today shows stable fracture of your ankle. 6. Please follow up with Orthopedics. Referrals: NONE *PRIMARY CARE P,. [Primary Care Provider] - As per Instructions Rudi Castañeda MD [Medical Doctor] - As per Instructions
[2018-04-01 14:02] VITALS: BP 147/98
--- NOTE | 2018-04-01 19:08 | ASMTCMCOM ---
[facility] Note CM Note Notes: Pt presented to the ED via EMS for "feeling like she was going to have a seizure." But once she arrived to the ED, pt reported to the ED provider that she really wanted to have her right ankle assessed. Pt was seen in the ED on 03/30 for right ankle pain and swelling and an x-ray was completed, showing a distal tibial fracture. Pt was placed in a splint but because she is homeless and states she wouldn't be able to be non-weightbearing, pt was taken out of the splint and fitted in a walking boot. Pt states she stayed at the [facility] last night because her Nitin "must be visiting his mom in [place] because she is really sick and he is not answering his cell." Pt called Nitin again and left a voicemail. CM called Nitin and left a voicemail as well. Pt provided crutches and another ortho referral. CM reserved a bed at the [facility] for the pt tonight. [facility] provided a Medicaid cab to [facility]. CM later received a call from Eugenio at [facility] stating pt is not allowed to stay at [facility] tonight because her TB card is not up to date, it has already been more than 2 weeks since she was informed that she needed to get it updated, and she has already used up her one night elsy stay. If pt presents to [facility] as planned, Eugenio states they will help pt get to the [facility] tonight. CM to follow-up tomorrow with various outpatient providers involved with pt's care ([facility], [facility], [facility], [facility], [facility], [facility]?). Date Signed: 04/01/2018 07:07 PM Electronically Signed By:Hellen Del Cid RN
== END 2018-04-01 13:55 | disposition home or self-care (01) ==
LOC: EDUNIT#
DX: S82.61XD Displaced fracture of lateral malleolus of right fibula, subsequent encounter for closed fracture with routine healing (principal); R56.9 Unspecified convulsions; Z59.0 Homelessness

== ENCOUNTER 2018-04-01 20:05 | Emergency (ER) | payer MEDICAID ==
--- NOTE | 2018-04-01 21:05 | EDPHY ---
H & P Time Seen by Provider: 04/01/18 20:16 HPI/ROS: HPI Right ankle pain. History of ankle injury. History of seizures. 57-year-old female on foot. The patient has been seen in our emergency department multiple times in the past for alcohol and seizure related issues. She was diagnosed here with a right-sided distal fibular fracture on the evening of March 30. She was seen earlier that day with an alcohol and seizure related problem and then discharged from the emergency department. She was then seen again earlier today with complaint of right ankle pain. She had another x-ray of the right ankle done at that time. It was stable with no changes from the March 30 x-ray. She presents the emergency department tonight telling me that she was running and she thinks she had a seizure and hurt her right ankle again. She presents now complaining with right ankle pain because of this as well. No other complaint. ROS: Constitutional: No fever, no chills. No weakness. Musculoskeletal: No back pain. No neck pain. As. Skin: No rashes. No lacerations or abrasions Neurological: No headache. No focal weakness or altered sensation. Past medical history: Alcoholism, seizures, multiple visits this emergency department for related complaints and malingering. Social history: Homeless. Currently here by herself. Nonsmoker. Alcohol abuse. Physical Exam: General Appearance: Alert, no distress. This patient is responding to questions appropriately and in full sentences. This patient appears well- hydrated and well-nourished. Head: Normocephalic atraumatic. Eyes: Pupils equal and round no pallor or injection. No lid edema, erythema or injection. Right ankle exam: She is in an orthopedic boot. This was taken down. She has tenderness on palpation to the right lateral malleolus. She has some diffuse swelling of the right lateral malleolus. No evidence of new traumatic injury. The right foot is neurovascularly intact. Neurological: Motor sensory function is grossly intact. Cranial nerves are normal. Gait is normal. Skin: Warm and dry, no rashes. Musculoskeletal: Neck is supple and nontender. No midline cervical tenderness on palpation. Extremities are symmetrical except noted. All joints range without pain or impingement except noted. Psychiatric: No agitation. No depression. Database: EKG: Imaging: Right ankle x-ray series: Stable distal right fibular fracture with stable soft tissue swelling. Interpreted by me. Procedures: Emergency department course: Triage vital signs reviewed. X-ray of right ankle obtained. Results of x-rays discussed with her. For orthopedic boot was reapplied. Orthopedic follow-up discussed with her. Return to emergency department precautions reviewed. All of her questions were answered. She was discharged from the emergency department in good condition. Differential Diagnosis: The differential diagnosis on this patient includes but is not limited to stable right distal fibular fracture, chronic seizure disorder, alcohol abuse, malingering. This represents a partial list of diagnoses considered. These considerations are based on history, physical exam, past history, reassessment and diagnostic testing. Smoking Status: Heavy smoker Constitutional: Initial Vital Signs Temperature (C) 36.9 C 04/01/18 20:07 Heart Rate 104 H 04/01/18 20:07 Respiratory Rate 16 04/01/18 20:07 Blood Pressure 142/105 H 04/01/18 20:07 O2 Sat (%) 97 04/01/18 20:07 O2 Delivery Mode Room Air Allergies/Adverse Reactions: pollen extracts Allergy (Verified 04/01/18 20:11) Home Medications: Medication Instructions Recorded LEVETIRACETAM [Keppra 1000 mg] 1,000 mg PO BID #60 tab 01/21/18 Ibuprofen 01/29/18 Gabapentin 03/12/18 Medical Decision Making - Diagnostics Imaging Results: Imaging Impressions Ankle X-Ray 04/01/18 20:35 Impression: 1. Stable nondisplaced fracture distal right fibula. 2. Moderate soft tissue swelling laterally stable in appearance. Departure - Departure Disposition: Home, Routine, Self-Care Clinical Impression: Malingering, Closed right fibular fracture Condition: Good Instructions: Ankle Fracture (ED) Additional Instructions: Read and follow provided instructions. Follow-up with your primary care physician in 1-2 days for re-evaluation and orthopedic referral. Or call the office of Dr. Cassidy, patient access specialist, for orthopedic follow-up this week and further management of your right ankle injury. Ibuprofen dosin mg every 6 hours with meals for the next 3 days only. Take only as needed for pain. Return to the emergency department for worsening symptoms or other serious concerns. Referrals: Martha Ng MD [Primary Care Provider] - As per Instructions Rudi Castañeda MD [Medical Doctor] - As per Instructions
[2018-04-01] MEDS ORDERED: CHLORDIAZEPOXIDE 25MG PREPK#6 BTL TAKEHOME ONE (21:40)
[2018-04-01 21:44] VITALS: BP 137/76
== END 2018-04-01 21:44 | disposition home or self-care (01) ==
DX: S82.831A Other fracture of upper and lower end of right fibula, initial encounter for closed fracture (principal); R56.9 Unspecified convulsions; Z76.5 Malingerer [conscious simulation]; Z59.0 Homelessness

== ENCOUNTER 2018-04-03 14:49 | Emergency (ER) | payer MEDICAID ==
[2018-04-03] MEDS ORDERED: levETIRAcetam 500 MG TAB PO ONE (15:02)
--- NOTE | 2018-04-03 15:05 | EDPHY ---
H & P Stated Complaint: seizure/lip lac. Time Seen by Provider: 04/03/18 14:56 HPI/ROS: CHIEF COMPLAINT: Seizure HISTORY OF PRESENT ILLNESS: Patient is a 57-year-old homeless female well known to our department for history of epilepsy chronically noncompliant with her anti seizure medication. Currently she is supposed to be taking Keppra but tells me she has not taken it in about 3 days. She also is an alcoholic. She denies alcohol ingestion today. See had a seizure this afternoon bystanders called EMS who brought her here. She has abrasions to her upper lip. No tongue injury. No incontinence. No head injury. She was postictal initially but is now alert and oriented. She is eating and drinking without difficulty. She is ambulating without difficulty. She denies neck pain or head pain. Severity: Moderate Modifying factors: None REVIEW OF SYSTEMS: Constitutional: denies: chills, fever, recent illness, recent injury EENTM: Abrasion to upper lip, Respiratory: denies: cough, shortness of breath Cardiac: denies: chest pain, irregular heart rate, lightheadedness, palpitations Gastrointestinal/Abdominal: denies: abdominal pain, diarrhea, nausea, vomiting, blood streaked stools Genitourinary: denies: dysuria, frequency, hematuria, pain Musculoskeletal: denies: joint pain, muscle pain Skin: denies: lesions, rash, jaundice, bruising Neurological: See HPI denies: headache, numbness, paresthesia, tingling, dizziness, weakness Hematologic/Lymphatic: denies: blood clots, easy bleeding, easy bruising Immunologic/allergic: denies: HIV/AIDS, transplant 10 systems reviewed and negative except as noted EXAM: GENERAL: Well-appearing, well-nourished and in no acute distress. HEAD: Atraumatic, normocephalic. EYES: Pupils equal round and reactive to light, extraocular movements intact, sclera anicteric, conjunctiva are normal. ENT: Abrasion to upper lip, no dental injury. No tongue injury. TMs normal, nares patent, oropharynx clear without exudates. Moist mucous membranes. NECK: Normal range of motion, supple without lymphadenopathy or JVD. LUNGS: Breath sounds clear to auscultation bilaterally and equal. No wheezes rales or rhonchi. HEART: Regular rate and rhythm without murmurs, rubs or gallops. ABDOMEN: Soft, nontender, normoactive bowel sounds. No guarding, no rebound. No masses appreciated. BACK: No CVA tenderness, no spinal tenderness, step-offs or deformities EXTREMITIES: Normal range of motion, no pitting or edema. No clubbing or cyanosis. NEUROLOGICAL: Cranial nerves II through XII grossly intact. Normal speech, normal gait. 5/5 strength, normal movement in all extremities, normal sensation , normal reflexes PSYCH: Normal mood, normal affect. SKIN: Warm, dry, normal turgor, no visible rashes or lesions. Source: Patient, EMS Exam Limitations: No limitations - Personal History Current Tetanus Diphtheria and Acellular Pertussis (TDAP): Yes Tetanus Vaccine Date: 2014 - Medical/Surgical History Hx Asthma: No Hx Chronic Respiratory Disease: No Hx Diabetes: No Hx Cardiac Disease: No Hx Renal Disease: No Hx Cirrhosis: No Hx Alcoholism: Yes Hx HIV/AIDS: No Hx Splenectomy or Spleen Trauma: No Other PMH: Alcoholism, seizures - Family History Significant Family History: No pertinent family hx - Social History Smoking Status: Heavy smoker Alcohol Use: Heavy Constitutional: Initial Vital Signs Temperature (C) 37.3 C 04/03/18 14:54 Heart Rate 101 H 04/03/18 14:54 Respiratory Rate 16 04/03/18 14:54 Blood Pressure 147/90 H 04/03/18 14:54 O2 Sat (%) 98 04/03/18 14:54 O2 Delivery Mode Room Air Allergies/Adverse Reactions: pollen extracts Allergy (Verified 04/03/18 14:53) Home Medications: Medication Instructions Recorded LEVETIRACETAM [Keppra 1000 mg] 1,000 mg PO BID #60 tab 01/21/18 Ibuprofen 01/29/18 Gabapentin 03/12/18 levETIRAcetam [Keppra 500 mg (*)] 500 mg PO BID #60 tab 04/03/18 Medical Decision Making ED Course/Re-evaluation: I will give the patient a dose of Keppra. She states she has not taken in several days. I encouraged her to began taking it regularly. She does not have symptoms of withdrawal currently. She denies headache. No visible head laceration. No neck pain. She is eager to be discharged. Differential Diagnosis: Partial list of the Differential diagnosis considered include but were not limited to; lip laceration, seizure, medication noncompliance and although unlikely based on the history and physical exam, I also considered dental injury , intracranial injury, neck injury. - Data Points Medications Given: Discontinued Medications Levetiracetam (Keppra) 500 mg PO EDNOW ONE Stop: 04/03/18 15:03 Last Admin: 04/03/18 15:09 Dose: 500 mg Departure - Departure Disposition: Home, Routine, Self-Care Clinical Impression: Seizure disorder, Noncompliance with medication regimen Condition: Fair Instructions: Epilepsy (ED) Referrals: Patient,NotPresent [Unknown] - As per Instructions Luciano Estrada MD [Medical Doctor] - As per Instructions Prescriptions: levETIRAcetam [Keppra 500 mg (*)] 500 mg PO BID #60 tab
[2018-04-03 15:12] VITALS: BP 137/99
== END 2018-04-03 15:12 | disposition home or self-care (01) ==
LOC: EDUNIT#
DX: Z91.14 Patient's other noncompliance with medication regimen (principal); G40.909 Epilepsy, unspecified, not intractable, without status epilepticus; F17.200 Nicotine dependence, unspecified, uncomplicated

== ENCOUNTER 2018-04-10 12:59 | Emergency (ER) | payer MEDICAID ==
[2018-04-10 13:06] VITALS: BP 98/82
--- NOTE | 2018-04-10 13:25 | EDPHY ---
HPI/HX/ROS/PE/MDM Narrative: CHIEF COMPLAINT: Seizure HPI: This patient is a 57-year-old homeless female well known to our department for history of epilepsy chronically noncompliant with her anti seizure medication as well as alcoholism. She arrives today via EMS following a possible seizure. Per EMS call note and triage note, the patient had complained primarily of right leg pain. However, she does not mention this to me at all and notes only that she thinks she had a seizure earlier today. She reports her last alcoholic drink was a couple hours ago. She has no further complaints today. REVIEW OF SYSTEMS: A comprehensive 10 system review of systems is otherwise negative aside from elements mentioned in the history of present illness and medical decision making. PMH: Epilepsy, alcoholism. SOCIAL HISTORY: Heavy alcohol and tobacco use. . Lives in [place]. PHYSICAL EXAM: General:Patient is alert, in no acute distress. ENT:Eyes are normal to inspection. ENT inspection normal. Neck: Normal inspection. Full range of motion. Respiratory:No respiratory distress. Breath sounds normal bilaterally. Cardiovascular: Regular rate and rhythm. Strong peripheral pulses. Normal cap refill. Abdomen:The abdomen is nontender to palpation. There are no peritoneal signs. There are normal bowel sounds. Back: Normal to inspection. No tenderness to palpation. Skin: Normal color. No rash. Warm and dry. Extremities: Normal appearance. Full range of motion. Neuro: Oriented x3. Normal motor function. Normal sensory function. ED Course: 57 y/o female presents following a possible seizure. She is currently mildly intoxicated but quite pleasant. Vitals are stable. Exam unremarkable. 14:02 Spoke with case management. Patient wishes to go to the [facility] with Librium. Plan to discharge to the [facility] in good condition with prescription for Librium. Follow up and return precautions discussed. The patient is comfortable with this plan. - Data Points Medications Given: Discontinued Medications Chlordiazepoxide (Librium 25 Mg Prepack#6) 1 btl TAKEHOME EDNOW ONE Stop: 04/10/18 14:03 Last Admin: 04/10/18 14:13 Dose: 1 btl General Time Seen by Provider: 04/10/18 13:06 Initial Vital Signs: Initial Vital Signs Temperature (C) 36.4 C 04/10/18 13:04 Heart Rate 74 04/10/18 13:04 Respiratory Rate 18 04/10/18 13:04 Blood Pressure 98/82 H 04/10/18 13:04 O2 Sat (%) 97 04/10/18 13:04 O2 Delivery Mode Room Air Allergies/Adverse Reactions: pollen extracts Allergy (Verified 04/10/18 13:02) Home Medications: Medication Instructions Recorded LEVETIRACETAM [Keppra 1000 mg] 1,000 mg PO BID #60 tab 01/21/18 Ibuprofen 01/29/18 Gabapentin 03/12/18 levETIRAcetam [Keppra 500 mg (*)] 500 mg PO BID #60 tab 04/03/18 Departure - Departure Disposition: Home, Routine, Self-Care Clinical Impression: Seizure Alcohol intoxication Qualifiers: Complication of substance-induced condition: uncomplicated Qualified Code(s): F10.920 - Alcohol use, unspecified with intoxication, uncomplicated Condition: Good Instructions: Chlordiazepoxide (By mouth), Alcohol Intoxication (ED), Recurrent Seizures in Adults (ED) Additional Instructions: Follow up with your primary care provider. You may go to the [facility] for assistance in alcohol recovery. Please take Librium as prescribed as needed for withdrawal symptoms. Take your medications as prescribed. Stay well hydrated. Return to the emergency department for fever, chest pain, difficulty breathing, or other worsening of condition. Referrals: Martha Ng MD [Primary Care Provider] - As per Instructions [facility] Detox 24 Hours [Outside] - As per Instructions Report Scribed for: Donell Gomez Report Scribed by: Roslyn Hernandez Date of Report: 04/10/18 Time of Report: 13:24 Physician Review and Approval Statement: Portions of this note were transcribed by an ED scribe. I personally performed the history, physical exam, and medical decision making; and confirm the accuracy of the information in the transcribed note.
[2018-04-10] MEDS ORDERED: CHLORDIAZEPOXIDE 25MG PREPK#6 BTL TAKEHOME ONE (14:02)
== END 2018-04-10 14:27 | disposition home or self-care (01) ==
LOC: EDUNIT#
DX: G40.909 Epilepsy, unspecified, not intractable, without status epilepticus (principal); F10.920 Alcohol use, unspecified with intoxication, uncomplicated; M79.604 Pain in right leg; Z59.0 Homelessness

== ENCOUNTER 2018-04-13 20:09 | Emergency (ER) | payer MEDICAID ==
--- NOTE | 2018-04-13 20:45 | EDPHY ---
H & P Stated Complaint: SZ Time Seen by Provider: 04/13/18 20:27 HPI/ROS: CHIEF COMPLAINT: Seizure HISTORY OF PRESENT ILLNESS: 57-year-old female with alcoholism and seizure disorder presents after a generalized seizure. Apparently she had an unwitnessed seizure just prior to arrival. On EMS arrival, she was postictal. She drank 2 glasses of wine today and currently feels intoxicated. Not taking anti seizure medications. She denies injury during the seizure today. REVIEW OF SYSTEMS: complete 10 point ROS reviewed and is negative except for the noted elements in the HPI Source: Patient - Personal History Tetanus Vaccine Date: 2014 - Medical/Surgical History Hx Asthma: No Hx Chronic Respiratory Disease: No Hx Diabetes: No Hx Cardiac Disease: No Hx Renal Disease: No Hx Cirrhosis: No Hx Alcoholism: Yes Hx HIV/AIDS: No Hx Splenectomy or Spleen Trauma: No Other PMH: Alcoholism, seizures - Social History Smoking Status: Heavy smoker Alcohol Use: Heavy Drug Use: None Additional Social History: Homeless - Physical Exam Exam: General Appearance: Alert, pleasant Eyes: Pupils equal and round, no conjunctival pallor or injection ENT, Mouth: Mucous membranes moist Neck: Normal inspection Respiratory: Lungs are clear to auscultation Cardiovascular: Regular rate and rhythm Gastrointestinal: Abdomen is soft and nontender Neurological: A&O, nonfocal exam Skin: Warm and dry Extremities: Normal inspection Psychiatric: Mood and affect normal Constitutional: Initial Vital Signs Temperature (C) 36.6 C 04/13/18 20:24 Heart Rate 92 04/13/18 20:24 Respiratory Rate 16 04/13/18 20:24 Blood Pressure 118/83 H 04/13/18 20:24 O2 Sat (%) 97 04/13/18 20:24 O2 Delivery Mode Room Air Allergies/Adverse Reactions: pollen extracts Allergy (Verified 04/10/18 13:02) Home Medications: Medication Instructions Recorded LEVETIRACETAM [Keppra 1000 mg] 1,000 mg PO BID #60 tab 01/21/18 Ibuprofen 01/29/18 Gabapentin 03/12/18 levETIRAcetam [Keppra 500 mg (*)] 500 mg PO BID #60 tab 04/03/18 Medical Decision Making ED Course/Re-evaluation: This pt presents with alcohol intoxication and a probable seizure. Multiple similar prior ED visits. Chronic noncompliant with meds and continued heavy alcohol use. Decision not to give Keppra in ED. Strongly encouraged pt to take meds as prescribed. Observed in ED, sent to [facility]. - Data Points Medications Given: Discontinued Medications Chlordiazepoxide (Librium 25 Mg Prepack#6) 1 btl TAKEHOME EDNOW ONE Stop: 04/13/18 21:16 Last Admin: 04/13/18 21:20 Dose: 1 btl Departure - Departure Disposition: Home, Routine, Self-Care Clinical Impression: Seizure Alcohol intoxication Qualifiers: Complication of substance-induced condition: uncomplicated Qualified Code(s): F10.920 - Alcohol use, unspecified with intoxication, uncomplicated Condition: Good Instructions: Chlordiazepoxide/Clidinium (By mouth), Epilepsy (ED), Alcohol Intoxication (ED) Additional Instructions: Go directly to the [facility]. Referrals: [facility] Detox 24 Hours [Outside] - As per Instructions
[2018-04-13] MEDS ORDERED: CHLORDIAZEPOXIDE 25MG PREPK#6 BTL TAKEHOME ONE ×3 (21:15→22:11)
[2018-04-13 22:48] VITALS: BP 118/64
== END 2018-04-13 22:20 | disposition home or self-care (01) ==
LOC: EDUNIT#
DX: F10.129 Alcohol abuse with intoxication, unspecified (principal); G40.909 Epilepsy, unspecified, not intractable, without status epilepticus; Z59.0 Homelessness

== ENCOUNTER 2018-05-02 21:33 | Emergency (ER) | payer MEDICAID ==
--- NOTE | 2018-05-02 21:44 | EDPHY ---
H & P Stated Complaint: STATES SHE HAD A SZ 1 HR AGO Time Seen by Provider: 05/02/18 21:44 HPI/ROS: HPI CHIEF COMPLAINT: Possible seizure. HISTORY OF PRESENT ILLNESS: This is a 57-year-old female well known to myself as well as the emergency room, she is homeless, drinks alcohol daily. She reports to me today she was working out and running. However she states she went for light jog to workout she is in a walking boot in her right leg. Also it she has a bottle of liquor sitting on the ER counter that is half empty of vodka. She states that is 2-week-old has not had anything to drink out of it for 2 weeks. She tells me when went for a light jog today in the park and then had a seizure. Past Medical History: History of alcoholism daily alcohol use. History of alcohol withdrawal seizures Past Surgical History: No recent surgery Social History: Homeless, daily alcohol use. Family History: Noncontributory ROS REVIEW OF SYSTEMS: 10 Systems were reviewed and negative with the exception of the elements mentioned in the history of present illness. Exam Constitutional intoxicated, smells of alcohol, slurring her speech triage nursing summary reviewed, vital signs reviewed, awake/alert. Eyes normal conjunctivae and sclera, EOMI, PERRLA. HENT normal inspection, atraumatic, moist mucus membranes, no epistaxis, neck supple/ no meningismus, no raccoon eyes. Respiratory clear to auscultation bilaterally, normal breath sounds, no respiratory distress, no wheezing. Cardiovascular rate normal, regular rhythm, no murmur, no edema, distal pulses normal. Gastrointestinal soft, non-tender, no rebound, no guarding, normal bowel sounds, no distension, no pulsatile mass. Genitourinary no CVA tenderness. Musculoskeletal no midline vertebral tenderness, full range of motion, no calf swelling, no tenderness of extremities, no meningismus, good pulses, neurovascularly intact. Skin pink, warm, & dry, no rash, skin atraumatic. Neurologic awake, alert and oriented x 3, AAOx3, moves all 4 extremities equally, motor intact, sensory intact, CN II-XII intact, normal cerebellar, normal vision, slurring speech Psychiatric normal mood/affect. Heme/Lymph/Immune no lymphadenopathy. Differential Diagnosis: Includes but is not limited to in a particular order alcohol intoxication, electrolyte disturbance, alcohol withdrawal seizure Medical Decision Making: Plan for this patient IV establishment basic blood draw, gentle IV fluids and observe. Re-evaluation: Serum alcohol level 347 at 11:15 p.m.. 5:20 a.m. patient re-evaluated resting comfortably. She slept for approximately 8 hr here in emergency room without difficulty. She is now sober. She ambulated well in her walking boot. She is safe for discharge. Clinically sober. Source: Patient - Personal History Current Tetanus/Diphtheria Vaccine: Yes Current Tetanus Diphtheria and Acellular Pertussis (TDAP): Yes Tetanus Vaccine Date: 2014 - Medical/Surgical History Hx Asthma: No Hx Chronic Respiratory Disease: No Hx Diabetes: No Hx Cardiac Disease: No Hx Renal Disease: No Hx Cirrhosis: No Hx Alcoholism: Yes Hx HIV/AIDS: No Hx Splenectomy or Spleen Trauma: No Other PMH: Alcoholism, seizures - Social History Smoking Status: Heavy smoker Constitutional: Initial Vital Signs Temperature (C) 36.9 C 05/02/18 21:36 Heart Rate 84 05/02/18 21:36 Respiratory Rate 18 05/02/18 21:36 Blood Pressure 117/75 05/02/18 21:36 O2 Sat (%) 90 L 05/02/18 21:36 O2 Delivery Mode Nasal Cannula O2 (L/minute) 2 Allergies/Adverse Reactions: pollen extracts Allergy (Verified 05/02/18 21:39) Home Medications: Medication Instructions Recorded LEVETIRACETAM [Keppra 1000 mg] 1,000 mg PO BID #60 tab 01/21/18 Ibuprofen 01/29/18 Gabapentin 03/12/18 levETIRAcetam [Keppra 500 mg (*)] 500 mg PO BID #60 tab 04/03/18 Medical Decision Making - Data Points Laboratory Results: Laboratory Results 05/02/18 21:55 05/02/18 22:00 05/02/18 05/02/18 22:00 21:55 WBC 4.25 10^3/uL 10^3/uL (3.80-9.50) RBC 4.28 10^6/uL 10^6/uL (4.18-5.33) Hgb 13.2 g/dL g/dL (12.6-16.3) Hct 39.0 % % (38.0-47.0) MCV 91.1 fL fL (81.5-99.8) MCH 30.8 pg pg (27.9-34.1) MCHC 33.8 g/dL g/dL (32.4-36.7) RDW 13.7 % % (11.5-15.2) Plt Count 251 10^3/uL 10^3/uL (150-400) MPV 9.8 fL fL (8.7-11.7) Neut % (Auto) 27.0 % L % (39.3-74.2) Lymph % (Auto) 63.8 % H % (15.0-45.0) [place] % (Auto) 6.4 % % (4.5-13.0) Eos % (Auto) 1.4 % % (0.6-7.6) Baso % (Auto) 1.2 % % (0.3-1.7) Nucleat RBC Rel Count 0.0 % % (0.0-0.2) Absolute Neuts (auto) 1.15 10^3/uL L 10^3/uL (1.70-6.50) Absolute Lymphs (auto) 2.71 10^3/uL 10^3/uL (1.00-3.00) Absolute Monos (auto) 0.27 10^3/uL L 10^3/uL (0.30-0.80) Absolute Eos (auto) 0.06 10^3/uL 10^3/uL (0.03-0.40) Absolute Basos (auto) 0.05 10^3/uL 10^3/uL (0.02-0.10) Absolute Nucleated RBC 0.00 10^3/uL 10^3/uL (0-0.01) Immature Gran % 0.2 % % (0.0-1.1) Immature Gran # 0.01 10^3/uL 10^3/uL (0.00-0.10) Sodium 144 mEq/L mEq/L (135-145) Potassium 4.5 mEq/L mEq/L (3.5-5.2) Chloride 106 mEq/L mEq/L (97-110) Carbon Dioxide 21 mEq/l L mEq/l (22-31) Anion Gap 17 mEq/L H mEq/L (6-14) BUN 15 mg/dL mg/dL (7-23) Creatinine 0.6 mg/dL mg/dL (0.6-1.0) Estimated GFR > 60 Glucose 90 mg/dL mg/dL (70-100) Calcium 8.7 mg/dL mg/dL (8.5-10.4) Ethyl Alcohol 347 mg/dL H mg/dL (0-10) Medications Given: Discontinued Medications Sodium Chloride (Ns) 1,000 mls @ 0 mls/hr IV EDNOW ONE; Wide Open PRN Reason: Protocol Stop: 05/02/18 21:48 Last Admin: 05/02/18 22:01 Dose: 1,000 mls Departure - Departure Disposition: Home, Routine, Self-Care Clinical Impression: Alcohol intoxication Qualifiers: Complication of substance-induced condition: uncomplicated Qualified Code(s): F10.920 - Alcohol use, unspecified with intoxication, uncomplicated Condition: Good Instructions: Alcohol Intoxication (ED) Referrals: Radha Ramirez DO [Primary Care Provider] - As per Instructions
[2018-05-02] MEDS ORDERED: NS 1,000 ML IV ONE (21:47)
[2018-05-02 22:08] LABS: PLATELET COUNT 251 10^3/uL (150-400)
[2018-05-03 05:42] VITALS: BP 111/64
== END 2018-05-03 05:39 | disposition home or self-care (01) ==
DX: F10.129 Alcohol abuse with intoxication, unspecified (principal); G40.909 Epilepsy, unspecified, not intractable, without status epilepticus; Z59.0 Homelessness; Y90.8 Blood alcohol level of 240 mg/100 ml or more
CPT/HCPCS: G0480

== ENCOUNTER 2018-05-03 07:34 | Emergency (ER) | payer MEDICAID ==
[2018-05-03] MEDS ORDERED: NS 1,000 ML IV ONE (08:58)
[2018-05-03] MEDS ORDERED: LORazepam 2 MG/ML INJ IVP ONE (08:58)
--- NOTE | 2018-05-03 08:58 | EDPHY ---
H & P Stated Complaint: Seizure/Fall Time Seen by Provider: 05/03/18 08:51 HPI/ROS: HPI: This is a 57-year-old female who presents with Chief Complaint: Witnessed seizure activity, alcohol intoxication Location: Body Quality: Seizure activity, alcohol intoxication Duration: Unknown Signs and Symptoms: No bleeding, no radiation, no numbness, no weakness, no tingling, no incontinence, no decreased range of motion, no swelling, no pain, no fever Timing: Acute on chronic Severity: Moderate Context: Patient has a history of alcoholism, seizure disorder, noncompliance with Keppra presents via EMS for witnessed seizure activity. Patient drinks alcohol daily and was seen in this emergency room around midnight last night with an alcohol level 347. She reports that she is not willing to go [facility] and she is not interested in alcohol detox or rehab. Patient is wearing a walking boot as she "broke her foot while having a seizure. " Modifying Factors: None Comment: ROS: A comprehensive 10 system review of systems is otherwise negative aside from elements mentioned in the history of present illness. MEDICAL/SURGICAL/SOCIAL HISTORY: Medical history: Alcoholism, seizures, noncompliant with Keppra Surgical history: Denies Social history: Homeless, denies drug use. Heavy tobacco use. CONSTITUTIONAL: Postictal, intoxicated middle-aged white female, polite and cooperative, awake and alert, no obvious distress HEENT: Atraumatic and normocephalic. NECK: supple, no midline tenderness, flexion 45 degrees, extension 45 degrees, right and left lateral flexion 45 degrees. No meningismus. Cardiovascular: Normal S1/S2, regular rate, regular rhythm, without murmur rub or gallop. PULMONARY/CHEST: Symmetrical and nontender. no crepitus. Clear to auscultation bilaterally. Good air movement. No accessory muscle usage. ABDOMEN: Soft, nondistended, nontender, no ecchymosis. EXTREMITIES: 2/2 pulses, strength 5/5, right lower extremity has a walking boot present. DIP/PIP/MCP flexion/extension intact with good light touch sensation. no deformities, no clubbing, no cyanosis or edema. NEUROLOGICAL: no focal neuro deficits. GCS 15. Light touch sensation intact. Slightly slurred speech. SKIN: Warm and dry, no erythema. no rash. Good capillary refill. Source: Patient, RN/MD, Old records Exam Limitations: Intoxication - Personal History Current Tetanus/Diphtheria Vaccine: Yes Tetanus Vaccine Date: 2014 - Medical/Surgical History Hx Asthma: No Hx Chronic Respiratory Disease: No Hx Diabetes: No Hx Cardiac Disease: No Hx Renal Disease: No Hx Cirrhosis: No Hx Alcoholism: Yes Hx HIV/AIDS: No Hx Splenectomy or Spleen Trauma: No Other PMH: Alcoholism, seizures - Social History Smoking Status: Heavy smoker Constitutional: Initial Vital Signs Temperature (C) 36.8 C 05/03/18 07:42 Heart Rate 90 05/03/18 07:42 Respiratory Rate 16 05/03/18 07:42 Blood Pressure 109/81 H 05/03/18 07:42 O2 Sat (%) 90 L 05/03/18 07:42 O2 Delivery Mode Room Air Allergies/Adverse Reactions: pollen extracts Allergy (Verified 05/03/18 07:45) Home Medications: Medication Instructions Recorded LEVETIRACETAM [Keppra 1000 mg] 1,000 mg PO BID #60 tab 01/21/18 Ibuprofen 01/29/18 Gabapentin 03/12/18 levETIRAcetam [Keppra 500 mg (*)] 500 mg PO BID #60 tab 04/03/18 Medical Decision Making ED Course/Re-evaluation: Vital signs reviewed and show low blood pressure and O2 sats 90% on room air. Suspect sleeping soundly. Will place on child monitor. Seizure activity likely multifactorial secondary to alcoholism and medication noncompliance. IV access, laboratory studies ordered Patient given 1 L normal saline, IV Ativan 1 mg and IV Keppra 1000 mg 0919: Notified by RN that unable to obtain peripheral IV access. Instructed to obtain straight stick for BMP. Will change care brought to oral dosing. 0926: Notified by RN that patient refusing lab draw and oral medications. Road test ordered. 0935: Patient ambulated without ataxia and passed road test. 1010: Case management consult with Maribeth. Patient took p.o. Keppra dose. She is now agreeable to go [facility] the [facility]. Librium prepack provided. This patient was seen under the supervision of my secondary supervising physician. I evaluated care for this patient with attending. Differential Diagnosis: Seizure including but not limited to electrolyte abnormality, alcohol withdrawal , medication noncompliance, head injury, and breakthrough seizure. - Data Points Medications Given: Discontinued Medications Levetiracetam (Keppra) 500 mg PO EDNOW ONE Stop: 05/03/18 09:21 Last Admin: 05/03/18 09:53 Dose: 500 mg Departure - Departure Disposition: Home, Routine, Self-Care Clinical Impression: Alcoholism /alcohol abuse, Seizure disorder, Noncompliance with medication regimen Condition: Good Instructions: Epilepsy (ED), Abuse of Alcohol (ED) Additional Instructions: Please take Keppra and gabapentin as prescribed. [facility] to the [facility] for alcohol detox and rehab. Referrals: [facility],. [Clinic] - As per Instructions [facility] 24 Hours [Outside] - As per Instructions
[2018-05-03] MEDS ORDERED: levETIRAcetam 1000MG/NACL 100 ML IV ONE (09:08)
[2018-05-03] MEDS ORDERED: levETIRAcetam 500 MG TAB PO ONE (09:20)
[2018-05-03] MEDS ORDERED: CHLORDIAZEPOXIDE 25MG PREPK#6 BTL TAKEHOME ONE (10:08)
[2018-05-03 10:22] VITALS: BP 148/85
--- NOTE | 2018-05-03 15:27 | ASMTCMCOM ---
CM Note CM Note Notes: Patient ready for discharge from the ED upon this CM arrival to the ED this morning. Patient is well known to me from previous visits and attempts to engage patient in community resources and recovery. Patient is up in her room, steady, taking PO fluids and able to get tp the bathroom without issue. I spoke with patient about her current situation and patient reports that she has been staying at [facility] "intermittently" and is up to date on her vaccines and TB testing. She is tearful and expressing desire to stop drinking, but tells me that she does'nt "know how". When asked, patient tells me that Lesli is her window caser at the [facility]. I encouraged patient to discuss permanent housing options with Lesli and that patient must identify what she is willing to do to make this happen. We discussed oprions for discharge at this time and patient agress to go to the [facility] (withdrawal management). This CM contacted the [facility] and confirmed that patient is welcome to come (with Librium) provided patient has taken her seizure medication (Kepra taken in my presence). Taxi voucher to the [facility] provided and patient escorted to cab- Librium handed to residential driver- with voucher and instructions to take patient directly to the [facility] Date Signed: 05/03/2018 03:27 PM Electronically Signed By:Maribeth Peterson RN
== END 2018-05-03 10:26 | disposition home or self-care (01) ==
DX: F10.129 Alcohol abuse with intoxication, unspecified (principal); G40.909 Epilepsy, unspecified, not intractable, without status epilepticus; Z59.0 Homelessness; Z91.19 Patient's noncompliance with other medical treatment and regimen
CPT/HCPCS: J1953

== ENCOUNTER 2018-05-03 21:10 | Emergency (ER) | payer MEDICAID ==
--- NOTE | 2018-05-03 21:13 | EDPHY ---
H & P Time Seen by Provider: 05/03/18 21:12 Allergies/Adverse Reactions: pollen extracts Allergy (Verified 05/03/18 21:18) Home Medications: Medication Instructions Recorded LEVETIRACETAM [Keppra 1000 mg] 1,000 mg PO BID #60 tab 01/21/18 Ibuprofen 01/29/18 Gabapentin 03/12/18 levETIRAcetam [Keppra 500 mg (*)] 500 mg PO BID #60 tab 04/03/18 Medical Decision Making ED Course/Re-evaluation: CHIEF COMPLAINT: Alcohol intoxication. HISTORY OF PRESENT ILLNESS: The patient is a 57 y/o female arriving via EMS for alcohol intoxication. The patient is a chronic alcoholic living on the [address]. Patient drinks on a daily basis and obtains whatever alcohol is available. Patient was found by bystanders who called EMS system. Patient has had multiple ER visits over the last several years for the same complaint. Patient denies any injuries denies loss of consciousness denies any recent trauma. Patient denies co-ingestion. Patient denies suicidal or homicidal behavior. REVIEW OF SYSTEMS: A comprehensive 10 system review of systems is otherwise negative aside from elements mentioned in the history of present illness and medical decision making. PHYSICAL EXAM: General Appearance: Appears intoxicated, alert, well hydrated, appropriate, and non-toxic appearing. Head: Atraumatic without scalp tenderness or obvious injury Eyes: Pupils equal, round, reactive to light and accommodation, EOMI, no trauma , no injection. Ears: Clear bilaterally, no perforation, normal landmarks Nose: Atraumatic, no rhinorrhea, clear. Throat: There is no erythema or exudates, no lesions, normal tonsils, mucus membranes moist. Neck: Supple, 2+ carotid upstroke, nontender, no lymphadenopathy. Respiratory: No retractions, no distress, no wheezes, and no accessory muscle use. Lungs are clear to auscultation bilaterally. Cardiovascular: Regular rate and rhythm, no murmurs, rubs, or gallops. Bilateral carotid, radial, dorsalis pedis, and posterior tibial pulses intact. Good capillary refill all extremities. Gastrointestinal: Abdomen is soft, nontender, non-distended, no masses, no rebound, no guarding, no peritoneal signs. Musculoskeletal: Normal active ROM of all extremities, atraumatic. Neurological: Alert, appropriate, and interactive. The patient has normal DTRs and non-focal cranial nerves, motor, sensory, and cerebellar exam. Skin: No rashes, good turgor, no nodules on palpation. Past medical history: Seizure disorder, alcohol withdrawal seizures. Past surgical history:Noncontributory Family history: Noncontributory Social history: Homeless. Heavy alcohol and tobacco use. DIAGNOSTICS/PROCEDURES/CRITICAL CARE TIME: Not indicated. DIFFERENTIAL DIAGNOSIS: The differential diagnosis for the patient's altered mental status included but was not limited to hypoglycemia, infectious process, electrolyte abnormality, head injury, neurologic process, anemia, cardiac process, and intoxicants. MEDICAL DECISION MAKING: I serially examined this patient since the patient's arrival here in the emergency department. The patient continues to become more and more sober with each examination. I serially questioned the patient and the patient's story given initially has not changed. The patient still denies any trauma, any head injury, and any illicit drug use. At this point, the patient is walking the department freely and is clinically sober. We're discharging the patient to the [facility] in stable condition. Departure - Departure Disposition: Home, Routine, Self-Care Clinical Impression: Alcoholism /alcohol abuse Alcohol intoxication Qualifiers: Complication of substance-induced condition: uncomplicated Qualified Code(s): F10.920 - Alcohol use, unspecified with intoxication, uncomplicated Condition: Good Instructions: Abuse of Alcohol (ED), Alcohol Intoxication (ED) Additional Instructions: 1. Please refrain from abusing alcohol. 2. Return to the emergency department immediately for fever, vomiting, confusion , headache, abdominal pain or other worsening of condition. 3. Followup with your primary care physician within 72 hours for reevaluation. Referrals: NONE *PRIMARY CARE P,. [Primary Care Provider] - As per Instructions [facility] 24 Hours [Outside] - As per Instructions [facility] [Outside] - As per Instructions
[2018-05-03 21:21] VITALS: BP 115/70
== END 2018-05-03 21:44 | disposition home or self-care (01) ==
LOC: EDUNIT#
DX: F10.129 Alcohol abuse with intoxication, unspecified (principal); G40.909 Epilepsy, unspecified, not intractable, without status epilepticus; Z59.0 Homelessness

== ENCOUNTER 2018-05-29 10:47 | Emergency (ER) | payer MEDICAID, OTHER ==
[2018-05-29] MEDS ORDERED: LORazepam 1 MG TAB PO ONE ×2 (11:04→11:06)
--- NOTE | 2018-05-29 11:32 | EDPHY ---
H & P Time Seen by Provider: 05/29/18 10:58 HPI/ROS: CHIEF COMPLAINT: "I am withdrawing" HISTORY OF PRESENT ILLNESS: 57-year-old female familiar to emergency department staff myself, history of alcoholism, last drink of alcohol last night , arrives via private vehicle complaining of acute alcohol withdrawal, feeling tremulous and anxious. She does not want to go to the [facility]. Informs me that she is not planning on long-term sobriety at this time. Denies suicidal or homicidal ideation. Denies seizure. Denies hallucination. PRIMARY CARE PROVIDER: REVIEW OF SYSTEMS: 10 systems reviewed and negative with the exception of the elements mentioned in the history of present illness PAST MEDICAL & SURGICAL HISTORY: Alcoholism. Alcohol withdrawal seizures SOCIAL HISTORY: Last drink of alcohol last evening PHYSICAL EXAM (Prior to examination, patient consented to physical exam, hands were washed and my usual and customary physical exam procedures followed) 1) GENERAL: Well-developed, well-nourished, alert and oriented. Appears anxious.. 2) HEAD: Normocephalic, atraumatic 3) HEENT: Pupils equal, round, reactive to light bilaterally. Sclera anicteric. 4) NECK: Full range of motion, no meningeal signs. 5) LUNGS: Clear auscultation bilaterally, no wheezes, no rhonchi, no retractions. 6) HEART: Regular rate and rhythm, no murmur, no heave, no gallop. 7) ABDOMEN: No guarding, no rebound, no focal tenderness, negative McBurney's, negative Hernandez's, negative Rovsing's, negative peritoneal sign, unable to elicit any abdominal 8) MUSCULOSKELETAL: Moving all extremities, no focal areas of tenderness, no obvious trauma. No peripheral edema or discoloration. 9) BACK: No CVA tenderness, no midline vertebral tenderness, no fluctuance, no step-off, no obvious trauma, no visual or palpable abnormality. 10) SKIN: No rash, no petechiae. 11) Psychiatric: Patient is oriented X 3, there is no agitation. DIFFERENTIAL DIAGNOSIS: In no particular order including but not limited to acute alcohol withdrawal, delirium tremens, alcoholic hallucinosis Smoking Status: Heavy smoker Constitutional: Initial Vital Signs Temperature (C) 36.8 C 05/29/18 10:52 Heart Rate 88 05/29/18 10:52 Respiratory Rate 18 05/29/18 10:52 Blood Pressure 130/91 H 05/29/18 10:52 O2 Sat (%) 99 05/29/18 10:52 O2 Delivery Mode Room Air Allergies/Adverse Reactions: pollen extracts Allergy (Verified 05/29/18 10:52) Home Medications: Medication Instructions Recorded LEVETIRACETAM [Keppra 1000 mg] 1,000 mg PO BID #60 tab 01/21/18 Ibuprofen 01/29/18 Gabapentin 03/12/18 levETIRAcetam [Keppra 500 mg (*)] 500 mg PO BID #60 tab 04/03/18 MDM/Departure - MDM Medications Given: Discontinued Medications Lorazepam (Ativan) 1 mg PO EDNOW ONE Stop: 05/29/18 11:05 Last Admin: 05/29/18 11:17 Dose: 1 mg Lorazepam (Ativan) 1 mg PO EDNOW ONE Stop: 05/29/18 11:07 Last Admin: 05/29/18 11:17 Dose: 1 mg ED Course/Re-evaluation: I have offered to send the patient to the [facility] however she declines stating that if she received a dose of oral Ativan her will pick her up and she will "manage this myself". I discussed the dangers of stopping alcohol suddenly. Care of patient under supervision of secondary supervising physician Dr Watters . - Depart Disposition: Home, Routine, Self-Care Clinical Impression: Alcohol withdrawal Qualifiers: Complication of substance-induced condition: with unspecified complication Qualified Code(s): F10.239 - Alcohol dependence with withdrawal, unspecified Condition: Good Instructions: Alcohol Withdrawal (ED) Additional Instructions: We have offered to send you to the [facility] any of declined this. Please consider long-term sobriety from alcohol from a controlled environment and not via sudden cessation of alcohol.. Stopping alcohol suddenly can be dangerous. Referrals: Radha Ramirez DO [Primary Care Provider] - 1 day without fail
[2018-05-29 12:06] VITALS: BP 119/72
== END 2018-05-29 12:06 | disposition home or self-care (01) ==
DX: F10.239 Alcohol dependence with withdrawal, unspecified (principal)

== ENCOUNTER 2018-05-29 16:27 | Inpatient (IN) | payer MEDICAID ==
[2018-05-29] MEDS ORDERED: NS 1,000 ML IV ONE (17:05)
--- NOTE | 2018-05-29 17:14 | EDPHY ---
H & P Stated Complaint: AMS, not talking Time Seen by Provider: 05/29/18 16:44 HPI/ROS: CHIEF COMPLAINT: Altered mental status HISTORY OF PRESENT ILLNESS: The patient is brought to the emergency department by with altered mental status. She was here in the ED earlier today for symptoms related to alcohol withdrawal. She received Ativan. The patient did not have a witnessed seizure but did have confusion according to earlier today. There is no focal numbness or weakness that he appreciated. She was brought to the emergency department for further evaluation. The patient does seem to be clearing now. The patient has been seen in the emergency department 40 times in the past year for issues surrounding alcohol abuse, seizures and medication noncompliance. The patient denies any acute headache. She denies any focal numbness or weakness. She has no recollection of being emergency department earlier today. REVIEW OF SYSTEMS: A comprehensive 10 point review of systems is otherwise negative aside from elements mentioned in the history of present illness. Source: Patient, Family - Personal History Current Tetanus/Diphtheria Vaccine: Yes Current Tetanus Diphtheria and Acellular Pertussis (TDAP): Yes Tetanus Vaccine Date: 2014 - Medical/Surgical History Hx Asthma: No Hx Chronic Respiratory Disease: No Hx Diabetes: No Hx Cardiac Disease: No Hx Renal Disease: No Hx Cirrhosis: No Hx Alcoholism: Yes Hx HIV/AIDS: No Hx Splenectomy or Spleen Trauma: No Other PMH: Alcoholism, seizures - Social History Smoking Status: Heavy smoker - Physical Exam Exam: General Appearance: Deconditioned, no acute distress Eyes: Pupils equal and round no pallor or injection ENT, Mouth: Mucous membranes moist Respiratory: There are no retractions, lungs are clear to auscultation Cardiovascular: Regular rate and rhythm Gastrointestinal: Abdomen is soft and nontender, no masses, bowel sounds normal Neurological: A&O, normal motor function, normal sensory exam, normal cranial nerves Skin: Warm and dry, no rashes Musculoskeletal: Neck is supple nontender Extremities: symmetrical, full range of motion Constitutional: Initial Vital Signs Temperature (C) 37 C 05/29/18 16:30 Heart Rate 91 05/29/18 16:30 Respiratory Rate 16 05/29/18 16:30 Blood Pressure 136/81 H 05/29/18 16:30 O2 Sat (%) 98 05/29/18 16:30 O2 Delivery Mode Room Air Allergies/Adverse Reactions: pollen extracts Allergy (Verified 05/29/18 10:52) Home Medications: Medication Instructions Recorded LEVETIRACETAM [Keppra 1000 mg] 1,000 mg PO BID #60 tab 01/21/18 Ibuprofen 01/29/18 Gabapentin 03/12/18 levETIRAcetam [Keppra 500 mg (*)] 500 mg PO BID #60 tab 04/03/18 Medical Decision Making - Diagnostics Imaging Results: Imaging Impressions Head CT 05/29/18 17:59 Impression: 1. Negative for acute intracranial abnormality. A seizure focus is not identified. 2. Possible acute sphenoid sinusitis. Results called and discussed with Luke Gonsalez M.D. on 05/29/2018 at 18:39. ED Course/Re-evaluation: While in the department the patient had another brief episode of unresponsiveness with associated tachycardia. I did not witness it but it was reported by nursing staff. The patient does seem postictal following this event. The patient had an IV established. She received IV Ativan Screening laboratory studies have been sent. While in the department the patient did have another seizure with associated tachycardia. In talking with her is sounds if she may have had 2 seizures today. I have sent a Keppra level which is pending. Given the history of multiple seizures, alcohol withdrawal I do feel the patient should be observed in the hospital this evening. Consultation was made with the hospitalist service and she will be admitted by Dr. Donohue The patient did undergo a head CT scan which demonstrated no evidence of an acute intracranial hemorrhage. Differential Diagnosis: Differential diagnosis considered includes alcohol withdrawal, delirium tremens , alcohol withdrawal seizure, dehydration, metabolic derangement - Data Points Laboratory Results: Laboratory Results 05/29/18 17:42 05/29/18 17:42 05/29/18 05/29/18 05/29/18 17:42 17:42 17:42 WBC 5.44 10^3/uL 10^3/uL (3.80-9.50) RBC 4.37 10^6/uL 10^6/uL (4.18-5.33) Hgb 13.6 g/dL g/dL (12.6-16.3) Hct 38.8 % % (38.0-47.0) MCV 88.8 fL fL (81.5-99.8) MCH 31.1 pg pg (27.9-34.1) MCHC 35.1 g/dL g/dL (32.4-36.7) RDW 15.2 % % (11.5-15.2) Plt Count 137 10^3/uL L 10^3/uL (150-400) MPV 9.8 fL fL (8.7-11.7) Neut % (Auto) 74.2 % % (39.3-74.2) Lymph % (Auto) 20.6 % % (15.0-45.0) Person % (Auto) 4.6 % % (4.5-13.0) Eos % (Auto) 0.0 % L % (0.6-7.6) Baso % (Auto) 0.4 % % (0.3-1.7) Nucleat RBC Rel Count 0.0 % % (0.0-0.2) Absolute Neuts (auto) 4.04 10^3/uL 10^3/uL (1.70-6.50) Absolute Lymphs (auto) 1.12 10^3/uL 10^3/uL (1.00-3.00) Absolute Monos (auto) 0.25 10^3/uL L 10^3/uL (0.30-0.80) Absolute Eos (auto) 0.00 10^3/uL L 10^3/uL (0.03-0.40) Absolute Basos (auto) 0.02 10^3/uL 10^3/uL (0.02-0.10) Absolute Nucleated RBC 0.00 10^3/uL 10^3/uL (0-0.01) Immature Gran % 0.2 % % (0.0-1.1) Immature Gran # 0.01 10^3/uL 10^3/uL (0.00-0.10) Sodium 130 mEq/L L mEq/L (135-145) Potassium 4.1 mEq/L mEq/L (3.5-5.2) Chloride 94 mEq/L L mEq/L (97-110) Carbon Dioxide 21 mEq/l L mEq/l (22-31) Anion Gap 15 mEq/L H mEq/L (6-14) BUN 8 mg/dL mg/dL (7-23) Creatinine 0.4 mg/dL L mg/dL (0.6-1.0) Estimated GFR > 60 Glucose 180 mg/dL H mg/dL (70-100) Calcium 9.4 mg/dL mg/dL (8.5-10.4) Specimen Hemolysis 123 Levetiracetam Pending Ethyl Alcohol < 10 mg/dL mg/dL (0-10) Medications Given: Discontinued Medications Sodium Chloride (Ns) 1,000 mls @ 0 mls/hr IV EDNOW ONE; Wide Open PRN Reason: Protocol Stop: 05/29/18 17:06 Last Admin: 05/29/18 17:53 Dose: 1,000 mls Lorazepam (Ativan Injection) 1 mg IVP EDNOW ONE Stop: 05/29/18 17:55 Last Admin: 05/29/18 17:55 Dose: 1 mg Departure - Departure Disposition: [place] Inpatient Acute Clinical Impression: Alcohol withdrawal, Seizure Condition: Fair Referrals: Radha Ramirez DO [Primary Care Provider] - As per Instructions
[2018-05-29] MEDS ORDERED: LORazepam 2 MG/ML INJ ONE (17:50)
[2018-05-29] MEDS ORDERED: LORazepam 2 MG/ML INJ IVP ONE ×2 (17:54→21:36)
[2018-05-29 18:19] LABS: PLATELET COUNT 137 10^3/uL (150-400)
[2018-05-29] MEDS ORDERED: ACETAMINOPHEN 325 MG TAB PO PRN (20:29)
[2018-05-29] MEDS ORDERED: FLUMAZENIL 0.5 MG/5 ML MDV IVP PRN (20:30)
[2018-05-29] MEDS: LORazepam 2 MG/ML INJ IVP PRN ×2 (21:18→22:06)
--- NOTE | 2018-05-29 21:25 | PDGENHP ---
<Chaya Sheets - Last Filed: 05/29/18 21:42> History and Physical - Chief Complaint Alcohol induced seizure - History of Present Illness This is 57-year-old female with past medical history of alcohol abuse disorder and seizures. Apparently this is etoh related seizures as she has presented to the ED over 40 times within the last year regarding etoh abuse, seizures and medication non-compliance. She presented to the emergency room earlier today with alcohol withdrawal symptoms feeling tremulous and anxious and did not want to [facility]; she told the emergency room doctor that she does not plan on any long-term sobriety at this time; she received Ativan and her picked her up. She then returned this evening apparently experiencing seizures according to her however the did not witness this but noticed her confusion. While in the emergency room the patient had episode of unresponsiveness with associated tachycardia and did appear to be postictal following this event; she has received Ativan. This is my 1st time evaluating the patient, my 1st time evaluating her past medical history. She denies any postictal sensation such as headache, vision changes, lightheadedness, chest pain, palpitations, shortness of breath, body aches. Prodromal she experiences dizziness and lightheadedness. tells me she drinks approximately a pint of vodka every other day last drink being yesterday afternoon, she is seeking help at the [facility] where she sees a counselor every week and her primary care doctor at [facility] Dr. Radha Ramirez suggest she follow up with the Neurology [facility] in [place]. Supposedly she is not compliant with Keppra however she tells me that she is compliant; checking Keppra levels now. She is being admitted for treatment and monitoring. History Information - Allergies/Home Medication List Allergies/Adverse Reactions: pollen extracts Allergy (Verified 05/29/18 10:52) Home Medications: FLUoxetine [Prozac 20 MG (*)] 20 mg PO DAILY 05/29/18 [Last Taken 05/29/18] Gabapentin [Neurontin 400 MG (*)] 400 mg PO TID 05/29/18 [Last Taken 05/29/18 08 :00] levETIRAcetam [Keppra 500 mg (*)] 1,000 mg PO BID 05/29/18 [Last Taken 05/29/18 08:00] I have personally reviewed and updated: family history, medical history, social history, surgical history - Past Medical History seizures Additional medical history: Reported seizure disorder with previous episodes of seizures. Reported medication non adherence. Reported Wernicke's. Reported depression. Reported tooth abscess. Alcohol abuse and alcohol withdrawal - Surgical History Reports: no pertinent surgical hx Additional surgical history: Tonsillectomy - Family History Positive for: non-pertinent Additional family history: Sibling reportedly was seizure disorder - Social History Smoking Status: Heavy smoker (One pack of cigarettes every other day) Tobacco Use: Cigarettes Alcohol Use: Heavy (Drinks 1 pint of vodka every other day and has been doing that since she was 15 years old) Drug Use: None Additional social history: Patient is reportedly homeless--she states she is staying in a van Review of Systems Review of Systems: ROS: 10pt was reviewed & negative except for what was stated in HPI & below Physical Exam Physical Exam: Lab data and imaging reviewed. White blood count: 5.44 Hemoglobin hematocrit: 13.6 and 38.8 Platelet count: 137 Sodium: 130 Potassium: 4.1 Chloride: 94 Carbon dioxide: 21 BUN/Cr: 8/0.[address] without contrast: Negative for acute intracranial abnormality Temp Pulse Resp BP Pulse Ox 37 C 81 16 136/84 H 95 05/29/18 16:30 05/29/18 20:15 05/29/18 20:15 05/29/18 20:15 05/29/18 20:15 Constitutional: appears nourished, not in pain, other (mildly distressed) Eyes: PERRL, anicteric sclera, EOMI Ears, Nose, Mouth, Throat: moist mucous membranes, hearing normal, ears appear normal, no oral mucosal ulcers Cardiovascular: regular rate and rhythym, no murmur, rub, or gallop, No edema Peripheral Pulses: 2+: dorsalis-pedis (R), dorsalis-pedis (L) Respiratory: no respiratory distress, no rales or rhonchi, clear to auscultation Gastrointestinal: normoactive bowel sounds, soft, non-tender abdomen, no palpable masses Genitourinary: no bladder fullness, no bladder tenderness Skin: warm, normal color, no rashes or abrasions, no fluctuance, no induration, No mottled Musculoskeletal: full muscle strength, no muscle tenderness, normal joint ROM, no joint effusions Neurologic: sensation intact bilaterally, CN II-XII Intact, other (A&Ox2) Psychiatric: not encephalopathic, thought process linear, anxious Lymph, Heme, Immunologic: no cervical LAD, no supraclavicular LAD Lab Data & Imaging Review 05/29/18 17:42 05/29/18 17:42 WBC 5.44 10^3/uL (3.80-9.50) 05/29/18 17:42 RBC 4.37 10^6/uL (4.18-5.33) 05/29/18 17:42 Hgb 13.6 g/dL (12.6-16.3) 05/29/18 17:42 Hct 38.8 % (38.0-47.0) 05/29/18 17:42 MCV 88.8 fL (81.5-99.8) 05/29/18 17:42 MCH 31.1 pg (27.9-34.1) 05/29/18 17:42 MCHC 35.1 g/dL (32.4-36.7) 05/29/18 17:42 RDW 15.2 % (11.5-15.2) 05/29/18 17:42 Plt Count 137 10^3/uL (150-400) L 05/29/18 17:42 MPV 9.8 fL (8.7-11.7) 05/29/18 17:42 Neut % (Auto) 74.2 % (39.3-74.2) 05/29/18 17:42 Lymph % (Auto) 20.6 % (15.0-45.0) 05/29/18 17:42 Evans % (Auto) 4.6 % (4.5-13.0) 05/29/18 17:42 Eos % (Auto) 0.0 % (0.6-7.6) L 05/29/18 17:42 Baso % (Auto) 0.4 % (0.3-1.7) 05/29/18 17:42 Nucleat RBC Rel Count 0.0 % (0.0-0.2) 05/29/18 17:42 Absolute Neuts (auto) 4.04 10^3/uL (1.70-6.50) 05/29/18 17:42 Absolute Lymphs (auto) 1.12 10^3/uL (1.00-3.00) 05/29/18 17:42 Absolute Monos (auto) 0.25 10^3/uL (0.30-0.80) L 05/29/18 17:42 Absolute Eos (auto) 0.00 10^3/uL (0.03-0.40) L 05/29/18 17:42 Absolute Basos (auto) 0.02 10^3/uL (0.02-0.10) 05/29/18 17:42 Absolute Nucleated RBC 0.00 10^3/uL (0-0.01) 05/29/18 17:42 Immature Gran % 0.2 % (0.0-1.1) 05/29/18 17:42 Immature Gran # 0.01 10^3/uL (0.00-0.10) 05/29/18 17:42 Sodium 130 mEq/L (135-145) L 05/29/18 17:42 Potassium 4.1 mEq/L (3.5-5.2) 05/29/18 17:42 Chloride 94 mEq/L (97-110) L 05/29/18 17:42 Carbon Dioxide 21 mEq/l (22-31) L 05/29/18 17:42 Anion Gap 15 mEq/L (6-14) H 05/29/18 17:42 BUN 8 mg/dL (7-23) 05/29/18 17:42 Creatinine 0.4 mg/dL (0.6-1.0) L 05/29/18 17:42 Estimated GFR > 60 05/29/18 17:42 Glucose 180 mg/dL (70-100) H 05/29/18 17:42 Calcium 9.4 mg/dL (8.5-10.4) 05/29/18 17:42 Specimen Hemolysis 123 05/29/18 17:42 Ethyl Alcohol < 10 mg/dL (0-10) 05/29/18 17:42 Assessment & Plan Plan: 57-year-old female with history of alcohol abuse disorder and seizures thought to be alcohol provoked and medication noncompliance presents twice to the emergency room today with complaints of alcohol withdrawal and confusion with seizures. Her vital signs are the following: blood pressure is 136/84, heart rate 81, respirations 16, temperature 37 degrees, oxygen saturation on room air 95% #Alcohol withdrawal/alcohol abuse disorder: Last drink was yesterday afternoon -Chronic, reports getting help w/counselor at [facility] weekly -CIWA precautions -Thiamine bolus + PO #Seizure -Hx of noncompliance w/medications; checking Keppra levels and will cont keppra -Seizure precautions -Neurology to consult in AM -Head CT unremarkable #Hyponatremia -Received 1L NS in ED; cont IVF x 1 bag -Check CBC/BMP in AM #Depression/anxiety: cont prozac and gabapentin Diet: Regular Code: Full VTE PPX: Lovenox subq Dispo: Admit to observation <Zac Donohue - Last Filed: 05/29/18 23:27> History and Physical - History of Present Illness Review of Systems Review of Systems: Physical Exam Physical Exam: Temp Pulse Resp BP Pulse Ox 38.8 C H 79 16 141/89 H 97 05/29/18 23:22 05/29/18 23:22 05/29/18 23:22 05/29/18 23:22 05/29/18 23:22 Lab Data & Imaging Review 05/29/18 17:42 05/29/18 17:42 WBC 5.44 10^3/uL (3.80-9.50) 05/29/18 17:42 RBC 4.37 10^6/uL (4.18-5.33) 05/29/18 17:42 Hgb 13.6 g/dL (12.6-16.3) 05/29/18 17:42 Hct 38.8 % (38.0-47.0) 05/29/18 17:42 MCV 88.8 fL (81.5-99.8) 05/29/18 17:42 MCH 31.1 pg (27.9-34.1) 05/29/18 17:42 MCHC 35.1 g/dL (32.4-36.7) 05/29/18 17:42 RDW 15.2 % (11.5-15.2) 05/29/18 17:42 Plt Count 137 10^3/uL (150-400) L 05/29/18 17:42 MPV 9.8 fL (8.7-11.7) 05/29/18 17:42 Neut % (Auto) 74.2 % (39.3-74.2) 05/29/18 17:42 Lymph % (Auto) 20.6 % (15.0-45.0) 05/29/18 17:42 Evans % (Auto) 4.6 % (4.5-13.0) 05/29/18 17:42 Eos % (Auto) 0.0 % (0.6-7.6) L 05/29/18 17:42 Baso % (Auto) 0.4 % (0.3-1.7) 05/29/18 17:42 Nucleat RBC Rel Count 0.0 % (0.0-0.2) 05/29/18 17:42 Absolute Neuts (auto) 4.04 10^3/uL (1.70-6.50) 05/29/18 17:42 Absolute Lymphs (auto) 1.12 10^3/uL (1.00-3.00) 05/29/18 17:42 Absolute Monos (auto) 0.25 10^3/uL (0.30-0.80) L 05/29/18 17:42 Absolute Eos (auto) 0.00 10^3/uL (0.03-0.40) L 05/29/18 17:42 Absolute Basos (auto) 0.02 10^3/uL (0.02-0.10) 05/29/18 17:42 Absolute Nucleated RBC 0.00 10^3/uL (0-0.01) 05/29/18 17:42 Immature Gran % 0.2 % (0.0-1.1) 05/29/18 17:42 Immature Gran # 0.01 10^3/uL (0.00-0.10) 05/29/18 17:42 Sodium 130 mEq/L (135-145) L 05/29/18 17:42 Potassium 4.1 mEq/L (3.5-5.2) 05/29/18 17:42 Chloride 94 mEq/L (97-110) L 05/29/18 17:42 Carbon Dioxide 21 mEq/l (22-31) L 05/29/18 17:42 Anion Gap 15 mEq/L (6-14) H 05/29/18 17:42 BUN 8 mg/dL (7-23) 05/29/18 17:42 Creatinine 0.4 mg/dL (0.6-1.0) L 05/29/18 17:42 Estimated GFR > 60 05/29/18 17:42 Glucose 180 mg/dL (70-100) H 05/29/18 17:42 Calcium 9.4 mg/dL (8.5-10.4) 05/29/18 17:42 Specimen Hemolysis 123 05/29/18 17:42 Ethyl Alcohol < 10 mg/dL (0-10) 05/29/18 17:42 Assessment & Plan Assessment: Alcohol withdrawal (Acute) Seizure (Acute) Plan: Chart reviewed, patient personally examined, and case discused with Eboni Sheets NP. I agree with plan outlined above. Please see my separate note for additional details.
--- NOTE | 2018-05-29 21:41 | HOSPPROG ---
Hospitalist Progress Note Assessment/Plan: Case discussed with Eboni Sheets HEALTH POLICY ANALYST. Agree with her plan with the following exceptions: Briefly, 57yo F with severe alcohol abuse disorder, seizure disorder presents after seizure. She was actually in the ED earlier today because she felt like she was going into alcohol withdrawal but she refused alcohol cessation resources. She went home and had a seizure with 30 minute post-ictal period. She then returned to the ED and had another apparent seizure here characterized as becoming unresponsive and tachycardic with some hand twitching. This resolved spontaneously howevere she was given 1mg of ativan as well. Currently she is feeling ok. Last drink was yesterday. Typically drinks 1 pint of liquor daily. She thinks she has been taking her keppra and gabapentin. She does not have a neurologist. Exam: Alert and oriented. No focal neurologic deficits. RRR, lungs clear, abdomen soft and nontender. Labs: Na 130, K 4.1, Cl 94, CO2 21, BUN 8, Cr 0.4, glucose 180. WBC and Hgb normal. Platelets 143. Ethyl alcohol undetectable. Head CT: No acute intracranial findings. No seizure focus. Possible acute sphenoid sinusitis. Assessment/Plan: #Seizure: Recurrent admissions/ED visits for this. Suspect either alcohol withdrawal or medication non-adherence. Will restart her home keppra and gabapentin. A keppra level is pending but probabaly won't be back for a few days. An order for a neurology consult has been placed. #Severe alcohol abuse disorder: Will place on CIWA protocol. Strongly recommended cessation. #Mild acidosis: C/w seizure vs alcohol use. Recheck BMP in AM. #Hyponatremia: Suspect hypovolemic. She is getting normal saline. Will monitor. #Thrombocytopenia: Due to marrow suppression from etoh. VTE ppx: LMWH Code: full Dispo: Admit under observation Objective: Vital Signs Temp Pulse Resp BP Pulse Ox 37 C 81 16 136/84 H 95 05/29/18 16:30 05/29/18 20:15 05/29/18 20:15 05/29/18 20:15 05/29/18 20:15 ICD10 Worksheet Patient Problems: Problems Problem Status Onset Alcohol withdrawal Acute Seizure Acute Alcohol intoxication Acute Alcohol withdrawal delirium Acute Alcoholic hepatitis Acute Altered mental state Acute Lung abnormality Acute Seizure disorder Acute Seizure due to alcohol withdrawal Acute Status epilepticus Acute
[2018-05-29] MEDS ORDERED: NS 1,000 ML IV SCH (21:45)
[2018-05-29] MEDS: GABAPENTIN 400 MG CAP PO SCH (23:42)
[2018-05-29] MEDS: levETIRAcetam 500 MG TAB PO SCH (23:42)
[2018-05-30 05:53] LABS: PLATELET COUNT 106 10^3/uL (150-400)
[2018-05-30] MEDS ORDERED: PROTOCOL POTASSIUM 1 DOSE MISC PRN (08:44)
[2018-05-30] MEDS ORDERED: THIAMINE HCL 500 MG in NS 100 ML IV SCH (09:00)
[2018-05-30] MEDS ORDERED: ENOXAPARIN 40 MG/0.4 ML SYR SC SCH (09:00)
[2018-05-30] MEDS ORDERED: FLUoxetine 20 MG CAP PO SCH (09:00)
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
[2018-05-30] MEDS ORDERED: POTASSIUM CL 10 MEQ TAB PO ONE (11:49)
[2018-05-30] MEDS: levETIRAcetam 500 MG TAB PO SCH (12:11)
[2018-05-30] MEDS: GABAPENTIN 400 MG CAP PO SCH (12:12)
[2018-05-30 12:32] VITALS: BP 119/84
[2018-05-30] MEDS ORDERED: VODKA 50 ML BOTTLE PO SCH (18:00)
--- NOTE | 2018-05-30 20:21 | ASMTTCLDSP ---
[facility] Discharge Disposition Disposition: Answers: Discharge If Answers: Yes DISCHARGED: Patient/family given suicide hotline info & SAMHSA brochure? Disposition Notes: Notes: In consultation with Hospitalist, Sigrid Real MD, it was concurred that pt does not appear to meet 27-65 criteria requiring psychiatric hospitalization as pt does not appear to be an imminent risk of harm to self/others/gravely disabled due to a mental illness condition. Dr Real provided telephone authorization to vacate hold at 18:10. Pt was offered voluntary mental health admission and detox yet pt declined. Pt stated commitment or ability to keep self safe, denied thoughts of self harm or harm to others. Pt expressed a desire to f/u with her provider of [facility]. Discharge Concerns/Recommendations: Notes: Pt was given local hotline information and SAMHSA brochure After an Attempt and encouraged to follow up with [facility]. Pt has a high probability to return to the ED. She displayed no interest in alcohol or other mental health treatment. Was patient given the Answers: Not applicable Inpatient Behavioral Health Prohibited Belongings List while in the ED? Psychiatrist vacating M1 Sigrid Real MD Hospitalist Hold: Date and time M1 hold 05/30/2018 06:10 PM vacated (time format is hh:mm): Type of Hold: Answers: M1/72-hour Hold Hold initiated by: Answers: Other Notes: Hospitalist Date Signed: 05/30/2018 08:20 PM Electronically Signed By:Petra Barbosa
--- NOTE | 2018-05-30 20:23 | GCON ---
[f rep st] CONSULTATION NEUROLOGY CONSULTATION DATE OF CONSULTATION: 05/30/2018 CHIEF COMPLAINT: Seizure. HISTORY OF PRESENT ILLNESS: The patient is a very pleasant 57-year-old lady, well known to the neurology service for her chronic alcoholism and related seizures. It is unclear whether she has purely alcohol withdrawal seizures versus alcoholism plus unprovoked seizures versus alcohol withdrawal seizures plus epileptic seizures plus nonepileptic events. She has been seen by me and multiple of my colleagues in the past. She recently saw our physician assistant corporate secretary , Mr. Jose Boogie, who referred her to the [facility] for epilepsy monitoring to clarify whether she has nonepileptic events as well. She is on Keppra 1500 mg b.i.d. and gabapentin 400 mg t.i.d. The patient apparently had witnessed convulsive seizures and was brought to the ED yesterday due to missing several consecutive doses of her antiepileptics and from alcohol withdrawal. Her last drink was 2 days ago. No further seizures overnight on CIWA protocol. Antiseizure medications restarted. REVIEW OF SYSTEMS: Done and only pertinent to the HPI. For past medical history, social history, family history, home medications, and allergies, see Dr. Donohue's note. PHYSICAL EXAM: VITAL SIGNS: Blood pressure 119/84, temperature 36.7, respirations 16. GENERAL: The patient is awake, alert, very pleasant, no acute distress. HIGHER MENTAL FUNCTION: She is lucid, no aphasia. CRANIAL NERVES: Normal 2 through 7 and 12. MOTOR: Normal strength and tone throughout. SENSORY: Normal to light touch. COORDINATION: Some mild action tremor in upper extremities. Otherwise accurate [id number]. IMPRESSION/PLAN: 1. Alcoholism. 2. Convulsions. This patient has a history of alcohol withdrawal seizures. In addition, she may have an underlying comorbid epilepsy with or without nonepileptic events as well. She needs to ultimately see [facility] for epilepsy monitoring and clarification. In the interim, these events seem linked to antiseizure medication noncompliance and alcohol withdrawal. Therefore, I recommend ongoing [facility] protocol, banana bag with supplemental thiamine. I recommend she be on Keppra 1500 mg b.i.d. and gabapentin 400 mg t.i.d. We will not increase the medication because she missed consecutive doses leading to this seizure, along with alcohol withdrawal. She will be on indefinite driving restrictions and seizure precautions. She is agreeable. She is seeking chemical dependence treatment, which is ultimately the most important component of her treatment plan. She understands and is agreeable. She understands alcoholism is a fatal disease. She will follow up with the [facility] of Epilepsy as an outpatient for monitoring as noted above. No further recommendations. We will sign off and follow up as needed. Please do not hesitate to call if there are any questions or changes in neurologic status. Seventy total minutes floor time today; over 50% in direct counseling and coordination of care. /[id number]/MODL MTDD
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
--- NOTE | 2018-05-31 00:34 | GDS ---
[f rep st] DISCHARGE SUMMARY DIAGNOSES: 1. Recurrent seizures. 2. Alcohol withdrawal. 3. Depression and anxiety. HISTORY: The patient is a 57-year-old female with a history of alcohol abuse and seizures. Her seiz ures are frequently recurrent. She has had 19 ER visits since the first of the year. These are like ly a combination of alcohol withdrawal and noncompliance with seizure medications. There is also a q uestion of nonepileptic seizures as well. She was admitted to the hospital, had minimal withdrawal a nd just required a couple doses of IV Ativan, and then it stabilized. She was seen in consultation w [facility] Neurology. They are recommending eventual [facility] Department of Neurology epileps y monitoring for clarification given this question of possible nonepileptic events. She also has extensive noncompliance with her medications. Neurology recommends her Keppra be increa sed to 1500 mg b.i.d. and gabapentin 400 mg t.i.d. but decision was made not to increase medications at this time. Because she has missed so many doses, it is hard to tell their effectiveness. reported the patient was actively suicidal, stating that she wanted to go be with her br other. There were some concerning behaviors regarding putting herself repeatedly into unsafe situati ons while intoxicated with alcohol. She was placed on a mental health hold, was seen by TLC who adriane red her for discharge. They did not think she was actively suicidal at this time. She is predominan tly a terrible alcoholic and did not express any desire to quit. DISCHARGE MEDICATIONS: Please see computerized record for full detailed list. There are no new medi cations given at time of hospital. ADDITIONAL DISCHARGE INSTRUCTIONS: 1. Follow up with Primary Care. 2. Alcohol cessation resources given. Greater than 30 minutes' time spent arranging this discharge. Patient was seen and examined by me on day of discharge. /[id number]/MODL
--- NOTE | 2018-05-31 09:52 | PDMN ---
Medical Necessity Medical necessity: Change to IP, as of 05/30/18, per & MCG M-327; los >2 mn for ongoing management of recurrent seizures, alcohol withdrawal & concerns for suicidal ideations; pt on mental health hold; requiring further monitoring, CIWA protocol, Neurology/TLC consults & med management; hx med non-compliance
[2018-06-02] MEDS ORDERED: THIAMINE HCL 100 MG TAB PO SCH (09:00)
== END 2018-05-30 18:30 | disposition home or self-care (01) | DRG 53 ==
LOC: EEVIPCON 19:44 → F2N 22:34 → OBSVTOIN 05-30 09:48
PROVIDERS: ADMIT Internal Medicine; ATTEND Internal Medicine
DX: G40.89 Other seizures (principal); F10.239 Alcohol dependence with withdrawal, unspecified; D69.6 Thrombocytopenia, unspecified; E87.1 Hypo-osmolality and hyponatremia; E87.6 Hypokalemia; F32.9 Major depressive disorder, single episode, unspecified; Z59.0 Homelessness; Z91.19 Patient's noncompliance with other medical treatment and regimen
CPT/HCPCS: 80177-90; 80305; 96374; G0378; G0480; J1650; J2060; J3411

== ENCOUNTER 2018-06-01 06:09 | Emergency (ER) | payer MEDICAID ==
[2018-06-01] MEDS ORDERED: IBUPROFEN 200 MG TAB PO ONE (06:26)
[2018-06-01] MEDS ORDERED: chlordiazePOXIDE 25 MG CAP PO ONE (06:27)
== END 2018-06-01 07:29 | disposition home or self-care (01) ==
DX: S80.212A Abrasion, left knee, initial encounter (principal); S61.217A Laceration without foreign body of left little finger without damage to nail, initial encounter; Y04.8XXA Assault by other bodily force, initial encounter; Y07.01 Husband, perpetrator of maltreatment and neglect; Y92.019 Unspecified place in single-family (private) house as the place of occurrence of the external cause; G40.909 Epilepsy, unspecified, not intractable, without status epilepticus; F17.200 Nicotine dependence, unspecified, uncomplicated

== ENCOUNTER 2018-06-05 19:00 | Emergency (ER) | payer MEDICAID ==
[~2018-06-05 19:00] MED LIST: levETIRAcetam 500 MG TAB PO SCH
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
[2018-06-05] MEDS ORDERED: CHLORDIAZEPOXIDE 25MG PREPK#6 BTL TAKEHOME ONE (23:04)
[2018-06-05 23:59] VITALS: BP 106/78
== END 2018-06-05 23:58 | disposition home or self-care (01) ==
LOC: EDUNIT#
DX: F10.129 Alcohol abuse with intoxication, unspecified (principal); G40.409 Other generalized epilepsy and epileptic syndromes, not intractable, without status epilepticus; Z79.899 Other long term (current) drug therapy

== ENCOUNTER 2018-06-08 23:23 | Emergency (ER) | payer MEDICAID ==
[2018-06-08] MEDS ORDERED: NS 1,000 ML IV ONE (23:26)
--- NOTE | 2018-06-08 23:28 | EDPHY ---
H & P Time Seen by Provider: 06/08/18 23:27 HPI/ROS: HPI CHIEF COMPLAINT: Alcohol Intoxication HISTORY OF PRESENT ILLNESS: 57-year-old female, very familiar to myself as well as the emergency room presents emergency room by EMS for acute alcohol intoxication and a fall. The patient was sleeping on a park bench when police witnessed her stand up and fall, she fell striking her head sustaining a left eyebrow hematoma. Small abrasion. She arrives to the emergency room hemodynamically stable however highly intoxicated with alcohol. Past Medical History: Alcoholism daily alcohol use. Past Surgical History: No recent surgery Social History: Homeless, daily alcohol use. Family History: Noncontributory ROS REVIEW OF SYSTEMS: 10 Systems were reviewed and negative with the exception of the elements mentioned in the history of present illness. Exam Constitutional Intoxicated, triage nursing summary reviewed, vital signs reviewed, Sleepy, smells of alcohol Eyes normal conjunctivae and sclera, horizontal beating nystagmus consistent acute alcohol intoxication, otherwise pupils equal and react to light HENT head/neck atraumatic except for left forehead eyebrow hematoma. moist mucus membranes, no epistaxis, neck supple/ no meningismus, no raccoon eyes. Respiratory clear to auscultation bilaterally, normal breath sounds, no respiratory distress, no wheezing. Cardiovascular rate normal, regular rhythm, no murmur, no edema, distal pulses normal. Gastrointestinal soft, non-tender, no rebound, no guarding, normal bowel sounds, no distension, no pulsatile mass. Genitourinary no CVA tenderness. Musculoskeletal no midline vertebral tenderness, full range of motion, no calf swelling, no tenderness of extremities, no meningismus, good pulses, neurovascularly intact. Skin pink, warm, & dry, no rash, skin atraumatic. Neurologic sleepy, intoxicated with alcohol,, alert and oriented x 3, AAOx3, moves all 4 extremities equally, motor intact, sensory intact, CN II-XII intact , , normal vision, normal speech. Psychiatric normal mood/affect. Heme/Lymph/Immune no lymphadenopathy. Differential Diagnosis: Includes but is not limited to in a particular order acute alcohol intoxication, alcohol abuse, dehydration, electrolyte abnormality , nausea vomiting from acute alcohol intoxication Medical Decision Making: Plan for this patient IV establishment IV fluid bolus , basic electrolytes, serum alcohol level, CT scan head without contrast and re- evaluate Re-evaluation: CT head without contrast obtained due to trauma alcohol intoxication, left eyebrow hematoma. CT scan head without contrast called to me by Dr. Langley negative for acute traumatic injury. Serum alcohol level 377. Patient re-evaluated resting comfortably. 6:20 a.m., mentating appropriately, ambulated well, clinically sober. Has a left forehead hematoma any small 2 cm laceration that was Steri-Strips. Did not require sutures. Patient declined to go to detox. She wants to be discharged. Source: Patient, EMS Exam Limitations: Intoxication - Personal History Tetanus Vaccine Date: 2014 - Medical/Surgical History Hx Asthma: No Hx Chronic Respiratory Disease: No Hx Diabetes: No Hx Cardiac Disease: No Hx Renal Disease: No Hx Cirrhosis: No Hx Alcoholism: Yes Hx HIV/AIDS: No Hx Splenectomy or Spleen Trauma: No Other PMH: Alcoholism, seizures - Social History Smoking Status: Heavy smoker Constitutional: Initial Vital Signs Temperature (C) 36.3 C 06/08/18 23:27 Heart Rate 76 06/08/18 23:27 Respiratory Rate 18 06/08/18 23:27 Blood Pressure 120/84 H 06/08/18 23:27 O2 Sat (%) 95 06/08/18 23:27 O2 Delivery Mode Oxymizer O2 (L/minute) 5 Allergies/Adverse Reactions: pollen extracts Allergy (Verified 06/08/18 23:30) Home Medications: Medication Instructions Recorded FLUoxetine [Prozac 20 MG (*)] 20 mg PO DAILY 05/29/18 Gabapentin [Neurontin 400 MG (*)] 400 mg PO TID 05/29/18 levETIRAcetam [Keppra 500 mg (*)] 1,000 mg PO BID 05/29/18 levETIRAcetam [Keppra 500 mg (*)] 500 mg PO BID 7 Days tab 06/05/18 Medical Decision Making - Diagnostics Imaging Results: Imaging Impressions Head CT 06/08/18 23:26 Impression: 1. Stable moderate atrophy. 2. No hemorrhage, mass effect, or definite acute peripheral infarct. 3. Stable air-fluid level in the sphenoid sinus. 4. Minimal soft tissue contusion over the right frontal bone. If symptoms worsen, additional imaging may be necessary. Findings discussed with Morris Braden MD at 0:03 hour, 06/09/2018. - Data Points Laboratory Results: Laboratory Results 06/09/18 00:10 06/09/18 00:10 06/09/18 06/09/18 00:10 00:10 WBC 5.02 10^3/uL 10^3/uL (3.80-9.50) RBC 4.68 10^6/uL 10^6/uL (4.18-5.33) Hgb 14.6 g/dL g/dL (12.6-16.3) Hct 44.8 % % (38.0-47.0) MCV 95.7 fL fL (81.5-99.8) MCH 31.2 pg pg (27.9-34.1) MCHC 32.6 g/dL g/dL (32.4-36.7) RDW 17.2 % H % (11.5-15.2) Plt Count 216 10^3/uL 10^3/uL (150-400) MPV 9.2 fL fL (8.7-11.7) Neut % (Auto) 47.8 % % (39.3-74.2) Lymph % (Auto) 36.7 % % (15.0-45.0) Ocean % (Auto) 14.3 % H % (4.5-13.0) Eos % (Auto) 0.4 % L % (0.6-7.6) Baso % (Auto) 0.6 % % (0.3-1.7) Nucleat RBC Rel Count 0.0 % % (0.0-0.2) Absolute Neuts (auto) 2.40 10^3/uL 10^3/uL (1.70-6.50) Absolute Lymphs (auto) 1.84 10^3/uL 10^3/uL (1.00-3.00) Absolute Monos (auto) 0.72 10^3/uL 10^3/uL (0.30-0.80) Absolute Eos (auto) 0.02 10^3/uL L 10^3/uL (0.03-0.40) Absolute Basos (auto) 0.03 10^3/uL 10^3/uL (0.02-0.10) Absolute Nucleated RBC 0.00 10^3/uL 10^3/uL (0-0.01) Immature Gran % 0.2 % % (0.0-1.1) Immature Gran # 0.01 10^3/uL 10^3/uL (0.00-0.10) Sodium 147 mEq/L H mEq/L (135-145) Potassium 4.8 mEq/L mEq/L (3.5-5.2) Chloride 107 mEq/L mEq/L (97-110) Carbon Dioxide 20 mEq/l L mEq/l (22-31) Anion Gap 20 mEq/L H mEq/L (6-14) BUN 10 mg/dL mg/dL (7-23) Creatinine 0.5 mg/dL L mg/dL (0.6-1.0) Estimated GFR > 60 Glucose 87 mg/dL mg/dL (70-100) Calcium 9.5 mg/dL mg/dL (8.5-10.4) Specimen Hemolysis 114 Ethyl Alcohol 377 mg/dL H mg/dL (0-10) Medications Given: Discontinued Medications Sodium Chloride (Ns) 1,000 mls @ 0 mls/hr IV EDNOW ONE; Wide Open PRN Reason: Protocol Stop: 06/08/18 23:27 Last Admin: 06/09/18 00:27 Dose: 1,000 mls Departure - Departure Disposition: Home, Routine, Self-Care Clinical Impression: Alcohol intoxication Condition: Good Instructions: Alcohol Intoxication (ED), Abuse of Alcohol (DC) Referrals: NONE *PRIMARY CARE P,. [Unknown] - As per Instructions [facility],. [Clinic] - As per Instructions
[2018-06-09 00:42] LABS: PLATELET COUNT 216 10^3/uL (150-400)
[2018-06-09 06:44] VITALS: BP 108/75
--- NOTE | 2018-06-09 10:09 | ASMTCMCOM ---
CM Note CM Note Notes: This CM received bag of medications that patient left in the ER when she was discharged early this AM. Patient is well known to the CM and the ER. Chart reviewed. Medications include 5 prescription bottles as follows: Baclofen, Levetiracetan (X 2 bottles), Gabapentin, and Fluoxetine. Medications given to security and will be available to patient when she returns. Lost and found tracking #[id number] This CM contacted Rafael at [facility] and he confirms that patient is not there and has taken note that patient's medications are here in the event that she presents to prior to returning to the ER Date Signed: 06/09/2018 10:06 AM Electronically Signed By:Maribeth Peterson RN
== END 2018-06-09 07:02 | disposition home or self-care (01) ==
LOC: EDUNIT#
DX: F10.920 Alcohol use, unspecified with intoxication, uncomplicated (principal); S00.12XA Contusion of left eyelid and periocular area, initial encounter; E86.9 Volume depletion, unspecified; W19.XXXA Unspecified fall, initial encounter; Z59.0 Homelessness
CPT/HCPCS: G0480

== ENCOUNTER 2018-06-11 22:28 | Emergency (ER) | payer MEDICAID ==
[2018-06-11 22:34] VITALS: BP 121/75
[2018-06-11] MEDS ORDERED: CHLORDIAZEPOXIDE 25MG PREPK#6 BTL TAKEHOME ONE (22:47)
--- NOTE | 2018-06-11 22:47 | EDPHY ---
H & P Time Seen by Provider: 06/11/18 22:29 HPI/ROS: CHIEF COMPLAINT: "I think I had a seizure" HISTORY OF PRESENT ILLNESS: 57-year-old homeless female history of alcoholism, history of seizure disorder, well known to the emergency department, arrives via ambulance after a business objects architect called 911 because the patient was slumped over on the bus, possibly sleeping. Patient believes she had a seizure however no bus riders or crew car driver witness any seizure. There is no incontinence. No oral trauma. No fall. Last drink of alcohol was 3 days ago. She was seen the ER 3 days ago and her medications including her Keppra, were left in the hospital, currently lost and found. She has no complaints of pain or discomfort at this time. REVIEW OF SYSTEMS: 10 systems reviewed and negative with the exception of the elements mentioned in the history of present illness PAST MEDICAL & SURGICAL HISTORY: seizure disorder. Alcohol withdrawal seizure. Alcoholism. SOCIAL HISTORY:Last drink of alcohol 3 days ago PHYSICAL EXAM (Prior to examination, patient consented to physical exam, hands were washed and my usual and customary physical exam procedures followed) 1) GENERAL: Alert and oriented. Appears to be in no acute distress. Smiling. Answering questions appropriately. Pleasant. 2) HEAD: Normocephalic, atraumatic 3) HEENT: Pupils equal, round, reactive to light bilaterally. Sclera anicteric. Raccoon eyes. No Nation sign. Nasopharynx, oropharynx, clear, no lesions. Moist Mucous membranes. No evidence of trauma. No laceration or abrasion. Ears bilaterally with normal tympanic membranes. No rhinorrhea. No otorrhea. No hemotympanum. 4) NECK: Full range of motion, no meningeal signs. 5) LUNGS: Clear auscultation bilaterally, no wheezes, no rhonchi, no retractions. 6) HEART: Regular rate and rhythm, no murmur, no heave, no gallop. 7) ABDOMEN: No guarding, no rebound, no focal tenderness, negative McBurney's, negative Hernandez's, negative Rovsing's, negative peritoneal sign, 8) MUSCULOSKELETAL: Moving all extremities, no focal areas of tenderness, no obvious trauma. No peripheral edema or discoloration. 9) BACK: No CVA tenderness, no midline vertebral tenderness, no fluctuance, no step-off, no obvious trauma, no visual or palpable abnormality. 10) SKIN: No rash, no petechiae. 11) Psychiatric: Patient is oriented X 3, there is no agitation. DIFFERENTIAL DIAGNOSIS: In no particular order including but not limited to delirium tremens, alcohol withdrawal seizure, medication noncompliance, breakthrough seizure Smoking Status: Heavy smoker Constitutional: Initial Vital Signs Temperature (C) 36.5 C 06/11/18 22:33 Heart Rate 69 06/11/18 22:33 Respiratory Rate 16 06/11/18 22:33 Blood Pressure 121/75 H 06/11/18 22:33 O2 Sat (%) 100 06/11/18 22:33 O2 Delivery Mode Room Air Allergies/Adverse Reactions: pollen extracts Allergy (Verified 06/08/18 23:30) Home Medications: Medication Instructions Recorded FLUoxetine [Prozac 20 MG (*)] 20 mg PO DAILY 05/29/18 Gabapentin [Neurontin 400 MG (*)] 400 mg PO TID 05/29/18 levETIRAcetam [Keppra 500 mg (*)] 1,000 mg PO BID 05/29/18 levETIRAcetam [Keppra 500 mg (*)] 500 mg PO BID 7 Days tab 06/05/18 MDM/Departure - [facility] ED Course/Re-evaluation: I reviewed the patient's old medical records. Her medications were previously left in the hospital in security has given these medications back to the patient. She has taken her dose of Keppra for the evening. Recommend she keep close track of her medications and stay compliant with her medications. She will be discharged. At this time do not identify definitive indication for diagnostic studies. She is answering questions appropriately. Doubt delirium tremens. Care of patient under supervision of secondary supervising physician Dr Real with whom I discussed case. - Depart Disposition: Home, Routine, Self-Care Clinical Impression: Noncompliance with medication regimen, Seizure disorder Condition: Good Instructions: Chlordiazepoxide (By mouth), Epilepsy (ED) Additional Instructions: Please take your medication as directed. Please consider nursing home sobriety from alcohol Referrals: [facility],. [Clinic] - 1 day without fail [facility] 24 Hours [Outside] - As per Instructions
== END 2018-06-11 23:06 | disposition home or self-care (01) ==
LOC: EDUNIT#
DX: G40.909 Epilepsy, unspecified, not intractable, without status epilepticus (principal); Z91.14 Patient's other noncompliance with medication regimen; F10.10 Alcohol abuse, uncomplicated; Z59.0 Homelessness

== ENCOUNTER 2018-06-13 20:57 | Emergency (ER) | payer MEDICAID ==
[2018-06-13] MEDS ORDERED: NS 1,000 ML IV ONE (21:10)
--- NOTE | 2018-06-13 22:33 | EDPHY ---
H & P Time Seen by Provider: 06/13/18 21:11 HPI/ROS: HPI Seizure. History of seizure disorder. 57-year-old female by ambulance. She is very familiar to our emergency department. She has a history of epilepsy as well as alcohol withdrawal seizures. She reports to have an on witnessed seizure at the local [employer]. She is taking Keppra and states that she has been taking her Keppra as prescribed. She reports she has been drinking today. She does not have any complaints at this time. Please see review of systems for further details. ROS: Constitutional: No fever, no chills. No weakness. Eyes: No discharge. No changes in vision. ENT: No sore throat. No nasal congestion or rhinorrhea. Respiratory: No cough. No shortness of breath. Cardiac: No chest pain, no palpitations. Gastrointestinal: No abdominal pain, no vomiting, no diarrhea. Genitourinary: No hematuria. No dysuria or increased frequency with urination. Musculoskeletal: No back pain. No neck pain. No myalgias or arthralgias. Skin: No rashes. Neurological: As above. No focal weakness or altered sensation. Past medical history: Seizure disorder. Alcohol abuse. Social history: Smoker. Homeless. Alcohol abuse. Physical Exam: General Appearance: Alert, mild agitation which is her baseline. Dirty, disheveled. This patient is responding to questions appropriately and in full sentences. This patient appears well-hydrated and well-nourished. Head: Normocephalic atraumatic. Eyes: Pupils equal and round no pallor or injection. No lid edema, erythema or injection. ENT, Mouth: Mucous membranes are moist. The pharyngeal tissues are unremarkable. No edema or swelling. No asymmetry suggestive of abscess. No erythema or exudates. No tongue lacerations or abrasions. Respiratory: There are no retractions, lungs are clear to auscultation with good air movement bilaterally. Cardiovascular: Regular rate and rhythm. No murmur. Gastrointestinal: Abdomen is soft and nontender, no masses, bowel sounds normal. No focal tenderness at McBurney's point. No Hernandez sign. Neurological: Motor sensory function is grossly intact. Cranial nerves are normal. Gait is normal. Skin: Warm and dry, no rashes. Musculoskeletal: Neck is supple and nontender. Extremities are symmetrical. All joints range without pain or impingement. Psychiatric: No agitation. No depression. Database: EKG: Imaging: Procedures: Emergency department course: Triage vital signs reviewed and are normal. Patient is afebrile. No tongue bite sullivan. Reported seizure but not witnessed. Similar presentations multiple times or emergency department in the past. Blood glucose and sodium unremarkable. I offered transfer to the [facility]. She declines. She often is transferred with both [facility] and [facility] but she refuses to go to the [facility]. [facility]. She is in agreement with this. Follow-up and return to emergency department cautions discussed with her. All of her questions were answered. She was discharged from the emergency department in good condition. Differential Diagnosis: The differential diagnosis on this patient includes but is not limited to seizure, alcohol abuse. Acute traumatic injury, intracranial hemorrhage, hyponatremia, hypoglycemia unlikely. This represents a partial list of diagnoses considered. These considerations are based on history, physical exam , past history, reassessment and diagnostic testing. Smoking Status: Heavy smoker Constitutional: Initial Vital Signs Temperature (C) 36.6 C 06/13/18 21:02 Heart Rate 63 06/13/18 21:02 Respiratory Rate 16 06/13/18 21:02 Blood Pressure 106/75 06/13/18 21:02 O2 Sat (%) 99 06/13/18 21:02 O2 Delivery Mode Room Air Allergies/Adverse Reactions: pollen extracts Allergy (Verified 06/08/18 23:30) Home Medications: Medication Instructions Recorded FLUoxetine [Prozac 20 MG (*)] 20 mg PO DAILY 05/29/18 Gabapentin [Neurontin 400 MG (*)] 400 mg PO TID 05/29/18 levETIRAcetam [Keppra 500 mg (*)] 1,000 mg PO BID 05/29/18 levETIRAcetam [Keppra 500 mg (*)] 500 mg PO BID 7 Days tab 06/05/18 Medical Decision Making - Data Points Laboratory Results: Laboratory Results 06/13/18 21:30 06/13/18 21:30 Sodium 142 mEq/L mEq/L (135-145) Potassium 3.4 mEq/L L mEq/L (3.5-5.2) Chloride 104 mEq/L mEq/L (97-110) Carbon Dioxide 22 mEq/l mEq/l (22-31) Anion Gap 16 mEq/L H mEq/L (6-14) BUN 7 mg/dL mg/dL (7-23) Creatinine 0.4 mg/dL L mg/dL (0.6-1.0) Estimated GFR > 60 Glucose 90 mg/dL mg/dL (70-100) Calcium 9.2 mg/dL mg/dL (8.5-10.4) Medications Given: Discontinued Medications Sodium Chloride (Ns) 1,000 mls @ 0 mls/hr IV EDNOW ONE; Wide Open PRN Reason: Protocol Stop: 06/13/18 21:11 Last Admin: 06/13/18 21:46 Dose: 1,000 mls Departure - Departure Disposition: Home, Routine, Self-Care Clinical Impression: Seizure, Alcohol abuse Condition: Good Instructions: Epilepsy (ED) Additional Instructions: Read and follow provided instructions. Follow-up with your primary care physician in 1-2 days for re-evaluation. Take your seizure medication, Keppra, as prescribed. Return to the emergency department for worsening symptoms or other serious concerns. Referrals: Radha Ramirez DO [Primary Care Provider] - As per Instructions
[2018-06-13 22:44] VITALS: BP 100/65
[2018-06-13] MEDS ORDERED: CHLORDIAZEPOXIDE 25MG PREPK#6 BTL TAKEHOME ONE (23:19)
== END 2018-06-13 22:44 | disposition home or self-care (01) ==
LOC: EDUNIT#
DX: G40.409 Other generalized epilepsy and epileptic syndromes, not intractable, without status epilepticus (principal); E86.9 Volume depletion, unspecified; F10.129 Alcohol abuse with intoxication, unspecified; Z59.0 Homelessness; Z79.899 Other long term (current) drug therapy; F17.200 Nicotine dependence, unspecified, uncomplicated

== ENCOUNTER 2018-06-14 18:14 | Emergency (ER) | payer MEDICAID ==
--- NOTE | 2018-06-14 18:23 | EDPHY ---
H & P Time Seen by Provider: 06/14/18 18:22 HPI/ROS: CHIEF COMPLAINT: Had a seizure today HISTORY OF PRESENT ILLNESS: History of alcohol withdrawal seizures and epilepsy on Keppra but has not had her medications since yesterday because her who lives in a vehicle has her pills. She lives at the long-term. She says she had a seizure today. She denies any alcohol for the last 2 days. Is not currently tremulous. She is worried she is going to have another 1. She currently takes Keppra and her last prescription was for a 1000 mg p. O. Twice daily. REVIEW OF SYSTEMS: Eye: no change in vision ENT: no sore throat Cardiac: no chest pain or syncope Pulmonary: no cough or SOB Abdomen: no vomiting, diarrhea, abdominal pain Musculoskeletal: no back pain Skin: no rash Neuro: no headache Constitutional: no fever : no urinary symptoms A comprehensive 10 point review of systems is otherwise negative aside from elements mentioned in the history of present illness. PAST MEDICAL HISTORY: History and physical dated 05/29/2018 personally reviewed includes seizures on Keppra, alcoholism, negative head CT at that time. Social history: Currently homeless, no recent alcohol. General Appearance: Alert and conversant, cooperative. Eyes: No scleral icterus. ENT, Mouth: Normal mucous membranes. Respiratory: Normal respiratory effort, breath sounds equal, lungs are clear to auscultation. Cardiovascular: Regular rate and rhythm. Gastrointestinal: Abdomen is soft and non tender. Neurological: Alert, face symmetric, normal motor and sensory in extremities. Not tremulous, fluent speech. Skin: Warm and dry, no rashes. Musculoskeletal: No peripheral edema. Psychiatric: Not agitated. Emergency Department course/MDM: Patient with known seizure disorder presents with probable breakthrough seizure from medication noncompliance related to social situation. She does not appear to be in acute alcohol withdrawal or delirium tremens, or status epilepticus. Restarted on her Keppra. Smoking Status: Heavy smoker Constitutional: Initial Vital Signs Temperature (C) 36.6 C 06/14/18 18:27 Heart Rate 71 06/14/18 18:27 Respiratory Rate 16 06/14/18 18:27 Blood Pressure 119/75 06/14/18 18:27 O2 Sat (%) 97 06/14/18 18:27 O2 Delivery Mode Room Air Allergies/Adverse Reactions: pollen extracts Allergy (Verified 06/08/18 23:30) Home Medications: Medication Instructions Recorded FLUoxetine [Prozac 20 MG (*)] 20 mg PO DAILY 05/29/18 Gabapentin [Neurontin 400 MG (*)] 400 mg PO TID 05/29/18 levETIRAcetam [Keppra 500 mg (*)] 1,000 mg PO BID 05/29/18 levETIRAcetam [Keppra 500 mg (*)] 500 mg PO BID 7 Days tab 06/05/18 LEVETIRACETAM [Keppra 1000 mg] 1,000 mg PO Q12 #14 tab 06/14/18 Departure - Departure Disposition: Home, Routine, Self-Care Clinical Impression: Seizure disorder Condition: Good Instructions: Epilepsy (ED) Referrals: Radha Ramirez DO [Primary Care Provider] - As per Instructions
[2018-06-14] MEDS ORDERED: levETIRAcetam 500 MG TAB PO ONE (18:31)
[2018-06-14 19:42] VITALS: BP 99/60
== END 2018-06-14 19:42 | disposition home or self-care (01) ==
LOC: EDUNIT#
DX: G40.409 Other generalized epilepsy and epileptic syndromes, not intractable, without status epilepticus (principal); Z79.899 Other long term (current) drug therapy; Z59.0 Homelessness

== ENCOUNTER 2018-06-16 19:41 | Emergency (ER) | payer MEDICAID ==
[2018-06-16] MEDS ORDERED: NS 1,000 ML IV ONE (19:44)
[2018-06-16] MEDS ORDERED: levETIRAcetam 1000MG/NACL 100 ML IV ONE (19:45)
[2018-06-16] MEDS ORDERED: levETIRAcetam 500 MG TAB PO ONE (20:02)
[2018-06-16] MEDS ORDERED: levETIRAcetam 500 MG TAB ONE (20:11)
--- NOTE | 2018-06-16 20:15 | EDPHY ---
H & P Smoking Status: Heavy smoker Time Seen by Provider: 06/16/18 19:44 HPI/ROS: HPI Seizure versus fall. A 57-year-old female by ambulance. She is very familiar to our emergency department and staff. She presents the emergency department frequently with complaints related to her alcohol abuse and seizure disorder. She has been drinking alcohol. She fell striking the right posterior parietal aspect of her head. It is unclear if she fell secondary to alcohol intoxication or had a seizure. She is notoriously noncompliant with her Keppra. She complains of a headache in the area where she hit her head. ROS: Constitutional: No fever, no chills. As above. Eyes: No discharge. No changes in vision. ENT: No sore throat. No nasal congestion or rhinorrhea. Respiratory: No cough. No shortness of breath. Cardiac: No chest pain, no palpitations. Gastrointestinal: No abdominal pain, no vomiting, no diarrhea. Genitourinary: No hematuria. No dysuria or increased frequency with urination. Musculoskeletal: No back pain. No neck pain. No myalgias or arthralgias. Skin: No rashes. Neurological: As above. No focal weakness or altered sensation. Past medical history: Alcohol abuse. Homeless. Seizure disorder. Social history: Homeless. Alcohol abuse. Smoker. Physical Exam: General Appearance: She is alert. She is obviously intoxicated. Strong odor of alcohol on her breath. Dirty and disheveled. This patient is responding to questions appropriately and in full sentences. This patient appears well- hydrated and well-nourished. Head: She has a subtle right posterior parietal scalp hematoma without laceration. No bony deformity or step-off noted on palpation of this area. Eyes: Pupils equal and round no pallor or injection. No lid edema, erythema or injection. ENT, Mouth: Mucous membranes are moist. The pharyngeal tissues are unremarkable. No edema or swelling. No asymmetry suggestive of abscess. No erythema or exudates. No tongue lacerations or abrasions. Respiratory: There are no retractions, lungs are clear to auscultation with good air movement bilaterally. Cardiovascular: Regular rate and rhythm. No murmur. Gastrointestinal: Abdomen is soft and nontender, no masses, bowel sounds normal. No focal tenderness at McBurney's point. No Hernandez sign. Neurological: Motor sensory function is grossly intact. Cranial nerves are normal. Gait is normal. Skin: Warm and dry, no rashes. Musculoskeletal: Neck is supple and nontender. No midline cervical, thoracic, lumbar tenderness on palpation. Extremities are symmetrical. All joints range without pain or impingement. Psychiatric: No agitation. No depression. Database: EKG: Imaging: CT head without contrast: No acute pathology. Atrophy. Results were discussed with staff radiologist Dr. Eduardo Garcia. Procedures: Emergency department course: Triage vital signs reviewed. She is mildly bradycardic. Vital signs are otherwise normal. She is afebrile. CT imaging of her head to be obtained. She will be given 1 g of oral Keppra. 8:30 p.m., informed the patient is not welcome at the [facility]. Plan will be to allow to appropriately sober in the emergency department and then discharge her to the [facility]. Care will be turned over to Dr. Hao Cowart at 9:00 p.m.. Differential Diagnosis: The differential diagnosis on this patient includes but is not limited to alcohol intoxication, fall from ground level, possible seizure, history of seizure disorder. This represents a partial list of diagnoses considered. These considerations are based on history, physical exam, past history, reassessment and diagnostic testing. (Justin Watters) Constitutional: Initial Vital Signs Temperature (C) 36.4 C 06/16/18 19:46 Heart Rate 52 L 06/16/18 19:46 Respiratory Rate 18 06/16/18 19:46 Blood Pressure 122/79 H 06/16/18 19:46 O2 Sat (%) 96 06/16/18 19:46 O2 Delivery Mode Nasal Cannula O2 (L/minute) 1 Allergies/Adverse Reactions: pollen extracts Allergy (Verified 06/08/18 23:30) Home Medications: Medication Instructions Recorded FLUoxetine [Prozac 20 MG (*)] 20 mg PO DAILY 05/29/18 Gabapentin [Neurontin 400 MG (*)] 400 mg PO TID 05/29/18 levETIRAcetam [Keppra 500 mg (*)] 1,000 mg PO BID 05/29/18 levETIRAcetam [Keppra 500 mg (*)] 500 mg PO BID 7 Days tab 06/05/18 LEVETIRACETAM [Keppra 1000 mg] 1,000 mg PO Q12 #14 tab 06/14/18 Medical Decision Making Other Provider: Care the patient is assumed from Dr. Watters at 9:00 p.m.. Patient had a seizure today and is intoxicated. She has history of both alcoholism and seizure disorder with poor medication compliance. She is not welcome at detox. She had a negative head CT today and was loaded with oral Keppra. Plan for discharge when she is no longer intoxicated. 2330: Signed out to Floridalma plan as above. (Hao Cowart) 2:48 a.m.- Patient now able to walk without difficulty, ambulated to the bathroom. I will discharge her. (Ayde Hedrick) - Data Points Medications Given: Discontinued Medications Levetiracetam (Keppra) 1,000 mg PO EDNOW ONE Stop: 06/16/18 20:03 Last Admin: 06/16/18 20:10 Dose: 1,000 mg Departure - Departure Disposition: Home, Routine, Self-Care Clinical Impression: History of seizures Alcohol intoxication Qualifiers: Complication of substance-induced condition: uncomplicated Qualified Code(s): F10.920 - Alcohol use, unspecified with intoxication, uncomplicated Condition: Good Instructions: Abuse of Alcohol (ED), Recurrent Seizures in Adults (ED) Additional Instructions: Read and follow provided instructions. Follow-up with your primary care physician at [facility] in 2-3 days for re -evaluation. Take your seizure medication as prescribed. 1, 500 mg tablet twice daily. Return to the emergency department for worsening symptoms or other serious concerns. Referrals: [facility],. [Clinic] - As per Instructions
[2018-06-16] MEDS ORDERED: LORazepam 2 MG/ML INJ IVP PRN (20:32)
[2018-06-16] MEDS ORDERED: LORazepam 1 MG TAB PO PRN (20:32)
[2018-06-17 02:16] VITALS: BP 104/71
== END 2018-06-17 02:52 | disposition home or self-care (01) ==
LOC: EDUNIT#
DX: S00.03XA Contusion of scalp, initial encounter (principal); G40.909 Epilepsy, unspecified, not intractable, without status epilepticus; F10.920 Alcohol use, unspecified with intoxication, uncomplicated; F17.200 Nicotine dependence, unspecified, uncomplicated; W22.8XXA Striking against or struck by other objects, initial encounter
CPT/HCPCS: J1953

== ENCOUNTER 2018-06-22 05:00 | Observation (INO) | payer MEDICAID ==
[2018-06-22] MEDS ORDERED: NS 1,000 ML IV ONE (05:29)
--- NOTE | 2018-06-22 05:39 | EDPHY ---
H & P Stated Complaint: EMS reports witnessed grand mal seizure lasting 1 minute. ETOH @0000 Time Seen by Provider: 06/22/18 05:38 HPI/ROS: HPI CHIEF COMPLAINT: Seizure, left thumb pain, right-sided chest pain HISTORY OF PRESENT ILLNESS: This patient is a 57-year-old female, well known to myself as well as the emergency room, history of alcoholism daily alcohol use. She reports her last drink was 2 days ago. 911 was called by bystanders after they witnessed her have a generalized tonic-clonic seizure for approximately a minute. EMS does report that she was postictal. She does complain that she bit her right side of her tongue. No tongue laceration. Additionally she complaining of left thumb pain it has been hurting her for few days. Additionally complains of right-sided chest pain in 1 focal area that is reproducible on exam when you palpate there. No pleuritic pain. No cough. Denies left-sided chest pain or chest pressure. Denies vomiting. Patient denies any chest wall trauma or being hit there falling. Patient states she has not been compliant with her Dilantin. She believes she had a seizure tonight due to alcohol withdrawal possibly not compliant with her Dilantin. Past Medical History: History of alcoholism daily alcohol use, alcohol withdrawal seizures, on top of seizure disorder Past Surgical History: Denies recent surgery Social History: Homeless with daily alcohol use. Family History: Noncontributory ROS REVIEW OF SYSTEMS: 10 Systems were reviewed and negative with the exception of the elements mentioned in the history of present illness. Exam Constitutional nontoxic no acute distress triage nursing summary reviewed, vital signs reviewed, awake/alert. Vital signs stable. Eyes normal conjunctivae and sclera, EOMI, PERRLA. HENT normal inspection, atraumatic, moist mucus membranes, no epistaxis, neck supple/ no meningismus, no raccoon eyes. Respiratory clear to auscultation bilaterally, normal breath sounds, no respiratory distress, no wheezing. Cardiovascular right chest wall: Tender palpation reproducible on exam in 1 focal area no crepitus. rate normal, regular rhythm, no murmur, no edema, distal pulses normal. Gastrointestinal soft, non-tender, no rebound, no guarding, normal bowel sounds, no distension, no pulsatile mass. Genitourinary no CVA tenderness. Musculoskeletal left thumb: Swollen but no redness. Focally tender on the dorsum of the left thumb mid thumb. No crepitus. No abscess. No cellulitis. no midline vertebral tenderness, full range of motion, no calf swelling, no tenderness of extremities, no meningismus, good pulses, neurovascularly intact. Skin pink, warm, & dry, no rash, skin atraumatic. Neurologic awake, alert and oriented x 3, AAOx3, moves all 4 extremities equally, motor intact, sensory intact, CN II-XII intact, normal cerebellar, normal vision, normal speech. Psychiatric normal mood/affect. Heme/Lymph/Immune no lymphadenopathy. 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 Check Dilantin level. Re-evaluation: 0549: Patient now having a generalized clonic tonic seizure in the emergency room lasting 45 sec. Witnessed by myself. Postictal. EKG interpretation by me on record in [employer] system. Impression time of EKG 617am, sinus rhythm rate of 87, without any signs of acute ischemia. Left thumb x-ray reviewed this shows a thumb fracture. Patient be splinted due to thumb fracture. Chest x-ray reviewed negative for acute traumatic injury. CT scan head without contrast for seizure and alcoholism: CT scan head without contrast obtained due to seizures and alcohol intoxication , this shows no acute intracranial abnormality. This was faxed me by direct Radiology at 6:50 a.m.. Plan for admission to the hospitalist service for recurrent seizures. It is noted the patient has a negative troponin, unremarkable EKG. CT scan head without contrast negative for acute bleed. Patient to be admitted for recurrent seizures. Alcohol level was elevated. Dr. Nicholson Consulted.. Agrees to admit. Source: Patient, EMS - Personal History Current Tetanus/Diphtheria Vaccine: Yes Current Tetanus Diphtheria and Acellular Pertussis (TDAP): Yes Tetanus Vaccine Date: 2014 - Medical/Surgical History Hx Asthma: No Hx Chronic Respiratory Disease: No Hx Diabetes: No Hx Cardiac Disease: No Hx Renal Disease: No Hx Cirrhosis: No Hx Alcoholism: Yes Hx HIV/AIDS: No Hx Splenectomy or Spleen Trauma: No Other PMH: Alcoholism, seizures - Social History Smoking Status: Heavy smoker Constitutional: Initial Vital Signs Temperature (C) 36.8 C 06/22/18 05:03 Heart Rate 79 06/22/18 05:03 Respiratory Rate 18 06/22/18 05:03 Blood Pressure 141/92 H 06/22/18 05:03 O2 Sat (%) 96 06/22/18 05:03 O2 Delivery Mode Oxymask O2 (L/minute) 6 Allergies/Adverse Reactions: pollen extracts Allergy (Verified 06/22/18 05:03) Home Medications: Medication Instructions Recorded Baclofen 5 mg PO TID 06/22/18 FLUoxetine [Prozac 20 MG (*)] 40 mg PO DAILY 06/22/18 Gabapentin 600 mg PO TID 06/22/18 Naltrexone HCl [Revia 50mg (RX)] 50 mg PO DAILY 06/22/18 levETIRAcetam [Keppra] 1,500 mg PO BID 06/22/18 Medical Decision Making - Data Points Laboratory Results: Laboratory Results 06/22/18 05:45 06/22/18 05:45 Medications Given: Acetaminophen (Tylenol) 650 mg PO Q4HRS PRN PRN Reason: Pain, Mild/Fever, Can Take PO Stop: 12/19/18 08:57 Last Admin: 06/22/18 21:10 Dose: 650 mg Albuterol/Ipratropium (Duoneb) 3 ml IH QID [facility] Stop: 12/19/18 11:59 Last Admin: 06/22/18 22:12 Dose: 3 ml Ethyl Alcohol (Vodka) 50 ml PO DAILY AT 6PM [facility] Stop: 12/19/18 17:59 Last Admin: 06/22/18 17:16 Dose: 50 ml Ethyl Alcohol (Vodka) 50 ml PO DAILY@1200 [facility] Stop: 12/19/18 11:59 Last Admin: 06/22/18 12:22 Dose: 50 ml Folic Acid (Folic Acid) 1 mg PO DAILY [facility] Stop: 12/19/18 16:29 Last Admin: 06/22/18 17:15 Dose: 1 mg Gabapentin (Neurontin) 400 mg PO TID [facility] Stop: 12/19/18 09:14 Last Admin: 06/22/18 21:18 Dose: 400 mg Sodium Chloride (Ns) 1,000 mls @ 125 mls/hr IV CONT [facility] Stop: 12/19/18 08:59 Last Admin: 06/22/18 09:33 Dose: 1,000 mls Thiamine HCl 500 mg/ Sodium (Chloride) 105 mls @ 210 mls/hr IV DAILY [facility] Stop: 12/19/18 16:29 Last Admin: 06/22/18 17:15 Dose: 105 mls Levetiracetam (Keppra) 1,500 mg PO BID [facility] Stop: 12/19/18 20:59 Last Admin: 06/22/18 20:33 Dose: 1,500 mg Nicotine (Nicoderm Cq) 21 mg TD DAILY [facility] Stop: 12/19/18 08:59 Last Admin: 06/22/18 09:33 Dose: 21 mg Ondansetron HCl (Zofran) 4 mg IVP Q4HRS PRN PRN Reason: Nausea/Vomiting, Can't Take PO Stop: 12/19/18 08:57 Last Admin: 06/22/18 20:49 Dose: 4 mg Discontinued Medications Sodium Chloride (Ns) 1,000 mls @ 0 mls/hr IV EDNOW ONE; Wide Open PRN Reason: Protocol Stop: 06/22/18 05:30 Last Admin: 06/22/18 05:35 Dose: 1,000 mls Levetiracetam (Keppra (Premix)) 100 mls @ 400 mls/hr IV EDNOW ONE Stop: 06/22/18 06:03 Last Admin: 06/22/18 06:37 Dose: 100 mls Lorazepam (Ativan Injection) 1 mg IVP EDNOW ONE Stop: 06/22/18 05:44 Last Admin: 06/22/18 06:38 Dose: Not Given Lorazepam (Ativan Injection) 2 mg IVP EDNOW ONE Stop: 06/22/18 05:58 Last Admin: 06/22/18 05:46 Dose: 2 mg Point of Care Test Results: Chemistry 06/22/18 06:24 POC Troponin I 0.00 ng/mL ng/mL (0.00-0.08) Departure - Departure Disposition: [facility] Clinical Impression: Seizure Alcohol intoxication Qualifiers: Complication of substance-induced condition: uncomplicated Qualified Code(s): F10.920 - Alcohol use, unspecified with intoxication, uncomplicated Thumb fracture Qualifiers: Encounter type: initial encounter Fracture type: closed Phalanx: unspecified phalanx Fracture alignment: displaced Laterality: left Qualified Code(s): S62.502A - Fracture of unspecified phalanx of left thumb, initial encounter for closed fracture Condition: Fair
[2018-06-22] MEDS ORDERED: LORazepam 2 MG/ML INJ IVP ONE ×2 (05:43→05:57)
[2018-06-22] MEDS ORDERED: levETIRAcetam 1000MG/NACL 100 ML IV ONE (05:49)
[2018-06-22 05:59] LABS: PLATELET COUNT 114 10^3/uL (150-400)
--- NOTE | 2018-06-22 07:23 | CPEKG ---
Test Reason : OPEN Blood Pressure : / mmHG Vent. Rate : 087 BPM Atrial Rate : 088 BPM P-R Int : 180 ms QRS Dur : 095 ms QT Int : 356 ms P-R-T Axes : 041 052 016 degrees QTc Int : 429 ms Sinus rhythm Confirmed by Morris Braden ([id number]) on 06/22/2018 7:22:38 AM Referred By: Morris Braden Confirmed By:Morris Braden
[2018-06-22] MEDS ORDERED: ONDANSETRON DISINTEGRATING 4 MG TAB PO PRN (08:58)
[2018-06-22] MEDS ORDERED: ONDANSETRON 4 MG/2 ML VIAL IVP PRN (08:58)
[2018-06-22] MEDS ORDERED: NS 1,000 ML IV SCH (09:00)
[2018-06-22] MEDS ORDERED: LORazepam 2 MG/ML INJ IVP PRN (09:03)
[2018-06-22] MEDS: NICOTINE 21 MG/24 HR PATCH TD SCH (09:33)
--- NOTE | 2018-06-22 09:49 | GHP ---
[f rep st] HISTORY AND PHYSICAL DATE OF ADMISSION: 06/22/2018 CHIEF COMPLAINT: Seizure with left thumb pain and right-sided chest pain. HISTORY OF PRESENT ILLNESS: The patient is a 57-year-old female who recently discharged on May 30 of this year. She has had over 20 ER visits since the first of this year. She has frequent seizures, which are likely a combination of alcohol withdrawal and noncompliance with seizure medication. There is also a question of nonepileptic seizures. She presented to the emergency room today after by-standers witnessed a tonic-clonic seizure for approximately a minute. EMS reported that she was postictal. She was complaining of left thumb pain and also was complaining of some right sided chest pain in 1 focal area that is reproducible. During my interview she says that she is compliant with her Keppra. She is homeless. She has an area that she hides her medications and says she has access to them. When I asked her what brought her into the hospital she said she had no recollection of the seizure. She also is complaining of some numbness to her knees. She has had a recent weight loss of 8 pounds. She has no complaints of shortness of breath. Her appetite has overall been good. She denies any frequency or urgency with urination. Overall , she is feeling fine. She is actually anxious to be discharged. In regard to her alcohol use, she says that she drinks essentially Fridays and Saturdays and drinks a pint at that time. During my interview, she is no longer postictal and is very interactive. PAST MEDICAL HISTORY: 1. Seizure disorder. 2. Homelessness. 3. Depression. 4. Alcohol abuse. PAST SURGICAL HISTORY: Tonsillectomy. SOCIAL HISTORY: She is homeless. She is , but she is not currently with her . She has 2 children. Her previous history said that she drinks a pint of vodka daily since age 15. She says that she drinks only Fridays and Saturdays. She smokes a pack of cigarettes daily. FAMILY HISTORY: Her mom is . ALLERGIES: Pollen. HOME MEDICATIONS: Which have not been reconciled; Keppra 1500 mg b.i.d. REVIEW OF SYSTEMS: A 10-point review of system was performed, was negative other than the pertinent positives in HPI and past medical history. PHYSICAL EXAM: GENERAL: The patient is a 57-year-old female who appears disheveled and older than her stated years. VITAL SIGNS: Blood pressure is 133/95, heart rate of 86, respiratory rate is 16 , O2 sats on 5 L are 95%, temperature 36.9 Celsius. EYES: Pupils are equal reactive. EOMs are intact. She has positive conjunctival injection in both eyes. ENT: Normal ears. Hearing intact. NECK: Trachea is midline. CARDIOVASCULAR: She has regular rate and rhythm. No murmurs, rubs, or gallops noted. CHEST: Lungs normal respiratory effort. Diminished at the bases. Otherwise clear. ABDOMEN: Soft, rounded, nontender. SKIN: No rashes or ulcers. EXTREMITIES: Her left thumb has good CMS. It is in a splint. PSYCHIATRIC: She appears to be alert and oriented. Normal mood, affect, judgment, insight and memory. DATA: Reviewed. A CBC shows a white blood cell count 2.79, hemoglobin of 13.9 and hematocrit of 39.2, platelet count of 114. Chemistry: Sodium is 137, potassium 4.3, chloride of 101, CO2 of 20, creatinine of 0.4. Her ethyl alcohol is 147. Head CT is negative for any acute intracranial hemorrhage or subdural hematoma or mass. Finger x-ray shows an acute minimally displaced fracture of the base of the phalanx of the thumb. Chest x-ray shows minimal right infrahilar atelectasis, otherwise clear lungs. EKG showed sinus rhythm. ASSESSMENT/PLAN: 1. Seizures, unclear if she has been noncompliant or caused by alcohol use versus some type of underlying epilepsy disorder. Spoke with Neurology. They will see her today. Continue seizure precautions. Continue Keppra. 2. Left thumb fracture. This is minimally displaced. Will continue a splint. 3. Alcohol use and abuse. Reviewed with her if she would want to consider still stop drinking and she said no, she would prefer to have alcohol. Vodka has been ordered with lunch and dinner. 4. Chest pain, Troponin was negative. Likely muscular pain from seizure. Will get a second troponin. 6. Nicotine dependence. Patch ordered. 7. Homelessness. At this time she would prefer to return to the street. 8. Deep venous thrombosis prophylaxis. Low risk. 9 The patient will be admitted for observation status. This can be reevaluated in the morning. /[id number]/MODL MTDD
--- NOTE | 2018-06-22 11:10 | ASMTLACE ---
DAVID Comorbidities - select Answers: Other Notes: Seizure disorder all that apply # of Emergency department Answers: 12+ visits in the last 6 months Social determinants Answers: History of substance abuse (ETOH, street drugs, prescription drugs, etc.) Homelessness (street, retirement) Mental health diagnosis (anxiety, depression, pers onality disorders, etc.) Score: 16 Date Signed: 06/22/2018 11:09 AM Electronically Signed By:Laura Telles
[2018-06-22] MEDS: GABAPENTIN 400 MG CAP PO SCH ×3 (11:22→21:18)
[2018-06-22] MEDS: IPRATROPIUM/ALBUTEROL 3 ML DEYVIAL IH SCH ×3 (11:45→22:12)
[2018-06-22] MEDS: VODKA 50 ML BOTTLE PO SCH (12:22)
--- NOTE | 2018-06-22 13:20 | GCON ---
[f rep st] CONSULTATION NEUROLOGY CONSULTATION DATE OF CONSULTATION: 06/22/2018 REFERRING PHYSICIAN: Belkis Hope NP CHIEF COMPLAINT: Seizure. HISTORY OF PRESENT ILLNESS: The patient is a very pleasant 57-year-old lady who we know well for multiple admissions for seizures. She was recently discharged on May 30 for similar problems. Indeed, I consulted on this patient on May 30, as well as multiple times in the past. This patient is a known alcoholic and continues to drink. It is unclear whether she has epilepsy or only alcohol withdrawal seizures versus comorbid nonepileptic events. She has been referred to the [facility] ([place], [place]) for monitoring, but has not followed up yet. She was prescribed Keppra 1500 mg b.i.d. and gabapentin 400 mg t.i.d. The patient states she missed at least 2 consecutive doses of both medications. She apparently had a seizure in the field and EMS was activated. She then had a 2nd seizure in the emergency department. It was a witnessed tonic-colonic for approximately 1 minute. She is now back to her baseline and being treated with withdrawal protocol. The patient's blood alcohol level was 147. She states her last drink was yesterday or the day before. She is currently homeless and has significant psychosocial challenges. For past medical history, surgical history, social history, family history, allergies, home medications, please see the patient's H and P. REVIEW OF SYSTEMS: Ten-point review of systems was done, only pertinent to the HPI. PHYSICAL EXAM: VITAL SIGNS: Blood pressure 133/95, heart rate 86, respirations 16. GENERAL: No acute distress. She is awake and alert. On higher mental function, she appears to have some psychomotor slowing, likely due to her blood alcohol content. Otherwise, there is no aphasia. Cranial nerve exam shows normal extraocular movements and facial strength and sensation. On motor exam, she has no focal weakness and no convulsive movements in my presence. There is no evidence of ongoing subclinical seizure activity. Sensory exam is normal to light touch. Coordination is unremarkable in the lower extremities. IMPRESSION/PLAN: 1. Seizures. 2. Alcoholism. This patient returns for breakthrough seizures. We still do not understand whether she has purely provoked seizures from alcohol withdrawal versus an unprovoked seizures in the setting of a seizure disorder versus comorbid nonepileptic events. Certainly, she may have a combination of the 3 types of events. She has seen our practice as an outpatient in the last few months and was referred to the [facility] ([place], [place]) for monitoring to clarify the above. We discussed this again today and she would be able to follow up with this recommendation by taking a bus to the [facility]. She has information to make this appointment and the referral has been made. At this point, we will continue Keppra 1500 mg. b.i.d. and gabapentin 400 mg t.i.d., as she missed at least 2 consecutive doses of both these medications leading to the seizures. Therefore, the seizure could have been simply from a combination of medication noncompliance and alcohol withdrawal symptoms. Not clear. She is on indefinite driving restrictions and seizure precautions. She has no side effects from these medications that she knows of. She has been on this dose for some time. We will not change the dose today. She needs to be on alcohol withdrawal protocol, supplemental thiamine and banana bag. No further recommendations. We will continue to follow through the patient as needed while she is here in the hospital. Please do not hesitate to call if there are any questions or changes in her neurologic status. She should be on seizure precautions while in the hospital. Fifty total minutes floor time; over 50% in direct counseling and coordination of care. /[id number]/MODL MTDD
[2018-06-22] MEDS: THIAMINE HCL 500 MG in NS 100 ML IV SCH (17:15)
[2018-06-22] MEDS: FOLIC ACID 1 MG TAB PO SCH (17:15)
[2018-06-22] MEDS: ACETAMINOPHEN 325 MG TAB PO PRN ×2 (17:21→21:10)
[2018-06-22] MEDS ORDERED: VODKA 50 ML BOTTLE PO SCH (18:00)
[2018-06-22] MEDS: levETIRAcetam 500 MG TAB PO SCH (20:33)
[2018-06-23] MEDS ORDERED: levETIRAcetam 500 MG TAB PO SCH
[2018-06-23] MEDS: IPRATROPIUM/ALBUTEROL 3 ML DEYVIAL IH SCH ×2 (05:59→11:33)
[2018-06-23] MEDS: THIAMINE HCL 500 MG in NS 100 ML IV SCH (08:41)
[2018-06-23] MEDS: NICOTINE 21 MG/24 HR PATCH TD SCH (08:41)
[2018-06-23] MEDS: GABAPENTIN 400 MG CAP PO SCH (08:42)
[2018-06-23] MEDS: FOLIC ACID 1 MG TAB PO SCH (08:42)
[2018-06-23] MEDS: levETIRAcetam 500 MG TAB PO SCH (08:42)
[2018-06-23] MEDS ORDERED: MULTIVITAMINS 1 EACH TAB PO SCH (09:00)
--- NOTE | 2018-06-23 11:27 | GDS ---
[f rep st] DISCHARGE SUMMARY DISCHARGE DIAGNOSES: 1. Seizure. 2. Seizure disorder. 3. Homelessness. 4. Depression. 5. Alcohol abuse with history of alcohol withdrawal. CONSULTATION: Neurology HISTORY OF PRESENT ILLNESS: 57-year-old female with seizure disorder and alcohol use, who was discha rged May 30 with alcohol withdrawal and noncompliance with seizure medication. She presented to [facility] yesterday after bystanders witnessed a tonic-clonic seizure for approximately 1 minute. EMS report ed she was postictal. She says she has missed 3 to 4 days of her Keppra and gabapentin. HOSPITAL COURSE BY PROBLEM: 1. Witnessed seizure: Likely due to medication noncompliance. Neurology evaluated. We will contin ue home gabapentin 600 mg t.i.d. and Keppra 1500 mg b.i.d. 2. Alcohol dependence: History of withdrawal, not needing Ativan for CIWA. She does not want to qu it. She was counseled on cessation. 3. Minimally displaced fracture of the base of the phalanx: Continue splint. 4. Chest pain, likely muscular in nature with seizure: Troponins, EKG, x-ray were negative. 5. Nicotine dependence: Counseled on cessation. 6. Homelessness: She prefers to return to the street. DISPOSITION: Patient is safe for discharge home. DISCHARGE MEDICATIONS: New Medications: None. She is provided 3 days of medications due to financi al issues. FOLLOWUP: She should follow up with her clinic on Monday. PHYSICAL EXAMINATION: VITAL SIGNS: Today, temperature 36.8, blood pressure 112/74, heart rate in th e 60s, respiratory rate 15, 96% on room air. GENERAL: She is disheveled, in no acute distress. VARINDER NT: PERRLA. Moist mucous membranes. CV: Regular rate and rhythm. LUNGS: Clear. MUSCULOSKELETAL : Left thumb splint. NEURO: 2 through 12 intact. No tongue fasciculation or hand tremors. PSYCH: Alert and oriented x3. TIME SPENT ON DISCHARGE: Greater than 30 minutes coordinating with Case Management, providing medica tions and counseling patient. /[id number]/MODL
[2018-06-23 11:34] VITALS: BP 106/76
[2018-06-23] MEDS: VODKA 50 ML BOTTLE PO SCH (13:16)
--- NOTE | 2018-06-23 13:31 | ASMTCMCOM ---
CM Note CM Note Notes: Pt in with seizure, ETOH. Pt known to [facility], she has had over 20 visits to the ED this year. Pt has been non-compliant with seizure meds. Pt verbalizes she does not want to stop drinking and is receiving vodka in the hospital. Pt medically stable for d/c. Pt is reserved a assisted bed and provided a bus pass. Pt is not with her now, reports he has her Keppra and Gabapentin and she may be able to locate him. Since pt pharmacy at [facility] is inaccessible on the weekend as well as [facility] three days worth of meds is MAPed for pt. Pt reports she will follow up at [facility] this week for more medication. Pt also provided pants and shoes. Date Signed: 06/23/2018 01:31 PM Electronically Signed By:ISHAN Irwin
[2018-06-23] MEDS ORDERED: GABAPENTIN 300 MG CAP PO SCH ×2 (16:00)
== END 2018-06-23 15:31 | disposition home or self-care (01) ==
LOC: EDUNIT# → F3N 08:47
PROVIDERS: ADMIT Family Medicine; ATTEND Internal Medicine
DX: G40.89 Other seizures (principal); F10.24 Alcohol dependence with alcohol-induced mood disorder; Y90.6 Blood alcohol level of 120-199 mg/100 ml; S62.502A Fracture of unspecified phalanx of left thumb, initial encounter for closed fracture; X58.XXXA Exposure to other specified factors, initial encounter; R07.89 Other chest pain; F32.9 Major depressive disorder, single episode, unspecified; F17.210 Nicotine dependence, cigarettes, uncomplicated; Z59.0 Homelessness; Z91.19 Patient's noncompliance with other medical treatment and regimen
CPT/HCPCS: 70450; 71045; 73140; 93005; 96361; 96374; 96375; 99285; G0378; 84484-ER; G0480; J1953; J2060; J2405; J3411; L3925

== ENCOUNTER 2018-07-07 20:26 | Emergency (ER) | payer MEDICAID | END 2018-07-07 21:46 ==

== ENCOUNTER 2018-07-11 19:57 | Emergency (ER) | payer MEDICAID | END 2018-07-12 05:55 | disposition home or self-care (01) ==

== ENCOUNTER 2018-07-12 22:31 | Emergency (ER) | payer MEDICAID | END 2018-07-13 06:29 | disposition home or self-care (01) ==

== ENCOUNTER 2018-07-14 18:21 | Emergency (ER) | payer MEDICAID | END 2018-07-14 18:51 | disposition home or self-care (01) ==

== ENCOUNTER 2018-07-15 09:36 | Emergency (ER) | payer MEDICAID | END 2018-07-15 11:45 | disposition home or self-care (01) ==

== ENCOUNTER 2018-07-15 13:21 | Emergency (ER) | payer MEDICAID | END 2018-07-15 16:22 | disposition home or self-care (01) ==

== ENCOUNTER 2018-07-21 22:16 | Emergency (ER) | payer MEDICAID | END 2018-07-21 22:25 | disposition home or self-care (01) ==

== ENCOUNTER 2018-07-22 23:33 | Emergency (ER) | payer MEDICAID | END 2018-07-23 01:37 | disposition home or self-care (01) ==

== ENCOUNTER 2018-07-26 05:16 | Emergency (ER) | payer MEDICAID | END 2018-07-26 08:44 | disposition home or self-care (01) ==